=== PATIENT | female | born 1945 | race Caucasian/White ===

== ENCOUNTER 2017-05-29 12:00 | Emergency (ER) | payer MEDICARE ==
[2017-05-29 12:30] VITALS: RESP 18
[2017-05-29] MEDS ORDERED: SODIUM CHLORIDE 0.9% 1,000 ML IV STA (12:39)
--- NOTE | 2017-05-29 12:42 | ED ---
General Adult HPI - General Chief complaint: Recheck/Abnormal Lab/Rx Stated complaint: Abnormal Labs Time Seen by Provider: 05/29/17 12:34 Source: patient, RN notes reviewed, old records reviewed Mode of arrival: wheelchair Limitations: no limitations - History of Present Illness Initial comments: This is a 71-year-old female to the ER for evaluation today. The patient presents to the ER for evaluation of abnormal lab tests, patient is on a potassium per outpatient lab testing. Patient is not on oral supplementation any longer she has stopped that medication. Patient denies any complaints. No chest pain source of breath. - Related Data Home Medications Medication Instructions Recorded Confirmed Atorvastatin [Lipitor] 40 mg PO HS 05/29/17 05/29/17 Bumetanide 2 mg PO BID 05/29/17 05/29/17 Cholecalciferol [Vitamin D3] 1,000 unit PO DAILY 05/29/17 05/29/17 Citrical With Vitamin D 1 tab PO DAILY 05/29/17 05/29/17 Gabapentin [Neurontin] 300 mg PO TID 05/29/17 05/29/17 Glimepiride [Amaryl] 4 mg PO AC-BID 05/29/17 05/29/17 HYDROcodone/APAP 10-325MG [[place] 1 tab PO Q4HR PRN 05/29/17 05/29/17 10-325] Hydrocortisone Cream 1 applic TOPICAL DAILY PRN 05/29/17 05/29/17 [Hydrocortisone 2.5% Cream] Ketoconazole [Ketoconazole 2%] 1 applic TOPICAL DAILY PRN 05/29/17 05/29/17 Levothyroxine Sodium [Synthroid] 125 mcg PO DAILY 05/29/17 05/29/17 Lisinopril 40 mg PO BID 05/29/17 05/29/17 Metolazone [Zaroxolyn] 5 mg PO DAILY 05/29/17 05/29/17 Multivitamin [Multivitamins Adult 1 tab PO DAILY 05/29/17 05/29/17 Gummies] Omeprazole 20 mg PO BID 05/29/17 05/29/17 Pioglitazone [Actos] 45 mg PO DAILY 05/29/17 05/29/17 Potassium Chloride [K-Tab ER] 10 meq PO DAILY 05/29/17 05/29/17 Solifenacin Succinate [Vesicare] 5 mg PO DAILY 05/29/17 05/29/17 metFORMIN HCL 1,000 mg PO BID 05/29/17 05/29/17 Allergies Allergy/AdvReac Type Severity Reaction Status Date / Time camphor [From Vicks Vaporub] Allergy Rash/Hives Verified 05/29/17 13:03 eucalyptus Allergy Rash/Hives Verified 05/29/17 13:03 [From Vicks Vaporub] menthol [From Vicks Vaporub] Allergy Rash/Hives Verified 05/29/17 13:03 Penicillins Allergy Rash/Hives Verified 05/29/17 13:03 petrolatum,white Allergy Rash/Hives Verified 05/29/17 13:03 [From Vicks Vaporub] turpentine oil Allergy Rash/Hives Verified 05/29/17 13:03 [From Vicks Vaporub] ivory soap Allergy Rash/Hives Uncoded 05/29/17 12:30 Review of Systems ROS Statement: Those systems with pertinent positive or pertinent negative responses have been documented in the HPI. ROS Other: All systems not noted in ROS Statement are negative. Past Medical History Past Medical History: Diabetes Mellitus, Hypertension, Thyroid Disorder Additional Past Medical History / Comment(s): obesity skin ca History of Any Multi-Drug Resistant Organisms: None Reported Past Surgical History: No Surgical Hx Reported Past Psychological History: No Psychological Hx Reported Smoking Status: Former smoker Past Alcohol Use History: None Reported Past Drug Use History: None Reported General Exam Limitations: no limitations General appearance: alert, in no apparent distress Head exam: Present: atraumatic, normocephalic, normal inspection Eye exam: Present: normal appearance, PERRL, EOMI. Absent: scleral icterus, conjunctival injection, periorbital swelling ENT exam: Present: normal exam, mucous membranes moist Neck exam: Present: normal inspection. Absent: tenderness, meningismus, lymphadenopathy Respiratory exam: Present: normal lung sounds bilaterally. Absent: respiratory distress, wheezes, rales, rhonchi, stridor Cardiovascular Exam: Present: regular rate, normal rhythm, normal heart sounds. Absent: systolic murmur, diastolic murmur, rubs, gallop, clicks GI/Abdominal exam: Present: soft, normal bowel sounds. Absent: distended, tenderness, guarding, rebound, rigid Extremities exam: Present: normal inspection, full ROM, normal capillary refill. Absent: tenderness, pedal edema, joint swelling, calf tenderness Back exam: Present: normal inspection Neurological exam: Present: alert, oriented X3, CN II-XII intact Psychiatric exam: Present: normal affect, normal mood Skin exam: Present: warm, dry, intact, normal color. Absent: rash Course Vital Signs 05/29/17 12:27 Temperature 97.4 F L Pulse Rate 81 Respiratory 18 Rate Blood Pressure 155/73 O2 Sat by Pulse 97 Oximetry - Reevaluation(s) Reevaluation #1: 05/29/17 14:18 Spoke with patient's family physician Dr. Clarke regarding follow-up, patient will see appointment on Wednesday EKG Findings - EKG Comments: EKG Findings:: EKG shows sinus rhythm is 36, pO2 70, QRS 86, QTC 420 Medical Decision Making - Medical Decision Making female EF reevaluation. Patient is safe for evaluation regarding abnormal lab test elevated potassium. Patient's potassium is still elevated - Lab Data Result diagrams: 05/29/17 12:50 05/29/17 12:50 Lab Results 05/29/17 05/29/17 Range/Units 12:50 12:50 WBC 6.5 (3.8-10.6) k/uL RBC 4.06 (3.80-5.40) m/uL Hgb 12.1 (11.4-16.0) gm/dL Hct 40.3 (34.0-46.0) % MCV 99.2 (80.0-100.0) fL MCH 29.9 (25.0-35.0) pg MCHC 30.2 L (31.0-37.0) g/dL RDW 16.8 H (11.5-15.5) % Plt Count 220 (150-450) k/uL Neutrophils % 66 % Lymphocytes % 19 % Monocytes % 5 % Eosinophils % 8 % Basophils % 0 % Neutrophils # 4.3 (1.3-7.7) k/uL Lymphocytes # 1.2 (1.0-4.8) k/uL Monocytes # 0.3 (0-1.0) k/uL Eosinophils # 0.5 (0-0.7) k/uL Basophils # 0.0 (0-0.2) k/uL Hypochromasia Slight Anisocytosis Slight Macrocytosis Slight Sodium 144 (137-145) mmol/L Potassium 6.0 H (3.5-5.1) mmol/L Chloride 109 H (98-107) mmol/L Carbon Dioxide 26 (22-30) mmol/L Anion Gap 9 mmol/L BUN 31 H (7-17) mg/dL Creatinine 1.14 H (0.52-1.04) mg/dL Est GFR (MDRD) Af Amer 57 (>60 ml/min/1.73 sqM) Est GFR (MDRD) Non-Af 47 (>60 ml/min/1.73 sqM) Glucose 210 H (74-99) mg/dL Calcium 9.3 (8.4-10.2) mg/dL Phosphorus 3.2 (2.5-4.5) mg/dL Total Bilirubin 0.3 (0.2-1.3) mg/dL AST 16 (14-36) U/L ALT 25 (9-52) U/L Alkaline Phosphatase 53 (38-126) U/L Total Protein 6.3 (6.3-8.2) g/dL Albumin 3.6 (3.5-5.0) g/dL Disposition Clinical Impression: Hyperkalemia Disposition: HOME SELF-CARE Condition: Good Instructions: Hyperkalemia (ED) Referrals: Nahun Espinoza DO [Primary Care Provider] - 1-2 days
[2017-05-29 13:11] LABS: Anisocytosis Slight; Basophils % (A) 0 %; CH 30.2; CHCM 30.7; Eosinophils # (A) 0.5 k/uL (0-0.7); Eosinophils % (A) 8 %; HCT 40.3 % (34.0-46.0); HDW 2.62; HGB 12.1 gm/dL (11.4-16.0); Hypochromasia Slight; Luc % (Auto) 2; Lymphocytes # (A) 1.2 k/uL (1.0-4.8); Lymphocytes % (A) 19 %; MCH 29.9 pg (25.0-35.0); MCHC 30.2 g/dL (31.0-37.0); MCV 99.2 fL (80.0-100.0); Macrocytosis Slight; Mean Platelet Volume 9.1; Monocytes # (A) 0.3 k/uL (0-1.0); Monocytes % (A) 5 %; Neutrophils # (A) 4.3 k/uL (1.3-7.7); Neutrophils % (A) 66 %; RBC 4.06 m/uL (3.80-5.40); RDW 16.8 % (11.5-15.5); WBC 6.5 k/uL (3.8-10.6); WBC (Perox) 6.77
[2017-05-29 13:22] LABS: Calcium 9.3 mg/dL (8.4-10.2); Phosphorous 3.2 mg/dL (2.5-4.5); Total Bilirubin 0.3 mg/dL (0.2-1.3); Total Protein 6.3 g/dL (6.3-8.2)
[2017-05-29 14:57] VITALS: BP 154/70; PULSE 69; TEMP 98
== END 2017-05-29 14:50 | disposition home or self-care (01) ==
LOC: EC 12:00
DX: E87.5 Hyperkalemia (principal); E07.9 Disorder of thyroid, unspecified; E11.9 Type 2 diabetes mellitus without complications; E66.9 Obesity, unspecified; I10 Essential (primary) hypertension; Z85.828 Personal history of other malignant neoplasm of skin; Z87.891 Personal history of nicotine dependence; Z79.84 Long term (current) use of oral hypoglycemic drugs; Z79.899 Other long term (current) drug therapy; Z88.0 Allergy status to penicillin; Z91.048 Other nonmedicinal substance allergy status
CPT/HCPCS: 36415; 80053; 84100; 85025; 93005; 96360; 99284

== ENCOUNTER 2017-11-05 09:41 | Inpatient (IN) | payer MEDICARE ==
[2017-11-05] MEDS ORDERED: SODIUM CHLORIDE 0.9% 1,000 ML IV STA (10:04)
[2017-11-05] MEDS ORDERED: IPRATROPIUM-ALBUTEROL 3 ML NEB INHALATION STA (10:04)
--- NOTE | 2017-11-05 10:52 | ED ---
General Adult HPI - General Chief complaint: Shortness of Breath Stated complaint: Diff Breathing Time Seen by Provider: 11/05/17 09:42 Source: patient, EMS, RN notes reviewed, old records reviewed Mode of arrival: EMS Limitations: no limitations - History of Present Illness Initial comments: This is a 72-year-old female to ER for evaluation of shortness of breath today. Patient complains of shortness of breath, not feeling well. Cough and congestion. Patient has history of obesity, asthma, some renal disease and heart failure. Patient states symptoms are worse with exertion, she is unable to do her daily tasks. Significant shortness of breath with any movement or activity. No fevers cough or congestion - Related Data Home Medications Medication Instructions Recorded Confirmed Bumetanide 2 mg PO BID 05/29/17 11/05/17 Cholecalciferol [Vitamin D3] 1,000 unit PO DAILY 05/29/17 11/05/17 Citrical With Vitamin D 1 tab PO DAILY 05/29/17 11/05/17 Gabapentin [Neurontin] 300 mg PO DAILY 05/29/17 11/05/17 Glimepiride [Amaryl] 4 mg PO AC-BID 05/29/17 11/05/17 HYDROcodone/APAP 10-325MG [[place] 1 tab PO Q4HR PRN 05/29/17 11/05/17 10-325] Hydrocortisone Cream 1 applic TOPICAL DAILY PRN 05/29/17 11/05/17 [Hydrocortisone 2.5% Cream] Ketoconazole [Ketoconazole 2%] 1 applic TOPICAL DAILY PRN 05/29/17 11/05/17 Levothyroxine Sodium [Synthroid] 125 mcg PO DAILY 05/29/17 11/05/17 Lisinopril 40 mg PO DAILY 05/29/17 11/05/17 Multivitamin [Multivitamins Adult 1 tab PO DAILY 05/29/17 11/05/17 Gummies] Omeprazole 40 mg PO DAILY 05/29/17 11/05/17 Pioglitazone [Actos] 45 mg PO DAILY 05/29/17 11/05/17 metFORMIN HCL 1,000 mg PO BID 05/29/17 11/05/17 Atorvastatin [Lipitor] 20 mg PO HS 11/05/17 11/05/17 Gabapentin [Neurontin] 600 mg PO HS 11/05/17 11/05/17 Allergies Allergy/AdvReac Type Severity Reaction Status Date / Time camphor [From Vicks Vaporub] Allergy Rash/Hives Verified 11/05/17 09:56 eucalyptus Allergy Rash/Hives Verified 11/05/17 09:56 [From Vicks Vaporub] menthol [From Vicks Vaporub] Allergy Rash/Hives Verified 11/05/17 09:56 Penicillins Allergy Rash/Hives Verified 11/05/17 09:56 petrolatum,white Allergy Rash/Hives Verified 11/05/17 09:56 [From Vicks Vaporub] turpentine oil Allergy Rash/Hives Verified 11/05/17 09:56 [From Vicks Vaporub] ivory soap Allergy Rash/Hives Uncoded 05/29/17 12:30 Review of Systems ROS Statement: Those systems with pertinent positive or pertinent negative responses have been documented in the HPI. ROS Other: All systems not noted in ROS Statement are negative. Past Medical History Past Medical History: Diabetes Mellitus, Hypertension, Thyroid Disorder Additional Past Medical History / Comment(s): obesity skin ca History of Any Multi-Drug Resistant Organisms: None Reported Past Surgical History: No Surgical Hx Reported Past Psychological History: No Psychological Hx Reported Smoking Status: Former smoker Past Alcohol Use History: None Reported Past Drug Use History: None Reported General Exam Limitations: no limitations General appearance: alert, obese Head exam: Present: atraumatic, normocephalic, normal inspection Eye exam: Present: normal appearance, PERRL, EOMI. Absent: scleral icterus, conjunctival injection, periorbital swelling ENT exam: Present: normal exam, mucous membranes moist Neck exam: Present: normal inspection. Absent: tenderness, meningismus, lymphadenopathy Respiratory exam: Present: normal lung sounds bilaterally. Absent: respiratory distress, wheezes, rales, rhonchi, stridor Cardiovascular Exam: Present: regular rate, normal rhythm, normal heart sounds. Absent: systolic murmur, diastolic murmur, rubs, gallop, clicks GI/Abdominal exam: Present: soft, normal bowel sounds. Absent: distended, tenderness, guarding, rebound, rigid Extremities exam: Present: normal inspection, full ROM, normal capillary refill. Absent: tenderness, pedal edema, joint swelling, calf tenderness Back exam: Present: normal inspection Neurological exam: Present: alert, oriented X3, CN II-XII intact Psychiatric exam: Present: normal affect, normal mood Skin exam: Present: warm, dry, intact, normal color. Absent: rash Course Vital Signs 11/05/17 11/05/17 11/05/17 09:45 10:14 10:26 Temperature 98.2 F Pulse Rate 98 105 H Respiratory 18 Rate Blood Pressure 188/111 O2 Sat by Pulse 96 Oximetry 11/05/17 11/05/17 11/05/17 10:28 11:01 11:28 Temperature Pulse Rate 118 H 94 97 Respiratory 18 16 Rate Blood Pressure 172/107 172/94 O2 Sat by Pulse 100 97 Oximetry - Reevaluation(s) Reevaluation #1: 11/05/17 11:56 Patient does have worsening renal function, increasing shortness of breath, mild improvement with breathing treatment 11/05/17 11:56 Wheezing has improved EKG Findings - EKG Comments: EKG Findings:: EKG shows A. fib with RVR rate 101, QRS 86, QTc 401 Medical Decision Making - Medical Decision Making 72 female to ER with CHF, COPD, acute renal failure. Patient will be admitted for treatment of the above potassium was notably elevated we'll treat - Lab Data Result diagrams: 11/05/17 10:30 11/05/17 10:30 Lab Results 11/05/17 11/05/17 11/05/17 Range/Units 10:30 10:30 10:30 WBC 8.0 (3.8-10.6) k/uL RBC 4.25 (3.80-5.40) m/uL Hgb 11.9 (11.4-16.0) gm/dL Hct 40.9 (34.0-46.0) % MCV 96.2 (80.0-100.0) fL MCH 28.0 (25.0-35.0) pg MCHC 29.1 L (31.0-37.0) g/dL RDW 16.8 H (11.5-15.5) % Plt Count 320 (150-450) k/uL Neutrophils % 81 % Lymphocytes % 11 % Monocytes % 5 % Eosinophils % 1 % Basophils % 0 % Neutrophils # 6.5 (1.3-7.7) k/uL Lymphocytes # 0.9 L (1.0-4.8) k/uL Monocytes # 0.4 (0-1.0) k/uL Eosinophils # 0.1 (0-0.7) k/uL Basophils # 0.0 (0-0.2) k/uL Hypochromasia Marked Anisocytosis Slight Macrocytosis Slight PT (9.0-12.0) sec INR (<1.2) APTT (22.0-30.0) sec Sodium 138 (137-145) mmol/L Potassium 6.4 H* (3.5-5.1) mmol/L Chloride 101 (98-107) mmol/L Carbon Dioxide 24 (22-30) mmol/L Anion Gap 13 mmol/L BUN 72 H (7-17) mg/dL Creatinine 3.73 H (0.52-1.04) mg/dL Est GFR (MDRD) Af Amer 14 (>60 ml/min/1.73 sqM) Est GFR (MDRD) Non-Af 12 (>60 ml/min/1.73 sqM) Glucose 123 H (74-99) mg/dL Calcium 9.2 (8.4-10.2) mg/dL Magnesium 1.8 (1.6-2.3) mg/dL Total Bilirubin 0.3 (0.2-1.3) mg/dL AST 93 H (14-36) U/L ALT 148 H (9-52) U/L Alkaline Phosphatase 134 H (38-126) U/L Total Creatine Kinase 79 (30-135) U/L CK-MB (CK-2) 0.8 (0.0-2.4) ng/mL CK-MB (CK-2) Rel Index 1.0 Troponin I 0.060 H* (0.000-0.034) ng/mL Total Protein 6.2 L (6.3-8.2) g/dL Albumin 3.6 (3.5-5.0) g/dL 11/05/17 Range/Units 10:30 WBC (3.8-10.6) k/uL RBC (3.80-5.40) m/uL Hgb (11.4-16.0) gm/dL Hct (34.0-46.0) % MCV (80.0-100.0) fL MCH (25.0-35.0) pg MCHC (31.0-37.0) g/dL RDW (11.5-15.5) % Plt Count (150-450) k/uL Neutrophils % % Lymphocytes % % Monocytes % % Eosinophils % % Basophils % % Neutrophils # (1.3-7.7) k/uL Lymphocytes # (1.0-4.8) k/uL Monocytes # (0-1.0) k/uL Eosinophils # (0-0.7) k/uL Basophils # (0-0.2) k/uL Hypochromasia Anisocytosis Macrocytosis PT 11.6 (9.0-12.0) sec INR 1.2 H (<1.2) APTT 22.3 (22.0-30.0) sec Sodium (137-145) mmol/L Potassium (3.5-5.1) mmol/L Chloride (98-107) mmol/L Carbon Dioxide (22-30) mmol/L Anion Gap mmol/L BUN (7-17) mg/dL Creatinine (0.52-1.04) mg/dL Est GFR (MDRD) Af Amer (>60 ml/min/1.73 sqM) Est GFR (MDRD) Non-Af (>60 ml/min/1.73 sqM) Glucose (74-99) mg/dL Calcium (8.4-10.2) mg/dL Magnesium (1.6-2.3) mg/dL Total Bilirubin (0.2-1.3) mg/dL AST (14-36) U/L ALT (9-52) U/L Alkaline Phosphatase (38-126) U/L Total Creatine Kinase (30-135) U/L CK-MB (CK-2) (0.0-2.4) ng/mL CK-MB (CK-2) Rel Index Troponin I (0.000-0.034) ng/mL Total Protein (6.3-8.2) g/dL Albumin (3.5-5.0) g/dL - Radiology Data Radiology results: report reviewed (Chest x-ray is positive for CHF), image reviewed Critical Care Time Critical Care Time: Yes Total Critical Care Time: 31 Disposition Clinical Impression: ARF (acute renal failure), Congestive heart failure, Asthma with exacerbation, Hyperkalemia Disposition: ADMITTED IP TO THIS [facility] Condition: Fair Referrals: Nahun Espinoza DO [Primary Care Provider] - 1-2 days
[2017-11-05 11:02] LABS: INR 1.2 (<1.2); Partial Thromboplastin Time 22.3 sec (22.0-30.0); Prothrombin Time 11.6 sec (9.0-12.0)
[2017-11-05] MEDS ORDERED: LISINOPRIL 20 MG TAB PO STA (11:02)
[2017-11-05] MEDS ORDERED: BUMETANIDE 1 MG TAB PO STA (11:02)
[2017-11-05 11:03] LABS: Albumin 3.6 g/dL (3.5-5.0); Calcium 9.2 mg/dL (8.4-10.2); Magnesium 1.8 mg/dL (1.6-2.3); Total Bilirubin 0.3 mg/dL (0.2-1.3); Total Protein 6.2 g/dL (6.3-8.2)
--- NOTE | 2017-11-05 11:06 | XR ---
EXAMINATION TYPE: XR chest 1V portable DATE OF EXAM: 11/05/2017 Comparison: None Clinical History: 72-year-old female difficulty breathing Findings: Heart mildly enlarged. Mild diffuse interstitial prominence. There is a small right effusion with rig ht basilar density. Impression: 1. Mild cardiomegaly. 2. Small right effusion with adjacent atelectasis and/or consolidation. 3. Correlate to exclude mild CHF as an etiology.
[2017-11-05 11:09] LABS: Potassium 6.4 mmol/L (3.5-5.1)
[2017-11-05 11:21] LABS: Anisocytosis Slight; Basophils % (A) 0 %; Eosinophils # (A) 0.1 k/uL (0-0.7); Eosinophils % (A) 1 %; HCT 40.9 % (34.0-46.0); HGB 11.9 gm/dL (11.4-16.0); Hypochromasia Marked; Lymphocytes # (A) 0.9 k/uL (1.0-4.8); Lymphocytes % (A) 11 %; MCHC 29.1 g/dL (31.0-37.0); MCV 96.2 fL (80.0-100.0); Macrocytosis Slight; Mean Platelet Volume 8.2; Monocytes # (A) 0.4 k/uL (0-1.0); Monocytes % (A) 5 %; Neutrophils # (A) 6.5 k/uL (1.3-7.7); Neutrophils % (A) 81 %; Platelet Count 320 k/uL (150-450); RBC 4.25 m/uL (3.80-5.40); RDW 16.8 % (11.5-15.5)
[2017-11-05 11:29] LABS: Creatine Kinase MB 0.8 ng/mL (0.0-2.4)
[2017-11-05 11:45] LABS: Troponin I 0.06 ng/mL (0.000-0.034)
[2017-11-05] MEDS ORDERED: DEXTROSE 50%-WATER 50 ML SYRINGE IVP STA ×2 (11:57→22:33)
[2017-11-05] MEDS ORDERED: INSULIN REGULAR 100 UNIT/ML VIAL IV ONE ×2 (11:57→22:33)
[2017-11-05] MEDS ORDERED: SODIUM POLYSTYRENE SULFONATE 15 GM/60 ML BOTTLE PO STA (11:57)
[2017-11-05] MEDS ORDERED: FUROSEMIDE 10 MG/ML 4 ML VIAL IV SCH (12:15)
[2017-11-05 12:34] LABS: Glucose,Whole Blood 100 mg/dL (75-99)
[2017-11-05] MEDS ORDERED: HEPARIN SODIUM,PORCINE 5,000 UNIT/ML 1 ML VIAL IV PRN (13:42)
[2017-11-05] MEDS ORDERED: HEPARIN SODIUM,PORCINE 5,000 UNIT/ML 1 ML VIAL IV ONE (13:42)
[2017-11-05] MEDS ORDERED: HYDROCORTISONE 1% CREAM 30 GM TUBE TOPICAL PRN (14:18)
--- NOTE | 2017-11-05 14:24 | CONS ---
CONSULTATION Mrs. Cuenca is a 72-year-old female with known history of diabetes and hyperlipidemia who presented to the emergency room with progressive dyspnea. The patient for the last two weeks has been having progressive cough, productive of yellow sputum. She has felt feverish and had significant worsening dyspnea as well as peripheral edema. She is limited in her physical activity, but much worse now. She denies any chest pain. She denies any dizziness or palpitation. She denies any knowledge of an irregular heartbeat. In the emergency room, she was noted to be in atrial fibrillation of unknown duration. The patient was also noted to have worsening renal failure and hyperkalemia. In the past, she has she been seen in the emergency room because of hyperkalemia and she had renal function abnormality, but much worse at this point. She has no knowledge of renal failure in the past. Patient recently injured her left leg and had a draining ulceration on it. Her coronary risk factors are positive for diabetes, hyperlipidemia, hypertension. She has stopped smoking 42 years ago. Her medications include Lipitor 20 mg daily, Actos 45 mg daily, lisinopril 40 mg daily, levothyroxine, Amaryl, metformin, vitamin D, ketoconazole, bumetanide 2 mg twice a day. REVIEW OF SYSTEMS: RESPIRATORY SYSTEM: She had dyspnea on exertion. Cough productive of yellow sputum. She has chronic dyspnea on exertion. GI SYSTEM: No recent GI bleeding. No peptic ulcer disease. SYSTEM: No dysuria or hematuria. NERVOUS SYSTEM: No history of stroke or seizure. PHYSICAL EXAMINATION: A 72-year-old female, alert, oriented, in no apparent distress. Morbidly obese. Blood pressure 160/60 with the heart rate in the 100s. Afebrile. HEAD: Normocephalic. EYES: Sclerae anicteric. NECK: Good carotid upstroke. No bruit. LUNGS: With few crackles bilaterally. HEART: Irregular, irregular. S1, S2. No S3 with a systolic murmur at the base. No diastolic murmur. ABDOMEN: Soft, obese, nontender. EXTREMITIES: +1 to 2 edema bilaterally. Dressing noted on an ulceration on the left leg. Decreased distal pulses. LAB DATA: Lab data revealed a BUN and creatinine of 72 and 3.73. Potassium 6.4. AST is 93, ALT is 148. Troponin 0.06 with an proBNP of 18,200. Her hemoglobin is 11.9. Her chest x-ray raised the possibility of either atelectasis or CHF. Her EKG revealed atrial fibrillation with borderline left axis deviation, poor R wave progression cannot exclude inferoapical myocardial infarction. IMPRESSION: 1. Progressive dyspnea with cough productive of yellowish sputum, consistent with tracheobronchitis. The possibility of influenza cannot be excluded. 2. Atrial fibrillation, new since the last EKG available in May,. 3. Hyperkalemia. 4. Worsening renal failure. 5. Hypertension. 6. Hyperlipidemia. 7. Diabetes mellitus. 8. Morbid obesity. RECOMMENDATION: From the cardiac standpoint, I do not believe that she is significantly fluid overloaded. Elevation of the troponin does not correlate with her presentation and I believe she may be dehydrated. I will give her some IV fluids. We will hold the diuretics at this time. I will obtain echocardiogram with Doppler. I will start her on beta ravi to control ventricular response as well as hydralazine for her blood pressure. Her lisinopril will be held. I will add to her regimen IV heparin. The ulceration in the leg will need to be further evaluated. I will leave the decision for antibiotic treatment to her primary care physician. Depending on her progress, further recommendation will be made. Thank you for this consult. Will follow with you. KASSANDRA / PEDRON: [id number] /
--- NOTE | 2017-11-05 14:44 | P.NPCON ---
History of Present Illness - Reason for Consult acute renal failure - History of Present Illness Reason for consultation: Acute kidney injury History of present illness: Patient is a 72-year-old female seen in renal consultation for acute kidney injury on chronic kidney disease. It appears patient has chronic kidney disease stage III with baseline creatinine in the range of 1.1-1.3. Her creatinine is elevated at 3.73. Patient presented to the hospital today with dyspnea. According to the family, she has been sick for the last 3-4 weeks but was hesitant to come to the hospital. She denies any vomiting or diarrhea. Her oral intake is fair. She has been voiding. Denies any hematuria or dysuria. Denies chest pain. She denies any history of COPD. Chest x-ray was suggestive of small effusion with atelectasis. She denies fever or chills. She does admit to productive cough with yellow sputum. Her blood pressures have been on the higher side. It was 188/111 on admission but most recent reading is 161/60. Patient states she does have history of CHF but takes diuretics only if needed. I do see Bumex in her home medications but she states she hasn't taken it for about a week now. She denies swelling in her legs. Denies use of NSAIDs. She does not follow with a hospice volunteer as an outpatient. Vital signs are stable. General: The patient appeared well nourished and normally developed. HEENT: Head exam is unremarkable. Neck is without jugular venous distension. LUNGS: Lungs are clear to auscultation and percussion. Breath sounds decreased. HEART: Rate and Rhythm are regular. First and second heart sounds normal. No murmurs, rubs or gallops. ABDOMEN: Abdominal exam reveals normal bowel sounds. Non-tender and non- distended. No evidence of peritonitis. EXTREMITITES: 1+ edema. Chronic skin changes noted. Past Medical History Past Medical History: Atrial Fibrillation, Diabetes Mellitus, Hypertension, Thyroid Disorder Additional Past Medical History / Comment(s): NIDDM type II, 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, hypothyroid, skin cancer with removals, tinnitis bilaterally, edentulous, arthritis in spine, current sore L lower leg, bilateral feet reddened/dry, current bite oliveira L upper chest from "bedbugs.", when pt was little she went to special education for reading and writing/now can read "alittle and write alittle." History of Any Multi-Drug Resistant Organisms: None Reported Past Surgical History: Tonsillectomy, Tubal Ligation Additional Past Surgical History / Comment(s): Skin cancer with removals, EGD, D &C Past Anesthesia/Blood Transfusion Reactions: No Reported Reaction Smoking Status: Former smoker - Past Family History Father Family Medical History: Cancer Additional Family Medical History / Comment(s): Father of lung cancer. He was a nonsmoker, worked in a [employer]. Mother Family Medical History: Cancer, Coronary Artery Disease (CAD), Diabetes Mellitus , Hyperlipidemia, Hypertension Additional Family Medical History / Comment(s): Mother of pancreatic cancer. Medications and Allergies Home Medications Medication Instructions Recorded Confirmed Type Bumetanide 2 mg PO BID 05/29/17 11/05/17 History Cholecalciferol [Vitamin D3] 1,000 unit PO DAILY 05/29/17 11/05/17 History Citrical With Vitamin D 1 tab PO DAILY 05/29/17 11/05/17 History Gabapentin [Neurontin] 300 mg PO DAILY 05/29/17 11/05/17 History Glimepiride [Amaryl] 4 mg PO AC-BID 05/29/17 11/05/17 History HYDROcodone/APAP 10-325MG [[place] 1 tab PO Q4HR PRN 05/29/17 11/05/17 History 10-325] Hydrocortisone Cream 1 applic TOPICAL DAILY PRN 05/29/17 11/05/17 History [Hydrocortisone 2.5% Cream] Ketoconazole [Ketoconazole 2%] 1 applic TOPICAL DAILY PRN 05/29/17 11/05/17 History Levothyroxine Sodium [Synthroid] 125 mcg PO DAILY 05/29/17 11/05/17 History Lisinopril 40 mg PO DAILY 05/29/17 11/05/17 History Multivitamin [Multivitamins Adult 1 tab PO DAILY 05/29/17 11/05/17 History Gummies] Omeprazole 40 mg PO DAILY 05/29/17 11/05/17 History Pioglitazone [Actos] 45 mg PO DAILY 05/29/17 11/05/17 History metFORMIN HCL 1,000 mg PO BID 05/29/17 11/05/17 History Atorvastatin [Lipitor] 20 mg PO HS 11/05/17 11/05/17 History Gabapentin [Neurontin] 600 mg PO HS 11/05/17 11/05/17 History Allergies Allergy/AdvReac Type Severity Reaction Status Date / Time camphor [From Vicks Vaporub] Allergy Rash/Hives Verified 11/05/17 09:56 eucalyptus Allergy Rash/Hives Verified 11/05/17 09:56 [From Vicks Vaporub] menthol [From Vicks Vaporub] Allergy Rash/Hives Verified 11/05/17 09:56 Penicillins Allergy Rash/Hives Verified 11/05/17 09:56 petrolatum,white Allergy Rash/Hives Verified 11/05/17 09:56 [From Vicks Vaporub] turpentine oil Allergy Rash/Hives Verified 11/05/17 09:56 [From Vicks Vaporub] ivory soap Allergy Rash/Hives Uncoded 05/29/17 12:30 Physical Exam Vitals: Vital Signs Temp Pulse Resp BP Pulse Ox 11/05/17 12:53 98 F 100 18 161/60 98 11/05/17 12:22 100 18 164/70 100 11/05/17 11:28 97 16 172/94 97 11/05/17 11:01 94 18 172/107 100 11/05/17 10:28 118 H 11/05/17 10:26 105 H 18 188/111 96 11/05/17 10:14 98 11/05/17 09:45 98.2 F Intake and Output 11/04/17 11/05/17 11/05/17 22:59 06:59 14:59 Other: Weight 129.274 kg Patient Weight 11/06/17 06:59 Weight 129.274 kg Results - Lab Results Most recent lab results Calcium 9.2 mg/dL (8.4-10.2) 11/05/17 10:30 Magnesium 1.8 mg/dL (1.6-2.3) 11/05/17 10:30 11/05/17 10:30 11/05/17 10:30 Assessment and Plan Plan: Assessment: #1. Acute kidney injury secondary to ATN secondary to hemodynamic instability and further worsened with the use of lisinopril and diuretics although it is unclear whether she was taking them or not. Creatinine up to 3.73. Rule out urinary retention. #2. Chronic kidney disease stage III with baseline creatinine in the range of 1.1-1.3. Etiology is likely diabetic kidney disease. #3. Diabetes mellitus. #4. Hyperkalemia secondary to acute kidney injury and further worsened with the use of lisinopril. No evidence of metabolic acidosis. Plan: Continue normal saline to run at 75 mL an hour. Check postvoid residual. Check urinalysis. Check renal ultrasound. Patient did receive IV insulin, nebulized albuterol, as well as Bumex and Kayexalate in the ER. Repeat potassium level at 4 PM today. Avoid nephrotoxic agents and hypotensive episodes - hold lisinopril, metformin, and diuretics for now. Follow up echocardiogram results. Thank you for the consultation. I will continue to follow the patient with you during her hospital stay.
[2017-11-05] MEDS: HEPARIN SOD,PORK IN 0.45% NACL 25,000 UNIT in 0.45% NACL 1 500ML.BAG IV SCH (14:51)
[2017-11-05] MEDS: SODIUM CHLORIDE 0.9% 1,000 ML IV SCH (14:51)
[2017-11-05] MEDS ORDERED: hydrALAZINE HCL 20 MG/ML 1 ML VIAL IVP PRN (15:22)
[2017-11-05 15:23] LABS: T4, Free (Free Thyroxine) 1.16 ng/dL (0.78-2.19)
[2017-11-05] MEDS ORDERED: CALAMINE/ZINC OXIDE LOTION 177 ML BTL TOPICAL PRN (15:38)
[2017-11-05] MEDS: METOPROLOL TARTRATE 25 MG TAB PO SCH ×2 (15:45→21:50)
[2017-11-05] MEDS: hydrALAZINE HCL 25 MG TAB PO SCH ×2 (15:45→21:50)
--- NOTE | 2017-11-05 16:42 | HP ---
HISTORY AND PHYSICAL DATE OF SERVICE: 11/05/2017 CHIEF COMPLAINTS: Cough, sputum, weakness and renal failure. HISTORY OF PRESENT ILLNESS: This 72-year-old woman with a past medical history of multiple medical problems, including diabetes mellitus, hypertension, history of hypothyroidism, history of neuropathy, being followed by Dr. Espinoza in the outpatient setting, is apparently living with her . The patient was not feeling well over the past several days. Patient had flu-like symptoms with increasing cough and shortness of breath. The patient also complains of tiredness and weakness. The patient came to [facility] today and was admitted for further evaluation and treatment. On admission the patient was found to have acute renal failure with severe hyperkalemia at 6.4 and creatinine 3.73. CHF was also suspected; however, clinically the patient is more dehydrated than fluid overload. The patient was started on IV fluids and admitted for further evaluation and treatment. Cardiology and Nephrology are following the patient closely at this time. Of note also, the patient apparently had a bedbug infestation at home, and today before coming to the hospital the patient apparently saw 2 bedbugs which the patient killed. The patient also had some skin lesions, especially on the left upper chest, suggestive of irritation and scratching from bedbugs; however, the ER detailed inspection did not reveal any bugs as such. There is no history of any fever, rigor, chills. No history of headache, loss of consciousness, seizures at this time. Chest x-ray showed suspicious infiltrate on the right lower part. The patient was also noted to have atrial fibrillation with a heart rate of 101. PAST MEDICAL HISTORY: 1. History of diabetes mellitus. 2. Hypertension. 3. Hypothyroidism. 4. Tonsillectomy. 5. Tubal ligation. HOME MEDICATIONS: 1. Lipitor 20 mg at bedtime. 2. Actos 45 mg daily. 3. Hydrocodone 10 mg q.4 p.r.n. 4. Lisinopril 40 mg p.o. daily. 5. Synthroid 125 mcg p.o. daily. 6. Amaryl 4 mg p.o. before meals b.i.d. 7. Neurontin 600 mg at bedtime and 300 mg p.o. daily. 8. Metformin 1000 mg p.o. b.i.d. 9. Omeprazole 40 mg p.o. daily. 10.Multivitamins 1 p.o. daily. 11.Citracal with vitamin D one p.o. daily. 12.Vitamin D3 1000 daily. 13.Ketoconazole 2% ointment daily p.r.n. 14.Hydrocortisone 2.5% daily p.r.n. 15.Bumex 2 mg p.o. b.i.d. ALLERGIES: 1. CAMPHOR. 2. EUCALYPTUS. 3. MENTHOL. 4. PENICILLINS. 5. PETROLATUM. 6. TURPENTINE OIL. 7. IVORY SOAP. FAMILY HISTORY: History of cancer in the family, lung cancer in father. SOCIAL HISTORY: Previous history of smoking. No current smoking or alcohol. REVIEW OF SYSTEMS: ENT: No diminished hearing. No diminished vision. CARDIOVASCULAR SYSTEM: As mentioned earlier. RESPIRATORY SYSTEM: As mentioned earlier. GI: As mentioned earlier. : As mentioned earlier. NERVOUS SYSTEM: No numbness, weakness. ALLERGY/IMMUNOLOGY: No asthma, hayfever. MUSCULOSKELETAL: As mentioned earlier. HEMATOLOGY/ONCOLOGY: No history of anemia. ENDOCRINE: Diabetes mellitus. CONSTITUTIONAL: As mentioned earlier. DERMATOLOGY: Negative. RHEUMATOLOGY: Negative. PSYCHIATRY: As mentioned earlier. PHYSICAL EXAMINATION: Patient is alert and oriented x3. Pulse 97, blood pressure 128/89, respiration 16, temperature 98.3, pulse ox 99% on 2 L. HEENT: Conjunctivae normal. Oral mucosa dry. NECK: No jugular venous distention. No carotid bruit. No lymph node enlargement. CARDIOVASCULAR SYSTEM: S1, S2 muffled. Ejection systolic murmur. No S3. No S4. RESPIRATORY SYSTEM: Breath sounds diminished at the bases. A few scattered rhonchi, especially on the right posterior base present, diminished. No bronchial breath sounds heard. ABDOMEN: Soft, obese, nontender. No mass palpable. LEGS: No edema. No swelling. NERVOUS SYSTEM: Higher functions as mentioned earlier. Moves all 4 limbs. No focal motor or sensory deficit. LYMPHATICS: No lymph node palpable in neck or axillae. SKIN: No ulcer, rash, bleeding. LABS: WBC 8, hemoglobin 11.9. INR is 1.2. Sodium 138, potassium 6.4, creatinine 3.73. Other labs are noted. AST is 93. ALT is 148. Troponin 0.063. TSH is 7.170. ASSESSMENT: 1. Severe acute renal failure with severe hyperkalemia, possibly acute prerenal factors, acute tubular necrosis. 2. Possible acute purulent tracheobronchitis or bronchopneumonia on the right; rule out influenza. 3. Increased AST, ALT. Rule out mild hepatitis. 4. Rule out hypothyroidism. 5. Troponin 0.063, indeterminate. 6. Atrial fibrillation, probably new onset. 7. Diabetes mellitus, type 2. 8. Hypertension. 9. Obesity with body mass index of 55.7. 10.Hypothyroidism. 11.History of neuropathy. 12.History of degenerative joint disease. 13.History of bedbugs recently. 14.Remote history of nicotine dependence. 15.FULL CODE. RECOMMENDATIONS AND DISCUSSION: In this 72-year-old woman who presented with multiple complex medical issues, we will monitor the patient closely, continue the current medications, continue symptomatic treatment. I would recommend IV fluids cautiously. The patient has received Kayexalate insulin glucose regimen in the ER. I would recommend closely followup with nephrology advice. Recommend a low-potassium diet and also repeat potassium at 4:00 and repeat the regimen o'clock and repeat the regimen if the potassium remains high. The patient was also seen by Cardiology. Will continue to monitor. Hold the diuretics for now. Heparin has been initiated. Hold nephrotoxic medications. Kayexalate has been given. We will hold Zestril as well at this time. Obtain the cultures. Influenza swab. Bronchodilators. Guarded prognosis. Will repeat the x-ray tomorrow. Two -D echo has been ordered. Ultrasound of the kidneys also has been recommended by Nephrology. Overall prognosis extremely guarded because of the above-mentioned multiple complex medical issues. Further recommendations to follow. A copy of this dictation is forwarded to Dr. Espinoza, who is the primary physician. MMODL / IJN: [id number] / MOHINDER
[2017-11-05] MEDS: cefTRIAXone IN SWFI 1,000 MG/10 ML SYRINGE IVP SCH (17:12)
--- NOTE | 2017-11-05 17:27 | US ---
EXAMINATION TYPE: US kidneys/renal and bladder DATE OF EXAM: 11/05/2017 COMPARISON: CT 2008 CLINICAL HISTORY: erum. EXAM MEASUREMENTS: Right Kidney: 10.2 x 4.3 x 4.2 cm not well seen Left Kidney: 11.1 x 5.1 x 4.8 cm Morbidly obese patient 5'0", 285lbs, study technically difficult and very limited, patient unable to well move or hold her breath. FF adjacent to liver. Right Kidney: very limited visualization, pictures not diagnostic Left Kidney: No hydronephrosis or masses seen Bladder: Bilateral Jets seen: Normal Post Void Residual: IMPRESSION: There is a small amount of free fluid in the right upper quadrant. Right kidney is not well visualize d. Left kidney shows no hydronephrosis. Limited exam due to the patient's size. Left kidney measures 11 x 5.1 cm with evidence of sinus lipomatosis.
--- NOTE | 2017-11-05 17:32 | ECHOF ---
Referral Reason:afib MEASUREMENTS -------- HEIGHT: 152.4 cm WEIGHT: 129.3 kg BP: 161/60 RVIDd: 2.8 cm (< 3.3) IVSd: 1.2 cm (0.6 - 1.1) LVIDd: 4.7 cm (3.9 - 5.3) LVPWd: 1.1 cm (0.6 - 1.1) IVSs: 1.5 cm LVIDs: 2.6 cm LVPWs: 2.0 cm Ao Diam: 3.0 cm (2.0 - 3.7) AV Cusp: 1.9 cm (1.5 - 2.6) LA Diam: 4.3 cm (2.7 - 3.8) RAP: 5.00 mmHg RVSP: 42.12 mmHg FINDINGS -------- Atrial fibrillation. This was a technically difficult study with suboptimal views. The left ventricular size is normal. There is mild concentric left ventricular hypertrophy. Overa ll left ventricular systolic function is low-normal with, an EF between 50 - 55 %. The right ventricle is normal in size and function. The left atrium is mildly dilated. The right atrium is normal in size. The aortic valve is trileaflet, and appears structurally normal. No aortic stenosis or regurgitation. The mitral valve leaflets are mildly thickened. Mild mitral regurgitation is present. Kudg-ep-htbtcqiv tricuspid regurgitation present. There is mild pulmonary hypertension. The right ventricular systolic pressure, as measured by Doppler, is 42.12mmHg. Pulmonic valve appears structurally normal. The aortic root size is normal. The pericardium is normal. CONCLUSIONS -------- 1. Atrial fibrillation. 2. This was a technically difficult study with suboptimal views. 3. The left ventricular size is normal. 4. There is mild concentric left ventricular hypertrophy. 5. Overall left ventricular systolic function is low-normal with, an EF between 50 - 55 %. 6. The right ventricle is normal in size and function. 7. The left atrium is mildly dilated. 8. The right atrium is normal in size. 9. The aortic valve is trileaflet, and appears structurally normal. No aortic stenosis or regurgitati on. 10. The mitral valve leaflets are mildly thickened. 11. Mild mitral regurgitation is present. 12. Oowc-nu-auglphyj tricuspid regurgitation present. 13. There is mild pulmonary hypertension. 14. The right ventricular systolic pressure, as measured by Doppler, is 42.12mmHg. 15. Pulmonic valve appears structurally normal. 16. The aortic root size is normal. 17. The pericardium is normal. PEARL MAKER: Kim Hammer RDCS
[2017-11-05] MEDS: AZITHROMYCIN 500 MG in SODIUM CHLORIDE 0.9% 250 ML IVPB SCH (17:33)
[2017-11-05 18:43] LABS: Glucose,Whole Blood 175 mg/dL (75-99)
[2017-11-05] MEDS: HYDROcodone/APAP 10-325MG 1 EACH TAB PO PRN (19:16)
[2017-11-05] MEDS: IPRATROPIUM-ALBUTEROL 3 ML NEB INHALATION SCH (19:42)
[2017-11-05] MEDS ORDERED: IPRATROPIUM 0.5 MG/2.5 ML NEBU INHALATION SCH (20:00)
[2017-11-05] MEDS ORDERED: ATORVASTATIN 20 MG TAB PO SCH (21:00)
[2017-11-05 23:36] LABS: Glucose,Whole Blood 367 mg/dL (75-99)
[2017-11-06] MEDS: SODIUM CHLORIDE 0.9% 1,000 ML IV SCH (03:08)
[2017-11-06 04:25] LABS: HCT 37.1 % (34.0-46.0); HGB 10.9 gm/dL (11.4-16.0); Hypochromasia Marked; MCH 28.4 pg (25.0-35.0); MCHC 29.4 g/dL (31.0-37.0); MCV 96.8 fL (80.0-100.0); Mean Platelet Volume 7.4; Platelet Count 281 k/uL (150-450); RBC 3.83 m/uL (3.80-5.40); RDW 15.4 % (11.5-15.5)
[2017-11-06 05:14] LABS: Band Neutrophils % 1 %; Eosinophils # (M) 0.15 k/uL (0-0.7); Neutrophils % (M) 78 %; Nucleated Red Blood Cells 1 /100 WBC (0-0); Total Cells Counted 200
[2017-11-06 05:15] LABS: Lymphocytes # (M) 0.81 k/uL (1.0-4.8); Monocytes # (M) 0.74 k/uL (0-1.0); Target Cells Present; WBC 7.4 k/uL (3.8-10.6)
[2017-11-06 05:51] LABS: Glucose,Whole Blood 95 mg/dL (75-99)
[2017-11-06] MEDS: INSULIN ASPART 100 UNIT/ML 1 ML 10 ML VIAL SQ SCH ×4 (06:22→21:51)
[2017-11-06] MEDS: PANTOPRAZOLE 40 MG TABLET PO SCH (06:31)
[2017-11-06 06:58] LABS: Calcium 8.2 mg/dL (8.4-10.2); Potassium 5.5 mmol/L (3.5-5.1)
[2017-11-06] MEDS ORDERED: ENOXAPARIN 40 MG/0.4 ML SYRINGE SQ SCH (09:00)
[2017-11-06] MEDS: LEVOTHYROXINE 125 MCG TAB PO SCH (09:15)
[2017-11-06] MEDS: GABAPENTIN 300 MG CAP PO SCH (09:15)
[2017-11-06] MEDS: AZITHROMYCIN 500 MG in SODIUM CHLORIDE 0.9% 250 ML IVPB SCH (09:15)
[2017-11-06] MEDS: hydrALAZINE HCL 25 MG TAB PO SCH (09:15)
[2017-11-06] MEDS: METOPROLOL TARTRATE 25 MG TAB PO SCH ×2 (09:16→21:46)
[2017-11-06] MEDS: IPRATROPIUM-ALBUTEROL 3 ML NEB INHALATION SCH ×4 (09:43→20:40)
[2017-11-06] MEDS: cefTRIAXone IN SWFI 1,000 MG/10 ML SYRINGE IVP SCH (10:23)
--- NOTE | 2017-11-06 10:28 | P.PN ---
Subjective Progress Note Date: 11/06/17 Principal diagnosis: Acute bronchitis, new onset atrial fibrillation This is a 72-year-old female with history of diabetes, hyperlipidemia, hypertension, who presented to the emergency room with symptoms of progressively worsening dyspnea. 2 weeks prior to this admission she had developed a progressive cough of productive yellow sputum with associated fever that had been getting progressively worse. Patient also noted some peripheral edema. She denied any chest discomfort. She denied any palpitations. EKG on admission showed atrial fibrillation which appeared to be new for this patient. Patient was seen in consultation by Dr. Gonzales, who did not feel that the patient was in any overt heart failure. Patient was initiated on beta ravi to control ventricular response as well as hydralazine for blood pressure. Lisinopril was held because of abnormal renal function. She continues to be on IV heparin at this time. An echocardiogram with Doppler study was performed which revealed an ejection fraction of 50-55%. Mild to moderate tricuspid regurg is noted. Blood pressure this morning 126/50 with a heart rate of 100, 99% on 3 L of oxygen. Continues to be in atrial fibrillation this morning heart rate at present 60. Continue current dose of beta ravi. We will also look into one of the newer anticoagulants to see if the patient has coverage in the meantime we will continue IV heparin. Objective - Vital Signs Vital signs: Vital Signs Temp 97.1 F L 11/06/17 08:00 Pulse 100 11/06/17 09:55 Resp 18 11/06/17 08:00 BP 126/58 11/06/17 08:00 Pulse Ox 99 11/06/17 08:00 Intake & Output 11/05/17 11/06/17 11/06/17 18:59 06:59 18:59 Intake Total 126.378 240 Balance 126.378 240 Weight 129.274 kg 137 kg Intake: Intake, IV Titration 126.378 Amount Heparin Sod,Pork in 0.45% 126.378 NaCl 25,000 unit In 0.45 % NaCl 1 500ml.bag @ 7.76 UNITS/KG/HR 20.06 mls/hr IV .Q24H [facility] Rx#: [id number] Oral 240 Other: Voiding Method Bedside Commode Bedside Commode Diaper Diaper # Voids 1 - Exam PHYSICAL EXAMINATION: HEENT: Head is atraumatic, normocephalic. Pupils equal, round. Neck is supple. There is no elevated jugular venous pressure. HEART EXAMINATION: R S1 and S2 irregularly irregular a systolic murmur is heard. CHEST EXAMINATION: Lungs are clear fine bibasilar crackles No chest wall tenderness is noted on palpation or with deep breathing. ABDOMEN: Soft, nontender. Bowel sounds are heard. No organomegaly noted. EXTREMITIES: 2+ peripheral pulses with trace to one plus evidence of peripheral edema and no calf tenderness noted. NEUROLOGIC patient is awake, alert and oriented -3. . - Labs CBC & Chem 7: 11/06/17 03:23 11/06/17 06:10 Labs: Abnormal Lab Results - Last 24 Hours (Table) 11/05/17 11/05/17 11/05/17 Range/Units 10:30 10:30 10:30 Hgb (11.4-16.0) gm/dL MCHC 29.1 L (31.0-37.0) g/dL RDW 16.8 H (11.5-15.5) % Lymphocytes # 0.9 L (1.0-4.8) k/uL Lymphocytes # (Manual) (1.0-4.8) k/uL Nucleated RBCs (0-0) /100 WBC INR (<1.2) APTT (22.0-30.0) sec Potassium 6.4 H* (3.5-5.1) mmol/L Carbon Dioxide (22-30) mmol/L BUN 72 H (7-17) mg/dL Creatinine 3.73 H (0.52-1.04) mg/dL Glucose 123 H (74-99) mg/dL POC Glucose (mg/dL) (75-99) mg/dL Calcium (8.4-10.2) mg/dL AST 93 H (14-36) U/L ALT 148 H (9-52) U/L Alkaline Phosphatase 134 H (38-126) U/L Troponin I 0.060 H* (0.000-0.034) ng/mL Total Protein 6.2 L (6.3-8.2) g/dL Triglycerides (<150) mg/dL HDL Cholesterol (40-60) mg/dL TSH (0.465-4.680) mIU/L 11/05/17 11/05/17 11/05/17 Range/Units 10:30 10:30 12:33 Hgb (11.4-16.0) gm/dL MCHC (31.0-37.0) g/dL RDW (11.5-15.5) % Lymphocytes # (1.0-4.8) k/uL Lymphocytes # (Manual) (1.0-4.8) k/uL Nucleated RBCs (0-0) /100 WBC INR 1.2 H (<1.2) APTT (22.0-30.0) sec Potassium (3.5-5.1) mmol/L Carbon Dioxide (22-30) mmol/L BUN (7-17) mg/dL Creatinine (0.52-1.04) mg/dL Glucose (74-99) mg/dL POC Glucose (mg/dL) 100 H (75-99) mg/dL Calcium (8.4-10.2) mg/dL AST (14-36) U/L ALT (9-52) U/L Alkaline Phosphatase (38-126) U/L Troponin I (0.000-0.034) ng/mL Total Protein (6.3-8.2) g/dL Triglycerides 179 H (<150) mg/dL HDL Cholesterol 35 L (40-60) mg/dL TSH 7.170 H (0.465-4.680) mIU/L 11/05/17 11/05/17 11/05/17 Range/Units 17:15 17:15 18:41 Hgb (11.4-16.0) gm/dL MCHC (31.0-37.0) g/dL RDW (11.5-15.5) % Lymphocytes # (1.0-4.8) k/uL Lymphocytes # (Manual) (1.0-4.8) k/uL Nucleated RBCs (0-0) /100 WBC INR (<1.2) APTT (22.0-30.0) sec Potassium 6.1 H (3.5-5.1) mmol/L Carbon Dioxide (22-30) mmol/L BUN (7-17) mg/dL Creatinine (0.52-1.04) mg/dL Glucose (74-99) mg/dL POC Glucose (mg/dL) 175 H (75-99) mg/dL Calcium (8.4-10.2) mg/dL AST (14-36) U/L ALT (9-52) U/L Alkaline Phosphatase (38-126) U/L Troponin I 0.055 H* (0.000-0.034) ng/mL Total Protein (6.3-8.2) g/dL Triglycerides (<150) mg/dL HDL Cholesterol (40-60) mg/dL TSH (0.465-4.680) mIU/L 11/05/17 11/05/17 11/05/17 Range/Units 19:53 21:58 23:24 Hgb (11.4-16.0) gm/dL MCHC (31.0-37.0) g/dL RDW (11.5-15.5) % Lymphocytes # (1.0-4.8) k/uL Lymphocytes # (Manual) (1.0-4.8) k/uL Nucleated RBCs (0-0) /100 WBC INR (<1.2) APTT 32.9 H (22.0-30.0) sec Potassium (3.5-5.1) mmol/L Carbon Dioxide (22-30) mmol/L BUN (7-17) mg/dL Creatinine (0.52-1.04) mg/dL Glucose (74-99) mg/dL POC Glucose (mg/dL) 367 H (75-99) mg/dL Calcium (8.4-10.2) mg/dL AST (14-36) U/L ALT (9-52) U/L Alkaline Phosphatase (38-126) U/L Troponin I 0.050 H* (0.000-0.034) ng/mL Total Protein (6.3-8.2) g/dL Triglycerides (<150) mg/dL HDL Cholesterol (40-60) mg/dL TSH (0.465-4.680) mIU/L 11/06/17 11/06/17 11/06/17 Range/Units 01:01 03:17 03:23 Hgb 10.9 L (11.4-16.0) gm/dL MCHC 29.4 L (31.0-37.0) g/dL RDW (11.5-15.5) % Lymphocytes # (1.0-4.8) k/uL Lymphocytes # (Manual) 0.81 L (1.0-4.8) k/uL Nucleated RBCs 1 H (0-0) /100 WBC INR (<1.2) APTT 47.7 H (22.0-30.0) sec Potassium 5.2 H (3.5-5.1) mmol/L Carbon Dioxide (22-30) mmol/L BUN (7-17) mg/dL Creatinine (0.52-1.04) mg/dL Glucose (74-99) mg/dL POC Glucose (mg/dL) (75-99) mg/dL Calcium (8.4-10.2) mg/dL AST (14-36) U/L ALT (9-52) U/L Alkaline Phosphatase (38-126) U/L Troponin I (0.000-0.034) ng/mL Total Protein (6.3-8.2) g/dL Triglycerides (<150) mg/dL HDL Cholesterol (40-60) mg/dL TSH (0.465-4.680) mIU/L 11/06/17 Range/Units 06:10 Hgb (11.4-16.0) gm/dL MCHC (31.0-37.0) g/dL RDW (11.5-15.5) % Lymphocytes # (1.0-4.8) k/uL Lymphocytes # (Manual) (1.0-4.8) k/uL Nucleated RBCs (0-0) /100 WBC INR (<1.2) APTT (22.0-30.0) sec Potassium 5.5 H (3.5-5.1) mmol/L Carbon Dioxide 21 L (22-30) mmol/L BUN 75 H (7-17) mg/dL Creatinine 3.18 H (0.52-1.04) mg/dL Glucose (74-99) mg/dL POC Glucose (mg/dL) (75-99) mg/dL Calcium 8.2 L (8.4-10.2) mg/dL AST (14-36) U/L ALT (9-52) U/L Alkaline Phosphatase (38-126) U/L Troponin I (0.000-0.034) ng/mL Total Protein (6.3-8.2) g/dL Triglycerides (<150) mg/dL HDL Cholesterol (40-60) mg/dL TSH (0.465-4.680) mIU/L Assessment and Plan Plan: Assessment and plan #1 progressive dyspnea with cough of productive yellow sputum consistent with tracheobronchitis. Influenza A and B-. Evidence of congestive cardiac failure #2 chronic persistent atrial fibrillation, heart rate under adequate control, in the 60s today. #3 hypertension #4 hyperlipidemia # 5 diabetes #6 morbid obesity #7 acute on chronic kidney disease, stage III plan We'll continue current dose of beta ravi. At this time we will also continue the IV heparin and check into coverage for one of the newer anticoagulants. DNP note has been reviewed, I agree with a documented findings and plan of care. Patient was seen and examined.
[2017-11-06 10:45] LABS: Appearance,Urine Cloudy (Clear); Bacteria,Urine Moderate /hpf; Bilirubin,Urine Negative (Negative); Blood,Urine Large (Negative); Color,Urine Yellow; Glucose,Urine (UA) Negative (Negative); Hyaline Casts,Urine 21 /lpf (0-2); Ketones,Urine Negative (Negative); Leukocyte Esterase,Urine Large (Negative); Mucus,Urine Rare /hpf; Nitrite,Urine Negative (Negative); Protein,Urine Trace (Negative); RBC,Urine 14 /hpf (0-5); Specific Gravity,Urine 1.011 (1.001-1.035); Squamous Epithelial Cell,Urine 7 /hpf (0-4); Urobilinogen,Urine <2.0 mg/dL (<2.0); WBC,Urine >182 /hpf (0-5)
[2017-11-06 11:13] VITALS: BMI 58.9
[2017-11-06] MEDS ORDERED: SODIUM CHLORIDE 0.9% 250 ML IV ONE (11:29)
[2017-11-06 12:04] LABS: Glucose,Whole Blood 157 mg/dL (75-99)
[2017-11-06] MEDS: MULTIVITAMINS, THERA 1 EACH TAB PO SCH (12:13)
[2017-11-06] MEDS: HEPARIN SOD,PORK IN 0.45% NACL 25,000 UNIT in 0.45% NACL 1 500ML.BAG IV SCH (12:14)
--- NOTE | 2017-11-06 13:22 | XR ---
EXAMINATION TYPE: XR chest 2V DATE OF EXAM: 11/06/2017 HISTORY: pneumonia. REFERENCE: Previous study dated 11/05/2017. FINDINGS: The heart is enlarged. There is a worsening right-sided effusion. There is bibasilar airspa ce disease. This has progressed. IMPRESSION: 1. CARDIOMEGALY. 2. WORSENING RIGHT BASILAR OPACITY. 3. WORSENING, BILATERAL EFFUSIONS.
[2017-11-06] MEDS ORDERED: VANCOMYCIN IV PER PHARMACY 1 EACH MISC MISCELLANE PRN (14:23)
[2017-11-06] MEDS ORDERED: VANCOMYCIN 2,250 MG in SODIUM CHLORIDE 0.9% 500 ML IVPB ONE (15:00)
--- NOTE | 2017-11-06 16:08 | P.CNPUL ---
History of Present Illness Consult date: 11/06/17 Reason for consult: dyspnea, hypoxemia, pleural effusion, abnormal CXR/CT Chief complaint: Shortness of breath History of present illness: Consult dated 11/06/2017 This is a 72-year-old female who presented to the emergency room with complaints of shortness of breath. In addition, she has some cough with some congestion. Not a lot. The patient also apparently was thought to possibly have a bladder infection. The patient down denies chest pain or chest discomfort. The patient denies any nausea vomiting or diarrhea. No fever or chills. Has been short of breath for about 2 weeks she tells us. Does have a history of heavy tobacco use. Blood cultures apparently showing some gram- positive cocci. Urine is apparently dirty. Chest x-ray my opinion shows a pattern of heart failure. She's had a large heart with cephalization bilaterally effusions right greater than left and a history and a N-terminal proBNP which is above 18,000. In addition, she appears to be hypothyroid with a TSH is elevated. She apparently has a history of hypertension hypothyroidism skin cancer obesity and diabetes. Also, based on her medication profile, she has a history of hyperlipidemia and gastroesophageal reflux disease. Her medications are reviewed. Her ALLERGIES are reviewed. Review of Systems A 12 point review of systems is positive for shortness of breath cough and animal phlegm production. No fever or chills. No nausea vomiting or diarrhea. No chest pain or chest discomfort. She hasn't been feeling well for about 2 weeks. Past Medical History Past Medical History: Atrial Fibrillation, Diabetes Mellitus, Hypertension, Thyroid Disorder Additional Past Medical History / Comment(s): NIDDM type II, 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, hypothyroid, skin cancer with removals, tinnitis bilaterally, edentulous, arthritis in spine, current sore L lower leg, bilateral feet reddened/dry, current bite oliveira L upper chest from "bedbugs.", when pt was little she went to special education for reading and writing/now can read "alittle and write alittle." History of Any Multi-Drug Resistant Organisms: None Reported Past Surgical History: Tonsillectomy, Tubal Ligation Additional Past Surgical History / Comment(s): Skin cancer with removals, EGD, D &C Past Anesthesia/Blood Transfusion Reactions: No Reported Reaction Smoking Status: Former smoker - Past Family History Father Family Medical History: Cancer Additional Family Medical History / Comment(s): Father of lung cancer. He was a nonsmoker, worked in a refinery. Mother Family Medical History: Cancer, Coronary Artery Disease (CAD), Diabetes Mellitus , Hyperlipidemia, Hypertension Additional Family Medical History / Comment(s): Mother of pancreatic cancer. Medications and Allergies Home Medications Medication Instructions Recorded Confirmed Type Bumetanide 2 mg PO BID 05/29/17 11/05/17 History Cholecalciferol [Vitamin D3] 1,000 unit PO DAILY 05/29/17 11/05/17 History Citrical With Vitamin D 1 tab PO DAILY 05/29/17 11/05/17 History Gabapentin [Neurontin] 300 mg PO DAILY 05/29/17 11/05/17 History Glimepiride [Amaryl] 4 mg PO AC-BID 05/29/17 11/05/17 History HYDROcodone/APAP 10-325MG [[place] 1 tab PO Q4HR PRN 05/29/17 11/05/17 History 10-325] Hydrocortisone Cream 1 applic TOPICAL DAILY PRN 05/29/17 11/05/17 History [Hydrocortisone 2.5% Cream] Ketoconazole [Ketoconazole 2%] 1 applic TOPICAL DAILY PRN 05/29/17 11/05/17 History Levothyroxine Sodium [Synthroid] 125 mcg PO DAILY 05/29/17 11/05/17 History Lisinopril 40 mg PO DAILY 05/29/17 11/05/17 History Multivitamin [Multivitamins Adult 1 tab PO DAILY 05/29/17 11/05/17 History Gummies] Omeprazole 40 mg PO DAILY 05/29/17 11/05/17 History Pioglitazone [Actos] 45 mg PO DAILY 05/29/17 11/05/17 History metFORMIN HCL 1,000 mg PO BID 05/29/17 11/05/17 History Atorvastatin [Lipitor] 20 mg PO HS 11/05/17 11/05/17 History Gabapentin [Neurontin] 600 mg PO HS 11/05/17 11/05/17 History Allergies Allergy/AdvReac Type Severity Reaction Status Date / Time camphor [From VicMusement Vaporub] Allergy Rash/Hives Verified 11/05/17 09:56 eucalyptus Allergy Rash/Hives Verified 11/05/17 09:56 [From Vicks Vaporub] menthol [From Vicks Vaporub] Allergy Rash/Hives Verified 11/05/17 09:56 Penicillins Allergy Rash/Hives Verified 11/05/17 09:56 petrolatum,white Allergy Rash/Hives Verified 11/05/17 09:56 [From Vicks Vaporub] turpentine oil Allergy Rash/Hives Verified 11/05/17 09:56 [From Vicks Vaporub] ivory soap Allergy Rash/Hives Uncoded 05/29/17 12:30 Physical Exam Osteopathic Statement: *. No significant issues noted on an osteopathic structural exam other than those noted in the History and Physical/Consult. Vitals: Vital Signs Temp Pulse Pulse Resp BP Pulse Ox 11/06/17 15:06 63 16 11/06/17 15:05 96.9 F L 63 16 85/49 99 11/06/17 12:00 60 18 82/43 11/06/17 11:18 96.8 F L 60 18 73/47 100 11/06/17 09:55 100 11/06/17 09:44 100 11/06/17 08:00 97.1 F L 58 L 18 126/58 99 11/06/17 04:00 97.0 F L 112 H 18 93/54 96 11/06/17 00:00 97.2 F L 82 18 109/47 96 11/05/17 20:00 97.0 F L 82 18 102/55 97 11/05/17 19:56 98 11/05/17 19:42 100 11/05/17 16:00 101 H 16 108/53 96 Intake and Output 11/06/17 11/06/17 11/06/17 06:59 14:59 22:59 Intake Total 849.622 Output Total 200 Balance 649.622 Intake: Intake, IV Titration 373.622 Amount Heparin Sod,Pork in 0.45% 373.622 NaCl 25,000 unit In 0.45 % NaCl 1 500ml.bag @ 7.76 UNITS/KG/HR 20.06 mls/hr IV .Q24H [facility] Rx#: [id number] Oral 476 Output: Urine 200 Other: Voiding Method Bedside Commode Bedside Commode Bedside Commode Diaper Diaper Diaper Weight 137 kg 137 kg Patient Weight 11/07/17 06:59 Weight 137 kg No acute distress, oriented 3. The patient is wearing nasal O2 HEENT examination is grossly unremarkable. Mucous membranes are moist. No oral lesions. Neck supple. Full range of motion. No adenopathy thyromegaly or neck vein distention. Cardiovascular examination reveals distant heart sounds. She appears to be in atrial fibrillation. Lungs reveal crackles in the posterior bases. Breath sounds are equal bilaterally. Abdomen soft bowel sounds are heard. No masses or tenderness. Abdomen is obese. Extremities reveal significant edema. This chronic thickening of the skin and some chronic venous stasis stasis changes. She's got significant lower extremity edema. Skin reveals a rash in the left anterior upper chest area. Neurologic examination is brief but nonfocal. Results - Laboratory Findings CBC and BMP: 11/06/17 03:23 11/06/17 06:10 PT/INR, D-dimer PT 11.6 sec (9.0-12.0) 11/05/17 10:30 INR 1.2 (<1.2) H 11/05/17 10:30 Abnormal lab findings: Abnormal Labs 11/05/17 11/05/17 11/05/17 10:30 10:30 10:30 Hgb MCHC 29.1 L RDW 16.8 H Lymphocytes # 0.9 L Lymphocytes # (Manual) Nucleated RBCs INR APTT Potassium 6.4 H* Carbon Dioxide BUN 72 H Creatinine 3.73 H Glucose 123 H POC Glucose (mg/dL) Calcium AST 93 H ALT 148 H Alkaline Phosphatase 134 H Troponin I 0.060 H* Total Protein 6.2 L Triglycerides HDL Cholesterol TSH Urine Appearance Urine Protein Urine Blood Ur Leukocyte Esterase Urine RBC Urine WBC Urine WBC Clumps Ur Squamous Epith Cells Urine Bacteria Hyaline Casts Urine Mucus 11/05/17 11/05/17 11/05/17 10:30 10:30 12:33 Hgb MCHC RDW Lymphocytes # Lymphocytes # (Manual) Nucleated RBCs INR 1.2 H APTT Potassium Carbon Dioxide BUN Creatinine Glucose POC Glucose (mg/dL) 100 H Calcium AST ALT Alkaline Phosphatase Troponin I Total Protein Triglycerides 179 H HDL Cholesterol 35 L TSH 7.170 H Urine Appearance Urine Protein Urine Blood Ur Leukocyte Esterase Urine RBC Urine WBC Urine WBC Clumps Ur Squamous Epith Cells Urine Bacteria Hyaline Casts Urine Mucus 11/05/17 11/05/17 11/05/17 17:15 17:15 18:41 Hgb MCHC RDW Lymphocytes # Lymphocytes # (Manual) Nucleated RBCs INR APTT Potassium 6.1 H Carbon Dioxide BUN Creatinine Glucose POC Glucose (mg/dL) 175 H Calcium AST ALT Alkaline Phosphatase Troponin I 0.055 H* Total Protein Triglycerides HDL Cholesterol TSH Urine Appearance Urine Protein Urine Blood Ur Leukocyte Esterase Urine RBC Urine WBC Urine WBC Clumps Ur Squamous Epith Cells Urine Bacteria Hyaline Casts Urine Mucus 11/05/17 11/05/17 11/05/17 19:53 21:58 23:24 Hgb MCHC RDW Lymphocytes # Lymphocytes # (Manual) Nucleated RBCs INR APTT 32.9 H Potassium Carbon Dioxide BUN Creatinine Glucose POC Glucose (mg/dL) 367 H Calcium AST ALT Alkaline Phosphatase Troponin I 0.050 H* Total Protein Triglycerides HDL Cholesterol TSH Urine Appearance Urine Protein Urine Blood Ur Leukocyte Esterase Urine RBC Urine WBC Urine WBC Clumps Ur Squamous Epith Cells Urine Bacteria Hyaline Casts Urine Mucus 11/06/17 11/06/17 11/06/17 01:01 03:17 03:23 Hgb 10.9 L MCHC 29.4 L RDW Lymphocytes # Lymphocytes # (Manual) 0.81 L Nucleated RBCs 1 H INR APTT 47.7 H Potassium 5.2 H Carbon Dioxide BUN Creatinine Glucose POC Glucose (mg/dL) Calcium AST ALT Alkaline Phosphatase Troponin I Total Protein Triglycerides HDL Cholesterol TSH Urine Appearance Urine Protein Urine Blood Ur Leukocyte Esterase Urine RBC Urine WBC Urine WBC Clumps Ur Squamous Epith Cells Urine Bacteria Hyaline Casts Urine Mucus 11/06/17 11/06/17 11/06/17 06:10 09:30 11:56 Hgb MCHC RDW Lymphocytes # Lymphocytes # (Manual) Nucleated RBCs INR APTT Potassium 5.5 H Carbon Dioxide 21 L BUN 75 H Creatinine 3.18 H Glucose POC Glucose (mg/dL) 157 H Calcium 8.2 L AST ALT Alkaline Phosphatase Troponin I Total Protein Triglycerides HDL Cholesterol TSH Urine Appearance Cloudy H Urine Protein Trace H Urine Blood Large H Ur Leukocyte Esterase Large H Urine RBC 14 H Urine WBC >182 H Urine WBC Clumps Moderate H Ur Squamous Epith Cells 7 H Urine Bacteria Moderate H Hyaline Casts 21 H Urine Mucus Rare H - Diagnostic Findings Chest x-ray: image reviewed (Chest x-ray labs and medications are all reviewed.) Assessment and Plan Assessment: Assessment Atrial fibrillation Congestive heart failure, diastolic in nature Diabetes mellitus History of hypertension Untreated hypothyroidism Hyperlipidemia Morbid obesity Significant lower extremity edema Suspected COPD History of skin cancer Bilateral pleural effusions, right greater than left, consistent with underlying CHF. Acute kidney injury/chronic kidney disease Congestive hepatopathy secondary to heart failure. Gram-positive bacteremia Rule out urinary tract infection Plan: Plan dated 11/06/2017 I suspect patient shortness of breath is likely multifactorial in part related to underlying COPD but mostly related to heart failure. It appears that based on her echo, and her normal ejection fraction that she has diastolic heart failure. Her chest x-ray shows bilateral pleural effusions right greater than left significant cardiomegaly and her N-terminal proBNP was quite high at greater than 18,000. In addition, she has renal dysfunction and lower extremity edema. She may also have a respiratory infection likely a purulent tracheobronchitis. She also likely suffers from COPD from heavy tobacco use. In addition shortness of breath, probably relates to underlying obesity as well. We recommend the use of diuretics in this patient. In addition, we'll recommend updrafts treatments in the form of DuoNeb 4 times a day and when necessary. Additional recommendations and suggestions are forthcoming. Prognosis is guarded. We will use Rocephin antibiotics as well as vancomycin for recurrent infections. We'll DC the Zosyn and the azithromycin. She does have a penicillin ALLERGY. We'll also have infectious disease see this patient. Nephrology should also see this patient as well. Again, we've added updrafts. The antibiotics will be adequate for any sort of upper respiratory tract infection/tracheobronchitis that the patient might have Time with Patient: Greater than 30
[2017-11-06 17:20] LABS: Glucose,Whole Blood 172 mg/dL (75-99)
--- NOTE | 2017-11-06 19:25 | PN ---
PROGRESS NOTE The patient is seen for followup for acute kidney injury. She states she is feeling better. The patient was admitted to the hospital with shortness of breath, weakness. She has an underlying urinary tract infection and is maintained on antibiotics. The patient initially received IV fluids. Currently, she is not on any IV fluids. Chest x- ray shows bilateral airspace disease and right-sided pleural effusion and cardiomegaly. EXAMINATION: Blood pressure is on the lower side at about 109-80 mmHg for systolic. The patient is afebrile. Heart rate about 104-63 per minute. Examination of the heart S1, S2. Examination of the lungs decreased breath sounds at the bases. ABDOMEN: Soft, obese nontender. Examination of lower extremities shows edema 1+ bilaterally with chronic skin changes. 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 LAB: Shows sodium 138, potassium 5.5, BUN 75, serum creatinine 3.18. UA shows WBCs more than 182, trace protein, large blood. ASSESSMENT: 1. Acute kidney injury, currently slightly improved. The patient has been incontinent therefore accurate urine output is not charted. Currently her blood pressure is on the lower side. If she continues to be hypotensive, she will need pressors. Continue off of IV fluids. The patient was also given 1 dose of vancomycin. She is currently not on any other nephrotoxic medications. Ultrasound shows no evidence of obstructive uropathy. 2. Chronic persistent atrial fibrillation with controlled ventricular response. 3. Hypertension. Blood pressure is currently low. 4. Diastolic dysfunction with ejection fraction 50-55% with mild concentric LVH. 5. Mild to moderate tricuspid regurgitation. PLAN: Continue off of IV fluids. Continue antibiotics. Check random cortisol level given the mild hyperkalemia and hypotension. Repeat labs in a.m. and continue to avoid nephrotoxic agents. MMODL / IJN: [id number] /
[2017-11-06] MEDS: HYDROcodone/APAP 10-325MG 1 EACH TAB PO PRN (19:50)
[2017-11-06 20:21] LABS: Hemoglobin A1C 6.8 % (4.0-6.0)
[2017-11-06 20:42] LABS: Glucose,Whole Blood 189 mg/dL (75-99)
[2017-11-07] MEDS: HEPARIN SOD,PORK IN 0.45% NACL 25,000 UNIT in 0.45% NACL 1 500ML.BAG IV SCH (04:38)
[2017-11-07 05:49] LABS: Glucose,Whole Blood 137 mg/dL (75-99)
--- NOTE | 2017-11-07 06:35 | PN ---
PROGRESS NOTE DATE OF SERVICE: 11/06/2017 This 72-year-old woman was admitted with cough, sputum., weakness and recent renal failure and significant opacities in the right lower lobe. Patient has significant shortness of breath slightly better today. Multiple consultants are following the patient closely. Creatinine is also being closely monitored. The patient is on cautious IV hydration as well. The patient closely monitored and Dr. eVga is also following the patient closely. The patient is sitting by the bedside at this time. 2D echo has been ordered. Influenza testing is negative. PAST MEDICAL HISTORY: Reviewed. REVIEW OF SYSTEMS: CARDIOVASCULAR: As mentioned. RESPIRATORY: As mentioned earlier. GI: No nausea. : No dysuria. NERVOUS SYSTEM: No numbness or weakness. CURRENT MEDICATIONS: Reviewed and include medications are: 1. [place] 10 mg q.4h p.r.n. 2. DuoNeb q.i.d. and p.r.n. 3. Calamine lotion. 4. Rocephin 1000 daily. 5. Heparin b.i.d. 6. Apresoline 10 q.4h p.r.n. 7. Hydrocortisone ointment. 8. Synthroid 125 mcg p.o. 9. Lopressor 25 mg p.o. b.i.d. 10.Multivitamins 1 p.o. daily. 11.Protonix 40 mg daily. 12.Vancomycin IV. PHYSICAL EXAM: Patient is alert, oriented x3. The pulse is 63, blood pressure 85/49, respirations 16, temperature 96.9, pulse ox 99% on 2 L. HEENT: Conjunctivae normal. Oral mucosa moist. Neck is no jugular venous distention. No lymph node enlargement. CARDIOVASCULAR: S1, S2. RESPIRATORY: Breath sounds diminished in the bases. A few scattered rhonchi and crackles. ABDOMEN: Soft, nontender. LEGS: No edema. NERVOUS SYSTEM: No focal deficits. LAB STUDIES: Sodium 130, potassium 5.5, creatinine 3.18 and UA noted. ASSESSMENT: 1. Severe acute renal failure with hyperkalemia, possibly acute prerenal factors and acute tubular necrosis. 2. Possible acute purulent tracheobronchitis or bronchopneumonia on the right, influenza ruled out. 3. Increased AST, ALT, possible mild hepatitis. 4. Troponin 0.063 indeterminate. 5. Atrial fibrillation, probably new onset. 6. Diabetes mellitus type 2. 7. Hypertension. 8. Obesity with body mass index of 52.7. 9. Hypothyroidism. 10.History of neuropathy. 11.History of degenerative joint disease. 12.History of bed bugs recently. 13.Remote history of nicotine dependence. 14.FULL CODE. RECOMMENDATION AND DISCUSSION: Recommend to continue current medication, continue with symptomatic treatment. The creatinine is steadily improving at this time. Potassium is also better. We will continue the current medications and continue to avoid nephrotoxic medications and continue the rest of the medications. Prognosis guarded. Further recommendations to follow. Increase ambulation. MMODL / IJN: [id number] /
[2017-11-07] MEDS: PANTOPRAZOLE 40 MG TABLET PO SCH (06:38)
[2017-11-07] MEDS: LEVOTHYROXINE 125 MCG TAB PO SCH (06:38)
[2017-11-07] MEDS: INSULIN ASPART 100 UNIT/ML 1 ML 10 ML VIAL SQ SCH ×4 (06:38→21:33)
[2017-11-07 06:46] LABS: Anisocytosis Slight; Basophils % (A) 0 %; Eosinophils # (A) 0.3 k/uL (0-0.7); Eosinophils % (A) 4 %; HCT 36.6 % (34.0-46.0); HGB 10.5 gm/dL (11.4-16.0); Hypochromasia Marked; Lymphocytes # (A) 1.1 k/uL (1.0-4.8); Lymphocytes % (A) 15 %; MCHC 28.7 g/dL (31.0-37.0); MCV 97.8 fL (80.0-100.0); Macrocytosis Slight; Mean Platelet Volume 8.6; Monocytes # (A) 0.6 k/uL (0-1.0); Monocytes % (A) 9 %; Neutrophils # (A) 5.1 k/uL (1.3-7.7); Neutrophils % (A) 70 %; Platelet Count 244 k/uL (150-450); RBC 3.74 m/uL (3.80-5.40); RDW 16.5 % (11.5-15.5); WBC 7.2 k/uL (3.8-10.6)
[2017-11-07 07:35] LABS: Calcium 8.1 mg/dL (8.4-10.2); Potassium 5.9 mmol/L (3.5-5.1)
[2017-11-07] MEDS: IPRATROPIUM-ALBUTEROL 3 ML NEB INHALATION SCH ×3 (08:28→19:14)
[2017-11-07] MEDS: cefTRIAXone IN SWFI 1,000 MG/10 ML SYRINGE IVP SCH (08:51)
[2017-11-07] MEDS: GABAPENTIN 300 MG CAP PO SCH (08:52)
[2017-11-07] MEDS: METOPROLOL TARTRATE 25 MG TAB PO SCH ×2 (08:52→21:33)
[2017-11-07] MEDS ORDERED: SODIUM POLYSTYRENE SULFONATE 15 GM/60 ML BOTTLE PO STA (09:59)
--- NOTE | 2017-11-07 10:41 | CONS ---
CONSULTATION DATE OF SERVICE: 11/06/2017. REASON FOR FOLLOW UP: 1. UTI. 2. Pneumonia and bacteremia. HISTORY OF PRESENT ILLNESS: The patient is a 72-year-old female who presented to the ER at [facility] on November 05 with chief complaints of increasing shortness of breath. The symptom has been getting worse for a day or two prior to presentation to hospital. The patient did have increasing shortness of breath with minimal exertion. She also have a cough moderate in intensity and bringing up some yellow to white sputum. No hemoptysis. No chest pain. The patient denies any high-grade fever. No nausea, vomiting. No choking on the food. No abdominal pain. No diarrhea. On arrival to the ER, the patient was afebrile and white count was normal. The patient did have significantly positive UA. Influenza serology was negative. The patient did have a chest x-ray, which did show mild cardiomegaly, small right pleural effusion, just atelectasis and consolidation. Patient did have a blood culture obtained which are not showing gram-positive cocci in clusters. Vancomycin was added and ID was consulted for further recommendation regarding current antibiotic therapy. REVIEW OF SYSTEMS: CONSTITUTIONAL: Positive for weakness. Denies any high-grade fever. EYES: No complaint. ENT: No complaint. RESPIRATORY: As per HPI. CARDIOVASCULAR: No complaint. GENITOURINARY: No complaint. GASTROINTESTINAL: No complaint. MUSCULOSKELETAL: No complaint. INTEGUMENTARY: As per HPI. PSYCHOLOGICAL: No complaint. ENDOCRINE: No complaint. NEUROLOGIC: No complaint. PAST MEDICAL HISTORY: Significant for atrial fibrillation, diabetes mellitus, hypertension, hypothyroidism, morbid obesity. PAST SURGICAL HISTORY: Tonsillectomy, tubal ligation, skin cancer removal, EGD, and D and C. SOCIAL HISTORY: Remote history of smoking. No drinking or drug use. FAMILY HISTORY: Father history of cancer, colon cancer. Mother with history of hypertension, hyperlipidemia and pancreatic cancer. ALLERGIES: PENICILLIN. MEDICATIONS: Include the patient is currently on [place], DuoNeb, Rocephin, Neurontin, hydralazine, NovoLog, Synthroid, Lopressor, vancomycin pharmacy to dose. PHYSICAL EXAMINATION: Her blood pressure is 85/49 with a pulse of 53, temperature 96.9. She is 99% on 2 L nasal cannula. General description is an elderly female up in a chair in no distress. No tachypnea or accessory muscle for respiration use. HEENT: Shows no pallor or scleral icterus. Oral mucosa membrane is dry. No pharyngeal erythema or thrush NECK: Trachea central. No thyromegaly. LUNGS: Unlabored breathing, decreased breath sounds in the bases. No wheeze. HEART: S1, S2. Regular rate and rhythm. No abnormal ABDOMEN: Soft, no tenderness. No guarding. No rigidity. No organomegaly EXTREMITIES: Some trace edema of the feet. SKIN EXAMINATION: No rashes, no mass palpable. NEUROLOGICAL: Patient is awake, alert. Oriented 3 Mood and affect normal. Speech is normal LABS: Hemoglobin 7.9, white count 7.4, BUN of 75, creatinine 3.18, potassium was 5.5. Urine has been positive. Blood culture with gram-positive cocci. Chest x-ray as mentioned above. DIAGNOSTIC IMPRESSION AND PLAN: 1. Patient with a positive blood culture with urinary tract infection or skin contamination. Clinically doubt pneumonia. 2. Patient did have significantly positive urinalysis with underlying urinary tract infection from gram-negative not entirely excluded. 3. The patient did have renal insufficiency and high risk of nephrotoxicity. PLAN: 1. Blood culture repeated to make sure no evidence of any persistent bacteremia. 2. Rocephin will continue to cover for UTI and vancomycin added while waiting for the final ID of this pathogen. However, kidney function will be monitored closely. To prevent nephrotoxicity 3. Depending upon clinical response as well as cultures will adjust medication further if needed. Thank you for this consultation. Will follow the patient along with you. MMODL / IJN: [id number] / MOHINDER
[2017-11-07] MEDS: FUROSEMIDE 10 MG/ML 4 ML VIAL IV SCH ×2 (11:05→21:32)
[2017-11-07] MEDS: MULTIVITAMINS, THERA 1 EACH TAB PO SCH (11:06)
[2017-11-07 11:48] LABS: Glucose,Whole Blood 197 mg/dL (75-99)
[2017-11-07] MEDS ORDERED: VANCOMYCIN 2,250 MG in SODIUM CHLORIDE 0.9% 500 ML IVPB ONE (12:00)
--- NOTE | 2017-11-07 14:44 | PN ---
PROGRESS NOTE Patient is seen for followup for acute kidney injury. She is currently lying in bed. She is mildly short of breath, not in any acute distress. Renal function has been about the same with serum creatinine 3.1-2.9 mg/dL. Her admission creatinine was 3.73 and creatinine prior to admission on in May of 2017 was 1.14. The patient initially received IV fluids and her diuretics were held. However, she is in volume overload. She received 1 dose of Lasix yesterday and I have started her on regular scheduled IV loop diuretics. Urine output is difficult to assess as patient has been incontinent. However, she has been going quite a lot. EXAMINATION: Blood pressure is 92/55, heart rate 74 per minute. Patient is afebrile. Examination of the heart S1, S2. Examination of the lungs decreased breath sounds at the bases. ABDOMEN: Soft, morbidly obese. Examination of the lower extremities shows edema 2+ bilaterally. 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 LABS SHOW: Sodium 138, potassium 5.9, chloride 104, BUN 75, serum creatinine 2.98, hemoglobin 10.5 g/dL. ASSESSMENT: 1. Acute kidney injury secondary to hypoperfusion currently nonoliguric. The patient is volume overloaded. She has been restarted on diuretics. We will repeat her labs in the a.m. No nephrotoxic agents on board at this time. Serum cortisol was not low, and this was done in view of hypotension and hyperkalemia. 2. Hyperkalemia, associated with acute kidney injury. Blood sugars have not been too high. Hopefully, initiation of IV loop diuretics will help with the hyperkalemia. Patient is also advised regarding low-potassium diet. 3. Chronic atrial fibrillation with controlled ventricular response. 4. Diastolic dysfunction with mild concentric left ventricular hypertrophy. Ejection fraction of 50-55%. 5. Mild to moderate tricuspid regurg. 6. Coagulase negative Staph bacteremia, status post vancomycin, being followed by ID. Currently maintained on Rocephin. 7. Pyuria. Urine culture is pending. If urine culture is negative, consider acute interstitial nephritis as a possible etiology for renal failure. PLAN: Continue IV Lasix. Repeat labs in a.m. Continue antibiotics for bacteremia. MMODL / IJN: [id number] /
--- NOTE | 2017-11-07 15:12 | P.PN ---
Subjective Progress Note Date: 11/07/17 Principal diagnosis: Shortness of breath, pleural effusion, hypoxemia. Progress note dated 11/07/2017 This is a 72-year-old female that we saw yesterday in consultation. She came in with shortness of breath. It was multifactorial in part related to some atrial fibrillation but also congestive heart failure. She does have a history of diabetes mellitus hypertension hypothyroidism hyperlipidemia morbid obesity significant lower extremity edema suspected COPD skin cancer bilateral pleural effusions acute kidney injury congestive hepatopathy Gram-positive bacteremia and possible urinary tract infection. The patient is doing a bit better today. Much less short of breath. The patient's labs x-rays and medications are all reviewed Objective - Vital Signs Vital signs: Vital Signs Temp 97.0 F L 11/07/17 08:00 Pulse 90 11/07/17 13:16 Resp 16 11/07/17 12:00 BP 92/55 11/07/17 11:06 Pulse Ox 100 11/07/17 11:06 Intake & Output 11/06/17 11/07/17 11/07/17 18:59 06:59 18:59 Intake Total 849.622 996.084 914.211 Output Total 200 Balance 649.622 996.084 914.211 Weight 137 kg 139 kg Intake: Intake, IV Titration 373.622 456.084 86.211 Amount Heparin Sod,Pork in 0.45% 373.622 456.084 86.211 NaCl 25,000 unit In 0.45 % NaCl 1 500ml.bag @ 7.76 UNITS/KG/HR 20.06 mls/hr IV .Q24H [facility] Rx#: [id number] Oral [id number] Output: Urine 200 Other: Voiding Method Bedside Commode Bedside Commode Bedside Commode Diaper Diaper Diaper # Voids 1 - Exam No acute distress, oriented 3. HEENT examination is grossly unremarkable. Mucous membranes are moist. No oral lesions. Neck supple. Full range of motion. No adenopathy thyromegaly or neck vein distention. Cardiovascular examination reveals regular rhythm rate. S1-S2 normal. No S3 or S4. No discernible murmur noted. Lungs reveal diminished breath sounds. His a few scattered crackles at the bases. No wheezes. A few scattered rhonchi on deep breathing. Abdomen soft bowel sounds are heard. No masses or tenderness. Extremities no significant edema and chronic venous stasis changes with hyperpigmentation. Skin changes as above.. Neurologic examination is brief but nonfocal. - Labs CBC & Chem 7: 11/07/17 05:49 11/07/17 05:49 Labs: Abnormal Lab Results - Last 24 Hours (Table) 11/05/17 11/06/17 11/06/17 Range/Units 19:53 16:55 20:41 RBC (3.80-5.40) m/uL Hgb (11.4-16.0) gm/dL MCHC (31.0-37.0) g/dL RDW (11.5-15.5) % APTT (22.0-30.0) sec Potassium (3.5-5.1) mmol/L BUN (7-17) mg/dL Creatinine (0.52-1.04) mg/dL Glucose (74-99) mg/dL POC Glucose (mg/dL) 172 H 189 H (75-99) mg/dL Hemoglobin A1c 6.8 H (4.0-6.0) % Calcium (8.4-10.2) mg/dL 11/07/17 11/07/17 11/07/17 Range/Units 05:48 05:49 05:49 RBC 3.74 L (3.80-5.40) m/uL Hgb 10.5 L (11.4-16.0) gm/dL MCHC 28.7 L (31.0-37.0) g/dL RDW 16.5 H (11.5-15.5) % APTT (22.0-30.0) sec Potassium 5.9 H (3.5-5.1) mmol/L BUN 75 H (7-17) mg/dL Creatinine 2.98 H (0.52-1.04) mg/dL Glucose 132 H (74-99) mg/dL POC Glucose (mg/dL) 137 H (75-99) mg/dL Hemoglobin A1c (4.0-6.0) % Calcium 8.1 L (8.4-10.2) mg/dL 11/07/17 11/07/17 11/07/17 Range/Units 05:49 11:35 13:56 RBC (3.80-5.40) m/uL Hgb (11.4-16.0) gm/dL MCHC (31.0-37.0) g/dL RDW (11.5-15.5) % APTT 91.2 H 81.0 H (22.0-30.0) sec Potassium (3.5-5.1) mmol/L BUN (7-17) mg/dL Creatinine (0.52-1.04) mg/dL Glucose (74-99) mg/dL POC Glucose (mg/dL) 197 H (75-99) mg/dL Hemoglobin A1c (4.0-6.0) % Calcium (8.4-10.2) mg/dL Microbiology - Last 24 Hours (Table) 11/05/17 17:15 Blood Culture Gram Stain - Preliminary Blood Blood Culture - Preliminary Coagulase Negative Staph 11/06/17 09:30 Urine Culture - Final Urine,Clean Catch 11/05/17 17:15 Blood Culture - Final Blood Assessment and Plan Assessment: Assessment Atrial fibrillation Congestive heart failure, diastolic in nature Diabetes mellitus History of hypertension Untreated hypothyroidism Hyperlipidemia Morbid obesity Significant lower extremity edema Suspected COPD History of skin cancer Bilateral pleural effusions, right greater than left, consistent with underlying CHF. Acute kidney injury/chronic kidney disease Congestive hepatopathy secondary to heart failure. Gram-positive bacteremia Rule out urinary tract infection Plan: Plan dated 11/06/2017 I suspect patient shortness of breath is likely multifactorial in part related to underlying COPD but mostly related to heart failure. It appears that based on her echo, and her normal ejection fraction that she has diastolic heart failure. Her chest x-ray shows bilateral pleural effusions right greater than left significant cardiomegaly and her N-terminal proBNP was quite high at greater than 18,000. In addition, she has renal dysfunction and lower extremity edema. She may also have a respiratory infection likely a purulent tracheobronchitis. She also likely suffers from COPD from heavy tobacco use. In addition shortness of breath, probably relates to underlying obesity as well. We recommend the use of diuretics in this patient. In addition, we'll recommend updrafts treatments in the form of DuoNeb 4 times a day and when necessary. Additional recommendations and suggestions are forthcoming. Prognosis is guarded. We will use Rocephin antibiotics as well as vancomycin for recurrent infections. We'll DC the Zosyn and the azithromycin. She does have a penicillin ALLERGY. We'll also have infectious disease see this patient. Nephrology should also see this patient as well. Again, we've added updrafts. The antibiotics will be adequate for any sort of upper respiratory tract infection/tracheobronchitis that the patient might have. Plan dated 11/07/2017 The patient is improved. Less short of breath. Less chest congestion. Minimal cough. No phlegm production. No fever or chills. The patient's labs x -rays a medications are all reviewed yesterday. Please see the plan is noted on November 06. Labs x-rays are reviewed. Medications are reviewed. Appropriate consultations have been placed. Time with Patient: Less than 30
[2017-11-07 16:35] LABS: Glucose,Whole Blood 155 mg/dL (75-99)
--- NOTE | 2017-11-07 20:50 | PN ---
PROGRESS NOTE . DATE OF SERVICE: 11/07/2017 This 72-year-old woman who was admitted with cough and sputum also had acute severe renal failure. Patient also had a possible purulent tracheobronchitis. CHF is also suspected. Currently the patient is receiving IV Lasix at this time. The creatinine has improved from 3.73 to 2.98 at this time. Chest x-ray shows some fluid overload. Patient has UTI also. Patient being closely monitored. PAST MEDICAL HISTORY: Reviewed. REVIEW OF SYSTEMS: CARDIOVASCULAR: As mentioned earlier. Respiratory: As mentioned earlier. GI no nausea or vomiting. : No dysuria. Nervous system: As mentioned earlier. CURRENT MEDICATIONS ARE: Reviewed and include: 1. [place] 10 mg q.4h p.r.n. 2. DuoNeb q.i.d. and p.r.n. 3. Rocephin 1 g daily. 4. Lasix 40 mg b.i.d. 5. Neurontin. 6. Heparin. 7. Hydralazine. 8. NovoLog. 9. Synthroid 125 mcg. 10.Lopressor. 11.Protonix. PHYSICAL EXAMINATION: The patient is alert, oriented times three. Pulse 57, blood pressure 85/40, respirations 16, temp 97.2, pulse ox 97% on 2 L. HEENT: Conjunctivae normal. Oral mucosa moist. Neck is no jugular venous distention. No carotid bruit. No lymph node enlargement. Cardiovascular system: S1, S2 muffled. Respiratory: Breath sounds diminished in the bases. Scattered rhonchi and crackles. Abdomen is soft, nontender. No mass palpable. Legs no edema. No swelling. Central nervous system: No focal deficits. LABORATORY DATA: WBC ntd, hemoglobin 10.5, creatinine 2.98. ASSESSMENT: 1. Severe acute renal failure with hyperkalemia, possibly acute prerenal factors and acute tubular necrosis. 2. Possible acute purulent tracheobronchitis with possible bronchopneumonia in the right, influenza, ruled out. 3. Possible congestive heart failure acute exacerbation. 4. Increased AST/ALT with possible mild hepatitis. 5. Troponin 0.06, indeterminate. 6. Atrial fibrillation, probably new onset. 7. Diabetes type 2. 8. Hypertension. 9. Obesity with body mass index of 52.7. 10.Hypothyroidism. 11.History of neuropathy. 12.History of degenerative joint disease. 13.History of bed bugs recently. 14.Remote history of nicotine dependence. 15.FULL CODE. RECOMMENDATIONS AND DISCUSSION: Recommend to continue current management and symptomatic treatment, current medications, otherwise at this time I recommend continue with cautious diuretics. Continue the rest of medications including bronchodilators, antibiotics and closely monitor. Follow closely with Cardiology and pulmonology, Nephrology. Further recommendations to follow. Prognosis guarded. Discussed with the family at length and the patient, understand and agrees. KASSANDRA / PEDRON: [id number] / MOHINDER
[2017-11-07 21:01] LABS: Glucose,Whole Blood 157 mg/dL (75-99)
[2017-11-08] MEDS: HEPARIN SOD,PORK IN 0.45% NACL 25,000 UNIT in 0.45% NACL 1 500ML.BAG IV SCH (02:39)
[2017-11-08 04:41] LABS: Anisocytosis Slight; Basophils % (A) 1 %; Eosinophils # (A) 0.2 k/uL (0-0.7); Eosinophils % (A) 4 %; HCT 38.5 % (34.0-46.0); HGB 10.8 gm/dL (11.4-16.0); Hypochromasia Marked; Lymphocytes # (A) 0.8 k/uL (1.0-4.8); Lymphocytes % (A) 13 %; MCH 28.2 pg (25.0-35.0); MCV 100.6 fL (80.0-100.0); Macrocytosis Slight; Mean Platelet Volume 8.5; Monocytes # (A) 0.4 k/uL (0-1.0); Monocytes % (A) 7 %; Neutrophils # (A) 4.6 k/uL (1.3-7.7); Neutrophils % (A) 74 %; Platelet Count 271 k/uL (150-450); RBC 3.82 m/uL (3.80-5.40); RDW 16.5 % (11.5-15.5); WBC 6.2 k/uL (3.8-10.6)
[2017-11-08 06:27] LABS: Glucose,Whole Blood 153 mg/dL (75-99)
[2017-11-08] MEDS: LEVOTHYROXINE 125 MCG TAB PO SCH (06:33)
[2017-11-08] MEDS: PANTOPRAZOLE 40 MG TABLET PO SCH (06:33)
[2017-11-08] MEDS: INSULIN ASPART 100 UNIT/ML 1 ML 10 ML VIAL SQ SCH ×4 (06:33→21:30)
[2017-11-08 06:53] LABS: Calcium 8.1 mg/dL (8.4-10.2); Potassium 5.5 mmol/L (3.5-5.1)
[2017-11-08 06:58] LABS: Vancomycin,Random 26.7 ug/mL
--- NOTE | 2017-11-08 07:51 | PN ---
PROGRESS NOTE REASON FOR FOLLOW UP: 11/07/2017 REASON FOR FOLLOW UP: 1. Positive blood culture. 2. UTI. INTERVAL HISTORY: The patient is afebrile. She is breathing slightly comfortably. Denies significant chest pain. Did have some cough but not bringing up any sputum. No abdominal pain. No diarrhea. EXAMINATION: Blood pressure 119/71 with a pulse of 76, temperature of 97, she is 98% on 2 L nasal cannula. General description is an elderly female lying in bed in no distress. Respiratory system unlabored breathing. Clear to auscultation anteriorly. Heart S1, S2 regular rate and rhythm. Abdomen soft, no tenderness. LABS: Hemoglobin is 10.5, white count 7.2, BUN of 75, creatinine is 2.98. Blood culture with a coagulase-negative Staph. Urine is pending. DIAGNOSTIC IMPRESSION AND PLAN: 1. Patient with a positive blood culture with a coagulase-negative Staph likely skin contamination. The patient has no clinical disease to go along with it. We will discontinue the vancomycin to decrease risk of nephrotoxicity. 2. Possible urinary tract infection. Keep the patient on Rocephin while waiting for urine culture to finalize. Continue supportive care. MMODL / IJN: [id number] /
[2017-11-08] MEDS: cefTRIAXone IN SWFI 1,000 MG/10 ML SYRINGE IVP SCH (08:01)
[2017-11-08] MEDS: FUROSEMIDE 10 MG/ML 4 ML VIAL IV SCH ×2 (08:01→20:34)
[2017-11-08] MEDS: METOPROLOL TARTRATE 25 MG TAB PO SCH ×2 (08:02→20:34)
[2017-11-08] MEDS: GABAPENTIN 300 MG CAP PO SCH (08:02)
[2017-11-08] MEDS: IPRATROPIUM-ALBUTEROL 3 ML NEB INHALATION SCH ×3 (09:11→21:00)
--- NOTE | 2017-11-08 09:14 | P.PN ---
Subjective Patient is seen in follow-up for acute kidney injury on chronic kidney disease. Patient has chronic kidney disease stage III with baseline creatinine near 1.1 -1.3. Creatinine was elevated at 3.7 on admission and is down to 2.6 today. She was started on Lasix 40 mg IV twice daily due to volume overload. Her oral intake is starting to improve. She has been waiting. No vomiting or diarrhea. Denies chest pain or shortness of breath. Potassium level is also down to 5.5 today. Vital signs are stable. General: The patient appeared well nourished and normally developed. HEENT: Head exam is unremarkable. Neck is without jugular venous distension. LUNGS: Lungs are clear to auscultation and percussion. Breath sounds decreased. HEART: Rate and Rhythm are regular. First and second heart sounds normal. No murmurs, rubs or gallops. ABDOMEN: Abdominal exam reveals normal bowel sounds. Non-tender and non- distended. No evidence of peritonitis. EXTREMITITES: 1+ edema. Objective - Vital Signs Vital signs: Vital Signs Temp 97.2 F L 11/08/17 04:00 Pulse 76 11/08/17 04:00 Resp 18 11/08/17 04:00 BP 111/64 11/08/17 04:00 Pulse Ox 96 11/08/17 04:00 Intake & Output 11/07/17 11/08/17 11/08/17 18:59 06:59 18:59 Intake Total 1568.132 566.121 Balance 1568.132 566.121 Intake: IV 320 0.9 160 Heparin Sod,Pork in 0.45% 160 NaCl 25,000 unit In 0.45 % NaCl 1 500ml.bag @ 7.76 UNITS/KG/HR 20.06 mls/hr IV .Q24H [facility] Rx#: [id number] Intake, IV Titration 263.132 246.121 Amount Heparin Sod,Pork in 0.45% 263.132 246.121 NaCl 25,000 unit In 0.45 % NaCl 1 500ml.bag @ 7.76 UNITS/KG/HR 20.06 mls/hr IV .Q24H [facility] Rx#: [id number] Oral 1305 Other: Voiding Method Bedside Commode Bedside Commode Diaper Diaper # Voids 1 - Labs CBC & Chem 7: 11/08/17 03:54 11/08/17 05:49 Labs: Abnormal Lab Results - Last 24 Hours (Table) 11/07/17 11/07/17 11/07/17 Range/Units 11:35 13:56 16:29 Hgb (11.4-16.0) gm/dL MCV (80.0-100.0) fL MCHC (31.0-37.0) g/dL RDW (11.5-15.5) % Lymphocytes # (1.0-4.8) k/uL APTT 81.0 H (22.0-30.0) sec Potassium (3.5-5.1) mmol/L BUN (7-17) mg/dL Creatinine (0.52-1.04) mg/dL Glucose (74-99) mg/dL POC Glucose (mg/dL) 197 H 155 H (75-99) mg/dL Calcium (8.4-10.2) mg/dL 11/07/17 11/07/17 11/08/17 Range/Units 21:00 21:12 03:54 Hgb 10.8 L (11.4-16.0) gm/dL MCV 100.6 H (80.0-100.0) fL MCHC 28.0 L (31.0-37.0) g/dL RDW 16.5 H (11.5-15.5) % Lymphocytes # 0.8 L (1.0-4.8) k/uL APTT 43.1 H (22.0-30.0) sec Potassium (3.5-5.1) mmol/L BUN (7-17) mg/dL Creatinine (0.52-1.04) mg/dL Glucose (74-99) mg/dL POC Glucose (mg/dL) 157 H (75-99) mg/dL Calcium (8.4-10.2) mg/dL 11/08/17 11/08/17 11/08/17 Range/Units 03:54 05:49 06:14 Hgb (11.4-16.0) gm/dL MCV (80.0-100.0) fL MCHC (31.0-37.0) g/dL RDW (11.5-15.5) % Lymphocytes # (1.0-4.8) k/uL APTT 33.4 H (22.0-30.0) sec Potassium 5.5 H (3.5-5.1) mmol/L BUN 71 H (7-17) mg/dL Creatinine 2.60 H (0.52-1.04) mg/dL Glucose 131 H (74-99) mg/dL POC Glucose (mg/dL) 153 H (75-99) mg/dL Calcium 8.1 L (8.4-10.2) mg/dL Microbiology - Last 24 Hours (Table) 11/06/17 17:17 Blood Culture - Preliminary Blood No Growth after 24 hours 11/05/17 17:15 Blood Culture Gram Stain - Preliminary Blood Blood Culture - Preliminary Coagulase Negative Staph 11/06/17 09:30 Urine Culture - Final Urine,Clean Catch Assessment and Plan Plan: Assessment: #1. Acute kidney injury secondary to ATN secondary to hemodynamic instability and further worsened with the use of lisinopril. Creatinine 3.73 on admission and is down to 2.6 today. No evidence of hydronephrosis noted. Rule out interstitial nephritis. #2. Chronic kidney disease stage III with baseline creatinine in the range of 1.1-1.3. Etiology is likely diabetic kidney disease. #3. Diabetes mellitus. #4. Hyperkalemia secondary to acute kidney injury and further worsened with the use of lisinopril. No evidence of metabolic acidosis. Blood sugars are also relatively well-controlled. Improved. #5. Volume overload. #6. History of diastolic CHF. #7. Atrial fibrillation. Rate controlled. #8. Coag-negative staph bacteremia likely skin contamination. #9. Pyuria. Follow-up urine culture. Also rule out interstitial nephritis. Plan: Continue Lasix 40 mg IV twice daily for now. Follow-up cultures. Follow up urine eosinophils. Avoid nephrotoxic agents and hypotensive episodes. Vancomycin has been discontinued. Repeat electrolytes in the morning.
[2017-11-08] MEDS: APIXABAN 2.5 MG TABLET PO SCH ×2 (10:49→20:34)
[2017-11-08] MEDS: HYDROcodone/APAP 10-325MG 1 EACH TAB PO PRN (10:53)
[2017-11-08] MEDS: MULTIVITAMINS, THERA 1 EACH TAB PO SCH (12:26)
[2017-11-08 12:42] LABS: Glucose,Whole Blood 177 mg/dL (75-99)
--- NOTE | 2017-11-08 14:48 | XR ---
EXAMINATION TYPE: XR chest 1V portable DATE OF EXAM: 11/08/2017 COMPARISON: Prior chest x-ray 11/06/2017 HISTORY: Pneumonia TECHNIQUE: Single frontal view of the chest is obtained. FINDINGS: Patient is rotated. Heart is enlarged. Central vascularity is increased. There is obscured right hemidiaphragm and heart border. No pneumothorax. Interstitium is increased. IMPRESSION: Correlate for congestive heart failure. Pneumonia not excluded. Right pleural effusion a nd associated atelectasis versus edema.
--- NOTE | 2017-11-08 15:27 | P.PN ---
Subjective Progress Note Date: 11/08/17 Principal diagnosis: Acute diastolic congestive heart failure, bilateral pleural effusions, right greater than the left Progress note dated 11/07/2017 This is a 72-year-old female that we saw yesterday in consultation. She came in with shortness of breath. It was multifactorial in part related to some atrial fibrillation but also congestive heart failure. She does have a history of diabetes mellitus hypertension hypothyroidism hyperlipidemia morbid obesity significant lower extremity edema suspected COPD skin cancer bilateral pleural effusions acute kidney injury congestive hepatopathy Gram-positive bacteremia and possible urinary tract infection. The patient is doing a bit better today. Much less short of breath. The patient's labs x-rays and medications are all reviewed. On 11/08/2017 patient seen in follow-up on selective care unit. Resting comfortably in bed, in no acute distress. Chest x-ray from this morning he has been reviewed, shows increase central vascularity, right pleural associated atelectasis versus edema. On 2 L, with O2 sat 95%. Afebrile, vital signs are stable. Lung sounds are positive for scattered wheezes, patient still gets exertional dyspnea. Blood culture from 11/05/1999 is positive for Staphylococcus epidermidis. Follow-up blood cultures were negative. Urine culture showed no growth. Vancomycin has been discontinued, patient continues on Rocephin. She continues on IV diuresis with Lasix 40 every 12 hours. Renal profile is improving, creatinine is down to 2.6 today. Temp was within normal limits, 6.2. Hemoglobin is 10.8 Objective - Vital Signs Vital signs: Vital Signs Temp 97.2 F L 11/08/17 12:00 Pulse 93 11/08/17 13:48 Resp 16 11/08/17 12:00 BP 112/68 11/08/17 12:00 Pulse Ox 95 11/08/17 12:00 Intake & Output 11/07/17 11/08/17 11/08/17 18:59 06:59 18:59 Intake Total 1568.132 566.121 Balance 1568.132 566.121 Intake: IV 320 0.9 160 Heparin Sod,Pork in 0.45% 160 NaCl 25,000 unit In 0.45 % NaCl 1 500ml.bag @ 7.76 UNITS/KG/HR 20.06 mls/hr IV .Q24H [facility] Rx#: [id number] Intake, IV Titration 263.132 246.121 Amount Heparin Sod,Pork in 0.45% 263.132 246.121 NaCl 25,000 unit In 0.45 % NaCl 1 500ml.bag @ 7.76 UNITS/KG/HR 20.06 mls/hr IV .Q24H [facility] Rx#: [id number] Oral 1305 Other: Voiding Method Bedside Commode Bedside Commode Diaper Diaper # Voids 1 2 - Exam No acute distress, oriented 3. HEENT examination is grossly unremarkable. Mucous membranes are moist. No oral lesions. Neck supple. Full range of motion. No adenopathy thyromegaly or neck vein distention. Cardiovascular examination reveals regular rhythm rate. S1-S2 normal. No S3 or S4. No discernible murmur noted. Lungs reveal diminished breath sounds. His a few scattered crackles at the bases. No wheezes. A few scattered rhonchi on deep breathing. Abdomen soft bowel sounds are heard. No masses or tenderness. Extremities no significant edema and chronic venous stasis changes with hyperpigmentation. Skin changes as above.. Neurologic examination is brief but nonfocal. - Labs CBC & Chem 7: 11/08/17 03:54 11/08/17 05:49 Labs: Abnormal Lab Results - Last 24 Hours (Table) 11/07/17 11/07/17 11/07/17 Range/Units 16:29 21:00 21:12 Hgb (11.4-16.0) gm/dL MCV (80.0-100.0) fL MCHC (31.0-37.0) g/dL RDW (11.5-15.5) % Lymphocytes # (1.0-4.8) k/uL APTT 43.1 H (22.0-30.0) sec Potassium (3.5-5.1) mmol/L BUN (7-17) mg/dL Creatinine (0.52-1.04) mg/dL Glucose (74-99) mg/dL POC Glucose (mg/dL) 155 H 157 H (75-99) mg/dL Calcium (8.4-10.2) mg/dL 11/08/17 11/08/17 11/08/17 Range/Units 03:54 03:54 05:49 Hgb 10.8 L (11.4-16.0) gm/dL MCV 100.6 H (80.0-100.0) fL MCHC 28.0 L (31.0-37.0) g/dL RDW 16.5 H (11.5-15.5) % Lymphocytes # 0.8 L (1.0-4.8) k/uL APTT 33.4 H (22.0-30.0) sec Potassium 5.5 H (3.5-5.1) mmol/L BUN 71 H (7-17) mg/dL Creatinine 2.60 H (0.52-1.04) mg/dL Glucose 131 H (74-99) mg/dL POC Glucose (mg/dL) (75-99) mg/dL Calcium 8.1 L (8.4-10.2) mg/dL 11/08/17 11/08/17 Range/Units 06:14 11:56 Hgb (11.4-16.0) gm/dL MCV (80.0-100.0) fL MCHC (31.0-37.0) g/dL RDW (11.5-15.5) % Lymphocytes # (1.0-4.8) k/uL APTT (22.0-30.0) sec Potassium (3.5-5.1) mmol/L BUN (7-17) mg/dL Creatinine (0.52-1.04) mg/dL Glucose (74-99) mg/dL POC Glucose (mg/dL) 153 H 177 H (75-99) mg/dL Calcium (8.4-10.2) mg/dL Microbiology - Last 24 Hours (Table) 11/05/17 17:15 Blood Culture Gram Stain - Final Blood Blood Culture - Final Staphylococcus epidermidis 11/06/17 17:17 Blood Culture - Preliminary Blood No Growth after 24 hours 11/06/17 09:30 Urine Culture - Final Urine,Clean Catch Assessment and Plan Plan: Assessment: Atrial fibrillation Congestive heart failure, diastolic in nature Diabetes mellitus History of hypertension Untreated hypothyroidism Hyperlipidemia Morbid obesity Significant lower extremity edema Suspected COPD History of skin cancer Bilateral pleural effusions, right greater than left, consistent with underlying CHF. Acute kidney injury/chronic kidney disease Congestive hepatopathy secondary to heart failure. Gram-positive bacteremia Rule out urinary tract infection Plan: Continue IV diuresis per nephrology, continue nebulized treatments, continue Rocephin. No significant sputum production, still has diffuse wheezing. Renal profile is improving, culture from 11/05/2017 was consistent with contamination , vancomycin has been discontinued. Follow-up with cultures remain negative. Continue to follow I performed a history & physical examination of the patient and discussed their management with my nurse practitioner, Toya Escobedo. I reviewed the nurse practitioner's note and agree with the documented findings and plan of care. Lung sounds are positive for diffuse wheezes throughout the lung conklin. The findings and the impression was discussed with the patient. I attest to the documentation by the nurse practitioner. Time with Patient: Less than 30
[2017-11-08 16:28] LABS: Glucose,Whole Blood 159 mg/dL (75-99)
[2017-11-08 21:07] LABS: Glucose,Whole Blood 152 mg/dL (75-99)
--- NOTE | 2017-11-08 21:24 | PN ---
PROGRESS NOTE DATE OF SERVICE: 11/08/2017. INTERVAL HISTORY: This 72-year-old woman who was admitted with severe acute renal failure with hyperkalemia, also had acute renal failure, acute tubular necrosis, also. In the the chest x-ray, possible CHF or even pneumonia and pleural effusion was also suspected. The most recent chest x-ray done today showed persistent opacity on the right side. No chest pain. No palpitation. EXAM: Alert and oriented times three. Pulse 68, blood pressure 112/60, respirations 16 , temperature 97.2, pulse ox 98% 2 L. HEENT: Conjunctivae normal. NECK: No jugular venous distention. CARDIOVASCULAR: S1, S2 muffled. Respiratory: Breath sounds diminished at the bases. A few scattered rhonchi and crackles. Abdomen is soft, obese, nontender. Legs no edema. No swelling. Central nervous system: No focal deficits. LABORATORY DATA: WBC 6.3, hemoglobin 10.8, sodium 130, potassium 5.5. ASSESSMENT: 1. Severe acute renal failure with hyperkalemia, possibly acute prerenal factors and acute tubular necrosis. 2. Possible acute purulent tracheobronchitis with possible bronchopneumonia in the right influenza, ruled out. 3. Possible congestive heart failure acute exacerbation. 4. Increased AST, ALT with possible mild hepatitis. 5. Troponin 0.06 indeterminate. 6. Atrial fibrillation, probably new onset. 7. Diabetes type 2. 8. Hypertension. 9. Obesity with body mass index of 52.7. 10.Hypothyroidism. 11.Neuropathy. 12.History of degenerative joint disease. 13.Bed bugs recently. 14.Remote history of nicotine dependence. 15.FULL CODE. RECOMMENDATIONS AND DISCUSSION: Recommend to continue current medications, management and symptomatic treatment. Otherwise closely follow with multiple consultants. Creatinine is improving. Guarded prognosis. Further recommendations to follow. MMODL / IJN: [id number] / MTDD
[2017-11-09] MEDS: HYDROcodone/APAP 10-325MG 1 EACH TAB PO PRN ×2 (01:44→22:40)
[2017-11-09 05:36] LABS: Glucose,Whole Blood 134 mg/dL (75-99)
[2017-11-09] MEDS: PANTOPRAZOLE 40 MG TABLET PO SCH (06:33)
[2017-11-09] MEDS: INSULIN ASPART 100 UNIT/ML 1 ML 10 ML VIAL SQ SCH ×4 (06:33→21:25)
[2017-11-09] MEDS: LEVOTHYROXINE 125 MCG TAB PO SCH (06:33)
[2017-11-09 06:41] LABS: Hypochromasia Marked; Mean Platelet Volume 8.2
[2017-11-09 06:42] LABS: HCT 34.7 % (34.0-46.0); HGB 10.4 gm/dL (11.4-16.0); MCH 28.7 pg (25.0-35.0); Platelet Count 279 k/uL (150-450); RBC 3.63 m/uL (3.80-5.40); RDW 15.9 % (11.5-15.5)
[2017-11-09 06:43] LABS: MCV 95.5 fL (80.0-100.0)
[2017-11-09 07:05] LABS: Lymphocytes # (M) 1.25 k/uL (1.0-4.8); Neutrophils % (M) 62 %; Nucleated Red Blood Cells 1 /100 WBC (0-0); Total Cells Counted 200
[2017-11-09 07:06] LABS: Rouleaux Present
[2017-11-09 07:35] LABS: Calcium 8.4 mg/dL (8.4-10.2)
[2017-11-09 07:36] LABS: Potassium 5.3 mmol/L (3.5-5.1)
--- NOTE | 2017-11-09 07:37 | PN ---
PROGRESS NOTE DATE OF SERVICE: 11/08/2017 REASON FOR FOLLOWUP: 1. Positive blood culture likely contamination. 2. UTI. INTERVAL HISTORY: The patient is afebrile. She is breathing slightly comfortably. She continued to have some cough and wheezing, but not bringing up any sputum. No chest pain. No abdominal pain and no diarrhea. PHYSICAL EXAMINATION: On examination, her blood pressure is 113/55 with a pulse 72, temperature of 97. General description is an elderly female lying in bed in no distress. RESPIRATORY SYSTEM: Unlabored breathing, coarse breath sounds bilaterally. HEART: S1, S2. Regular rate and rhythm. ABDOMEN: Soft, no tenderness. LABS: BUN of 71, creatinine is 2.60. White count 6.2. Blood culture with Staphylococcus epidermidis. Repeat blood culture has been negative. Urine so far negative as well. DIAGNOSTIC IMPRESSION AND PLAN: 1. Patient with a positive blood culture with Staphylococcus epidermidis likely skin contamination. Repeat blood culture has been negative. Patient off vancomycin as of yesterday. 2. Patient noted to have significantly positive UA with a question of urinary tract infection. So far culture coming back negative. She will be continued on Rocephin for a short course. Continue with supportive care. MMODL / IJN: [id number] /
--- NOTE | 2017-11-09 08:36 | US ---
EXAMINATION TYPE: US chest DATE OF EXAM: 11/09/2017 COMPARISON: x-ray CLINICAL HISTORY: rule out plueral effusion. EXAM MEASUREMENTS: Right Pleural Effusion fluid pocket: 3.6 cm Right skin to fluid thickness: 2.6 cm Left Pleural Effusion fluid pocket: 0 cm Morbidly obese patient. Right side marked for possible thoracentesis outside the dept. Left side NOT marked for possible thoracentesis outside the dept. Pulmonologists are able to review the images in the patient?s EMR. IMPRESSIONS: Right-sided pleural effusion as noted.
[2017-11-09] MEDS: IPRATROPIUM-ALBUTEROL 3 ML NEB INHALATION SCH ×3 (08:47→21:47)
[2017-11-09] MEDS: APIXABAN 2.5 MG TABLET PO SCH ×2 (08:48→20:09)
[2017-11-09] MEDS: FUROSEMIDE 10 MG/ML 4 ML VIAL IV SCH ×2 (08:48→20:09)
[2017-11-09] MEDS: GABAPENTIN 300 MG CAP PO SCH (08:49)
[2017-11-09] MEDS: METOPROLOL TARTRATE 25 MG TAB PO SCH ×2 (08:49→20:09)
[2017-11-09] MEDS: cefTRIAXone IN SWFI 1,000 MG/10 ML SYRINGE IVP SCH (08:51)
--- NOTE | 2017-11-09 09:52 | P.PN ---
Subjective Patient is seen in follow-up for acute kidney injury on chronic kidney disease. Patient has chronic kidney disease stage III with baseline creatinine near 1.1 -1.3. Creatinine was elevated at 3.7 on admission and is down to 2.09 today. She is maintained on Lasix 40 mg IV twice daily due to volume overload. Her oral intake is starting to improve. She has been voiding. No vomiting or diarrhea. Denies chest pain or shortness of breath. Potassium level is also down to 5.3 today. Vital signs are stable. General: The patient appeared well nourished and normally developed. HEENT: Head exam is unremarkable. Neck is without jugular venous distension. LUNGS: Lungs are clear to auscultation and percussion. Breath sounds decreased. HEART: Rate and Rhythm are regular. First and second heart sounds normal. No murmurs, rubs or gallops. ABDOMEN: Abdominal exam reveals normal bowel sounds. Non-tender and non- distended. No evidence of peritonitis. EXTREMITITES: 1+ edema. Objective - Vital Signs Vital signs: Vital Signs Temp 98 F 11/09/17 04:00 Pulse 73 11/09/17 09:03 Resp 17 11/09/17 04:00 BP 117/53 11/09/17 04:00 Pulse Ox 97 11/09/17 04:00 Intake & Output 11/08/17 11/09/17 11/09/17 18:59 06:59 18:59 Intake Total 200 90 Balance 200 90 Weight 139 kg Intake: Oral 200 90 Other: Voiding Method Bedside Commode Diaper # Voids 2 1 - Labs CBC & Chem 7: 11/09/17 05:38 11/09/17 05:38 Labs: Abnormal Lab Results - Last 24 Hours (Table) 11/08/17 11/08/17 11/08/17 Range/Units 11:56 16:25 21:05 RBC (3.80-5.40) m/uL Hgb (11.4-16.0) gm/dL MCHC (31.0-37.0) g/dL RDW (11.5-15.5) % Nucleated RBCs (0-0) /100 WBC Potassium (3.5-5.1) mmol/L BUN (7-17) mg/dL Creatinine (0.52-1.04) mg/dL Glucose (74-99) mg/dL POC Glucose (mg/dL) 177 H 159 H 152 H (75-99) mg/dL 11/09/17 11/09/17 11/09/17 Range/Units 05:31 05:38 05:38 RBC 3.63 L (3.80-5.40) m/uL Hgb 10.4 L (11.4-16.0) gm/dL MCHC 30.0 L (31.0-37.0) g/dL RDW 15.9 H (11.5-15.5) % Nucleated RBCs 1 H (0-0) /100 WBC Potassium 5.3 H (3.5-5.1) mmol/L BUN 68 H (7-17) mg/dL Creatinine 2.09 H (0.52-1.04) mg/dL Glucose 116 H (74-99) mg/dL POC Glucose (mg/dL) 134 H (75-99) mg/dL Microbiology - Last 24 Hours (Table) 11/06/17 17:17 Blood Culture - Preliminary Blood No Growth after 48 hours 11/05/17 17:15 Blood Culture Gram Stain - Final Blood Blood Culture - Final Staphylococcus epidermidis Assessment and Plan Plan: Assessment: #1. Acute kidney injury secondary to ATN secondary to hemodynamic instability and further worsened with the use of lisinopril. Also component of cardiorenal syndrome. Creatinine 3.73 on admission and is down to 2.09 today. No evidence of hydronephrosis noted. Rule out interstitial nephritis. #2. Chronic kidney disease stage III with baseline creatinine in the range of 1.1-1.3. Etiology is likely diabetic kidney disease. #3. Diabetes mellitus. #4. Hyperkalemia secondary to acute kidney injury and further worsened with the use of lisinopril. No evidence of metabolic acidosis. Blood sugars are also relatively well-controlled. Improved. #5. Volume overload. #6. History of diastolic CHF. #7. Atrial fibrillation. Rate controlled. #8. Coag-negative staph bacteremia likely skin contamination. #9. Pyuria. Follow-up urine culture. Also rule out interstitial nephritis. Plan: Continue Lasix 40 mg IV twice daily for now. Follow-up cultures. Follow up urine eosinophils. Avoid nephrotoxic agents and hypotensive episodes. Vancomycin has been discontinued. Encouraged oral intake. Repeat electrolytes in the morning.
[2017-11-09 12:12] LABS: Glucose,Whole Blood 125 mg/dL (75-99)
[2017-11-09] MEDS: MULTIVITAMINS, THERA 1 EACH TAB PO SCH (13:11)
--- NOTE | 2017-11-09 14:46 | P.PN ---
Subjective Progress Note Date: 11/09/17 Principal diagnosis: Acute diastolic congestive heart failure, bilateral pleural effusions, right greater than the left Progress note dated 11/07/2017 This is a 72-year-old female that we saw yesterday in consultation. She came in with shortness of breath. It was multifactorial in part related to some atrial fibrillation but also congestive heart failure. She does have a history of diabetes mellitus hypertension hypothyroidism hyperlipidemia morbid obesity significant lower extremity edema suspected COPD skin cancer bilateral pleural effusions acute kidney injury congestive hepatopathy Gram-positive bacteremia and possible urinary tract infection. The patient is doing a bit better today. Much less short of breath. The patient's labs x-rays and medications are all reviewed. On 11/08/2017 patient seen in follow-up on selective care unit. Resting comfortably in bed, in no acute distress. Chest x-ray from this morning he has been reviewed, shows increase central vascularity, right pleural associated atelectasis versus edema. On 2 L, with O2 sat 95%. Afebrile, vital signs are stable. Lung sounds are positive for scattered wheezes, patient still gets exertional dyspnea. Blood culture from 11/05/1999 is positive for Staphylococcus epidermidis. Follow-up blood cultures were negative. Urine culture showed no growth. Vancomycin has been discontinued, patient continues on Rocephin. She continues on IV diuresis with Lasix 40 every 12 hours. Renal profile is improving, creatinine is down to 2.6 today. Temp was within normal limits, 6.2. Hemoglobin is 10.8 On 11/09/2017 patient seen in follow-up on selective care unit. Lung sounds are positive for some faint expiratory wheezes over right lower lobe posteriorly. Remains on 3 L per nasal cannula, with O2 sat between 97 and 100% . She was up in the chair today, and walking with therapy in the room. She states she was very weak, but tolerated activity well. Afebrile. Vital signs are stable. Today's lab work has been reviewed, WBC is within normal limits of 5.0, hemoglobin is 10.4, sodium is 138, potassium is 5.3, BUN is 68 and creatinine 2.09. Her weight is stable, she is in +200 mL fluid balance over the last 24 hours. Ultrasound of the chest was done, and it showed right pleural effusion fluid pocket of 3.6 cm, and no left pleural effusion noted. Patient remains in A. fib with a controlled rate. IV diuresis per nephrology. Objective - Vital Signs Vital signs: Vital Signs Temp 97.6 F 11/09/17 08:00 Pulse 82 11/09/17 14:25 Resp 18 11/09/17 08:00 BP 128/65 11/09/17 08:00 Pulse Ox 100 11/09/17 08:00 Intake & Output 11/08/17 11/09/17 11/09/17 18:59 06:59 18:59 Intake Total 200 210 Output Total 600 Balance 200 -390 Weight 139 kg Intake: Oral 200 210 Output: Urine 600 Other: Voiding Method Bedside Commode Diaper # Voids 2 1 # Bowel Movements 0 - Exam No acute distress, oriented 3. HEENT examination is grossly unremarkable. Mucous membranes are moist. No oral lesions. Neck supple. Full range of motion. No adenopathy thyromegaly or neck vein distention. Cardiovascular examination reveals regular rhythm rate. S1-S2 normal. No S3 or S4. No discernible murmur noted. Lungs reveal diminished breath sounds. His a few scattered crackles at the bases. No wheezes. A few scattered rhonchi on deep breathing. Abdomen soft bowel sounds are heard. No masses or tenderness. Extremities no significant edema and chronic venous stasis changes with hyperpigmentation. Skin changes as above.. Neurologic examination is brief but nonfocal. - Labs CBC & Chem 7: 11/09/17 05:38 11/09/17 05:38 Labs: Abnormal Lab Results - Last 24 Hours (Table) 11/08/17 11/08/17 11/09/17 Range/Units 16:25 21:05 05:31 RBC (3.80-5.40) m/uL Hgb (11.4-16.0) gm/dL MCHC (31.0-37.0) g/dL RDW (11.5-15.5) % Nucleated RBCs (0-0) /100 WBC Potassium (3.5-5.1) mmol/L BUN (7-17) mg/dL Creatinine (0.52-1.04) mg/dL Glucose (74-99) mg/dL POC Glucose (mg/dL) 159 H 152 H 134 H (75-99) mg/dL 11/09/17 11/09/17 11/09/17 Range/Units 05:38 05:38 11:43 RBC 3.63 L (3.80-5.40) m/uL Hgb 10.4 L (11.4-16.0) gm/dL MCHC 30.0 L (31.0-37.0) g/dL RDW 15.9 H (11.5-15.5) % Nucleated RBCs 1 H (0-0) /100 WBC Potassium 5.3 H (3.5-5.1) mmol/L BUN 68 H (7-17) mg/dL Creatinine 2.09 H (0.52-1.04) mg/dL Glucose 116 H (74-99) mg/dL POC Glucose (mg/dL) 125 H (75-99) mg/dL Microbiology - Last 24 Hours (Table) 11/06/17 17:17 Blood Culture - Preliminary Blood No Growth after 48 hours Assessment and Plan Plan: Assessment: 1. Atrial fibrillation 2. Congestive heart failure, diastolic in nature 3. Diabetes mellitus 4. History of hypertension 5. Untreated hypothyroidism 6. Hyperlipidemia 7. Morbid obesity 8. Significant lower extremity edema 9. Suspected COPD 10. History of skin cancer 11. Bilateral pleural effusions, right greater than left, consistent with underlying CHF. Ultrasound of the chest from today showed right pleural effusion with a fluid pocket of 3.6 cm, and no left pleural effusion. 12. Acute kidney injury/chronic kidney disease 13. Congestive hepatopathy secondary to heart failure. 14. Gram-positive bacteremia, blood culture from 11/05/2017 was positive for Staphylococcus epidermidis, likely contamination 16. Rule out urinary tract infection Plan: Patient was up sitting up in the chair, and ambulating short distances in the room with physical therapy, tolerated well, although very weak generally. Continue increasing activity as tolerated. Continue IV diuresis per nephrology , continue nebulized treatments, continue Rocephin. No significant sputum production, still has diffuse wheezing, but this is improved from previous exams. Continue incentive spirometry use. I performed a history & physical examination of the patient and discussed their management with my nurse practitioner, Toya Escobedo. I reviewed the nurse practitioner's note and agree with the documented findings and plan of care. Lung sounds are positive for scattered wheezes at bilateral bases. The findings and the impression was discussed with the patient. I attest to the documentation by the nurse practitioner. Time with Patient: Less than 30
[2017-11-09 17:00] LABS: Glucose,Whole Blood 157 mg/dL (75-99)
--- NOTE | 2017-11-09 18:30 | P.PN ---
Subjective Progress Note Date: 11/09/17 Progress note being dictated for Dr. Escalona. Interval history: This a 72-year-old female admitted with acute CHF exacerbation , severe acute renal failure with hyperkalemia, UTI, right pleural effusion, and multiple other medical issues. Chest Ultrasound reporting right pleural effusion fluid pocket 3.6 cm, not marked. Telemetry atrial fibrillation with RVR. Maintaining O2 sats of 94% on 2 L nasal cannula. Maintained on Lasix IV push as per nephrology. Renal function improving. Antibiotics of Rocephin as per infectious disease. Afebrile. Suspecting positive blood culture with Staphylococcus epididymis, contaminated, preliminary repeat blood cultures negative. Urine culture negative. Sitting up in chair, denies chest pain, palpitations or increasing shortness of breath. Objective - Vital Signs Vital signs: Vital Signs Temp 97.4 F L 11/09/17 16:00 Pulse 77 11/09/17 16:00 Resp 18 11/09/17 16:00 BP 133/82 11/09/17 16:00 Pulse Ox 94 L 11/09/17 16:00 Intake & Output 11/08/17 11/09/17 11/09/17 18:59 06:59 18:59 Intake Total 200 210 Output Total 700 Balance 200 -490 Weight 139 kg Intake: Oral 200 210 Output: Urine 700 Other: Voiding Method Bedside Commode Diaper # Voids 2 1 # Bowel Movements 0 - Exam PHYSICAL EXAM: VITAL SIGNS: As above GENERAL: Sitting up in chair, no acute distress HEENT: Conjunctivae normal. eyes normal. NECK: No JVD. No thyroid enlargement. No LNs CARDIOVASCULAR: S1, S2 muffled. No murmur RESPIRATION: Breath sounds diminished in the bases. Scattered rhonchi and crackles. ABDOMEN: Soft, nontender obese,,. No guarding. no masses palpable. .Bowel sounds heard. LEGS: No edema. no swelling PSYCHIATRY: Alert and oriented -3, mood and affect normal. NERVOUS SYSTEM: Cranial N 2-12 grossly normal. Moves all 4 limbs. Diffuse weakness No focal deficits. No sensory deficit. Skin: no ulcer no rash Joints: No active swelling. No inflammation. Lymphatic system. No LN neck axilla or groin. - Labs CBC & Chem 7: 11/09/17 05:38 11/09/17 05:38 Labs: Abnormal Lab Results - Last 24 Hours (Table) 11/08/17 11/09/17 11/09/17 Range/Units 21:05 05:31 05:38 RBC 3.63 L (3.80-5.40) m/uL Hgb 10.4 L (11.4-16.0) gm/dL MCHC 30.0 L (31.0-37.0) g/dL RDW 15.9 H (11.5-15.5) % Nucleated RBCs 1 H (0-0) /100 WBC Potassium (3.5-5.1) mmol/L BUN (7-17) mg/dL Creatinine (0.52-1.04) mg/dL Glucose (74-99) mg/dL POC Glucose (mg/dL) 152 H 134 H (75-99) mg/dL 11/09/17 11/09/17 11/09/17 Range/Units 05:38 11:43 16:58 RBC (3.80-5.40) m/uL Hgb (11.4-16.0) gm/dL MCHC (31.0-37.0) g/dL RDW (11.5-15.5) % Nucleated RBCs (0-0) /100 WBC Potassium 5.3 H (3.5-5.1) mmol/L BUN 68 H (7-17) mg/dL Creatinine 2.09 H (0.52-1.04) mg/dL Glucose 116 H (74-99) mg/dL POC Glucose (mg/dL) 125 H 157 H (75-99) mg/dL Microbiology - Last 24 Hours (Table) 11/06/17 17:17 Blood Culture - Preliminary Blood No Growth after 48 hours Assessment and Plan Assessment: 1. Severe acute renal failure with hyperkalemia, possibly acute prerenal factors and acute tubular necrosis 2. Possible acute purulent tracheobronchitis with possible bronchopneumonia 3. Possible acute exacerbation of CHF 4. Possible mild hepatitis with elevated AST and ALT 5. Troponin 0.06 indeterminate 6. Atrial fibrillation, controlled ventricular rate, possible new onset 7. Diabetes mellitus type 2 Plan: Continue on current medication regime ,monitoring and symptomatic treatment. Diuretics as per nephrology. Close monitoring of renal function and electrolytes. Follow closely with multiple consults. Close monitoring of cultures. Further recommendations to follow. The impression and plan of care has been dictated as directed. : I performed a history and examination of this patient, discussed the same with the dictator. I agree with the dictator's note ,documented as a scribe. Any additional findings or plans will be noted.
[2017-11-09 21:07] LABS: Glucose,Whole Blood 140 mg/dL (75-99)
--- NOTE | 2017-11-10 03:41 | PN ---
PROGRESS NOTE DATE OF SERVICE: 11/09/2017 REASON FOR FOLLOWUP: 1. Positive blood culture, likely contamination. 2. Possible UTI. INTERVAL HISTORY: The patient is afebrile. She is still complaining of shortness of breath, mostly with exertion. She did have a very minimal cough; however, she is not bringing any sputum up. No chest pain. No abdominal pain. No diarrhea. PHYSICAL EXAMINATION: Blood pressure 133/82 with a pulse of 77, temperature of 97.4. She is 94% on 2 L nasal cannula. General description is an elderly female up in bed in no distress. RESPIRATORY SYSTEM: Unlabored breathing. Bilateral expiratory wheeze. HEART: S1, S2. Regular rate and rhythm. ABDOMEN: Soft. No tenderness. LABS: Hemoglobin is 10.4, white count 5.0 with a BUN of 68, creatinine 2.09. Blood culture repeat is negative so far. DIAGNOSTIC IMPRESSION AND PLAN: 1. Patient with a positive blood culture with Staphylococcus epidermidis, likely skin contamination. Repeat blood culture remains negative. Currently off antibiotic therapy. 2. Possible urinary tract infection, on Rocephin. That will be continued. Hopefully discontinue at the time of discharge. present at the bedside. All of his questions and concerns were answered. MMODL / IJN: [id number] /
[2017-11-10 06:01] LABS: Glucose,Whole Blood 126 mg/dL (75-99)
[2017-11-10] MEDS: INSULIN ASPART 100 UNIT/ML 1 ML 10 ML VIAL SQ SCH ×2 (06:27→11:50)
[2017-11-10] MEDS: LEVOTHYROXINE 125 MCG TAB PO SCH (06:36)
[2017-11-10] MEDS: PANTOPRAZOLE 40 MG TABLET PO SCH (06:36)
[2017-11-10 07:21] LABS: Basophils % (A) 0 %; Eosinophils # (A) 0.3 k/uL (0-0.7); Eosinophils % (A) 5 %; HCT 36.4 % (34.0-46.0); HGB 10.7 gm/dL (11.4-16.0); Hypochromasia Marked; Lymphocytes % (A) 18 %; MCH 28.4 pg (25.0-35.0); MCHC 29.4 g/dL (31.0-37.0); MCV 96.5 fL (80.0-100.0); Mean Platelet Volume 8.4; Monocytes # (A) 0.6 k/uL (0-1.0); Monocytes % (A) 12 %; Neutrophils # (A) 3.4 k/uL (1.3-7.7); Neutrophils % (A) 62 %; Platelet Count 247 k/uL (150-450); RBC 3.77 m/uL (3.80-5.40); RDW 15.7 % (11.5-15.5); WBC 5.5 k/uL (3.8-10.6)
[2017-11-10 07:23] LABS: Calcium 8.8 mg/dL (8.4-10.2); Magnesium 1.9 mg/dL (1.6-2.3); Potassium 5.4 mmol/L (3.5-5.1)
[2017-11-10] MEDS: METOPROLOL TARTRATE 25 MG TAB PO SCH (08:31)
[2017-11-10] MEDS: IPRATROPIUM-ALBUTEROL 3 ML NEB INHALATION SCH ×2 (09:05→13:18)
[2017-11-10] MEDS: GABAPENTIN 300 MG CAP PO SCH (09:07)
[2017-11-10] MEDS: APIXABAN 2.5 MG TABLET PO SCH (09:07)
--- NOTE | 2017-11-10 09:15 | P.PN ---
Subjective Patient is seen in follow-up for acute kidney injury on chronic kidney disease. Patient has chronic kidney disease stage III with baseline creatinine near 1.1 -1.3. Creatinine was elevated at 3.7 on admission and is down to 1.8 today. She is maintained on Lasix 40 mg IV twice daily due to volume overload. Her oral intake is starting to improve. She has been voiding. No vomiting or diarrhea. Denies chest pain or shortness of breath. Potassium level is relatively stable at 5.4 today. Vital signs are stable. General: The patient appeared well nourished and normally developed. HEENT: Head exam is unremarkable. Neck is without jugular venous distension. LUNGS: Lungs are clear to auscultation and percussion. Breath sounds decreased. HEART: Rate and Rhythm are regular. First and second heart sounds normal. No murmurs, rubs or gallops. ABDOMEN: Abdominal exam reveals normal bowel sounds. Non-tender and non- distended. No evidence of peritonitis. EXTREMITITES: 1+ edema. Objective - Vital Signs Vital signs: Vital Signs Temp 97.7 F 11/10/17 08:06 Pulse 80 11/10/17 09:06 Resp 12 11/10/17 08:06 BP 160/85 11/10/17 08:06 Pulse Ox 91 L 11/10/17 04:00 Intake & Output 11/09/17 11/10/17 11/10/17 18:59 06:59 18:59 Intake Total 570 150 120 Output Total 700 600 Balance -130 -450 120 Weight 138.8 kg Intake: Oral 570 150 120 Output: Urine 700 600 Other: Voiding Method Bedside Commode Diaper # Voids 1 # Bowel Movements 0 - Labs CBC & Chem 7: 11/10/17 06:20 11/10/17 06:20 Labs: Abnormal Lab Results - Last 24 Hours (Table) 11/09/17 11/09/17 11/09/17 Range/Units 11:43 16:58 20:56 RBC (3.80-5.40) m/uL Hgb (11.4-16.0) gm/dL MCHC (31.0-37.0) g/dL RDW (11.5-15.5) % Potassium (3.5-5.1) mmol/L BUN (7-17) mg/dL Creatinine (0.52-1.04) mg/dL Glucose (74-99) mg/dL POC Glucose (mg/dL) 125 H 157 H 140 H (75-99) mg/dL 11/10/17 11/10/17 11/10/17 Range/Units 05:59 06:20 06:20 RBC 3.77 L (3.80-5.40) m/uL Hgb 10.7 L (11.4-16.0) gm/dL MCHC 29.4 L (31.0-37.0) g/dL RDW 15.7 H (11.5-15.5) % Potassium 5.4 H (3.5-5.1) mmol/L BUN 66 H (7-17) mg/dL Creatinine 1.80 H (0.52-1.04) mg/dL Glucose 121 H (74-99) mg/dL POC Glucose (mg/dL) 126 H (75-99) mg/dL Microbiology - Last 24 Hours (Table) 11/06/17 17:17 Blood Culture - Preliminary Blood No Growth after 72 hours Assessment and Plan Plan: Assessment: #1. Acute kidney injury secondary to ATN secondary to hemodynamic instability and further worsened with the use of lisinopril. Also component of cardiorenal syndrome. Creatinine 3.73 on admission and is down to 1.8 today. No evidence of hydronephrosis noted. #2. Chronic kidney disease stage III with baseline creatinine in the range of 1.1-1.3. Etiology is likely diabetic kidney disease. #3. Diabetes mellitus. #4. Hyperkalemia secondary to acute kidney injury and further worsened with the use of lisinopril. No evidence of metabolic acidosis. Blood sugars are also relatively well-controlled. Stable. #5. Volume overload. Gradually improving. #6. History of diastolic CHF. #7. Atrial fibrillation. Rate controlled. #8. Coag-negative staph bacteremia likely skin contamination. #9. Pyuria. Follow-up urine culture. Also rule out interstitial nephritis. Plan: Continue Lasix 40 mg IV twice daily for now. Follow-up cultures. Follow up urine eosinophils. Avoid nephrotoxic agents and hypotensive episodes. Vancomycin has been discontinued. Encouraged oral intake. Repeat electrolytes in the morning.
[2017-11-10] MEDS: cefTRIAXone IN SWFI 1,000 MG/10 ML SYRINGE IVP SCH (09:25)
[2017-11-10] MEDS: FUROSEMIDE 10 MG/ML 4 ML VIAL IV SCH (09:25)
[2017-11-10] MEDS: MULTIVITAMINS, THERA 1 EACH TAB PO SCH (09:25)
[2017-11-10 11:41] LABS: Glucose,Whole Blood 147 mg/dL (75-99)
--- NOTE | 2017-11-10 14:05 | P.DS ---
Providers Date of admission: 11/05/17 11:40 Expected date of discharge: 11/10/17 Attending physician: Marlon Escalona Consults: 11/05/17 11:40 Consult Physician Routine Consulting Provider: Chase Anguiano Consult Reason/Comments: chf Do you want consulting provider notified?: Yes Consult Physician Routine Consulting Provider: Beulah Vega Consult Reason/Comments: arf Do you want consulting provider notified?: Yes 11/06/17 15:28 Consult Physician Routine Consulting Provider: Gerry Espinal Consult Reason/Comments: pl effusion/pneumonia Do you want consulting provider notified?: Yes 11/06/17 16:07 Consult Physician Routine Consulting Provider: Tino Mckay Consult Reason/Comments: Positive blood cultures Do you want consulting provider notified?: Yes [facility] [place] [facility] Course: Final Diagnoses: 1. Severe acute renal failure with hyperkalemia, possibly acute prerenal factors and acute tubular necrosis 2. Possible acute purulent tracheobronchitis with possible bronchopneumonia 3. Possible acute exacerbation of CHF 4. Possible mild hepatitis with elevated AST and ALT 5. Troponin 0.06 indeterminate 6. Atrial fibrillation, controlled ventricular rate, possible new onset 7. Diabetes mellitus type 2 Hospital course:This a 72-year-old female admitted with acute CHF exacerbation, severe acute renal failure with hyperkalemia, UTI, right pleural effusion, and multiple other medical issues. Chest Ultrasound reported right pleural effusion fluid pocket 3.6 cm, not marked. Telemetry atrial fibrillation with RVR. Evaluated by nephrology, infectious disease, pulmonary, cardiology. Maintained on Lasix IV push as per nephrology. Renal function improving. Antibiotics of Rocephin as per infectious disease. Completed course of antibiotic regimen with no further antibiotics recommended outpatient as per infectious disease. Afebrile. Suspecting positive blood culture with Staphylococcus epididymis, contaminated, repeat blood cultures negative. Urine culture negative. Significant clinical improvement. Patient has been cleared by all consults for discharge. Patient is being discharged to [facility] subacute rehab in a stable condition with guarded prognosis. Physical Exam:VSS, CARDIOVASCULAR: S1, S2 muffled. No murmur.,RESPIRATION: Breath sounds diminished in the bases. Scattered rhonchi and crackles.ABDOMEN: Soft, nontender obese,,. No guarding. no masses palpable. .Bowel sounds heard.PSYCHIATRY: Alert and oriented -3, mood and affect normal.Diffuse weakness No focal deficits. The impression and plan of care has been dictated as directed. : I performed a history and examination of this patient, discussed the same with the dictator. I agree with the dictator's note ,documented as a scribe. Any additional findings or plans will be noted. Time taken: 35 minutes Patient Condition at Discharge: Stable Plan - Discharge Summary Discharge Rx Participant: No New Discharge Prescriptions: New Gabapentin [Neurontin] 300 mg PO DAILY cap Ipratropium-Albuterol Nebulize [Duoneb 0.5 mg-3 mg/3 ml Soln] 3 ml INHALATION RT-TID ampul.neb Metoprolol Tartrate [Lopressor] 25 mg PO BID tab Furosemide [Lasix] 40 mg PO DAILY #30 tablet Apixaban [Eliquis] 2.5 mg PO BID tablet INSULIN LISPRO (HumaLOG) [humaLOG] 0 unit SQ ACHS #1 vial Continue Multivitamin [Multivitamins Adult Gummies] 1 tab PO DAILY Cholecalciferol [Vitamin D3] 1,000 unit PO DAILY Omeprazole 40 mg PO DAILY Levothyroxine Sodium [Synthroid] 125 mcg PO DAILY Ketoconazole [Ketoconazole 2%] 1 applic TOPICAL DAILY PRN PRN Reason: Rash Hydrocortisone Cream [Hydrocortisone 2.5% Cream] 1 applic TOPICAL DAILY PRN PRN Reason: Itching Glimepiride [Amaryl] 4 mg PO AC-BID Gabapentin [Neurontin] 300 mg PO DAILY Citrical With Vitamin D 1 tab PO DAILY Atorvastatin [Lipitor] 20 mg PO HS HYDROcodone/APAP 10-325MG [[place] 10-325] 1 tab PO Q4HR PRN #20 tab PRN Reason: Pain Discontinued Lisinopril 40 mg PO DAILY metFORMIN HCL 1,000 mg PO BID Bumetanide 2 mg PO BID Pioglitazone [Actos] 45 mg PO DAILY Gabapentin [Neurontin] 600 mg PO HS Discharge Medication List Cholecalciferol [Vitamin D3] 1,000 unit PO DAILY 05/29/17 [History] Citrical With Vitamin D 1 tab PO DAILY 05/29/17 [History] Gabapentin [Neurontin] 300 mg PO DAILY 05/29/17 [History] Glimepiride [Amaryl] 4 mg PO AC-BID 05/29/17 [History] Hydrocortisone Cream [Hydrocortisone 2.5% Cream] 1 applic TOPICAL DAILY PRN 10/03 [History] Ketoconazole [Ketoconazole 2%] 1 applic TOPICAL DAILY PRN 05/29/17 [History] Levothyroxine Sodium [Synthroid] 125 mcg PO DAILY 05/29/17 [History] Multivitamin [Multivitamins Adult Gummies] 1 tab PO DAILY 05/29/17 [History] Omeprazole 40 mg PO DAILY 05/29/17 [History] Atorvastatin [Lipitor] 20 mg PO HS 11/05/17 [History] Apixaban [Eliquis] 2.5 mg PO BID tablet 11/10/17 [Rx] Furosemide [Lasix] 40 mg PO DAILY #30 tablet 11/10/17 [Rx] Gabapentin [Neurontin] 300 mg PO DAILY cap 11/10/17 [Rx] HYDROcodone/APAP 10-325MG [[place] 10-325] 1 tab PO Q4HR PRN #20 tab 11/10/17 [Rx] INSULIN LISPRO (HumaLOG) [humaLOG] 0 unit SQ ACHS #1 vial 11/10/17 [Rx] Ipratropium-Albuterol Nebulize [Duoneb 0.5 mg-3 mg/3 ml Soln] 3 ml INHALATION RT -TID ampul.neb 11/10/17 [Rx] Metoprolol Tartrate [Lopressor] 25 mg PO BID tab 11/10/17 [Rx] Follow up Appointment(s)/Referral(s): Juan Miguel Dong MD [REFERRING] - 3 Days (while at [facility]) Neri Pérez DO [STAFF PHYSICIAN] - 1 Week Nahun Espinoza DO [Primary Care Provider] - 1 Week (after dc from [facility] ) Glenys Jones MD [STAFF PHYSICIAN] - 2 Weeks Activity/Diet/Wound Care/Special Instructions: Shameka Hunter is in OP pharmacy. Co pay is $8.35 confirm cardiology follow-up appointment per to discharge. Diet: Consistent carb, renal Accu-Cheks before meals and at bedtime Activity: As tolerated Discharge Disposition: TRANSFER TO SNF/F
[2017-11-10 15:31] VITALS: BP 144/65; PULSE 65; RESP 16; TEMP 96.4
--- NOTE | 2017-11-10 16:44 | P.PN ---
<Lynette Rueda - Last Filed: 11/10/17 16:30> Subjective Progress Note Date: 11/10/17 Principal diagnosis: Acute diastolic congestive heart failure with bilateral pleural effusions right greater than left. Progress note dated 11/07/2017 This is a 72-year-old female that we saw yesterday in consultation. She came in with shortness of breath. It was multifactorial in part related to some atrial fibrillation but also congestive heart failure. She does have a history of diabetes mellitus hypertension hypothyroidism hyperlipidemia morbid obesity significant lower extremity edema suspected COPD skin cancer bilateral pleural effusions acute kidney injury congestive hepatopathy Gram-positive bacteremia and possible urinary tract infection. The patient is doing a bit better today. Much less short of breath. The patient's labs x-rays and medications are all reviewed. On 11/08/2017 patient seen in follow-up on selective care unit. Resting comfortably in bed, in no acute distress. Chest x-ray from this morning he has been reviewed, shows increase central vascularity, right pleural associated atelectasis versus edema. On 2 L, with O2 sat 95%. Afebrile, vital signs are stable. Lung sounds are positive for scattered wheezes, patient still gets exertional dyspnea. Blood culture from 11/05/1999 is positive for Staphylococcus epidermidis. Follow-up blood cultures were negative. Urine culture showed no growth. Vancomycin has been discontinued, patient continues on Rocephin. She continues on IV diuresis with Lasix 40 every 12 hours. Renal profile is improving, creatinine is down to 2.6 today. Temp was within normal limits, 6.2. Hemoglobin is 10.8 On 11/09/2017 patient seen in follow-up on selective care unit. Lung sounds are positive for some faint expiratory wheezes over right lower lobe posteriorly. Remains on 3 L per nasal cannula, with O2 sat between 97 and 100% . She was up in the chair today, and walking with therapy in the room. She states she was very weak, but tolerated activity well. Afebrile. Vital signs are stable. Today's lab work has been reviewed, WBC is within normal limits of 5.0, hemoglobin is 10.4, sodium is 138, potassium is 5.3, BUN is 68 and creatinine 2.09. Her weight is stable, she is in +200 mL fluid balance over the last 24 hours. Ultrasound of the chest was done, and it showed right pleural effusion fluid pocket of 3.6 cm, and no left pleural effusion noted. Patient remains in A. fib with a controlled rate. IV diuresis per nephrology. She is seen again today 11/10/2017 in follow-up on the selective care unit. She is currently sitting up in a chair at the bedside. She is awake and alert in no acute distress. She denies any worsening shortness of breath at this time. No cough or congestion. No chest pain or palpitations. Follow-up blood cultures revealed no growth. Urine culture revealed no growth. White count 5.5 , hemoglobin 10.7, creatinine 1.80. She is maintaining good O2 saturations in the 90s on 2 L/m per nasal cannula. She's been afebrile. Hemodynamically stable. She is continued on IV diuretics. Objective - Vital Signs Vital signs: Vital Signs Temp 96.4 F L 11/10/17 15:00 Pulse 65 11/10/17 15:00 Resp 16 11/10/17 15:00 BP 144/65 11/10/17 15:00 Pulse Ox 94 L 11/10/17 15:00 Intake & Output 11/09/17 11/10/17 11/10/17 18:59 06:59 18:59 Intake Total 570 150 120 Output Total 700 600 Balance -130 -450 120 Weight 138.8 kg Intake: Oral 570 150 120 Output: Urine 700 600 Other: Voiding Method Bedside Commode Bedside Commode Diaper Diaper # Voids 1 2 # Bowel Movements 0 - Exam No acute distress, oriented 3. HEENT examination is grossly unremarkable. Mucous membranes are moist. No oral lesions. Neck supple. Full range of motion. No adenopathy thyromegaly or neck vein distention. Cardiovascular examination reveals regular rhythm rate. S1-S2 normal. No S3 or S4. No discernible murmur noted. Lungs reveal diminished breath sounds. His a few scattered crackles at the bases. No wheezes. A few scattered rhonchi on deep breathing. Abdomen soft bowel sounds are heard. No masses or tenderness. Extremities no significant edema and chronic venous stasis changes with hyperpigmentation. Skin changes as above.. Neurologic examination is brief but nonfocal. - Labs CBC & Chem 7: 11/10/17 06:20 11/10/17 06:20 Labs: Abnormal Lab Results - Last 24 Hours (Table) 11/09/17 11/09/17 11/10/17 Range/Units 16:58 20:56 05:59 RBC (3.80-5.40) m/uL Hgb (11.4-16.0) gm/dL MCHC (31.0-37.0) g/dL RDW (11.5-15.5) % Potassium (3.5-5.1) mmol/L BUN (7-17) mg/dL Creatinine (0.52-1.04) mg/dL Glucose (74-99) mg/dL POC Glucose (mg/dL) 157 H 140 H 126 H (75-99) mg/dL 11/10/17 11/10/17 11/10/17 Range/Units 06:20 06:20 11:38 RBC 3.77 L (3.80-5.40) m/uL Hgb 10.7 L (11.4-16.0) gm/dL MCHC 29.4 L (31.0-37.0) g/dL RDW 15.7 H (11.5-15.5) % Potassium 5.4 H (3.5-5.1) mmol/L BUN 66 H (7-17) mg/dL Creatinine 1.80 H (0.52-1.04) mg/dL Glucose 121 H (74-99) mg/dL POC Glucose (mg/dL) 147 H (75-99) mg/dL Microbiology - Last 24 Hours (Table) 11/06/17 17:17 Blood Culture - Preliminary Blood No Growth after 72 hours Assessment and Plan Assessment: Assessment: 1. Atrial fibrillation 2. Congestive heart failure, diastolic in nature, with bilateral pleural effusions not significant enough for thoracentesis. 3. Diabetes mellitus 4. History of hypertension 5. Untreated hypothyroidism 6. Hyperlipidemia 7. Morbid obesity 8. Significant lower extremity edema 9. Suspected COPD 10. History of skin cancer 11. Bilateral pleural effusions, right greater than left, consistent with underlying CHF. Ultrasound of the chest from today showed right pleural effusion with a fluid pocket of 3.6 cm, and no left pleural effusion. 12. Acute kidney injury/chronic kidney disease 13. Congestive hepatopathy secondary to heart failure. 14. Gram-positive bacteremia, blood culture from 11/05/2017 was positive for Staphylococcus epidermidis, likely contamination 16. Rule out urinary tract infection Plan: The patient was seen and evaluated by Dr. Jones. She is stable from the pulmonary standpoint. She is being discharged to an extended care facility. Continue on bronchodilators. She is anticoagulated with Eliquis. She will follow-up with Dr. Jones in our office in 1-2 weeks' time. She is however encouraged to call sooner with any recurrence of symptoms or other questions or concerns. I, the cosigning physician, performed a history & physical examination of the patient. Lungs sounds crackles in the bilateral posterior bases. Maintaining good O2 saturations in the 90s on 2 L/m per nasal cannula.. I discussed the assessment and plan of care with my nurse practitioner, Lynette Rueda. I attest to the above note as dictated by her. <Glenys Jones - Last Filed: 11/10/17 18:18> Subjective Joint evaluation was done along with the nurse practitioner. Patient is recovering from her acute kidney injury. She is stable for now. She'll be moved to a medical floor and she'll be taken off telemetry for now. She did not check liters per minute nasal cannula. She is on IV diuretics. The findings on the case. Objective - Vital Signs Vital signs: Vital Signs Temp 96.4 F L 11/10/17 15:00 Pulse 65 11/10/17 15:00 Resp 16 11/10/17 15:00 BP 144/65 11/10/17 15:00 Pulse Ox 94 L 11/10/17 15:00 Intake & Output 11/09/17 11/10/17 11/10/17 18:59 06:59 18:59 Intake Total 570 150 120 Output Total 700 600 Balance -130 -450 120 Weight 138.8 kg Intake: Oral 570 150 120 Output: Urine 700 600 Other: Voiding Method Bedside Commode Bedside Commode Diaper Diaper # Voids 1 2 # Bowel Movements 0 - Labs CBC & Chem 7: 11/10/17 06:20 11/10/17 06:20 Labs: Abnormal Lab Results - Last 24 Hours (Table) 11/09/17 11/10/17 11/10/17 Range/Units 20:56 05:59 06:20 RBC 3.77 L (3.80-5.40) m/uL Hgb 10.7 L (11.4-16.0) gm/dL MCHC 29.4 L (31.0-37.0) g/dL RDW 15.7 H (11.5-15.5) % Potassium (3.5-5.1) mmol/L BUN (7-17) mg/dL Creatinine (0.52-1.04) mg/dL Glucose (74-99) mg/dL POC Glucose (mg/dL) 140 H 126 H (75-99) mg/dL 11/10/17 11/10/17 11/10/17 Range/Units 06:20 11:38 17:09 RBC (3.80-5.40) m/uL Hgb (11.4-16.0) gm/dL MCHC (31.0-37.0) g/dL RDW (11.5-15.5) % Potassium 5.4 H (3.5-5.1) mmol/L BUN 66 H (7-17) mg/dL Creatinine 1.80 H (0.52-1.04) mg/dL Glucose 121 H (74-99) mg/dL POC Glucose (mg/dL) 147 H 179 H (75-99) mg/dL Microbiology - Last 24 Hours (Table) 11/06/17 17:17 Blood Culture - Preliminary Blood No Growth after 72 hours
[2017-11-10 17:14] LABS: Glucose,Whole Blood 179 mg/dL (75-99)
--- NOTE | 2017-11-10 19:20 | PN ---
PROGRESS NOTE DATE OF SERVICE: 11/10/2017 REASON FOR FOLLOWUP: 1. Positive blood culture contamination. 2. UTI. INTERVAL HISTORY: The patient is afebrile. She is breathing comfortably. She did have some congested cough but did not bring up any sputum. No nausea. No vomiting. No abdominal pain or any diarrhea. PHYSICAL EXAMINATION: Her blood pressure is 126/80 with a pulse of 90, temperature 96.7. She is 90% on 2 L nasal cannula. General description is an elderly female up in the chair in no distress. RESPIRATORY SYSTEM: Unlabored breathing. Some rhonchi. No wheeze. HEART: S1, S2. Regular rate and rhythm. ABDOMEN: Soft. No tenderness. LABS: Hemoglobin is 10.5, white count 5.5 with a BUN of 66, creatinine 1.80. Blood culture repeat has been negative. DIAGNOSTIC IMPRESSION AND PLAN: 1. Patient with positive blood culture with Staphylococcus epidermidis, likely contamination. 2. Patient did have positive UA compatible with possible urinary tract infection, adequately treated. She received about 6 days of IV antibiotic therapy. Recommend discontinuing the antibiotic. Continue with supportive care. MMODL / IJN: [id number] /
--- NOTE | 2017-11-11 08:39 | DS ---
DISCHARGE SUMMARY DISCHARGE ADDENDUM: DATE OF SERVICE: 11/10/2017 This 72-year-old woman was admitted with acute renal failure, hyperkalemia also acute tracheobronchitis, bronchopneumonia, CHF and multiple other medical issues also. The patient was originally slated to go to [facility]. Please refer to the discharge summary dictated by the nurse practitioner as a scribe for further information, detailed diagnosis and as well as the list of medications. Total time taken 35 minutes. Currently, the patient is apparently not willing to go to the [facility] and would like to go home and the patient will be discharged home with home care and recommended continued follow up with primary physician and multiple consultants. Prognosis guarded. MMODL / IJN: [id number] /
== END 2017-11-10 18:01 | disposition home health service (06) | DRG 291 ==
LOC: EC 09:41 → 6SEL 11:40 → 4MS4W 11-10 12:00
PROVIDERS: ADMIT Hospitalist; ATTEND Hospitalist
DX: I13.0 Hypertensive heart and chronic kidney disease with heart failure and stage 1 through stage 4 chronic kidney disease, or unspecified chronic kidney disease (principal); I50.33 Acute on chronic diastolic (congestive) heart failure; N17.0 Acute kidney failure with tubular necrosis; I48.1 Persistent atrial fibrillation; E11.22 Type 2 diabetes mellitus with diabetic chronic kidney disease; E11.42 Type 2 diabetes mellitus with diabetic polyneuropathy; E86.0 Dehydration; E66.01 Morbid (severe) obesity due to excess calories; I48.2 Chronic atrial fibrillation; B88.8 Other specified infestations; J44.0 Chronic obstructive pulmonary disease with (acute) lower respiratory infection; J98.11 Atelectasis; N39.0 Urinary tract infection, site not specified; E87.5 Hyperkalemia; I07.1 Rheumatic tricuspid insufficiency; E78.5 Hyperlipidemia, unspecified; J20.9 Acute bronchitis, unspecified; K21.9 Gastro-esophageal reflux disease without esophagitis; L98.9 Disorder of the skin and subcutaneous tissue, unspecified; N18.3 Chronic kidney disease, stage 3 (moderate); R09.02 Hypoxemia; R32 Unspecified urinary incontinence; Z79.84 Long term (current) use of oral hypoglycemic drugs; Z79.899 Other long term (current) drug therapy; Z80.0 Family history of malignant neoplasm of digestive organs; Z80.1 Family history of malignant neoplasm of trachea, bronchus and lung; Z82.49 Family history of ischemic heart disease and other diseases of the circulatory system; Z83.3 Family history of diabetes mellitus; Z85.828 Personal history of other malignant neoplasm of skin; Z87.891 Personal history of nicotine dependence; B96.89 Other specified bacterial agents as the cause of diseases classified elsewhere; E03.9 Hypothyroidism, unspecified; Z88.0 Allergy status to penicillin
CPT/HCPCS: 36415; 71045; 71046; 76604; 76770; 80048; 80053; 80061; 80202; 81001; 82533; 82550; 82553; 83036; 83735; 83880; 84132; 84439; 84443; 84484; 85025; 85610; 85730; 87040; 87077; 87086; 87186; 87205; 87502; 93005; 93306; 94640; 94760; 96361; 96374; 99291

== ENCOUNTER 2017-12-10 14:28 | Emergency (ER) | payer MEDICARE ==
[2017-12-10] MEDS ORDERED: DIPH,PERTUS(ACELL)TETVAC-LF 0.5 ML VIAL IM ONE (14:46)
[2017-12-10 14:47] VITALS: PULSE 94; RESP 18
[2017-12-10 14:48] VITALS: BP 116/63; TEMP 97.9
--- NOTE | 2017-12-10 14:48 | ED ---
General Adult HPI - General Chief complaint: Wound/Laceration Stated complaint: LACERATION ON LEFT LEG Time Seen by Provider: 12/10/17 14:32 Source: patient, EMS, RN notes reviewed Mode of arrival: EMS Limitations: no limitations - History of Present Illness Initial comments: 72-year-old female presenting status post fall. Patient was going up the stairs to home, fell and had a skin tear to her left lower extremity. She denies any significant pain complaints time my evaluation. No hip or knee pain. No ankle pain. No head or neck trauma noted. Patient was recently discharged from the assisted, she was on her way home today. She does have significant medical problems, currently on home oxygen. She has no other complaints. Tetanus status is unknown. - Related Data Home Medications Medication Instructions Recorded Confirmed Cholecalciferol [Vitamin D3] 1,000 unit PO DAILY 05/29/17 12/10/17 Ketoconazole [Ketoconazole 2%] 1 applic TOPICAL DAILY PRN 05/29/17 12/10/17 Levothyroxine Sodium [Synthroid] 125 mcg PO DAILY 05/29/17 12/10/17 Multivitamin [Multivitamins Adult 1 tab PO DAILY 05/29/17 12/10/17 Gummies] Omeprazole 40 mg PO DAILY 05/29/17 12/10/17 Atorvastatin [Lipitor] 20 mg PO HS 11/05/17 12/10/17 INSULIN LISPRO (HumaLOG) [humaLOG] 5 unit SQ AC-TID 12/10/17 12/10/17 INSULIN LISPRO (humaLOG) [humaLOG] See Protocol SQ ACHS PRN 12/10/17 12/10/17 Insulin Detemir [Levemir] 20 unit SQ DAILY 12/10/17 12/10/17 Ipratropium-Albuterol Nebulize 3 ml INHALATION RT-Q4H PRN 12/10/17 12/10/17 [Duoneb 0.5 mg-3 mg/3 ml Soln] Metoprolol Tartrate [Lopressor] 25 mg PO QAM 12/10/17 12/10/17 SILVER sulfADIAZINE CREAM 1 applic TOPICAL HS 12/10/17 12/10/17 [Silvadene Cream] Previous Rx's Medication Instructions Recorded Apixaban [Eliquis] 2.5 mg PO BID tablet 11/10/17 Gabapentin [Neurontin] 300 mg PO DAILY cap 11/10/17 Furosemide [Lasix] 80 mg PO BID@0900,1600 tab 12/01/17 Ipratropium-Albuterol Nebulize 3 ml INHALATION RT-QID ampul.neb 12/01/17 [Duoneb 0.5 mg-3 mg/3 ml Soln] Metolazone [Zaroxolyn] 2.5 mg PO DAILY tab 12/01/17 Metoprolol Tartrate [Lopressor] 12.5 mg PO HS tab 12/01/17 Midodrine [ProAmatine] 5 mg PO AC-BID tab 12/01/17 traMADol HCl [Ultram] 50 mg PO Q12H PRN #10 tab 12/01/17 Allergies Allergy/AdvReac Type Severity Reaction Status Date / Time camphor [From Vicks Vaporub] Allergy Rash/Hives Verified 12/10/17 15:20 eucalyptus Allergy Rash/Hives Verified 12/10/17 15:20 [From Vicks Vaporub] menthol [From Vicks Vaporub] Allergy Rash/Hives Verified 12/10/17 15:20 Penicillins Allergy Rash/Hives Verified 12/10/17 15:20 petrolatum,white Allergy Rash/Hives Verified 12/10/17 15:20 [From Vicks Vaporub] turpentine oil Allergy Rash/Hives Verified 12/10/17 15:20 [From Vicks Vaporub] ivory soap Allergy Rash/Hives Uncoded 12/10/17 14:37 Review of Systems ROS Statement: Those systems with pertinent positive or pertinent negative responses have been documented in the HPI. ROS Other: All systems not noted in ROS Statement are negative. 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, skin cancer with removals, tinnitis bilaterally, edentulous, arthritis in spine, current sore L lower leg, bilateral feet reddened/dry, current bite oliveira L upper chest from "bedbugs.", when pt was little she went to special education for reading and writing/now can read "alittle and write alittle." History of Any Multi-Drug Resistant Organisms: Other MDRO Past Surgical History: Tonsillectomy, Tubal Ligation Additional Past Surgical History / Comment(s): Skin cancer with removals, EGD, D &C Past Anesthesia/Blood Transfusion Reactions: No Reported Reaction Past Psychological History: No Psychological Hx Reported Smoking Status: Former smoker Past Alcohol Use History: None Reported Past Drug Use History: None Reported - Past Family History Father Family Medical History: Cancer Additional Family Medical History / Comment(s): Father of lung cancer. He was a nonsmoker, worked in a refinery. Mother Family Medical History: Cancer, Coronary Artery Disease (CAD), Diabetes Mellitus , Hyperlipidemia, Hypertension Additional Family Medical History / Comment(s): Mother of pancreatic cancer. General Exam Limitations: no limitations General appearance: alert, in no apparent distress Head exam: Present: atraumatic, normocephalic Eye exam: Present: normal appearance, PERRL ENT exam: Present: normal exam Neck exam: Present: normal inspection. Absent: tenderness, meningismus Respiratory exam: Present: decreased breath sounds, prolonged expiratory Cardiovascular Exam: Present: regular rate, normal rhythm GI/Abdominal exam: Present: soft. Absent: distended, tenderness Extremities exam: Present: normal capillary refill, pedal edema, other (2 cm crescent-shaped skin avulsion on the anterior lateral aspect of the mid left lópez. No active hemorrhage.) Course Vital Signs 12/10/17 14:34 Temperature 97.9 F Pulse Rate 94 Respiratory 18 Rate Blood Pressure 116/63 O2 Sat by Pulse 94 L Oximetry - Reevaluation(s) Reevaluation #1: 12/10/17 15:34 Patient is on anticoagulation. Medical Decision Making - Medical Decision Making 72-year-old female on anticoagulation presents with skin tear and bleeding. X- rays obtained of the underlying bone, negative for fracture dislocation. There is a 2-3 cm skin avulsion. There is no active hemorrhage. Nonadherent bandage is applied with antibiotic ointment. Patient is instructed to change this bandage at home. She will follow-up with primary care physician return for any worsening or changing symptoms. Disposition Clinical Impression: Skin avulsion Disposition: HOME SELF-CARE Condition: Fair Instructions: Skin Avulsion (ED) Referrals: Nahun Espinoza DO [Primary Care Provider] - 1-2 days Time of Disposition: 15:36
--- NOTE | 2017-12-10 15:18 | XR ---
EXAMINATION TYPE: XR tibia fibula LT DATE OF EXAM: 12/10/2017 CLINICAL HISTORY: Left lower extremity pain after fall TECHNIQUE: Two views of the left leg are obtained. COMPARISON: None. FINDINGS: There is no acute fracture or dislocation seen in the left tibia or fibula. Medial and la teral compartment joint space narrowing is seen of the knee with small marginal osteophytes. Ankle ursula int is unremarkable. Gauze partially obscures bony detail. Generalized soft tissue swelling is noted. IMPRESSION: There is no acute fracture or dislocation seen in the left tibia or fibula.
== END 2017-12-10 16:11 | disposition home or self-care (01) ==
LOC: EC 14:28
DX: S81.812A Laceration without foreign body, left lower leg, initial encounter (principal); I48.91 Unspecified atrial fibrillation; E11.9 Type 2 diabetes mellitus without complications; E03.9 Hypothyroidism, unspecified; E78.5 Hyperlipidemia, unspecified; I11.0 Hypertensive heart disease with heart failure; I50.9 Heart failure, unspecified; E66.01 Morbid (severe) obesity due to excess calories; Z68.43 Body mass index [BMI] 50.0-59.9, adult; Z85.828 Personal history of other malignant neoplasm of skin; Z87.891 Personal history of nicotine dependence; Z79.84 Long term (current) use of oral hypoglycemic drugs; Z79.899 Other long term (current) drug therapy; Z91.048 Other nonmedicinal substance allergy status; Z88.0 Allergy status to penicillin; Z88.8 Allergy status to other drugs, medicaments and biological substances; W10.9XXA Fall (on) (from) unspecified stairs and steps, initial encounter; Y92.009 Unspecified place in unspecified non-institutional (private) residence as the place of occurrence of the external cause
CPT/HCPCS: 90471; 90715; 99283

== ENCOUNTER 2021-04-23 17:23 | Inpatient (IN) | payer MEDICARE ==
[2021-04-23 17:56] LABS: Basophils % (A) 0 %; Eosinophils # (A) 0.2 k/uL (0-0.7); Eosinophils % (A) 2 %; HCT 45.9 % (34.0-46.0); HGB 14.4 gm/dL (11.4-16.0); Hypochromasia Moderate; Lymphocytes % (A) 11 %; MCH 31.2 pg (25.0-35.0); MCHC 31.2 g/dL (31.0-37.0); MCV 99.9 fL (80.0-100.0); Macrocytosis Slight; Mean Platelet Volume 9.3; Monocytes # (A) 0.4 k/uL (0-1.0); Monocytes % (A) 5 %; Neutrophils # (A) 7.3 k/uL (1.3-7.7); Neutrophils % (A) 81 %; Platelet Count 146 k/uL (150-450); RDW 14.8 % (11.5-15.5)
[2021-04-23 18:06] LABS: Albumin 3.5 g/dL (3.5-5.0); Magnesium 1.7 mg/dL (1.6-2.3); Potassium 4.2 mmol/L (3.5-5.1); Total Bilirubin 0.5 mg/dL (0.2-1.3); Total Protein 6.3 g/dL (6.3-8.2)
--- NOTE | 2021-04-23 18:15 | XR ---
EXAMINATION TYPE: XR KUB DATE OF EXAM: 04/23/2021 COMPARISON: NONE HISTORY: Dark stool. TECHNIQUE: 3 views FINDINGS: Bowel gas pattern is normal. There is no sign of intestinal obstruction or pneumoperitoneum . Fecal pattern is normal. There is mild thoracolumbar levoscoliosis. There are no calcifications ove r the kidneys. IMPRESSION: Nonacute abdomen. Lumbar multilevel spondylotic changes with levoscoliosis.
--- NOTE | 2021-04-23 18:24 | ED ---
Weakness HPI - General Chief complaint: Weakness Stated complaint: weakness/GI Bleed Time Seen by Provider: 04/23/21 17:38 Source: patient, EMS, RN notes reviewed, old records reviewed Mode of arrival: EMS Limitations: no limitations - History of Present Illness Initial comments: This is a 75-year-old female who presents by EMS with complaints of weakness and difficulty and bleeding today she's had dark stools but states he does take iron supplements. He states he has some nonspecific abdominal pain she's had some lightheadedness and dizziness. He does have a history of GI bleed in the past no fevers chills no nausea no vomiting at this time. No other complaints or modifying factors MD Complaint: generalized weakness - Related Data Home Medications Medication Instructions Recorded Confirmed Cholecalciferol [Vitamin D3 (25 1,000 unit PO DAILY 05/29/17 12/10/17 Mcg = 1000 Iu)] Ketoconazole [Ketoconazole 2%] 1 applic TOPICAL DAILY PRN 05/29/17 12/10/17 Levothyroxine Sodium [Synthroid] 125 mcg PO DAILY 05/29/17 12/10/17 Multivitamin [Multivitamins Adult 1 tab PO DAILY 05/29/17 12/10/17 Gummies] Omeprazole 40 mg PO DAILY 05/29/17 12/10/17 Atorvastatin [Lipitor] 20 mg PO HS 11/05/17 12/10/17 INSULIN LISPRO (HumaLOG) [humaLOG] 5 unit SQ AC-TID 12/10/17 12/10/17 INSULIN LISPRO (humaLOG) [humaLOG] See Protocol SQ ACHS PRN 12/10/17 12/10/17 Insulin Detemir (Levemir) [Levemir] 20 unit SQ DAILY 12/10/17 12/10/17 Ipratropium-Albuterol Nebulize 3 ml INHALATION RT-Q4H PRN 12/10/17 12/10/17 [Duoneb 0.5 mg-3 mg/3 ml Soln] Metoprolol Tartrate [Lopressor] 25 mg PO QAM 12/10/17 12/10/17 SILVER sulfADIAZINE CREAM 1 applic TOPICAL HS 12/10/17 12/10/17 [Silvadene Cream] Previous Rx's Medication Instructions Recorded Apixaban [Eliquis] 2.5 mg PO BID tablet 11/10/17 Gabapentin [Neurontin] 300 mg PO DAILY cap 11/10/17 Furosemide [Lasix] 80 mg PO BID@0900,1600 tab 12/01/17 Ipratropium-Albuterol Nebulize 3 ml INHALATION RT-QID ampul.neb 12/01/17 [Duoneb 0.5 mg-3 mg/3 ml Soln] Metoprolol Tartrate [Lopressor] 12.5 mg PO HS tab 12/01/17 Midodrine [ProAmatine] 5 mg PO AC-BID tab 12/01/17 metOLazone [Zaroxolyn] 2.5 mg PO DAILY tab 12/01/17 traMADol HCl [Ultram] 50 mg PO Q12H PRN #10 tab 12/01/17 Allergies Allergy/AdvReac Type Severity Reaction Status Date / Time camphor [From Vicks Vaporub] Allergy Rash/Hives Verified 12/10/17 15:20 eucalyptus Allergy Rash/Hives Verified 12/10/17 15:20 [From Vicks Vaporub] menthol [From Vicks Vaporub] Allergy Rash/Hives Verified 12/10/17 15:20 Penicillins Allergy Rash/Hives Verified 12/10/17 15:20 petrolatum,white Allergy Rash/Hives Verified 12/10/17 15:20 [From Vicks Vaporub] turpentine oil Allergy Rash/Hives Verified 12/10/17 15:20 [From Vicks Vaporub] ivory soap Allergy Rash/Hives Uncoded 12/10/17 14:37 Review of Systems ROS Statement: Those systems with pertinent positive or pertinent negative responses have been documented in the HPI. ROS Other: All systems not noted in ROS Statement are negative. 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 MDRO Source:: Urine-VRE; Left Leg MDRO Past Surgical History: Tonsillectomy, Tubal Ligation Additional Past Surgical History / Comment(s): Skin cancer with removals, EGD, D&C Past Anesthesia/Blood Transfusion Reactions: No Reported Reaction Past Psychological History: No Psychological Hx Reported Smoking Status: Former smoker Past Alcohol Use History: None Reported Past Drug Use History: None Reported - Past Family History Father Family Medical History: Cancer Additional Family Medical History / Comment(s): Father of lung cancer. He was a nonsmoker, worked in a refinery. Mother Family Medical History: Cancer, Coronary Artery Disease (CAD), Diabetes Mellitus, Hyperlipidemia, Hypertension Additional Family Medical History / Comment(s): Mother of pancreatic cance r. General Exam - General Exam Comments Initial Comments: Is a well-developed well-nourished awake alert oriented 3 female Limitations: no limitations General appearance: alert, in no apparent distress Head exam: Present: atraumatic, normocephalic, normal inspection Eye exam: Present: normal appearance, PERRL, EOMI. Absent: scleral icterus, conjunctival injection, periorbital swelling ENT exam: Present: normal exam, mucous membranes moist Neck exam: Present: normal inspection. Absent: tenderness, meningismus, lymphadenopathy Respiratory exam: Present: normal lung sounds bilaterally. Absent: respiratory distress, wheezes, rales, rhonchi, stridor Cardiovascular Exam: Present: regular rate, normal rhythm, normal heart sounds. Absent: systolic murmur, diastolic murmur, rubs, gallop, clicks GI/Abdominal exam: Present: soft, normal bowel sounds, other (Obese abdomen no specific tender areas at this time.). Absent: distended, tenderness, guarding, rebound, rigid Rectal exam: Present: normal inspection. Absent: black stool Extremities exam: Present: normal inspection, full ROM, normal capillary refill. Absent: tenderness, pedal edema, joint swelling, calf tenderness Back exam: Present: normal inspection Neurological exam: Present: alert, oriented X3, CN II-XII intact Psychiatric exam: Present: normal affect, normal mood Skin exam: Present: warm, dry, intact, normal color. Absent: rash Course Vital Signs 04/23/21 17:33 Temperature 97.4 F L Pulse Rate 63 Respiratory 16 Rate Blood Pressure 199/95 O2 Sat by Pulse 94 L Oximetry Medical Decision Making - Medical Decision Making I did discuss findings with the patient and with the family also with Dr. Rivera. Patient has had no abdominal pain since arrival no chest pain. The culture is pending at this time hemoglobin was normal. She does have elevation of her troponin level she will be admitted I did discuss the case with Dr. Rivera was initially thought that she was on Elaquis she is currently not on Elaquis. - Lab Data Result diagrams: 04/23/21 17:41 04/23/21 17:41 Lab Results 04/23/21 04/23/21 04/23/21 Range/Units 17:41 17:41 17:41 WBC 9.0 (3.8-10.6) k/uL RBC 4.60 (3.80-5.40) m/uL Hgb 14.4 (11.4-16.0) gm/dL Hct 45.9 (34.0-46.0) % MCV 99.9 (80.0-100.0) fL MCH 31.2 (25.0-35.0) pg MCHC 31.2 (31.0-37.0) g/dL RDW 14.8 (11.5-15.5) % Plt Count 146 L (150-450) k/uL MPV 9.3 Neutrophils % 81 % Lymphocytes % 11 % Monocytes % 5 % Eosinophils % 2 % Basophils % 0 % Neutrophils # 7.3 (1.3-7.7) k/uL Lymphocytes # 1.0 (1.0-4.8) k/uL Monocytes # 0.4 (0-1.0) k/uL Eosinophils # 0.2 (0-0.7) k/uL Basophils # 0.0 (0-0.2) k/uL Hypochromasia Moderate Macrocytosis Slight Sodium 141 (137-145) mmol/L Potassium 4.2 (3.5-5.1) mmol/L Chloride 107 (98-107) mmol/L Carbon Dioxide 23 (22-30) mmol/L Anion Gap 11 mmol/L BUN 24 H (7-17) mg/dL Creatinine 2.07 H (0.52-1.04) mg/dL Est GFR (CKD-EPI)AfAm 27 (>60 ml/min/1.73 sqM) Est GFR (CKD-EPI)NonAf 23 (>60 ml/min/1.73 sqM) Glucose 158 H (74-99) mg/dL Calcium 9.0 (8.4-10.2) mg/dL Magnesium 1.7 (1.6-2.3) mg/dL Total Bilirubin 0.5 (0.2-1.3) mg/dL AST 22 (14-36) U/L ALT 15 (4-34) U/L Alkaline Phosphatase 110 (38-126) U/L Creatine Kinase 113 (30-135) U/L Troponin I 0.044 H* (0.000-0.034) ng/mL Total Protein 6.3 (6.3-8.2) g/dL Albumin 3.5 (3.5-5.0) g/dL Blood Type Blood Type Recheck Bld Type Recheck Status Antibody Screen Spec Expiration Date 04/23/21 Range/Units 17:42 WBC (3.8-10.6) k/uL RBC (3.80-5.40) m/uL Hgb (11.4-16.0) gm/dL Hct (34.0-46.0) % MCV (80.0-100.0) fL MCH (25.0-35.0) pg MCHC (31.0-37.0) g/dL RDW (11.5-15.5) % Plt Count (150-450) k/uL MPV Neutrophils % % Lymphocytes % % Monocytes % % Eosinophils % % Basophils % % Neutrophils # (1.3-7.7) k/uL Lymphocytes # (1.0-4.8) k/uL Monocytes # (0-1.0) k/uL Eosinophils # (0-0.7) k/uL Basophils # (0-0.2) k/uL Hypochromasia Macrocytosis Sodium (137-145) mmol/L Potassium (3.5-5.1) mmol/L Chloride (98-107) mmol/L Carbon Dioxide (22-30) mmol/L Anion Gap mmol/L BUN (7-17) mg/dL Creatinine (0.52-1.04) mg/dL Est GFR (CKD-EPI)AfAm (>60 ml/min/1.73 sqM) Est GFR (CKD-EPI)NonAf (>60 ml/min/1.73 sqM) Glucose (74-99) mg/dL Calcium (8.4-10.2) mg/dL Magnesium (1.6-2.3) mg/dL Total Bilirubin (0.2-1.3) mg/dL AST (14-36) U/L ALT (4-34) U/L Alkaline Phosphatase (38-126) U/L Creatine Kinase (30-135) U/L Troponin I (0.000-0.034) ng/mL Total Protein (6.3-8.2) g/dL Albumin (3.5-5.0) g/dL Blood Type A Positive Blood Type Recheck No Previous Record Bld Type Recheck Status CABO Indicated Antibody Screen NEGATIVE Spec Expiration Date 04/26/20212341 - EKG Data -: EKG Interpreted by Mn EKG Comments: Atrial flutter with a 4-1 AV conduction. Rate 65 QRS 76 QT since QTC 372/386 left exodeviation evidence of anterior lateral infarct of undetermined age. - Radiology Data Radiology results: report reviewed (Imaging reviewed no acute findings.), image reviewed Disposition Clinical Impression: Elevated troponin, Renal insufficiency syndrome, Melena Disposition: ADMITTED IP TO THIS [facility] Condition: Fair Referrals: Ruiz Chao MD [Primary Care Provider] - 1-2 days
--- NOTE | 2021-04-23 18:29 | XR ---
EXAMINATION TYPE: XR chest 2V DATE OF EXAM: 04/23/2021 COMPARISON: 11/25/2017 HISTORY: Dark stool TECHNIQUE: FINDINGS: There is poor inspiration. There is no heart failure. There are some increased density left lung base. There are no hilar masses. Mediastinum is normal. IMPRESSION: There is clearing of the right pleural effusion to a large extent compared to old exam. T here is evidence of left pleural effusion which is improved compared to old exam. No heart failure.
[2021-04-23] MEDS ORDERED: NITROGLYCERIN SL TABS 0.4 MG TAB SUBLINGUAL PRN (19:20)
[2021-04-23] MEDS ORDERED: traMADol 50 MG TAB PO PRN (19:22)
[2021-04-23] MEDS ORDERED: CLOTRIMAZOLE 1% CREAM 30 GM TUBE TOPICAL PRN (19:22)
--- NOTE | 2021-04-23 19:28 | ED ---
Medical Decision Making - Medical Decision Making The patient stated that she was no longer on Eliquis they [facility] off [facility] - Lab Data Result diagrams: 04/23/21 17:41 04/23/21 17:41 Lab Results 04/23/21 04/23/21 04/23/21 Range/Units 17:41 17:41 17:41 WBC 9.0 (3.8-10.6) k/uL RBC 4.60 (3.80-5.40) m/uL Hgb 14.4 (11.4-16.0) gm/dL Hct 45.9 (34.0-46.0) % MCV 99.9 (80.0-100.0) fL MCH 31.2 (25.0-35.0) pg MCHC 31.2 (31.0-37.0) g/dL RDW 14.8 (11.5-15.5) % Plt Count 146 L (150-450) k/uL MPV 9.3 Neutrophils % 81 % Lymphocytes % 11 % Monocytes % 5 % Eosinophils % 2 % Basophils % 0 % Neutrophils # 7.3 (1.3-7.7) k/uL Lymphocytes # 1.0 (1.0-4.8) k/uL Monocytes # 0.4 (0-1.0) k/uL Eosinophils # 0.2 (0-0.7) k/uL Basophils # 0.0 (0-0.2) k/uL Hypochromasia Moderate Macrocytosis Slight Sodium 141 (137-145) mmol/L Potassium 4.2 (3.5-5.1) mmol/L Chloride 107 (98-107) mmol/L Carbon Dioxide 23 (22-30) mmol/L Anion Gap 11 mmol/L BUN 24 H (7-17) mg/dL Creatinine 2.07 H (0.52-1.04) mg/dL Est GFR (CKD-EPI)AfAm 27 (>60 ml/min/1.73 sqM) Est GFR (CKD-EPI)NonAf 23 (>60 ml/min/1.73 sqM) Glucose 158 H (74-99) mg/dL Calcium 9.0 (8.4-10.2) mg/dL Magnesium 1.7 (1.6-2.3) mg/dL Total Bilirubin 0.5 (0.2-1.3) mg/dL AST 22 (14-36) U/L ALT 15 (4-34) U/L Alkaline Phosphatase 110 (38-126) U/L Creatine Kinase 113 (30-135) U/L Troponin I 0.044 H* (0.000-0.034) ng/mL Total Protein 6.3 (6.3-8.2) g/dL Albumin 3.5 (3.5-5.0) g/dL Stool Occult Blood (Negative) Blood Type Blood Type Recheck Bld Type Recheck Status Antibody Screen Spec Expiration Date 04/23/21 04/23/21 Range/Units 17:42 19:16 WBC (3.8-10.6) k/uL RBC (3.80-5.40) m/uL Hgb (11.4-16.0) gm/dL Hct (34.0-46.0) % MCV (80.0-100.0) fL MCH (25.0-35.0) pg MCHC (31.0-37.0) g/dL RDW (11.5-15.5) % Plt Count (150-450) k/uL MPV Neutrophils % % Lymphocytes % % Monocytes % % Eosinophils % % Basophils % % Neutrophils # (1.3-7.7) k/uL Lymphocytes # (1.0-4.8) k/uL Monocytes # (0-1.0) k/uL Eosinophils # (0-0.7) k/uL Basophils # (0-0.2) k/uL Hypochromasia Macrocytosis Sodium (137-145) mmol/L Potassium (3.5-5.1) mmol/L Chloride (98-107) mmol/L Carbon Dioxide (22-30) mmol/L Anion Gap mmol/L BUN (7-17) mg/dL Creatinine (0.52-1.04) mg/dL Est GFR (CKD-EPI)AfAm (>60 ml/min/1.73 sqM) Est GFR (CKD-EPI)NonAf (>60 ml/min/1.73 sqM) Glucose (74-99) mg/dL Calcium (8.4-10.2) mg/dL Magnesium (1.6-2.3) mg/dL Total Bilirubin (0.2-1.3) mg/dL AST (14-36) U/L ALT (4-34) U/L Alkaline Phosphatase (38-126) U/L Creatine Kinase (30-135) U/L Troponin I (0.000-0.034) ng/mL Total Protein (6.3-8.2) g/dL Albumin (3.5-5.0) g/dL Stool Occult Blood Negative (Negative) Blood Type A Positive Blood Type Recheck No Previous Record Bld Type Recheck Status CABO Indicated Antibody Screen NEGATIVE Spec Expiration Date 04/26/20212341 Disposition Clinical Impression: Elevated troponin, Renal insufficiency syndrome, Melena, Chronic atrial flutter Disposition: ADMITTED IP TO THIS HOSP Condition: Fair Referrals: Ruiz Chao MD [Primary Care Provider] - 1-2 days
[2021-04-23] MEDS ORDERED: IPRATROPIUM-ALBUTEROL 3 ML NEB INHALATION SCH (20:00)
[2021-04-23] MEDS: SODIUM CHLORIDE 0.9% 1,000 ML IV SCH (20:10)
[2021-04-23] MEDS: ATORVASTATIN 20 MG TAB PO SCH (20:10)
[2021-04-23] MEDS: GABAPENTIN 300 MG CAP PO SCH (20:10)
[2021-04-23 20:50] LABS: Glucose,Whole Blood 139 mg/dL (75-99)
[2021-04-23] MEDS: INSULIN ASPART (NovoLOG) 100 UNIT/ML VIAL SQ SCH (20:53)
[2021-04-23] MEDS: INSULIN DETEMIR (LEVEMIR) 100 UNIT/ML SYR SQ SCH (20:53)
[2021-04-23] MEDS: METOPROLOL TARTRATE 12.5 MG TAB PO SCH (20:53)
[2021-04-24] MEDS: LEVOTHYROXINE 125 MCG TAB PO SCH (06:40)
[2021-04-24] MEDS: SODIUM CHLORIDE 0.9% 1,000 ML IV SCH (06:40)
[2021-04-24] MEDS: INSULIN DETEMIR (LEVEMIR) 100 UNIT/ML SYR SQ SCH ×2 (06:43→20:10)
[2021-04-24 07:16] LABS: Glucose,Whole Blood 150 mg/dL (75-99)
[2021-04-24] MEDS ORDERED: MIDODRINE 5 MG TAB PO SCH (07:30)
[2021-04-24] MEDS ORDERED: PANTOPRAZOLE 40 MG TABLET PO SCH (07:30)
[2021-04-24] MEDS: MULTIVITAMINS, THERA 1 EACH TAB PO SCH (08:04)
[2021-04-24] MEDS: FUROSEMIDE 40 MG TAB PO SCH ×2 (08:04→15:52)
[2021-04-24] MEDS: INSULIN ASPART (NovoLOG) 100 UNIT/ML VIAL SQ SCH ×7 (08:05→19:59)
[2021-04-24] MEDS: GABAPENTIN 300 MG CAP PO SCH ×3 (08:05→20:10)
[2021-04-24] MEDS: CHOLECALCIFEROL 25 MCG (1000 IU) TABLET PO SCH (08:05)
--- NOTE | 2021-04-24 08:29 | P.CRDCN ---
History of Present Illness Consult date: 04/24/21 History of present illness: HISTORY OF PRESENT ILLNESS: This is a 75-year-old female with a past medical history significant for hypertension, hyperlipidemia, diabetes, hypothyroidism, obesity, chronic kidney disease, atrial fibrillation not on anticoagulation secondary to GI bleed, and former nicotine dependence. 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 We have been asked to see the patient in consultation for abnormal troponins. Patient examined at the bedside. Patient states she presented to the hospital after feeling weak at home. She states over the past 24-40 hours she has been feeling progressively more weak and was unable to stand. She states that she felt dizzy when going from a supine to a standing position. Patient denies having any complaints of chest pain or pressure. She denies shortness of breath at rest. She currently denies dizziness or lightheadedness. Patient does report a history of atrial fibrillation. She states she used to be on Eliquis but this was discontinued 2 years ago secondary to GI bleeding. EKG reveals atrial flutter Chest xray there is clearing of the right pleural effusion to a large extent compared to exam. There is evidence of left pleural effusion which is improved compared to old exam. No heart failure. Laboratory data: WBC 9.0. Hemoglobin 14.4. Platelet count 146. Sodium 141. Potassium 4.2. BUN 24. Creatinine 2.07. Troponin 0.044. 0.052. 0.048. Current home cardiac medications include metoprolol 12.5 mg daily, Lasix 40 mg twice a day, Lipitor 20 mg daily REVIEW OF SYSTEMS: At the time of my exam: CONSTITUTIONAL: Denies fever or chills. + generalized weakness HEENT: Denies blurred vision, vision changes, or eye pain. Denies hemoptysis CARDIOVASCULAR: Denies chest pain. Denies orthopnea. Denies PND. Denies palpitations RESPIRATORY: Denies shortness of breath. GASTROINTESTINAL: Denies abdominal pain. Denies nausea or vomiting. HEMATOLOGIC: Denies bleeding disorders. GENITOURINARY: Denies any blood in urine. SKIN: Denies pruitis. Denies rash. PHYSICAL EXAM: VITAL SIGNS: Reviewed. GENERAL: Well-developed in no acute distress. HEENT: Head is normocephalic. Pupils are equal, round. Sclerae anicteric. Mucous membranes of the mouth are moist. Neck supple. No JVD or thyromegaly LUNGS: Respirations even and unlabored. Lungs diminished bilaterally. Unable to listen to lung sounds posteriorly as patient is unable to move herself in bed. HEART: Regular rate and rhythm. S1 and S2 heard. ABDOMEN: Soft. Nondistended. Nontender. EXTREMITIES: Normal range of motion. No clubbing or cyanosis. Peripheral pulses intact. Trace bilateral lower extremity edema NEUROLOGIC: Awake and alert. Oriented x 3. ASSESSMENT: Generalized weakness Lightheadedness Atrial fibrillation/typical aflutter, likely chronic persistent, not on anticoagulation due to history of GI bleeding Abnormal troponins, not suggestive of acute coronary syndrome, likely secondary to chronic kidney disease Hypertension Hyperlipidemia History of lower extremity edema, on daily Lasix Chronic kidney disease History of GI bleed Hypothyroidism Morbid obesity: BMI 52.7 Former nicotine dependence PLAN: An acute coronary event has been ruled out Resume home cardiac medications Obtain 2-D echo to assess cardiac structure and function Patient not on anticoagulation due to history of GI bleeding Further recommendations pending patient course Nurse practitioner note has been reviewed by physician. Signing provider agrees with the documented findings, assessment, and plan of care. 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 She has never driven, her spouse drives. Pt reads/writes alittle. Smoking Status: Former smoker Past Alcohol Use History: None Reported Additional Past Alcohol Use History / Comment(s): Pt is exposed to 2nd hand smoke in her home. Pt started smoking in 1961 and quit in 1974. Past Drug Use History: None Reported - Past Family History Father Family Medical History: Cancer Additional Family Medical History / Comment(s): Father of lung cancer. He was a nonsmoker, worked in a refinery. Mother Family Medical History: Cancer, Coronary Artery Disease (CAD), Diabetes Mellitus, Hyperlipidemia, Hypertension Additional Family Medical History / Comment(s): Mother of pancreatic cancer. Medications and Allergies Home Medications Medication Instructions Recorded Confirmed Type Cholecalciferol [Vitamin D3 (25 25 mcg PO DAILY 05/29/17 04/23/21 History Mcg = 1000 Iu)] Levothyroxine Sodium [Synthroid] 125 mcg PO DAILY 05/29/17 04/23/21 History Multivitamin [Multivitamins Adult 2 tab PO DAILY 05/29/17 04/23/21 History Gummies] Atorvastatin [Lipitor] 20 mg PO DAILY 11/05/17 04/23/21 History Metoprolol Tartrate [Lopressor] 12.5 mg PO DAILY 12/10/17 04/23/21 History Famotidine [Pepcid] 20 mg PO DAILY 04/23/21 04/23/21 History Ferrous Sulfate [Feosol] 325 mg PO DAILY 04/23/21 04/23/21 History Furosemide [Lasix] 40 mg PO BID 04/23/21 04/23/21 History Gabapentin [Neurontin] 300 mg PO TID 04/23/21 04/23/21 History Insulin Aspart [NovoLOG Flexpen] See Protocol SQ BID 04/23/21 04/23/21 History Insulin Detemir [Levemir Flextouch] 15 units SQ BID 04/23/21 04/23/21 History Montelukast [Singulair] 10 mg PO DAILY 04/23/21 04/23/21 History Sertraline [Zoloft] 50 mg PO DAILY 04/23/21 04/23/21 History Allergies Allergy/AdvReac Type Severity Reaction Status Date / Time camphor [From Vicks Vaporub] Allergy Rash/Hives Verified 04/23/21 19:35 eucalyptus Allergy Rash/Hives Verified 04/23/21 19:35 [From Vicks Vaporub] menthol [From Vicks Vaporub] Allergy Rash/Hives Verified 04/23/21 19:35 Penicillins Allergy Rash/Hives Verified 04/23/21 19:35 petrolatum,white Allergy Rash/Hives Verified 04/23/21 19:35 [From Vicks Vaporub] turpentine oil Allergy Rash/Hives Verified 04/23/21 19:35 [From Vicks Vaporub] ivory soap Allergy Rash/Hives Uncoded 04/23/21 19:35 Physical Exam Vitals: Vital Signs Temp Pulse Pulse Resp BP BP Pulse Ox 04/24/21 07:56 98.1 F 105 H 18 177/90 98 04/24/21 04:00 64 18 175/90 95 04/24/21 02:00 62 18 04/23/21 23:58 98.1 F 62 18 176/92 94 L 04/23/21 20:00 64 18 04/23/21 19:51 98.4 F 64 18 186/98 94 L 04/23/21 19:38 72 18 202/94 97 04/23/21 19:00 87 19 196/98 95 04/23/21 17:33 97.4 F L 63 16 199/95 94 L Intake and Output 04/23/21 04/24/21 04/24/21 22:59 06:59 14:59 Intake Total 840 Output Total 250 Balance 590 Intake: Intake, IV Titration 600 Amount Sodium Chloride 0.9% 1, 600 000 ml @ 100 mls/hr IV . Q10H [facility] Rx#:[id number] Oral 240 Output: Urine 250 Other: Voiding Method External Catheter External Catheter External Catheter Weight 122.742 kg 122.5 kg Results 04/23/21 17:41 04/23/21 17:41 Cardiac Enzymes 04/23/21 04/23/21 04/23/21 Range/Units 17:41 17:41 20:52 AST 22 (14-36) U/L Troponin I 0.044 H* 0.052 H* (0.000-0.034) ng/mL 04/24/21 Range/Units 02:50 AST (14-36) U/L Troponin I 0.048 H* (0.000-0.034) ng/mL CBC 04/23/21 Range/Units 17:41 WBC 9.0 (3.8-10.6) k/uL RBC 4.60 (3.80-5.40) m/uL Hgb 14.4 (11.4-16.0) gm/dL Hct 45.9 (34.0-46.0) % Plt Count 146 L (150-450) k/uL Comprehensive Metabolic Panel 04/23/21 Range/Units 17:41 Sodium 141 (137-145) mmol/L Potassium 4.2 (3.5-5.1) mmol/L Chloride 107 (98-107) mmol/L Carbon Dioxide 23 (22-30) mmol/L BUN 24 H (7-17) mg/dL Creatinine 2.07 H (0.52-1.04) mg/dL Glucose 158 H (74-99) mg/dL Calcium 9.0 (8.4-10.2) mg/dL AST 22 (14-36) U/L ALT 15 (4-34) U/L Alkaline Phosphatase 110 (38-126) U/L Total Protein 6.3 (6.3-8.2) g/dL Albumin 3.5 (3.5-5.0) g/dL Current Medications Generic Name Dose Route Start Last Admin Trade Name Freq PRN Reason Stop Dose Admin Aspirin 325 mg 04/24/21 09:00 04/24/21 08:04 Aspirin 325 Mg Tab PO 325 mg DAILY DIMITRI Administration Atorvastatin Calcium 20 mg 04/23/21 21:00 04/23/21 20:10 Atorvastatin 20 Mg Tab PO 20 mg HS DIMITRI Administration Cholecalciferol 25 mcg 04/24/21 09:00 04/24/21 08:05 Cholecalciferol 25 Mcg (1000 Iu) Tablet PO 25 mcg DAILY DIMITRI Administration Clotrimazole 1 applic 04/23/21 19:22 Clotrimazole 1% Cream 30 Gm Tube TOPICAL DAILY PRN Rash Furosemide 40 mg 04/24/21 09:00 04/24/21 08:04 Furosemide 40 Mg Tab PO 40 mg BID@0900,1600 DMIITRI Administration Gabapentin 300 mg 04/23/21 22:00 04/24/21 08:05 Gabapentin 300 Mg Cap PO 300 mg TID DIMITRI Administration Sodium Chloride 1,000 mls @ 100 mls/hr 04/23/21 19:30 04/24/21 06:40 Saline 0.9% IV Not Given .Q10H DIMITRI Insulin Aspart 5 unit 04/24/21 07:30 04/24/21 08:05 Insulin Aspart (Novolog) 100 Unit/Ml Vial SQ 5 unit AC-TID DIMITRI Administration Insulin Aspart 0 unit 04/23/21 21:00 04/24/21 08:05 Insulin Aspart (Novolog) 100 Unit/Ml Vial SQ 1 unit ACHS DIMITRI Administration Protocol Insulin Detemir 15 unit 04/23/21 21:00 04/24/21 06:43 Insulin Detemir (Levemir) 100 Unit/Ml Syr SQ 15 unit BID@0700,2100 DIMITRI Administration Levothyroxine Sodium 125 mcg 04/24/21 06:30 04/24/21 06:40 Levothyroxine 125 Mcg Tab PO 125 mcg DAILY@0630 DIMITRI Administration Metoprolol Tartrate 12.5 mg 04/23/21 21:00 04/23/21 20:53 Metoprolol Tartrate 12.5 Mg Tab PO 12.5 mg HS DIMITRI Administration Multivitamins 1 each 04/24/21 09:00 04/24/21 08:04 Multivitamins, Thera 1 Each Tab PO 1 each DAILY DIMITRI Administration Nitroglycerin 0.4 mg 04/23/21 19:20 Nitroglycerin Sl Tabs 0.4 Mg Tab SUBLINGUAL Q5M PRN Chest Pain Intake and Output 04/23/21 04/24/21 04/24/21 22:59 06:59 14:59 Intake Total 840 Output Total 250 Balance 590 Intake: Intake, IV Titration 600 Amount Sodium Chloride 0.9% 1, 600 000 ml @ 100 mls/hr IV . Q10H [facility] Rx#:[id number] Oral 240 Output: Urine 250 Other: Voiding Method External Catheter External Catheter External Catheter Weight 122.742 kg 122.5 kg 04/23/21 17:41 04/23/21 17:41
[2021-04-24] MEDS ORDERED: METOPROLOL TARTRATE 25 MG TAB PO SCH (09:00)
[2021-04-24] MEDS ORDERED: ASPIRIN 325 MG TAB PO SCH (09:00)
[2021-04-24] MEDS ORDERED: INSULIN DETEMIR (LEVEMIR) 100 UNIT/ML SYR SQ SCH (09:00)
[2021-04-24] MEDS ORDERED: FUROSEMIDE 80 MG TAB PO SCH (09:00)
[2021-04-24] MEDS ORDERED: GABAPENTIN 300 MG CAP PO SCH (09:00)
[2021-04-24] MEDS ORDERED: metOLazone 2.5 MG TAB PO SCH (09:00)
[2021-04-24] MEDS: FLUCONAZOLE 100 MG TAB PO SCH (11:47)
--- NOTE | 2021-04-24 12:12 | ECHOF ---
Referral Reason:LV function MEASUREMENTS -------- HEIGHT: 152.4 cm WEIGHT: 122.5 kg BP: RVIDd: 2.4 cm (< 3.3) IVSd: 1.3 cm (0.6 - 1.1) LVIDd: 4.0 cm (3.9 - 5.3) LVPWd: 1.3 cm (0.6 - 1.1) IVSs: 1.5 cm LVIDs: 3.0 cm LVPWs: 1.6 cm Ao Diam: 3.3 cm (2.0 - 3.7) AV Cusp: 1.3 cm (1.5 - 2.6) LA Diam: 4.0 cm (2.7 - 3.8) MV EXCURSION: 9.718 mm (> 18.000) MV EF SLOPE: 66 mm/s (70 - 150) EPSS: 0.9 cm MV E Mihir: 0.95 m/s MV DecT: 182 ms MV A Mihir: 0.67 m/s MV E/A Ratio: 1.42 AR PHT: 580 ms RAP: 5.00 mmHg RVSP: 46.51 mmHg FINDINGS -------- This was a technically difficult study with suboptimal views. The left ventricular size is normal. Left ventricular wall thickness is normal. Overall left vent ricular systolic function is severely impaired with, an EF between 25 - 30 %. The right ventricle is normal in size. The left atrial size is normal. The right atrial size is normal. Lumason used Unable to visualize the septum. Aortic valve is trileaflet and is mildly thickened. There is mild aortic valve sclerosis. Trace a mount of aortic regurgitation. Peak/mean gradient across the Aortic Valve is {AV maxPG} / {AV mean PG}. The mitral valve is normal. The mitral valve leaflets are mildly thickened. Mild mitral regurgita tion is present. The tricuspid valve appears structurally normal. Moderate tricuspid regurgitation present. There is mild pulmonary hypertension. The right ventricular systolic pressure, as measured by Doppler, is 46.51mmHg. There is no pulmonic regurgitation present. The aortic root size is normal. IVC Not well visulized. There is no pericardial effusion. CONCLUSIONS -------- 1. The left ventricular size is normal. 2. Left ventricular wall thickness is normal. 3. Overall left ventricular systolic function is severely impaired with, an EF between 25 - 30 %. 4. Aortic valve is trileaflet and is mildly thickened. 5. There is mild aortic valve sclerosis. 6. Trace amount of aortic regurgitation. 7. Peak/mean gradient across the Aortic Valve is {AV maxPG} / {AV meanPG}. 8. The mitral valve leaflets are mildly thickened. 9. Mild mitral regurgitation is present. 10. Moderate tricuspid regurgitation present. 11. There is mild pulmonary hypertension. 12. The right ventricular systolic pressure, as measured by Doppler, is 46.51mmHg. 13. There is no pericardial effusion. IMMIGRATION SERVICES OFFICER: Kim Hammer RDCS
[2021-04-24 12:28] LABS: Glucose,Whole Blood 132 mg/dL (75-99)
--- NOTE | 2021-04-24 13:54 | US ---
EXAMINATION TYPE: US kidneys/renal and bladder DATE OF EXAM: 04/24/2021 COMPARISON: NONE CLINICAL HISTORY: 75 year-old female chronic kidney disease, retention. Decreased urinary output, TECHNIQUE: Multiple sonographic images of the kidneys and bladder are obtained. FINDINGS: [employer] notes: Morbidly obese. Nondiagnostic exam due to morbid obesity and overlying bowel gas EXAM MEASUREMENTS: Right Kidney: 11.1 x 4.6 x 8.0 cm Left Kidney: not seen Right Kidney: estimated size is wnl, unable to fully assess due to reasons stated above Left Kidney: unable to discern due to bowel gas Bladder: not distended IMPRESSION: Essentially nondiagnostic exam due to patient's size and bowel gas.
--- NOTE | 2021-04-24 14:26 | P.HPIM ---
History of Present Illness H&P Date: 04/24/21 Chief Complaint: Abdominal pain, nausea vomiting diarrhea HISTORY OF PRESENT ILLNESS This is a 75-year-old female patient of Dr. Ruiz Chao with past medical history of chronic kidney disease stage III, chronic diastolic heart failure, chronic atrial fibrillation, diabetes mellitus type 2, hypertension, hyperlipidemia, hypothyroidism, history of GI bleed, morbid obesity with BMI of 52, remote history of tobacco use and dependence. Patient came into the hospital due to diarrhea, vomiting and abdominal pain. Patient states she normally has 2 bowel movements per day. They're usually dark because she is on iron. She is also on aspirin daily. She complains of increasing weakness this progressively worsened and unable to stand. She also has dizziness when she stands from a sitting position. She denies any chest pain, no shortness of breath at rest. No dizziness or lightheadedness. Patient's last fall was 3-4 months ago. Patient presented to [facility] emergency [facility] and found to be afebrile, heart rate 63, blood pressure 199/95, pulse ox 94% on room air. WBC 9.0, hemoglobin 14.4, platelet count 146. Sodium 141, potassium 4.2, chloride 107, CO2 23, BUN 24 and creatinine 2.07 which is within patient's b aseline. Blood sugar 158. Troponin 0.044, 0.052, 0.048. Liver function tests were normal. Albumin 3.5. CK 113. Patient has been admitted to the cardiac stepdown unit and patient has been seen by cardiology, ruled out acute coronary syndrome. Echocardiogram reveals EF of 25-30%, mild aortic valve sclerosis, trace amount of aortic regurgitation. Mild mitral regurgitation, moderate tricuspid regurgitation, mild pulmonary hypertension. Renal ultrasound was nondiagnostic exam due to patient's size and bowel gas. REVIEW OF SYSTEMS Constitutional: No fever, no chills, no night sweats. No weight change. Reports generalized and progressive weakness, reports fatigue no lethargy. No daytime sleepiness. EENT: No headache. No blurred vision or double vision, no loss of vision. No loss of Hearing, no ringing in the ears, no dizziness. No nasal drainage or congestion. No epistaxis. No sore throat. Lungs: No shortness of breath, cough, no sputum production. No wheezing. Cardiovascular: No chest pain, no lower extremity edema. No palpitations. No paroxysmal nocturnal dyspnea. No orthopnea. No lightheadedness or dizziness. No syncopal episodes. Abdominal: No abdominal pain. No nausea, vomiting. No diarrhea. No constipation. No bloody or tarry stools.. No loss of appetite. Genitourinary: No dysuria, increased frequency, urgency. No urinary retention. Musculoskeletal: No myalgias. Reports muscle weakness, reports gait dysfunction, no frequent falls. No back pain. No neck pain. Integumentary: No wounds, no lesions. No rash or pruritus. No unusual bruising. No change in hair or nails. Neurologic: No aphasia. No facial droop. No change in mentation. No head injury. No headache. No paralysis. No paresthesia. Psychiatric: No depression. No anxiety. No mood swings. Endocrine: No abnormal blood sugars. No weight change. No excessive sweating or thirst. No cold intolerance. SOCIAL HISTORY Patient smoked for 14 years and quit many years ago. She is also exposed to secondhand smoke in her home. She lives at home in apartment with her . FAMILY HISTORY Mother from pancreatic cancer. Patient did not have any contact with her father buthe has . Patient has a brother that from colon cancer. Patient has 3 sisters alive and to have diabetes. Patient has a total of 5 children. 3 sons and one has from a gunshot wound. Patient has 2 daughter s with no major medical problems. PHYSICAL EXAMINATION Gen: This is a morbidly obese 75-year-old female. She is resting in bed and appears to be comfortable. HEENT: Head is atraumatic, normocephalic. Pupils equal, round. Sclerae is anicteric. Oral candidiasis. NECK: Supple. No JVD. No lymphadenopathy. No thyromegaly. LUNGS: Clear to auscultation. No wheezes or rhonchi. No intercostal retractions. HEART: Regular rate and rhythm. No murmur. ABDOMEN: Morbidly obese. Soft. Bowel sounds are present. No masses. No tenderness. Erythema under abdominal folds and groin. EXTREMITIES: No pedal edema. No calf tenderness. NEUROLOGICAL: Patient is awake, alert and oriented x3. Cranial nerves 2 through 12 are grossly intact. Generalized weakness. ASSESSMENT AND PLAN 1. Generalized weakness and debility. Consult PT and OT. 2. Possible GI bleed with abdominal pain, and vomiting. Recheck hemoglobin 3. Elevated troponins, acute coronary syndrome ruled out. Cardiology consult appreciated. Continue Lopressor 12.5 mg at bedtime 4. Hypertension. Continue losartan 100 mg daily, Lopressor 12.5 mg at bedtime. 5. Hyperlipidemia. Continue atorvastatin 20 mg at bedtime. 6. Chronic diastolic heart failure. Continue Lasix 40 mg twice daily, Lopressor 12.5 mg at bedtime. 7. Chronic atrial fibrillation. Continue Lopressor. 8. Diabetes mellitus type 2. Continue Levemir 15 units twice daily and NovoLog 5 units with meals and NovoLog scale 9. Hypothyroidism. Continue levothyroxine 125 g daily. Obtain TSH and free T4. 10. Oral anders and yeast under abdominal folds, groin. Patient started on Diflucan 100 mg daily. 11. Diabetic neuropathy. Continue gabapentin 300 mg 3 times daily 12. Morbid obesity. BMI of 52.7. Diet and exercise. 13. GI prophylaxis. Protonix 40 mg daily. 14. DVT prophylaxis. SCDs and PARDEEP hose. 12. COVID-19 testing negative. Patient has been hospitalized during a pandemic. Patient will be admitted to the hospital for a minimum of 2 night stay. DISCHARGE PLAN [ ]. Impression and plan of care have been directed as dictated by the signing physician. Mihaela Escudero nurse practitioner acting as scribe for signing physician. 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 MDRO Source:: Urine-VRE; Left Leg MDRO Past Surgical History: Tonsillectomy, Tubal Ligation Additional Past Surgical History / Comment(s): Skin cancer with removals, EGD, D&C Past Anesthesia/Blood Transfusion Reactions: No Reported Reaction Past Psychological History: No Psychological Hx Reported Additional Psychological History / Comment(s): Pt resides in an apartment with her spouse. She has never driven, her spouse drives. Pt reads/writes alittle. Smoking Status: Former smoker Past Alcohol Use History: None Reported Additional Past Alcohol Use History / Comment(s): Pt is exposed to 2nd hand smoke in her home. Pt started smoking in 1 and quit in 1974. Past Drug Use History: None Reported - Past Family History Father Family Medical History: Cancer Additional Family Medical History / Comment(s): Father of lung cancer. He was a nonsmoker, worked in a [employer]. Mother Family Medical History: Cancer, Coronary Artery Disease (CAD), Diabetes Mellitus, Hyperlipidemia, Hypertension Additional Family Medical History / Comment(s): Mother of pancreatic cancer. Medications and Allergies Home Medications Medication Instructions Recorded Confirmed Type Cholecalciferol [Vitamin D3 (25 25 mcg PO DAILY 05/29/17 04/23/21 History Mcg = 1000 Iu)] Levothyroxine Sodium [Synthroid] 125 mcg PO DAILY 05/29/17 04/23/21 History Multivitamin [Multivitamins Adult 2 tab PO DAILY 05/29/17 04/23/21 History Gummies] Atorvastatin [Lipitor] 20 mg PO DAILY 11/05/17 04/23/21 History Metoprolol Tartrate [Lopressor] 12.5 mg PO DAILY 12/10/17 04/23/21 History Famotidine [Pepcid] 20 mg PO DAILY 04/23/21 04/23/21 History Ferrous Sulfate [Feosol] 325 mg PO DAILY 04/23/21 04/23/21 History Furosemide [Lasix] 40 mg PO BID 04/23/21 04/23/21 History Gabapentin [Neurontin] 300 mg PO TID 04/23/21 04/23/21 History Insulin Aspart [NovoLOG Flexpen] See Protocol SQ BID 04/23/21 04/23/21 History Insulin Detemir [Levemir Flextouch] 15 units SQ BID 04/23/21 04/23/21 History Montelukast [Singulair] 10 mg PO DAILY 04/23/21 04/23/21 History Sertraline [Zoloft] 50 mg PO DAILY 04/23/21 04/23/21 History Allergies Allergy/AdvReac Type Severity Reaction Status Date / Time camphor [From Vicks Vaporub] Allergy Rash/Hives Verified 04/23/21 19:35 eucalyptus Allergy Rash/Hives Verified 04/23/21 19:35 [From Vicks Vaporub] menthol [From Vicks Vaporub] Allergy Rash/Hives Verified 04/23/21 19:35 Penicillins Allergy Rash/Hives Verified 04/23/21 19:35 petrolatum,white Allergy Rash/Hives Verified 04/23/21 19:35 [From Vicks Vaporub] turpentine oil Allergy Rash/Hives Verified 04/23/21 19:35 [From Vicks Vaporub] ivory soap Allergy Rash/Hives Uncoded 04/23/21 19:35 Physical Exam Vitals: Vital Signs Temp Pulse Pulse Resp BP BP Pulse Ox 04/24/21 09:30 93 L 04/24/21 07:56 98.1 F 105 H 18 177/90 98 04/24/21 04:00 64 18 175/90 95 04/24/21 02:00 62 18 04/23/21 23:58 98.1 F 62 18 176/92 94 L 04/23/21 20:00 64 18 04/23/21 19:51 98.4 F 64 18 186/98 94 L 04/23/21 19:38 72 18 202/94 97 04/23/21 19:00 87 19 196/98 95 04/23/21 17:33 97.4 F L 63 16 199/95 94 L Intake and Output 04/23/21 04/24/21 04/24/21 22:59 06:59 14:59 Intake Total 840 Output Total 250 Balance 590 Intake: Intake, IV Titration 600 Amount Sodium Chloride 0.9% 1, 600 000 ml @ 100 mls/hr IV . Q10H [facility] Rx#:[id number] Oral 240 Output: Urine 250 Other: Voiding Method External Catheter External Catheter External Catheter Weight 122.742 kg 122.5 kg Results CBC & Chem 7: 04/23/21 17:41 04/23/21 17:41 Labs: Abnormal Lab Results - Last 24 Hours (Table) 04/23/21 04/23/21 04/23/21 Range/Units 17:41 17:41 17:41 Plt Count 146 L (150-450) k/uL BUN 24 H (7-17) mg/dL Creatinine 2.07 H (0.52-1.04) mg/dL Glucose 158 H (74-99) mg/dL POC Glucose (mg/dL) (75-99) mg/dL Troponin I 0.044 H* (0.000-0.034) ng/mL 04/23/21 04/23/21 04/24/21 Range/Units 20:48 20:52 02:50 Plt Count (150-450) k/uL BUN (7-17) mg/dL Creatinine (0.52-1.04) mg/dL Glucose (74-99) mg/dL POC Glucose (mg/dL) 139 H (75-99) mg/dL Troponin I 0.052 H* 0.048 H* (0.000-0.034) ng/mL 04/24/21 Range/Units 07:12 Plt Count (150-450) k/uL BUN (7-17) mg/dL Creatinine (0.52-1.04) mg/dL Glucose (74-99) mg/dL POC Glucose (mg/dL) 150 H (75-99) mg/dL Troponin I (0.000-0.034) ng/mL Thrombosis Risk Factor Assmnt - Choose All That Apply Each Factor Represents 1 point: Medical pt on bed rest, Obesity (BMI >25) Other Risk Factors: Yes Each Risk Factor Represents 3 Points: Age 75 years or older Other congenital or acquired thrombophilia - If yes, enter type in comment: No Thrombosis Risk Factor Assessment Total Risk Factor Score: 5 Thrombosis Risk Factor Assessment Level: High Risk
[2021-04-24 16:40] LABS: Appearance,Urine Cloudy (Clear); Bilirubin,Urine Negative (Negative); Blood,Urine Moderate (Negative); Color,Urine Yellow; Glucose,Urine (UA) Negative (Negative); Ketones,Urine Negative (Negative); Leukocyte Esterase,Urine Large (Negative); Nitrite,Urine Positive (Negative); Protein,Urine 3+ (Negative); Specific Gravity,Urine 1.023 (1.001-1.035); Urobilinogen,Urine <2.0 mg/dL (<2.0)
[2021-04-24 16:41] LABS: Bacteria,Urine Occasional /hpf; Mucus,Urine Rare /hpf; RBC,Urine 17 /hpf (0-5); Squamous Epithelial Cell,Urine 6 /hpf (0-4); WBC,Urine 160 /hpf (0-5)
[2021-04-24 17:25] LABS: Glucose,Whole Blood 163 mg/dL (75-99)
[2021-04-24 17:53] LABS: Chol/HDL Ratio 3.86; LDL Cholesterol,Calculated 113.6 mg/dL (0.0-131.0); VLDL Calculation 29.4 mg/dL (5.00-40.00)
[2021-04-24 19:58] LABS: Glucose,Whole Blood 153 mg/dL (75-99)
[2021-04-24] MEDS: METOPROLOL TARTRATE 12.5 MG TAB PO SCH (20:10)
[2021-04-24] MEDS: ATORVASTATIN 20 MG TAB PO SCH (20:10)
[2021-04-25] MEDS: INSULIN DETEMIR (LEVEMIR) 100 UNIT/ML SYR SQ SCH ×2 (06:37→21:34)
[2021-04-25] MEDS: LEVOTHYROXINE 125 MCG TAB PO SCH (06:37)
[2021-04-25 06:57] LABS: Glucose,Whole Blood 129 mg/dL (75-99)
[2021-04-25] MEDS: MULTIVITAMINS, THERA 1 EACH TAB PO SCH (08:18)
[2021-04-25] MEDS: FLUCONAZOLE 100 MG TAB PO SCH (08:18)
[2021-04-25] MEDS: FUROSEMIDE 40 MG TAB PO SCH (08:18)
[2021-04-25] MEDS: GABAPENTIN 300 MG CAP PO SCH ×3 (08:18→21:34)
[2021-04-25] MEDS: CHOLECALCIFEROL 25 MCG (1000 IU) TABLET PO SCH (08:18)
[2021-04-25] MEDS: INSULIN ASPART (NovoLOG) 100 UNIT/ML VIAL SQ SCH ×7 (08:18→21:13)
[2021-04-25] MEDS: LOSARTAN 50 MG TAB PO SCH (08:18)
[2021-04-25] MEDS ORDERED: ASPIRIN 81 MG PO SCH (09:00)
[2021-04-25 11:41] LABS: T4, Free (Free Thyroxine) 0.32 ng/dL (0.78-2.19)
[2021-04-25] MEDS: FUROSEMIDE 10 MG/ML 4 ML VIAL IV SCH ×2 (11:51→21:33)
[2021-04-25 12:11] LABS: Glucose,Whole Blood 119 mg/dL (75-99)
--- NOTE | 2021-04-25 12:58 | P.PN ---
Subjective Progress Note Date: 04/25/21 HISTORY OF PRESENT ILLNESS: This is a 75-year-old female with a past medical history significant for hypertension, hyperlipidemia, diabetes, hypothyroidism, obesity, chronic kidney disease, atrial fibrillation not on anticoagulation secondary to GI bleed, and former nicotine dependence. 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 We have been asked to see the patient in consultation for abnormal troponins. Patient examined at the bedside. Patient states she presented to the hospital after feeling weak at home. She states over the past 24-40 hours she has been feeling progressively more weak and was unable to stand. She states that she felt dizzy when going from a supine to a standing position. Patient denies having any complaints of chest pain or pressure. She denies shortness of breath at rest. She currently denies dizziness or lightheadedness. Patient does re port a history of atrial fibrillation. She states she used to be on Eliquis but this was discontinued 2 years ago secondary to GI bleeding. EKG reveals atrial flutter Chest xray there is clearing of the right pleural effusion to a large extent compared to exam. There is evidence of left pleural effusion which is improved compared to old exam. No heart failure. Laboratory data: WBC 9.0. Hemoglobin 14.4. Platelet count 146. Sodium 141. Potassium 4.2. BUN 24. Creatinine 2.07. Troponin 0.044. 0.052. 0.048. Current home cardiac medications include metoprolol 12.5 mg daily, Lasix 40 mg twice a day, Lipitor 20 mg daily 04/25/2021 Patient examined this morning at the bedside. Patient denies chest pain or pressure. She denies shortness of breath. Echocardiogram completed revealed ejection fraction 25-30%, trace aortic regurgitation, mild mitral regurgitation, moderate tricuspid regurgitation, and mild pulmonary hypertension. Patient's previous echocardiogram in 2018 revealed ejection fraction of 50-55%. PHYSICAL EXAM: VITAL SIGNS: Reviewed. GENERAL: Well-developed in no acute distress. HEENT: Head is normocephalic. Pupils are equal, round. Sclerae anicteric. Mucous membranes of the mouth are moist. Neck supple. No JVD or thyromegaly LUNGS: Respirations even and unlabored. Lungs diminished bilaterally. Unable to listen to lung sounds posteriorly as patient is unable to move herself in bed. HEART: Irregular rate and rhythm. S1 and S2 heard. ABDOMEN: Soft. Nondistended. Nontender. EXTREMITIES: Normal range of motion. No clubbing or cyanosis. Peripheral pulses intact. Trace bilateral lower extremity edema NEUROLOGIC: Awake and alert. Oriented x 3. ASSESSMENT: Generalized weakness Lightheadedness Atrial fibrillation/typical aflutter, likely chronic persistent, not on anticoagulation due to history of GI bleeding Abnormal troponins, not suggestive of acute coronary syndrome, likely secondary to chronic kidney disease Hypertension Hyperlipidemia History of lower extremity edema, on daily Lasix Chronic kidney disease History of GI bleed Hypothyroidism Morbid obesity: BMI 52.7 Former nicotine dependence New cardiomyopathy, unknown if ischemic or nonischemic PLAN: Continue current cardiac medications including Lasix, Cozaar, metoprolol, and Lipitor Increase metoprolol to twice a day dosing Add aspirin 81 mg daily Patient not on anticoagulation due to history of GI bleeding Patient will require cardiac cath in the future when she is medically stable due to new cardiomyopathy. Further recommendations pending patient course Nurse practitioner note has been reviewed by physician. Signing provider agrees with the documented findings, assessment, and plan of care. Objective - Vital Signs Vital signs: Vital Signs Temp 98 F 04/25/21 11:08 Pulse 89 04/25/21 12:44 Resp 16 04/25/21 12:44 BP 142/78 04/25/21 11:08 Pulse Ox 91 L 04/25/21 11:08 Intake & Output 04/24/21 04/25/21 04/25/21 18:59 06:59 18:59 Intake Total 920 480 540 Output Total 400 250 Balance 920 80 290 Weight 123 kg Intake: Oral 920 480 540 Output: Urine 400 250 Other: Voiding Method External Catheter External Catheter External Catheter # Voids 2 # Bowel Movements 0 - Labs CBC & Chem 7: 04/23/21 17:41 04/23/21 17:41 Labs: Abnormal Lab Results - Last 24 Hours (Table) 04/24/21 04/24/21 04/24/21 Range/Units 16:00 17:21 19:57 POC Glucose (mg/dL) 163 H 153 H (75-99) mg/dL TSH (0.465-4.680) mIU/L Free T4 (0.78-2.19) ng/dL Urine Appearance Cloudy H (Clear) Urine Protein 3+ H (Negative) Urine Blood Moderate H (Negative) Urine Nitrite Positive H (Negative) Ur Leukocyte Esterase Large H (Negative) Urine RBC 17 H (0-5) /hpf Urine WBC 160 H (0-5) /hpf Ur Squamous Epith Cells 6 H (0-4) /hpf Urine Bacteria Occasional H (None) /hpf Urine Mucus Rare H (None) /hpf 04/25/21 04/25/21 04/25/21 Range/Units 06:56 07:54 12:07 POC Glucose (mg/dL) 129 H 119 H (75-99) mg/dL TSH 30.900 H (0.465-4.680) mIU/L Free T4 0.32 L (0.78-2.19) ng/dL Urine Appearance (Clear) Urine Protein (Negative) Urine Blood (Negative) Urine Nitrite (Negative) Ur Leukocyte Esterase (Negative) Urine RBC (0-5) /hpf Urine WBC (0-5) /hpf Ur Squamous Epith Cells (0-4) /hpf Urine Bacteria (None) /hpf Urine Mucus (None) /hpf Microbiology - Last 24 Hours (Table) 04/24/21 16:00 Urine Culture - Preliminary Urine,Voided
--- NOTE | 2021-04-25 16:00 | P.PN ---
Subjective Progress Note Date: 04/25/21 HISTORY OF PRESENT ILLNESS This is a 75-year-old female patient of Dr. Ruiz Chao with past medical history of chronic kidney disease stage III, chronic diastolic heart failure, chronic atrial fibrillation, diabetes mellitus type 2, hypertension, hyperlipidemia, hypothyroidism, history of GI bleed, morbid obesity with BMI of 52, remote history of tobacco use and dependence. Patient came into the hospital due to diarrhea, vomiting and abdominal pain. Patient states she n ormally has 2 bowel movements per day. They're usually dark because she is on iron. She is also on aspirin daily. She complains of increasing weakness this progressively worsened and unable to stand. She also has dizziness when she stands from a sitting position. She denies any chest pain, no shortness of breath at rest. No dizziness or lightheadedness. Patient's last fall was 3-4 months ago. Patient presented to [facility] emergency center and found to be afebrile, heart rate 63, blood pressure 199/95, pulse ox 94% on room air. WBC 9.0, hemoglobin 14.4, platelet count 146. Sodium 141, potassium 4.2, chloride 107, CO2 23, BUN 24 and creatinine 2.07 which is within patient's baseline. Blood sugar 158. Troponin 0.044, 0.052, 0.048. Liver function tests were normal. Albumin 3.5. CK 113. Patient has been admitted to the cardiac stepdown unit and patient has been seen by cardiology, ruled out acute coronary syndrome. Echocardiogram reveals EF of 25-30%, mild aortic valve sclerosis, trace amount of aortic regurgitation. Mild mitral regurgitation, moderate tricuspid regurgitation, mild pulmonary hypertension. Renal ultrasound was nondiagnostic exam due to patient's size and bowel gas. 04/25: Patient states that she feels a little dizzy with walking. She denies having any weakness however when patient was evaluated by therapies, patient was unable to walk well and subacute rehab was recommended. Patient and her spouse are agreeable to subacute rehab and are looking at [facility]. Patient has been afebrile, heart rate 89, blood pressure 142/78, pulse ox 91% on room air. 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 Blood sugars run between 119 163. TSH 30.9, free T4 0.32. L-thyroxine was increased. Cardiology has recommended continued current cardiac meds and increased metoprolol to twice daily and added aspirin. Patient is not on anticoagulation due to history of GI bleed. Plan is for heart catheterization in the future when she is medically stable due to new cardiomyopathy. REVIEW OF SYSTEMS Constitutional: No fever, no chills, no night sweats. No weight change. Reports generalized and progressive weakness, reports fatigue no lethargy. No daytime sleepiness. EENT: No headache. No blurred vision or double vision, no loss of vision. No loss of Hearing, no ringing in the ears, no dizziness. No nasal drainage or congestion. No epistaxis. No sore throat. Lungs: No shortness of breath, cough, no sputum production. No wheezing. Cardiovascular: No chest pain, no lower extremity edema. No palpitations. No paroxysmal nocturnal dyspnea. No orthopnea. No lightheadedness or dizziness. No syncopal episodes. Abdominal: No abdominal pain. No nausea, vomiting. No diarrhea. No constipation. No bloody or tarry stools.. No loss of appetite. Genitourinary: No dysuria, increased frequency, urgency. No urinary retention. Musculoskeletal: No myalgias. Reports muscle weakness, reports gait dysfunction, no frequent falls. No back pain. No neck pain. Integumentary: No wounds, no lesions. No rash or pruritus. No unusual bruising. No change in hair or nails. Neurologic: No aphasia. No facial droop. No change in mentation. No head injury. No headache. No paralysis. No paresthesia. Psychiatric: No depression. No anxiety. No mood swings. Endocrine: No abnormal blood sugars. No weight change. No excessive sweating or thirst. No cold intolerance. PHYSICAL EXAMINATION Gen: This is a morbidly obese 75-year-old female. She is resting in bed and appears to be comfortable. HEENT: Head is atraumatic, normocephalic. Pupils equal, round. Sclerae is anicteric. Oral candidiasis. NECK: Supple. No JVD. No lymphadenopathy. No thyromegaly. LUNGS: Clear to auscultation. No wheezes or rhonchi. No intercostal retractions. HEART: Regular rate and rhythm. No murmur. ABDOMEN: Morbidly obese. Soft. Bowel sounds are present. No masses. No t enderness. Erythema under abdominal folds and groin. Female catheter in place with cloudy urine. EXTREMITIES: No pedal edema. No calf tenderness. NEUROLOGICAL: Patient is awake, alert and oriented x3. Cranial nerves 2 through 12 are grossly intact. Generalized weakness. ASSESSMENT AND PLAN 1. Generalized weakness and debility. Consult PT and OT. 2. Possible GI bleed with abdominal pain, and vomiting. Recheck hemoglobin 3. Elevated troponins, acute coronary syndrome ruled out. Cardiology consult appreciated. Continue Lopressor 12.5 mg bid. 4. Hypertension. Continue losartan 100 mg daily, Lopressor. 5. Hyperlipidemia. Continue atorvastatin 20 mg at bedtime. 6. Chronic diastolic heart failure. Continue Lasix 40 mg twice daily, Lopressor. 7. Chronic atrial fibrillation. Continue Lopressor. No anticoagulation due to history of GI bleed. 8. Diabetes mellitus type 2. Continue Levemir 15 units twice daily and NovoLog 5 units with meals and NovoLog scale 9. Hypothyroidism. Increase levothyroxine 137 g daily. 10. Oral anders and yeast under abdominal folds, groin. Patient started on Diflucan 100 mg daily. 11. Diabetic neuropathy. Continue gabapentin 300 mg 3 times daily 12. Morbid obesity. BMI of 52.7. Diet and exercise. 13. GI prophylaxis. Protonix 40 mg daily. 14. DVT prophylaxis. SCDs and PARDEEP hose. 15. Cardiomyopathy newly diagnosed, cardiology consult appreciated. Plan for cardiac catheterization at a later point to evaluate. DISCHARGE PLAN [facility] on Wednesday. Impression and plan of care have been directed as dictated by the signing physician. Mihaela Escudero nurse practitioner acting as scribe for signing physician. Objective - Vital Signs Vital signs: Vital Signs Temp 97.8 F 04/25/21 08:00 Pulse 80 04/25/21 08:00 Resp 18 04/25/21 08:00 BP 141/73 04/25/21 08:00 Pulse Ox 92 L 04/25/21 08:00 Intake & Output 04/24/21 04/25/21 04/25/21 18:59 06:59 18:59 Intake Total 920 480 240 Output Total 400 Balance 920 80 240 Weight 123 kg Intake: Oral 920 480 240 Output: Urine 400 Other: Voiding Method External Catheter External Catheter External Catheter # Voids 2 # Bowel Movements 0 - Labs CBC & Chem 7: 04/23/21 17:41 04/23/21 17:41 Labs: Abnormal Lab Results - Last 24 Hours (Table) 04/24/21 04/24/21 04/24/21 Range/Units 12:16 16:00 17:21 POC Glucose (mg/dL) 132 H 163 H (75-99) mg/dL TSH (0.465-4.680) mIU/L Urine Appearance Cloudy H (Clear) Urine Protein 3+ H (Negative) Urine Blood Moderate H (Negative) Urine Nitrite Positive H (Negative) Ur Leukocyte Esterase Large H (Negative) Urine RBC 17 H (0-5) /hpf Urine WBC 160 H (0-5) /hpf Ur Squamous Epith Cells 6 H (0-4) /hpf Urine Bacteria Occasional H (None) /hpf Urine Mucus Rare H (None) /hpf 04/24/21 04/25/21 04/25/21 Range/Units 19:57 06:56 07:54 POC Glucose (mg/dL) 153 H 129 H (75-99) mg/dL TSH 30.900 H (0.465-4.680) mIU/L Urine Appearance (Clear) Urine Protein (Negative) Urine Blood (Negative) Urine Nitrite (Negative) Ur Leukocyte Esterase (Negative) Urine RBC (0-5) /hpf Urine WBC (0-5) /hpf Ur Squamous Epith Cells (0-4) /hpf Urine Bacteria (None) /hpf Urine Mucus (None) /hpf Microbiology - Last 24 Hours (Table) 04/24/21 16:00 Urine Culture - Preliminary Urine,Voided
[2021-04-25 16:41] LABS: Glucose,Whole Blood 105 mg/dL (75-99)
[2021-04-25 21:05] LABS: Glucose,Whole Blood 126 mg/dL (75-99)
[2021-04-25] MEDS: METOPROLOL TARTRATE 12.5 MG TAB PO SCH (21:33)
[2021-04-25] MEDS: ATORVASTATIN 20 MG TAB PO SCH (21:34)
[2021-04-26 07:05] LABS: Glucose,Whole Blood 159 mg/dL (75-99)
[2021-04-26] MEDS: INSULIN DETEMIR (LEVEMIR) 100 UNIT/ML SYR SQ SCH ×2 (07:16→21:31)
[2021-04-26] MEDS: LEVOTHYROXINE 137 MCG TAB PO SCH (07:17)
[2021-04-26] MEDS: INSULIN ASPART (NovoLOG) 100 UNIT/ML VIAL SQ SCH ×7 (07:17→21:31)
[2021-04-26] MEDS: FLUCONAZOLE 100 MG TAB PO SCH (08:36)
[2021-04-26] MEDS: GABAPENTIN 300 MG CAP PO SCH ×3 (08:36→21:32)
[2021-04-26] MEDS: FUROSEMIDE 10 MG/ML 4 ML VIAL IV SCH ×2 (08:36→21:31)
[2021-04-26] MEDS: METOPROLOL TARTRATE 12.5 MG TAB PO SCH ×2 (08:36→21:32)
[2021-04-26] MEDS: ASPIRIN 81 MG PO SCH (08:36)
[2021-04-26] MEDS: MULTIVITAMINS, THERA 1 EACH TAB PO SCH (08:36)
[2021-04-26] MEDS: LOSARTAN 50 MG TAB PO SCH (08:36)
[2021-04-26] MEDS: CHOLECALCIFEROL 25 MCG (1000 IU) TABLET PO SCH (08:36)
--- NOTE | 2021-04-26 11:37 | P.PN ---
Subjective Progress Note Date: 04/26/21 HISTORY OF PRESENT ILLNESS: This is a 75-year-old female with a past medical history significant for hypertension, hyperlipidemia, diabetes, hypothyroidism, obesity, chronic kidney disease, atrial fibrillation not on anticoagulation secondary to GI bleed, and former nicotine dependence. 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 We have been asked to see the patient in consultation for abnormal troponins. Patient examined at the bedside. Patient states she presented to the hospital after feeling weak at home. She states over the past 24-40 hours she has been feeling progressively more weak and was unable to stand. She states that she felt dizzy when going from a supine to a standing position. Patient denies having any complaints of chest pain or pressure. She denies shortness of breath at rest. She currently denies dizziness or lightheadedness. Patient does re port a history of atrial fibrillation. She states she used to be on Eliquis but this was discontinued 2 years ago secondary to GI bleeding. EKG reveals atrial flutter Chest xray there is clearing of the right pleural effusion to a large extent compared to exam. There is evidence of left pleural effusion which is improved compared to old exam. No heart failure. Laboratory data: WBC 9.0. Hemoglobin 14.4. Platelet count 146. Sodium 141. Potassium 4.2. BUN 24. Creatinine 2.07. Troponin 0.044. 0.052. 0.048. Current home cardiac medications include metoprolol 12.5 mg daily, Lasix 40 mg twice a day, Lipitor 20 mg daily 04/25/2021 Patient examined this morning at the bedside. Patient denies chest pain or pressure. She denies shortness of breath. Echocardiogram completed revealed ejection fraction 25-30%, trace aortic regurgitation, mild mitral regurgitation, moderate tricuspid regurgitation, and mild pulmonary hypertension. Patient's previous echocardiogram in 2018 revealed ejection fraction of 50-55%. 04/26/2021 Patient examined this point bedside. Patient denies chest pain or pressure. She denies shortness of breath. Vital signs are stable. PHYSICAL EXAM: VITAL SIGNS: Reviewed. GENERAL: Well-developed in no acute distress. HEENT: Head is normocephalic. Pupils are equal, round. Sclerae anicteric. Mucous membranes of the mouth are moist. Neck supple. No JVD or thyromegaly LUNGS: Respirations even and unlabored. Lungs diminished bilaterally. Unable to listen to lung sounds posteriorly as patient is unable to move herself in bed. HEART: Irregular rate and rhythm. S1 and S2 heard. ABDOMEN: Soft. Nondistended. Nontender. EXTREMITIES: Normal range of motion. No clubbing or cyanosis. Peripheral pulses intact. Trace bilateral lower extremity edema NEUROLOGIC: Awake and alert. Oriented x 3. ASSESSMENT: Generalized weakness Lightheadedness Atrial fibrillation/typical aflutter, likely chronic persistent, not on anticoagulation due to history of GI bleeding Abnormal troponins, not suggestive of acute coronary syndrome, likely secondary to chronic kidney disease Hypertension Hyperlipidemia History of lower extremity edema, on daily Lasix Chronic kidney disease History of GI bleed Hypothyroidism Morbid obesity: BMI 52.7 Former nicotine dependence New cardiomyopathy, unknown if ischemic or nonischemic PLAN: Continue current cardiac medications Patient not on anticoagulation due to history of GI bleeding Patient will require cardiac cath in the future when she is medically stable due to new cardiomyopathy. This may be performed on an outpatient basis. Further recommendations pending patient course Nurse practitioner note has been reviewed by physician. Signing provider agrees with the documented findings, assessment, and plan of care. Objective - Vital Signs Vital signs: Vital Signs Temp 99.1 F 04/26/21 08:00 Pulse 83 04/26/21 08:00 Resp 18 04/26/21 08:00 BP 161/87 04/26/21 08:00 Pulse Ox 90 L 04/26/21 08:00 Intake & Output 04/25/21 04/26/21 04/26/21 18:59 06:59 18:59 Intake Total 780 Output Total 650 600 Balance 130 -600 Weight 126 kg Intake: Oral 780 Output: Urine 650 600 Other: Voiding Method External Catheter External Catheter External Catheter # Voids 1 # Bowel Movements 1 - Labs CBC & Chem 7: 04/23/21 17:41 04/23/21 17:41 Labs: Abnormal Lab Results - Last 24 Hours (Table) 04/25/21 04/25/21 04/25/21 Range/Units 07:54 12:07 16:39 POC Glucose (mg/dL) 119 H 105 H (75-99) mg/dL Free T4 0.32 L (0.78-2.19) ng/dL 04/25/21 04/26/21 Range/Units 21:00 07:04 POC Glucose (mg/dL) 126 H 159 H (75-99) mg/dL Free T4 (0.78-2.19) ng/dL Microbiology - Last 24 Hours (Table) 04/24/21 16:00 Urine Culture - Preliminary Urine,Voided Gram Neg Bacilli
--- NOTE | 2021-04-26 12:15 | P.PN ---
Subjective Progress Note Date: 04/26/21 HISTORY OF PRESENT ILLNESS This is a 75-year-old female patient of Dr. Ruiz Chao with past medical history of chronic kidney disease stage III, chronic diastolic heart failure, chronic atrial fibrillation, diabetes mellitus type 2, hypertension, hyperlipidemia, hypothyroidism, history of GI bleed, morbid obesity with BMI of 52, remote history of tobacco use and dependence. Patient came into the hospital due to diarrhea, vomiting and abdominal pain. Patient states she no rmally has 2 bowel movements per day. They're usually dark because she is on iron. She is also on aspirin daily. She complains of increasing weakness this progressively worsened and unable to stand. She also has dizziness when she stands from a sitting position. She denies any chest pain, no shortness of breath at rest. No dizziness or lightheadedness. Patient's last fall was 3-4 months ago. Patient presented to [facility] emergency center and found to be afebrile, heart rate 63, blood pressure 199/95, pulse ox 94% on room air. WBC 9.0, hemoglobin 14.4, platelet count 146. Sodium 141, potassium 4.2, chloride 107, CO2 23, BUN 24 and creatinine 2.07 which is within patient's baseline. Blood sugar 158. Troponin 0.044, 0.052, 0.048. Liver function tests were normal. Albumin 3.5. CK 113. Patient has been admitted to the cardiac stepdown unit and patient has been seen by cardiology, ruled out acute coronary syndrome. Echocardiogram reveals EF of 25-30%, mild aortic valve sclerosis, trace amount of aortic regurgitation. Mild mitral regurgitation, moderate tricuspid regurgitation, mild pulmonary hypertension. Renal ultrasound was nondiagnostic exam due to patient's size and bowel gas. 04/25: Patient states that she feels a little dizzy with walking. She denies having any weakness however when patient was evaluated by therapies, patient was unable to walk well and subacute rehab was recommended. Patient and her spouse are agreeable to subacute rehab and are looking at [facility]. Patient has been afebrile, heart rate 89, blood pressure 142/78, pulse ox 91% on room air. 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 Blood sugars run between 119 163. TSH 30.9, free T4 0.32. L-thyroxine was increased. Cardiology has recommended continued current cardiac meds and increased metoprolol to twice daily and added aspirin. Patient is not on anticoagulation due to history of GI bleed. Plan is for heart catheterization in the future when she is medically stable due to new cardiomyopathy. 04/26: Patient is found resting in bed without any acute distress. Patient has no complains or concerns. Plan is for patient to go to subacute rehab at [facility]. Patient denies any dizziness at this time. Patient remains afebrile, heart rate 83, respirations 18, blood pressure 161/87, 90% on room air. REVIEW OF SYSTEMS Constitutional: No fever, no chills, no night sweats. No weight change. Reports generalized and progressive weakness, reports fatigue no lethargy. No daytime sleepiness. EENT: No headache. No blurred vision or double vision, no loss of vision. No loss of Hearing, no ringing in the ears, no dizziness. No nasal drainage or congestion. No epistaxis. No sore throat. Lungs: No shortness of breath, cough, no sputum production. No wheezing. Cardiovascular: No chest pain, no lower extremity edema. No palpitations. No paroxysmal nocturnal dyspnea. No orthopnea. No lightheadedness or dizziness. No syncopal episodes. Abdominal: No abdominal pain. No nausea, vomiting. No diarrhea. No constipation. No bloody or tarry stools.. No loss of appetite. Genitourinary: No dysuria, increased frequency, urgency. No urinary retention. Musculoskeletal: No myalgias. Reports muscle weakness, reports gait dysfunction, no frequent falls. No back pain. No neck pain. Integumentary: No wounds, no lesions. No rash or pruritus. No unusual bruising. No change in hair or nails. Neurologic: No aphasia. No facial droop. No change in mentation. No head injury. No headache. No paralysis. No paresthesia. Psychiatric: No depression. No anxiety. No mood swings. Endocrine: No abnormal blood sugars. No weight change. No excessive sweating or thirst. No cold intolerance. PHYSICAL EXAMINATION Gen: This is a morbidly obese 75-year-old female. She is resting in bed and appears to be comfortable. HEENT: Head is atraumatic, normocephalic. Pupils equal, round. Sclerae is anicteric. Oral candidiasis. NECK: Supple. No JVD. No lymphadenopathy. No thyromegaly. LUNGS: Clear to auscultation. No wheezes or rhonchi. No intercostal ret ractions. HEART: Regular rate and rhythm. No murmur. ABDOMEN: Morbidly obese. Soft. Bowel sounds are present. No masses. No tenderness. Erythema under abdominal folds and groin. Female catheter in place with cloudy urine. EXTREMITIES: No pedal edema. No calf tenderness. NEUROLOGICAL: Patient is awake, alert and oriented x3. Cranial nerves 2 through 12 are grossly intact. Generalized weakness. ASSESSMENT AND PLAN 1. Generalized weakness and debility. Consult PT and OT. 2. Possible GI bleed with abdominal pain, and vomiting. Recheck hemoglobin 3. Elevated troponins, acute coronary syndrome ruled out. Cardiology consult appreciated. Continue Lopressor 12.5 mg bid. 4. Hypertension. Continue losartan 100 mg daily, Lopressor. 5. Hyperlipidemia. Continue atorvastatin 20 mg at bedtime. 6. Chronic diastolic heart failure. Continue Lasix 40 mg twice daily, Lopressor. 7. Chronic atrial fibrillation. Continue Lopressor. No anticoagulation due to history of GI bleed. 8. Diabetes mellitus type 2. Continue Levemir 15 units twice daily and NovoLog 5 units with meals and NovoLog scale 9. Hypothyroidism. Increase levothyroxine 137 g daily. 10. Oral anders and yeast under abdominal folds, groin. Patient started on Diflucan 100 mg daily. 11. Diabetic neuropathy. Continue gabapentin 300 mg 3 times daily 12. Morbid obesity. BMI of 52.7. Diet and exercise. 13. Cardiomyopathy newly diagnosed, cardiology consult appreciated. Plan for cardiac catheterization at a later point to evaluate. 14. DVT prophylaxis. SCDs and PARDEEP hose. 15. GI prophylaxis. Protonix 40 mg daily. DISCHARGE PLAN [facility] on Wednesday. Impression and plan of care have been directed as dictated by the signing physician. Gracia Cruz nurse practitioner acting as scribe for signing physician. Objective - Vital Signs Vital signs: Vital Signs Temp 99.1 F 04/26/21 08:00 Pulse 83 04/26/21 08:00 Resp 18 04/26/21 08:00 BP 161/87 04/26/21 08:00 Pulse Ox 90 L 04/26/21 08:00 Intake & Output 04/25/21 04/26/2121 18:59 06:59 18:59 Intake Total 780 Output Total 650 600 Balance 130 -600 Weight 126 kg Intake: Oral 780 Output: Urine 650 600 Other: Voiding Method External Catheter External Catheter External Catheter # Voids 1 # Bowel Movements 1 - Labs CBC & Chem 7: 04/23/21 17:41 04/23/21 17:41 Labs: Abnormal Lab Results - Last 24 Hours (Table) 04/25/21 04/25/21 04/26/21 Range/Units 16:39 21:00 07:04 POC Glucose (mg/dL) 105 H 126 H 159 H (75-99) mg/dL Microbiology - Last 24 Hours (Table) 04/24/21 16:00 Urine Culture - Preliminary Urine,Voided Gram Neg Bacilli
[2021-04-26 12:23] LABS: Glucose,Whole Blood 210 mg/dL (75-99)
[2021-04-26] MEDS: IPRATROPIUM-ALBUTEROL 3 ML NEB INHALATION SCH ×2 (15:20→19:00)
[2021-04-26 16:51] LABS: Glucose,Whole Blood 186 mg/dL (75-99)
[2021-04-26 21:06] LABS: Glucose,Whole Blood 240 mg/dL (75-99)
[2021-04-26] MEDS: MONTELUKAST 10 MG TAB PO SCH (21:32)
[2021-04-26] MEDS: ATORVASTATIN 20 MG TAB PO SCH (21:32)
[2021-04-27 06:47] LABS: Glucose,Whole Blood 187 mg/dL (75-99)
[2021-04-27] MEDS: LEVOTHYROXINE 137 MCG TAB PO SCH (06:49)
[2021-04-27] MEDS: INSULIN ASPART (NovoLOG) 100 UNIT/ML VIAL SQ SCH ×7 (06:49→20:37)
[2021-04-27] MEDS: INSULIN DETEMIR (LEVEMIR) 100 UNIT/ML SYR SQ SCH ×2 (06:49→20:37)
[2021-04-27 07:43] LABS: Basophils # (A) 0.1 k/uL (0-0.2); Basophils % (A) 1 %; Eosinophils # (A) 0.4 k/uL (0-0.7); Eosinophils % (A) 5 %; HCT 42.3 % (34.0-46.0); HGB 13.1 gm/dL (11.4-16.0); Hypochromasia Marked; Lymphocytes # (A) 1.4 k/uL (1.0-4.8); Lymphocytes % (A) 18 %; MCH 31.4 pg (25.0-35.0); MCHC 31.1 g/dL (31.0-37.0); Macrocytosis Slight; Mean Platelet Volume 9.7; Monocytes # (A) 0.5 k/uL (0-1.0); Monocytes % (A) 7 %; Neutrophils # (A) 5.2 k/uL (1.3-7.7); Neutrophils % (A) 68 %; Platelet Count 144 k/uL (150-450); RBC 4.19 m/uL (3.80-5.40); RDW 14.5 % (11.5-15.5); WBC 7.7 k/uL (3.8-10.6)
[2021-04-27 08:10] LABS: Calcium 8.3 mg/dL (8.4-10.2); Potassium 4.4 mmol/L (3.5-5.1)
[2021-04-27] MEDS: IPRATROPIUM-ALBUTEROL 3 ML NEB INHALATION SCH ×4 (08:50→19:50)
[2021-04-27] MEDS: ASPIRIN 81 MG PO SCH (09:00)
[2021-04-27] MEDS: METOPROLOL TARTRATE 12.5 MG TAB PO SCH ×2 (09:00→20:36)
[2021-04-27] MEDS: FLUCONAZOLE 100 MG TAB PO SCH (09:00)
[2021-04-27] MEDS: FUROSEMIDE 10 MG/ML 4 ML VIAL IV SCH ×2 (09:00→20:37)
[2021-04-27] MEDS: GABAPENTIN 300 MG CAP PO SCH ×3 (09:00→21:00)
[2021-04-27] MEDS: MULTIVITAMINS, THERA 1 EACH TAB PO SCH (09:01)
[2021-04-27] MEDS: LOSARTAN 50 MG TAB PO SCH (09:01)
[2021-04-27] MEDS: CHOLECALCIFEROL 25 MCG (1000 IU) TABLET PO SCH (09:01)
[2021-04-27 09:02] LABS: Glucose,Whole Blood 254 mg/dL (75-99)
--- NOTE | 2021-04-27 11:18 | P.PN ---
Subjective Progress Note Date: 04/27/21 HISTORY OF PRESENT ILLNESS This is a 75-year-old female patient of Dr. Ruiz Chao with past medical history of chronic kidney disease stage III, chronic diastolic heart failure, chronic atrial fibrillation, diabetes mellitus type 2, hypertension, hyperlipidemia, hypothyroidism, history of GI bleed, morbid obesity with BMI of 52, remote history of tobacco use and dependence. Patient came into the hospital due to diarrhea, vomiting and abdominal pain. Patient states she no rmally has 2 bowel movements per day. They're usually dark because she is on iron. She is also on aspirin daily. She complains of increasing weakness this progressively worsened and unable to stand. She also has dizziness when she stands from a sitting position. She denies any chest pain, no shortness of breath at rest. No dizziness or lightheadedness. Patient's last fall was 3-4 months ago. Patient presented to [facility] emergency center and found to be afebrile, heart rate 63, blood pressure 199/95, pulse ox 94% on room air. WBC 9.0, hemoglobin 14.4, platelet count 146. Sodium 141, potassium 4.2, chloride 107, CO2 23, BUN 24 and creatinine 2.07 which is within patient's baseline. Blood sugar 158. Troponin 0.044, 0.052, 0.048. Liver function tests were normal. Albumin 3.5. CK 113. Patient has been admitted to the cardiac stepdown unit and patient has been seen by cardiology, ruled out acute coronary syndrome. Echocardiogram reveals EF of 25-30%, mild aortic valve sclerosis, trace amount of aortic regurgitation. Mild mitral regurgitation, moderate tricuspid regurgitation, mild pulmonary hypertension. Renal ultrasound was nondiagnostic exam due to patient's size and bowel gas. 04/25: Patient states that she feels a little dizzy with walking. She denies having any weakness however when patient was evaluated by therapies, patient was unable to walk well and subacute rehab was recommended. Patient and her spouse are agreeable to subacute rehab and are looking at [facility]. Patient has been afebrile, heart rate 89, blood pressure 142/78, pulse ox 91% on room air. metal leaf layer has been atrial flutter. Blood sugars run between 119 163. TSH 30.9, free T4 0.32. L-thyroxine was increased. Cardiology has recommended continued current cardiac meds and increased metoprolol to twice daily and added aspirin. Patient is not on anticoagulation due to history of GI bleed. Plan is for heart catheterization in the future when she is medically stable due to new cardiomyopathy. 04/26: Patient is found resting in bed without any acute distress. Patient has no complains or concerns. Plan is for patient to go to subacute rehab at [facility]. Patient denies any dizziness at this time. Patient remains afebrile, heart rate 83, respirations 18, blood pressure 161/87, 90% on room air. 04/27: Patient is complaining of cramping to the lower legs. He she also has increased wheeze specifically to the right side. Nebulizer was ordered for patient which patient states that her breathing has improved since then. WC 7.7, hemoglobin 13.1, platelets 144, potassium 4.4, BUN 49, creatinine 2.59. Chantelle anderson remains afebrile, pulse rate 81, respirations 18, blood pressure 147/72, pulse ox 93% on room air. Blood sugars elevated throughout the day ranging 240-254 REVIEW OF SYSTEMS Constitutional: No fever, no chills, no night sweats. No weight change. Reports generalized and progressive weakness, reports fatigue no lethargy. No daytime sleepiness. EENT: No headache. No blurred vision or double vision, no loss of vision. No loss of Hearing, no ringing in the ears, no dizziness. No nasal drainage or congestion. No epistaxis. No sore throat. Lungs: No shortness of breath, cough, no sputum production. No wheezing. Cardiovascular: No chest pain, no lower extremity edema. No palpitations. No paroxysmal nocturnal dyspnea. No orthopnea. No lightheadedness or dizziness. No syncopal episodes. Abdominal: No abdominal pain. No nausea, vomiting. No diarrhea. No constipation. No bloody or tarry stools.. No loss of appetite. Genitourinary: No dysuria, increased frequency, urgency. No urinary retention. Musculoskeletal: No myalgias. Reports muscle weakness, reports gait dysfunction, no frequent falls. No back pain. No neck pain. Integumentary: No wounds, no lesions. No rash or pruritus. No unusual bruising. No change in hair or nails. Neurologic: No aphasia. No facial droop. No change in mentation. No head injury. No headache. No paralysis. No paresthesia. Psychiatric: No depression. No anxiety. No mood swings. Endocrine: No abnormal blood sugars. No weight change. No excessive sweating or thirst. No cold intolerance. PHYSICAL EXAMINATION Gen: This is a morbidly obese 75-year-old female. She is resting in bed and appears to be comfortable. HEENT: Head is atraumatic, normocephalic. Pupils equal, round. Sclerae is anicteric. Oral candidiasis. NECK: Supple. No JVD. No lymphadenopathy. No thyromegaly. LUNGS: Clear to auscultation. No wheezes or rhonchi. No intercostal retractions. HEART: Regular rate and rhythm. No murmur. ABDOMEN: Morbidly obese. Soft. Bowel sounds are present. No masses. No ten derness. Erythema under abdominal folds and groin. Female catheter in place with cloudy urine. EXTREMITIES: No pedal edema. No calf tenderness. NEUROLOGICAL: Patient is awake, alert and oriented x3. Cranial nerves 2 through 12 are grossly intact. Generalized weakness. ASSESSMENT AND PLAN 1. Generalized weakness and debility. Consult PT and OT. 2. Possible GI bleed with abdominal pain, and vomiting. Recheck hemoglobin 3. Elevated troponins, acute coronary syndrome ruled out. Cardiology consult appreciated. Continue Lopressor 12.5 mg bid. 4. Hypertension. Continue losartan 100 mg daily, Lopressor. 5. Hyperlipidemia. Continue atorvastatin 20 mg at bedtime. 6. Chronic diastolic heart failure. Continue Lasix 40 mg twice daily, Lopressor. IV fluids d/c. DuoNeb added. 7. Chronic atrial fibrillation. Continue Lopressor. No anticoagulation due to history of GI bleed. 8. Diabetes mellitus type 2. Increase Levemir 20 units twice daily and NovoLog 7 units with meals due to elevated blood sugars and NovoLog scale 9. Hypothyroidism. Increase levothyroxine 137 g daily. 10. Oral anders and yeast under abdominal folds, groin. Patient started on Diflucan 100 mg daily. 11. Diabetic neuropathy. Continue gabapentin 300 mg 3 times daily 12. Morbid obesity. BMI of 52.7. Diet and exercise. 13. Cardiomyopathy newly diagnosed, cardiology consult appreciated. Plan for cardiac catheterization at a later point to evaluate. 14. DVT prophylaxis. SCDs and PARDEEP hose. 15. GI prophylaxis. Protonix 40 mg daily. DISCHARGE PLAN [facility] on Wednesday. Impression and plan of care have been directed as dictated by the signing physician. Gracia Cruz nurse practitioner acting as scribe for signing physician. Objective - Vital Signs Vital signs: Vital Signs Temp 97.6 F 04/27/21 08:00 Pulse 70 04/27/21 09:03 Resp 18 04/27/21 08:00 BP 147/72 04/27/21 08:00 Pulse Ox 93 L 04/27/21 08:00 Intake & Output 04/26/21 04/27/21 04/27/21 18:59 06:59 18:59 Intake Total 480 540 240 Output Total 1200 600 Balance -720 -60 240 Weight 94 kg Intake: Oral 480 540 240 Output: Urine 1200 600 Other: Voiding Method External Catheter External Catheter External Catheter # Voids 3 # Bowel Movements 1 - Labs CBC & Chem 7: 04/27/21 07:11 04/27/21 07:11 Labs: Abnormal Lab Results - Last 24 Hours (Table) 04/26/21 04/26/21 04/26/21 Range/Units 12:22 16:49 21:04 MCV (80.0-100.0) fL Plt Count (150-450) k/uL Sodium (137-145) mmol/L BUN (7-17) mg/dL Creatinine (0.52-1.04) mg/dL Glucose (74-99) mg/dL POC Glucose (mg/dL) 210 H 186 H 240 H (75-99) mg/dL Calcium (8.4-10.2) mg/dL 04/27/21 04/27/21 04/27/21 Range/Units 06:45 07:11 07:11 MCV 101.0 H (80.0-100.0) fL Plt Count 144 L (150-450) k/uL Sodium 136 L (137-145) mmol/L BUN 49 H (7-17) mg/dL Creatinine 2.59 H (0.52-1.04) mg/dL Glucose 193 H (74-99) mg/dL POC Glucose (mg/dL) 187 H (75-99) mg/dL Calcium 8.3 L (8.4-10.2) mg/dL 04/27/21 Range/Units 09:00 MCV (80.0-100.0) fL Plt Count (150-450) k/uL Sodium (137-145) mmol/L BUN (7-17) mg/dL Creatinine (0.52-1.04) mg/dL Glucose (74-99) mg/dL POC Glucose (mg/dL) 254 H (75-99) mg/dL Calcium (8.4-10.2) mg/dL Microbiology - Last 24 Hours (Table) 04/24/21 16:00 Urine Culture - Final Urine,Voided Escherichia coli
[2021-04-27 12:07] LABS: Glucose,Whole Blood 211 mg/dL (75-99)
[2021-04-27 17:14] LABS: Glucose,Whole Blood 184 mg/dL (75-99)
[2021-04-27 20:29] LABS: Glucose,Whole Blood 245 mg/dL (75-99)
[2021-04-27] MEDS: MONTELUKAST 10 MG TAB PO SCH (20:36)
[2021-04-27] MEDS: ATORVASTATIN 20 MG TAB PO SCH (20:36)
[2021-04-28 06:58] LABS: Glucose,Whole Blood 214 mg/dL (75-99)
[2021-04-28] MEDS: INSULIN DETEMIR (LEVEMIR) 100 UNIT/ML SYR SQ SCH ×2 (06:58→21:08)
[2021-04-28] MEDS: LEVOTHYROXINE 137 MCG TAB PO SCH (06:58)
[2021-04-28] MEDS: INSULIN ASPART (NovoLOG) 100 UNIT/ML VIAL SQ SCH ×7 (06:58→21:08)
[2021-04-28] MEDS: IPRATROPIUM-ALBUTEROL 3 ML NEB INHALATION SCH ×4 (08:07→19:22)
[2021-04-28] MEDS: ASPIRIN 81 MG PO SCH (08:48)
[2021-04-28] MEDS: GABAPENTIN 300 MG CAP PO SCH ×3 (08:48→21:08)
[2021-04-28] MEDS: METOPROLOL TARTRATE 12.5 MG TAB PO SCH ×2 (08:48→21:08)
[2021-04-28] MEDS: CHOLECALCIFEROL 25 MCG (1000 IU) TABLET PO SCH (08:48)
[2021-04-28] MEDS: FUROSEMIDE 10 MG/ML 4 ML VIAL IV SCH ×2 (08:48→21:08)
[2021-04-28] MEDS: FLUCONAZOLE 100 MG TAB PO SCH (08:48)
[2021-04-28] MEDS: LOSARTAN 50 MG TAB PO SCH (08:48)
[2021-04-28] MEDS: MULTIVITAMINS, THERA 1 EACH TAB PO SCH (08:48)
--- NOTE | 2021-04-28 10:48 | P.DS ---
Providers Date of admission: 04/24/21 14:25 Expected date of discharge: 04/28/21 Attending physician: Cookie Rivera Primary care physician: Ruiz Chao [facility] Course: HISTORY OF PRESENT ILLNESS This is a 75-year-old female patient of Dr. Ruiz Chao with past medical history of chronic kidney disease stage III, chronic diastolic heart failure, chronic atrial fibrillation, diabetes mellitus type 2, hypertension, hyperlipidemia, hypothyroidism, history of GI bleed, morbid obesity with BMI of 52, remote history of tobacco use and dependence. Patient came into the hospital due to diarrhea, vomiting and abdominal pain. Patient states she normally has 2 bowel movements per day. They're usually dark because she is on iron. She is also on aspirin daily. She complains of increasing weakness this progressively worsened and unable to stand. She also has dizziness when she stands from a sitting position. She denies any chest pain, no shortness of breath at rest. No dizziness or lightheadedness. Patient's last fall was 3-4 months ago. Patient presented to [facility] emergency center and found to be afebrile, heart rate 63, blood pressure 199/95, pulse ox 94% on room air. WBC 9.0, hemoglobin 14.4, platelet count 146. Sodium 141, potassium 4.2, chloride 107, CO2 23, BUN 24 and creatinine 2.07 which is within patient's baseline. Blood sugar 158. Troponin 0.044, 0.052, 0.048. Liver function tests were normal. Albumin 3.5. CK 113. Patient has been admitted to the cardiac stepdown unit and patient has been seen by cardiology, ruled out acute coronary syndrome. Echocardiogram reveals EF of 25-30%, mild aortic valve sclerosis, trace amount of aortic regurgitation. Mild mitral regurgitation, moderate tricuspid regurgitation, mild pulmonary hypertension. Renal ultrasound was nondiagnostic exam due to patient's size and bowel gas. 04/25: Patient states that she feels a little dizzy with walking. She denies having any weakness however when patient was evaluated by therapies, patient was unable to walk well and subacute rehab was recommended. Patient and her spouse are agreeable to subacute rehab and are looking at [facility]. Patient has been afebrile, heart rate 89, blood pressure 142/78, pulse ox 91% on room air. color television console monitor has been atrial flutter. Blood sugars run between 119 163. TSH 30.9, free T4 0.32. L-thyroxine was increased. Cardiology has recommended continued current cardiac meds and increased metoprolol to twice daily and added aspirin. Patient is not on anticoagulation due to history of GI bleed. Plan is for heart catheterization in the future when she is medically stable due to new cardiomyopathy. 04/26: Patient is found resting in bed without any acute distress. Patient has no complains or concerns. Plan is for patient to go to subacute rehab at [facility]. Patient denies any dizziness at this time. Patient remains afebrile, heart rate 83, respirations 18, blood pressure 161/87, 90% on room air. 04/27: Patient is complaining of cramping to the lower legs. He she also has increased wheeze specifically to the right side. Nebulizer was ordered for patient which patient states that her breathing has improved since then. WC 7.7, hemoglobin 13.1, platelets 144, potassium 4.4, BUN 49, creatinine 2.59. She remains afebrile, pulse rate 81, respirations 18, blood pressure 147/72, pulse ox 93% on room air. Blood sugars elevated throughout the day ranging 240- 254 04/28: The patient denies any new complaints today. She states she did have a bowel movement today. She does have some lower extremity edema for which she is on IV Lasix which will be transitioned to oral. Patient has completed course of antibiotics on not require any further antibiotics. She has been afebrile, heart rate 70, blood pressure 120/60, pulse ox 91-92% on room air. Blood sugars are running between 184 and 245. Patient will be continued on current dosing of insulins and this can be adjusted at the detention. Patient will be discharged once all arrangements are completed. ASSESSMENT AND PLAN 1. Generalized weakness and debility. 2. Possible GI bleed with abdominal pain, and vomiting, GI bleed ruled out's, stable hemoglobin. 3. Elevated troponins, acute coronary syndrome ruled out. 4. Hypertension. 5. Hyperlipidemia. 6. Chronic diastolic heart failure. 7. Chronic atrial fibrillation. 8. Diabetes mellitus type 2 uncontrolled with hyperglycemia. 9. Hypothyroidism. 10. Oral anders and yeast under abdominal folds, groin. 11. Diabetic neuropathy. 12. Morbid obesity. BMI of 52.7. 13. Cardiomyopathy newly diagnosed, cardiology consult appreciated. Plan for cardiac catheterization at a later point to evaluate. [facility]. Impression and plan of care have been directed as dictated by the signing physician. Mihaela Escudero nurse practitioner acting as scribe for signing physician. Patient Condition at Discharge: Fair Plan - Discharge Summary Discharge Rx Participant: No New Discharge Prescriptions: New Aspirin 81 mg PO DAILY chew Losartan [Cozaar] 100 mg PO DAILY tab Fluconazole [Diflucan] 100 mg PO DAILY #10 tab Insulin Detemir (Levemir) [Levemir] 20 unit SQ BID@0700,2100 syr Metoprolol Tartrate [Lopressor] 12.5 mg PO BID tab Clotrimazole Cream [Lotrimin Cream] 1 applic TOPICAL DAILY PRN applic PRN Reason: Rash INSULIN ASPART (NovoLOG) [NovoLOG (formulary)] 0 unit SQ ACHS vial Levothyroxine Sodium [Synthroid] 137 mcg PO DAILY@0630 tab Ipratropium-Albuterol Nebulize [Duoneb 0.5 mg-3 mg/3 ml Soln] 3 ml INHALATION RT-QID ml INSULIN ASPART (NovoLOG) [NovoLOG (formulary)] 7 unit SQ AC-TID vial Continue Multivitamin [Multivitamins Adult Gummies] 2 tab PO DAILY Cholecalciferol [Vitamin D3 (25 Mcg = 1000 Iu)] 25 mcg PO DAILY Atorvastatin [Lipitor] 20 mg PO DAILY Sertraline [Zoloft] 50 mg PO DAILY Montelukast [Singulair] 10 mg PO DAILY Furosemide [Lasix] 40 mg PO BID Famotidine [Pepcid] 20 mg PO DAILY Gabapentin [Neurontin] 300 mg PO TID #9 cap Ferrous Sulfate [Iron (65 MG Elemental)] 325 mg PO DAILY Discontinued Levothyroxine Sodium [Synthroid] 125 mcg PO DAILY Metoprolol Tartrate [Lopressor] 12.5 mg PO DAILY Insulin Detemir [Levemir Flextouch] 15 units SQ BID Insulin Aspart [NovoLOG Flexpen] See Protocol SQ BID Discharge Medication List Cholecalciferol [Vitamin D3 (25 Mcg = 1000 Iu)] 25 mcg PO DAILY 05/29/17 [History] Multivitamin [Multivitamins Adult Gummies] 2 tab PO DAILY 05/29/17 [History] Atorvastatin [Lipitor] 20 mg PO DAILY 11/05/17 [History] Famotidine [Pepcid] 20 mg PO DAILY 04/23/21 [History] Ferrous Sulfate [Iron (65 MG Elemental)] 325 mg PO DAILY 04/23/21 [History] Furosemide [Lasix] 40 mg PO BID 04/23/21 [History] Montelukast [Singulair] 10 mg PO DAILY 04/23/21 [History] Sertraline [Zoloft] 50 mg PO DAILY 04/23/21 [History] Aspirin 81 mg PO DAILY chew 04/28/21 [Rx] Clotrimazole Cream [Lotrimin Cream] 1 applic TOPICAL DAILY PRN applic 04/28/21 [Rx] Fluconazole [Diflucan] 100 mg PO DAILY #10 tab 04/28/21 [Rx] Gabapentin [Neurontin] 300 mg PO TID #9 cap 04/28/21 [Rx] INSULIN ASPART (NovoLOG) [NovoLOG (formulary)] 0 unit SQ ACHS vial 04/28/21 [Rx] INSULIN ASPART (NovoLOG) [NovoLOG (formulary)] 7 unit SQ AC-TID vial 04/28/21 [Rx] Insulin Detemir (Levemir) [Levemir] 20 unit SQ BID@0700,2100 syr 04/28/21 [Rx] Ipratropium-Albuterol Nebulize [Duoneb 0.5 mg-3 mg/3 ml Soln] 3 ml INHALATION RT-QID ml 04/28/21 [Rx] Levothyroxine Sodium [Synthroid] 137 mcg PO DAILY@0630 tab 04/28/21 [Rx] Losartan [Cozaar] 100 mg PO DAILY tab 04/28/21 [Rx] Metoprolol Tartrate [Lopressor] 12.5 mg PO BID tab 04/28/21 [Rx] Follow up Appointment(s)/Referral(s): Max English MD [STAFF PHYSICIAN] - 1 Week Ruiz Chao MD [Primary Care Provider] - 1-2 days [facility] Nurse, [NON-STAFF] -
[2021-04-28 12:01] LABS: Glucose,Whole Blood 201 mg/dL (75-99)
[2021-04-28 17:39] LABS: Glucose,Whole Blood 187 mg/dL (75-99)
[2021-04-28 19:59] LABS: Glucose,Whole Blood 185 mg/dL (75-99)
[2021-04-28] MEDS: ATORVASTATIN 20 MG TAB PO SCH (21:08)
[2021-04-28] MEDS: MONTELUKAST 10 MG TAB PO SCH (21:08)
[2021-04-28 23:14] VITALS: RESP 16
[2021-04-29 06:55] LABS: Glucose,Whole Blood 171 mg/dL (75-99)
[2021-04-29] MEDS: INSULIN DETEMIR (LEVEMIR) 100 UNIT/ML SYR SQ SCH (07:04)
[2021-04-29] MEDS: LEVOTHYROXINE 137 MCG TAB PO SCH (07:04)
[2021-04-29] MEDS: INSULIN ASPART (NovoLOG) 100 UNIT/ML VIAL SQ SCH ×4 (07:04→12:59)
[2021-04-29] MEDS: IPRATROPIUM-ALBUTEROL 3 ML NEB INHALATION SCH ×2 (07:22→11:57)
[2021-04-29 11:06] VITALS: TEMP 99.2
[2021-04-29 11:07] VITALS: BP 115/55
[2021-04-29] MEDS: CHOLECALCIFEROL 25 MCG (1000 IU) TABLET PO SCH (11:25)
[2021-04-29] MEDS: FLUCONAZOLE 100 MG TAB PO SCH (11:26)
[2021-04-29] MEDS: METOPROLOL TARTRATE 12.5 MG TAB PO SCH (11:26)
[2021-04-29] MEDS: FUROSEMIDE 10 MG/ML 4 ML VIAL IV SCH (11:26)
[2021-04-29] MEDS: ASPIRIN 81 MG PO SCH (11:26)
[2021-04-29] MEDS: GABAPENTIN 300 MG CAP PO SCH (11:26)
[2021-04-29] MEDS: MULTIVITAMINS, THERA 1 EACH TAB PO SCH (11:27)
[2021-04-29] MEDS: LOSARTAN 50 MG TAB PO SCH (11:27)
[2021-04-29 11:50] LABS: Glucose,Whole Blood 286 mg/dL (75-99)
[2021-04-29 12:07] VITALS: PULSE 76
--- NOTE | 2021-04-29 13:27 | P.PN ---
Subjective Progress Note Date: 04/28/21 HISTORY OF PRESENT ILLNESS This is a 75-year-old female patient of Dr. Ruiz Chao with past medical history of chronic kidney disease stage III, chronic diastolic heart failure, chronic atrial fibrillation, diabetes mellitus type 2, hypertension, hyperlipidemia, hypothyroidism, history of GI bleed, morbid obesity with BMI of 52, remote history of tobacco use and dependence. Patient came into the hospital due to diarrhea, vomiting and abdominal pain. Patient states she n ormally has 2 bowel movements per day. They're usually dark because she is on iron. She is also on aspirin daily. She complains of increasing weakness this progressively worsened and unable to stand. She also has dizziness when she stands from a sitting position. She denies any chest pain, no shortness of breath at rest. No dizziness or lightheadedness. Patient's last fall was 3-4 months ago. Patient presented to [facility] emergency center and found to be afebrile, heart rate 63, blood pressure 199/95, pulse ox 94% on room air. WBC 9.0, hemoglobin 14.4, platelet count 146. Sodium 141, potassium 4.2, chloride 107, CO2 23, BUN 24 and creatinine 2.07 which is within patient's baseline. Blood sugar 158. Troponin 0.044, 0.052, 0.048. Liver function tests were normal. Albumin 3.5. CK 113. Patient has been admitted to the cardiac stepdown unit and patient has been seen by cardiology, ruled out acute coronary syndrome. Echocardiogram reveals EF of 25-30%, mild aortic valve sclerosis, trace amount of aortic regurgitation. Mild mitral regurgitation, moderate tricuspid regurgitation, mild pulmonary hypertension. Renal ultrasound was nondiagnostic exam due to patient's size and bowel gas. 04/25: Patient states that she feels a little dizzy with walking. She denies having any weakness however when patient was evaluated by therapies, patient was unable to walk well and subacute rehab was recommended. Patient and her spouse are agreeable to subacute rehab and are looking at [facility]. Patient has been afebrile, heart rate 89, blood pressure 142/78, pulse ox 91% on room air. 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 Blood sugars run between 119 163. TSH 30.9, free T4 0.32. L-thyroxine was increased. Cardiology has recommended continued current cardiac meds and increased metoprolol to twice daily and added aspirin. Patient is not on anticoagulation due to history of GI bleed. Plan is for heart catheterization in the future when she is medically stable due to new cardiomyopathy. 04/26: Patient is found resting in bed without any acute distress. Patient has no complains or concerns. Plan is for patient to go to subacute rehab at [facility]. Patient denies any dizziness at this time. Patient remains afebrile, heart rate 83, respirations 18, blood pressure 161/87, 90% on room air. 04/27: Patient is complaining of cramping to the lower legs. He she also has increased wheeze specifically to the right side. Nebulizer was ordered for patient which patient states that her breathing has improved since then. WC 7.7, hemoglobin 13.1, platelets 144, potassium 4.4, BUN 49, creatinine 2.59. S he remains afebrile, pulse rate 81, respirations 18, blood pressure 147/72, pulse ox 93% on room air. Blood sugars elevated throughout the day ranging 240- 254 04/28: The patient denies any new complaints today. She states she did have a bowel movement today. She does have some lower extremity edema for which she is on IV Lasix which will be transitioned to oral. Patient has completed course of antibiotics on not require any further antibiotics. She has been afebrile, heart rate 70, blood pressure 120/60, pulse ox 91-92% on room air. Blood sugars are running between 184 and 245. Patient will be continued on current dosing of insulins and this can be adjusted at the retirement. Patient will be discharged once all arrangements are completed. REVIEW OF SYSTEMS Constitutional: No fever, no chills, no night sweats. No weight change. Reports generalized and progressive weakness, reports fatigue no lethargy. No daytime sleepiness. EENT: No headache. No blurred vision or double vision, no loss of vision. No loss of Hearing, no ringing in the ears, no dizziness. No nasal drainage or congestion. No epistaxis. No sore throat. Lungs: No shortness of breath, cough, no sputum production. No wheezing. Cardiovascular: No chest pain, no lower extremity edema. No palpitations. No paroxysmal nocturnal dyspnea. No orthopnea. No lightheadedness or dizziness. No syncopal episodes. Abdominal: No abdominal pain. No nausea, vomiting. No diarrhea. No constipation. No bloody or tarry stools.. No loss of appetite. Genitourinary: No dysuria, increased frequency, urgency. No urinary retention. Musculoskeletal: No myalgias. Reports muscle weakness, reports gait dysfunction, no frequent falls. No back pain. No neck pain. Integumentary: No wounds, no lesions. No rash or pruritus. No unusual bruising. No change in hair or nails. Neurologic: No aphasia. No facial droop. No change in mentation. No head injury. No headache. No paralysis. No paresthesia. Psychiatric: No depression. No anxiety. No mood swings. Endocrine: No abnormal blood sugars. No weight change. No excessive sweating or thirst. No cold intolerance. PHYSICAL EXAMINATION Gen: This is a morbidly obese 75-year-old female. She is resting in bed and appears to be comfortable. HEENT: Head is atraumatic, normocephalic. Pupils equal, round. Sclerae is anicteric. Oral candidiasis. NECK: Supple. No JVD. No lymphadenopathy. No thyromegaly. LUNGS: Clear to auscultation. No wheezes or rhonchi. No intercostal retractions. HEART: Regular rate and rhythm. No murmur. ABDOMEN: Morbidly obese. Soft. Bowel sounds are present. No masses. No ten derness. Erythema under abdominal folds and groin. Female catheter in place with cloudy urine. EXTREMITIES: No pedal edema. No calf tenderness. NEUROLOGICAL: Patient is awake, alert and oriented x3. Cranial nerves 2 through 12 are grossly intact. Generalized weakness. ASSESSMENT AND PLAN 1. Generalized weakness and debility. Consult PT and OT. 2. Possible GI bleed with abdominal pain, and vomiting. Recheck hemoglobin 3. Elevated troponins, acute coronary syndrome ruled out. Cardiology consult appreciated. Continue Lopressor 12.5 mg bid. 4. Hypertension. Continue losartan 100 mg daily, Lopressor. 5. Hyperlipidemia. Continue atorvastatin 20 mg at bedtime. 6. Chronic diastolic heart failure. Continue Lasix 40 mg twice daily, Lopressor. IV fluids d/c. DuoNeb added. 7. Chronic atrial fibrillation. Continue Lopressor. No anticoagulation due to history of GI bleed. 8. Diabetes mellitus type 2. Increase Levemir 20 units twice daily and NovoLog 7 units with meals due to elevated blood sugars and NovoLog scale 9. Hypothyroidism. Increase levothyroxine 137 g daily. 10. Oral anders and yeast under abdominal folds, groin. Patient started on Diflucan 100 mg daily. 11. Diabetic neuropathy. Continue gabapentin 300 mg 3 times daily 12. Morbid obesity. BMI of 52.7. Diet and exercise. 13. Cardiomyopathy newly diagnosed, cardiology consult appreciated. Plan for cardiac catheterization at a later point to evaluate. 14. DVT prophylaxis. SCDs and PARDEEP hose. 15. GI prophylaxis. Protonix 40 mg daily. DISCHARGE PLAN [facility]. Impression and plan of care have been directed as dictated by the signing physician. Mihaela Escudero nurse practitioner acting as scribe for signing physici an. Objective - Vital Signs Vital signs: Vital Signs Temp 99.2 F 04/29/21 08:00 Pulse 76 04/29/21 12:06 Resp 16 04/29/21 11:06 BP 115/55 04/29/21 11:06 Pulse Ox 88 L 04/29/21 11:06 Intake & Output 04/28/21 04/29/21 04/29/21 18:59 06:59 18:59 Intake Total 720 10 240 Output Total 450 Balance 720 -440 240 Weight 124 kg Intake: IV 10 Invasive Line 2 10 Oral 720 240 Output: Urine 450 Other: Voiding Method External Catheter External Catheter # Voids 3 # Bowel Movements 1 - Labs CBC & Chem 7: 04/27/21 07:11 04/27/21 07:11 Labs: Abnormal Lab Results - Last 24 Hours (Table) 04/28/21 04/28/21 04/29/21 Range/Units 17:38 19:57 06:53 POC Glucose (mg/dL) 187 H 185 H 171 H (75-99) mg/dL 04/29/21 Range/Units 11:43 POC Glucose (mg/dL) 286 H (75-99) mg/dL
[2021-04-29 13:52] VITALS: BMI 53.4
== END 2021-04-29 14:05 | DRG 948 ==
LOC: EC 17:23 → 3SCARD 19:20 → OBSVTOIN 04-24 14:25
PROVIDERS: ADMIT Family Medicine; ATTEND Family Medicine
DX: R53.1 Weakness (principal); I48.92 Unspecified atrial flutter; Z68.43 Body mass index [BMI] 50.0-59.9, adult; I50.32 Chronic diastolic (congestive) heart failure; B37.0 Candidal stomatitis; I42.9 Cardiomyopathy, unspecified; I48.20 Chronic atrial fibrillation, unspecified; I13.0 Hypertensive heart and chronic kidney disease with heart failure and stage 1 through stage 4 chronic kidney disease, or unspecified chronic kidney disease; R77.8 Other specified abnormalities of plasma proteins; N18.30 Chronic kidney disease, stage 3 unspecified; E11.22 Type 2 diabetes mellitus with diabetic chronic kidney disease; E78.5 Hyperlipidemia, unspecified; E03.9 Hypothyroidism, unspecified; E66.01 Morbid (severe) obesity due to excess calories; Z79.82 Long term (current) use of aspirin; E11.40 Type 2 diabetes mellitus with diabetic neuropathy, unspecified; Z20.822 Contact with and (suspected) exposure to COVID-19; Z85.828 Personal history of other malignant neoplasm of skin; Z82.49 Family history of ischemic heart disease and other diseases of the circulatory system; Z80.0 Family history of malignant neoplasm of digestive organs; I27.20 Pulmonary hypertension, unspecified; E11.65 Type 2 diabetes mellitus with hyperglycemia; Z79.01 Long term (current) use of anticoagulants; Z79.4 Long term (current) use of insulin; Z79.890 Hormone replacement therapy; Z80.1 Family history of malignant neoplasm of trachea, bronchus and lung; Z83.3 Family history of diabetes mellitus; Z87.891 Personal history of nicotine dependence; I08.3 Combined rheumatic disorders of mitral, aortic and tricuspid valves; Z79.899 Other long term (current) drug therapy
CPT/HCPCS: 36415; 71046; 74018; 76770; 80048; 80053; 80061; 81001; 82272; 82550; 83735; 84439; 84443; 84484; 85025; 86850; 86900; 86901; 87077; 87086; 87186; 93005; 93306; 94640; 94760; 99285

== ENCOUNTER 2021-05-17 15:56 | Inpatient (IN) | payer MEDICARE ==
--- NOTE | 2021-05-17 16:21 | ED ---
Weakness HPI - General Source: patient, EMS Mode of arrival: EMS Limitations: physical limitation <Ignacio Kwong - Last Filed: 05/17/21 19:01> <Angela Mejias - Last Filed: 05/18/21 17:00> - General Chief complaint: Weakness Stated complaint: Weakness Time Seen by Provider: 05/17/21 16:02 - History of Present Illness Initial comments: 75-year-old female with history of hypertension, diabetes, A. fib presenting to the emergency Department with a chief complaint of weakness. Patient reports she has developed bilateral lower extremity edema for about one month while she was in the hospital. Patient reports about 2 weeks ago she was discharged from this facility and sent to subacute rehab at [facility] . Patient reports today she was picked up by her from the rehab facility but she believes that she needed more time to recover. She states her legs are feeling weak and has been persistent even at the rehab facility. States that never improved. As soon as she got home, she was not able to get inside the house so her and herself decided to contact tablets. Patient reports that she needs more time for rehab. She denies any other complaints. (Ignacio Kwong) - Related Data Home Medications Medication Instructions Recorded Confirmed Cholecalciferol [Vitamin D3 (25 25 mcg PO HS 05/29/17 05/17/21 Mcg = 1000 Iu)] Atorvastatin [Lipitor] 20 mg PO HS 11/05/17 05/17/21 Ferrous Sulfate [Iron (65 MG 325 mg PO HS 04/23/21 05/17/21 Elemental)] Furosemide [Lasix] 40 mg PO BID 04/23/21 05/17/21 Montelukast [Singulair] 10 mg PO HS 04/23/21 05/17/21 Sertraline [Zoloft] 50 mg PO HS 04/23/21 05/17/21 Aspirin 81 mg PO HS 05/17/21 05/17/21 Insulin Detemir [Levemir Flextouch] 25 units SQ BID 05/17/21 05/17/21 Losartan Potassium 100 mg PO DAILY 05/17/21 05/17/21 Multivit-Min/FA/Lycopen/Lutein 1 tab PO HS 05/17/21 05/17/21 [Centrum Silver Tablet] Omeprazole 20 mg PO DAILY 05/17/21 05/17/21 Previous Rx's Medication Instructions Recorded Clotrimazole Cream [Lotrimin Cream] 1 applic TOPICAL DAILY PRN applic 04/28/21 Gabapentin [Neurontin] 300 mg PO TID #9 cap 04/28/21 INSULIN ASPART (NovoLOG) [NovoLOG 7 unit SQ AC-TID vial 04/28/21 (formulary)] Ipratropium-Albuterol Nebulize 3 ml INHALATION RT-QID ml 04/28/21 [Duoneb 0.5 mg-3 mg/3 ml Soln] Levothyroxine Sodium [Synthroid] 137 mcg PO DAILY@0630 tab 04/28/21 Metoprolol Tartrate [Lopressor] 12.5 mg PO BID tab 04/28/21 Allergies Allergy/AdvReac Type Severity Reaction Status Date / Time camphor [From Vicks Vaporub] Allergy Rash/Hives Verified 05/17/21 17:52 eucalyptus Allergy Rash/Hives Verified 05/17/21 17:52 [From Vicks Vaporub] menthol [From Vicks Vaporub] Allergy Rash/Hives Verified 05/17/21 17:52 Penicillins Allergy Rash/Hives Verified 05/17/21 17:52 petrolatum,white Allergy Rash/Hives Verified 05/17/21 17:52 [From Vicks Vaporub] turpentine oil Allergy Rash/Hives Verified 05/17/21 17:52 [From Vicks Vaporub] ivory soap Allergy Rash/Hives Uncoded 05/17/21 17:52 Review of Systems ROS Other: All systems not noted in ROS Statement are negative. <Ignacio Kwong - Last Filed: 05/17/21 19:01> ROS Other: All systems not noted in ROS Statement are negative. <Angela Mejias - Last Filed: 05/18/21 17:00> ROS Statement: Those systems with pertinent positive or pertinent negative responses have been documented in the HPI. 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, VRE Date of last positivie culture/infection: 01/02/18 VRE [facility] MDRO Source:: Urine-VRE; Left Leg MDRO Past Surgical History: Tonsillectomy, Tubal Ligation Additional Past Surgical History / Comment(s): Skin cancer with removals, EGD, D&C Past Anesthesia/Blood Transfusion Reactions: No Reported Reaction Past Psychological History: No Psychological Hx Reported Smoking Status: Former smoker Past Alcohol Use History: None Reported Past Drug Use History: None Reported - Past Family History Father Family Medical History: Cancer Additional Family Medical History / Comment(s): Father of lung cancer. He was a nonsmoker, worked in a refinery. Mother Family Medical History: Cancer, Coronary Artery Disease (CAD), Diabetes Mellitus, Hyperlipidemia, Hypertension Additional Family Medical History / Comment(s): Mother of pancreatic cancer. <ElenitaKipo - Last Filed: 05/17/21 19:01> General Exam Limitations: physical limitation General appearance: alert, in no apparent distress, obese (Morbidly obese) Head exam: Present: atraumatic, normocephalic, normal inspection Eye exam: Present: normal appearance, PERRL Pupils: Present: normal accommodation ENT exam: Present: normal exam, normal oropharynx, mucous membranes moist Neck exam: Present: normal inspection, full ROM. Absent: tenderness Respiratory exam: Present: wheezes (Mild diffuse wheezing). Absent: respiratory distress (No signs of respiratory distress), rales, rhonchi, stridor, chest wall tenderness Cardiovascular Exam: Present: regular rate, normal rhythm, normal heart sounds. Absent: systolic murmur Extremities exam: Present: normal inspection, full ROM, normal capillary refill, pedal edema (+3 pitting edema bilaterally), other (Palpable DP and PT bilaterally). Absent: tenderness Back exam: Present: normal inspection, full ROM. Absent: tenderness Neurological exam: Present: alert, oriented X3, CN II-XII intact Psychiatric exam: Present: normal affect, normal mood Skin exam: Present: warm, dry, intact, normal color <Ignacio Kwong - Last Filed: 05/17/21 19:01> Course Vital Signs 05/17/21 05/17/21 05/17/21 15:58 17:51 17:57 Temperature 97.9 F Pulse Rate 87 68 70 Respiratory 20 18 18 Rate Blood Pressure 123/59 122/55 O2 Sat by Pulse 97 96 Oximetry 05/17/21 05/17/21 18:09 19:16 Temperature Pulse Rate 71 85 Respiratory 18 18 Rate Blood Pressure 134/60 O2 Sat by Pulse 99 Oximetry EKG Findings - EKG Comments: EKG Findings:: A. fib. Ventricular rate 75, QRS 84, QTc 426. <Ignacio Kwong - Last Filed: 05/17/21 19:01> Medical Decision Making - Lab Data Result diagrams: 05/17/21 16:21 05/17/21 16:21 <Ignacio Kwong - Last Filed: 05/17/21 19:01> - Lab Data Result diagrams: 05/18/21 07:48 05/18/21 07:48 <Angela Mejias - Last Filed: 05/18/21 17:00> - Medical Decision Making 75-year-old female with history of hypertension, diabetes, A. fib presenting to the emergency Department with a chief complaint of weakness. On physical examination, patient is well-appearing. CBC reveals elevated BUN and creatin ine, worsen her baseline. Hyperkalemia with a potassium of 6.6. Patient was given calcium gluconate, albuterol, insulin and dextrose. EKG showed no significant changes. Chest x-ray showed worsening heart failure. Elevated phosphorus. Patient will be admitted for further medical management. I discussed the case with who will admit. Case discussed with Dr Mejias Nephrology consult (Ignacio Kwong) I was available for consultation in the emergency department. The history and physical exam were done by the midlevel provider. I was consulted for this [facility] care. I reviewed the case with the midlevel provider and based on their presentation of the patient, I agree with the assessment, medical decision making and plan of care as documented. Chart was dictated using [employer] dictation software. Attempts were made to correct any dictation errors however some typographical errors may persist. Patient was seen during a [facility] emergency due to the Covid-19 pandemic. (Angela Mejias) - Lab Data Lab Results 05/17/21 05/17/21 05/17/21 Range/Units 16:21 16:21 16:21 WBC 6.1 (3.8-10.6) k/uL RBC 3.97 (3.80-5.40) m/uL Hgb 12.8 (11.4-16.0) gm/dL Hct 41.4 (34.0-46.0) % MCV 104.1 H (80.0-100.0) fL MCH 32.2 (25.0-35.0) pg MCHC 30.9 L (31.0-37.0) g/dL RDW 15.0 (11.5-15.5) % Plt Count 188 (150-450) k/uL MPV 8.9 Neutrophils % 76 % Lymphocytes % 13 % Monocytes % 5 % Eosinophils % 3 % Basophils % 1 % Neutrophils # 4.7 (1.3-7.7) k/uL Lymphocytes # 0.8 L (1.0-4.8) k/uL Monocytes # 0.3 (0-1.0) k/uL Eosinophils # 0.2 (0-0.7) k/uL Basophils # 0.0 (0-0.2) k/uL Hypochromasia Marked Macrocytosis Moderate PT 11.6 (9.0-12.0) sec INR 1.1 (<1.2) APTT 22.6 (22.0-30.0) sec Sodium (137-145) mmol/L Potassium (3.5-5.1) mmol/L Chloride (98-107) mmol/L Carbon Dioxide (22-30) mmol/L Anion Gap mmol/L BUN (7-17) mg/dL Creatinine (0.52-1.04) mg/dL Est GFR (CKD-EPI)AfAm (>60 ml/min/1.73 sqM) Est GFR (CKD-EPI)NonAf (>60 ml/min/1.73 sqM) Glucose (74-99) mg/dL Plasma Lactic Acid Kevin (0.7-2.0) mmol/L Calcium (8.4-10.2) mg/dL Phosphorus (2.5-4.5) mg/dL Magnesium (1.6-2.3) mg/dL Total Bilirubin (0.2-1.3) mg/dL AST (14-36) U/L ALT (4-34) U/L Alkaline Phosphatase (38-126) U/L Troponin I (0.000-0.034) ng/mL Total Protein (6.3-8.2) g/dL Albumin (3.5-5.0) g/dL Urine Color Yellow Urine Appearance Cloudy H (Clear) Urine pH 5.0 (5.0-8.0) Ur Specific Dillon 1.015 (1.001-1.035) Urine Protein Trace H (Negative) Urine Glucose (UA) Negative (Negative) Urine Ketones Negative (Negative) Urine Blood Trace H (Negative) Urine Nitrite Negative (Negative) Urine Bilirubin Negative (Negative) Urine Urobilinogen <2.0 (<2.0) mg/dL Ur Leukocyte Esterase Moderate H (Negative) Urine RBC 2 (0-5) /hpf Urine WBC 22 H (0-5) /hpf Ur Squamous Epith Cells 26 H (0-4) /hpf Urine Bacteria Few H (None) /hpf Hyaline Casts 9 H (0-2) /lpf Urine Mucus Rare H (None) /hpf 05/17/21 05/17/21 05/17/21 Range/Units 16:21 16:21 16:21 WBC (3.8-10.6) k/uL RBC (3.80-5.40) m/uL Hgb (11.4-16.0) gm/dL Hct (34.0-46.0) % MCV (80.0-100.0) fL MCH (25.0-35.0) pg MCHC (31.0-37.0) g/dL RDW (11.5-15.5) % Plt Count (150-450) k/uL MPV Neutrophils % % Lymphocytes % % Monocytes % % Eosinophils % % Basophils % % Neutrophils # (1.3-7.7) k/uL Lymphocytes # (1.0-4.8) k/uL Monocytes # (0-1.0) k/uL Eosinophils # (0-0.7) k/uL Basophils # (0-0.2) k/uL Hypochromasia Macrocytosis PT (9.0-12.0) sec INR (<1.2) APTT (22.0-30.0) sec Sodium 140 (137-145) mmol/L Potassium 6.6 H* (3.5-5.1) mmol/L Chloride 109 H (98-107) mmol/L Carbon Dioxide 23 (22-30) mmol/L Anion Gap 8 mmol/L BUN 98 H (7-17) mg/dL Creatinine 2.90 H (0.52-1.04) mg/dL Est GFR (CKD-EPI)AfAm 18 (>60 ml/min/1.73 sqM) Est GFR (CKD-EPI)NonAf 15 (>60 ml/min/1.73 sqM) Glucose 136 H (74-99) mg/dL Plasma Lactic Acid Kevin 1.3 (0.7-2.0) mmol/L Calcium 8.7 (8.4-10.2) mg/dL Phosphorus (2.5-4.5) mg/dL Magnesium 2.1 (1.6-2.3) mg/dL Total Bilirubin 0.2 (0.2-1.3) mg/dL AST 48 H (14-36) U/L ALT 47 H (4-34) U/L Alkaline Phosphatase 297 H (38-126) U/L Troponin I 0.021 (0.000-0.034) ng/mL Total Protein 6.1 L (6.3-8.2) g/dL Albumin 3.0 L (3.5-5.0) g/dL Urine Color Urine Appearance (Clear) Urine pH (5.0-8.0) Ur Specific Dillon (1.001-1.035) Urine Protein (Negative) Urine Glucose (UA) (Negative) Urine Ketones (Negative) Urine Blood (Negative) Urine Nitrite (Negative) Urine Bilirubin (Negative) Urine Urobilinogen (<2.0) mg/dL Ur Leukocyte Esterase (Negative) Urine RBC (0-5) /hpf Urine WBC (0-5) /hpf Ur Squamous Epith Cells (0-4) /hpf Urine Bacteria (None) /hpf Hyaline Casts (0-2) /lpf Urine Mucus (None) /hpf 05/17/ Range/Units 16:21 WBC (3.8-10.6) k/uL RBC (3.80-5.40) m/uL Hgb (11.4-16.0) gm/dL Hct (34.0-46.0) % MCV (80.0-100.0) fL MCH (25.0-35.0) pg MCHC (31.0-37.0) g/dL RDW (11.5-15.5) % Plt Count (150-450) k/uL MPV Neutrophils % % Lymphocytes % % Monocytes % % Eosinophils % % Basophils % % Neutrophils # (1.3-7.7) k/uL Lymphocytes # (1.0-4.8) k/uL Monocytes # (0-1.0) k/uL Eosinophils # (0-0.7) k/uL Basophils # (0-0.2) k/uL Hypochromasia Macrocytosis PT (9.0-12.0) sec INR (<1.2) APTT (22.0-30.0) sec Sodium (137-145) mmol/L Potassium (3.5-5.1) mmol/L Chloride (98-107) mmol/L Carbon Dioxide (22-30) mmol/L Anion Gap mmol/L BUN (7-17) mg/dL Creatinine (0.52-1.04) mg/dL Est GFR (CKD-EPI)AfAm (>60 ml/min/1.73 sqM) Est GFR (CKD-EPI)NonAf (>60 ml/min/1.73 sqM) Glucose (74-99) mg/dL Plasma Lactic Acid Kevin (0.7-2.0) mmol/L Calcium (8.4-10.2) mg/dL Phosphorus 6.3 H (2.5-4.5) mg/dL Magnesium (1.6-2.3) mg/dL Total Bilirubin (0.2-1.3) mg/dL AST (14-36) U/L ALT (4-34) U/L Alkaline Phosphatase (38-126) U/L Troponin I (0.000-0.034) ng/mL Total Protein (6.3-8.2) g/dL Albumin (3.5-5.0) g/dL Urine Color Urine Appearance (Clear) Urine pH (5.0-8.0) Ur Specific Dillon (1.001-1.035) Urine Protein (Negative) Urine Glucose (UA) (Negative) Urine Ketones (Negative) Urine Blood (Negative) Urine Nitrite (Negative) Urine Bilirubin (Negative) Urine Urobilinogen (<2.0) mg/dL Ur Leukocyte Esterase (Negative) Urine RBC (0-5) /hpf Urine WBC (0-5) /hpf Ur Squamous Epith Cells (0-4) /hpf Urine Bacteria (None) /hpf Hyaline Casts (0-2) /lpf Urine Mucus (None) /hpf Disposition Is patient prescribed a controlled substance at d/c from ED?: No Time of Disposition: 19:03 <Ignacio Kwong - Last Filed: 05/17/21 19:01> <Angela Mejias - Last Filed: 05/18/21 17:00> Clinical Impression: Renal insufficiency syndrome, Hyperkalemia, Hyperphosphatemia Disposition: ADMITTED IP TO THIS HOSP Condition: Fair
[2021-05-17 16:44] LABS: Basophils % (A) 1 %; Eosinophils # (A) 0.2 k/uL (0-0.7); Eosinophils % (A) 3 %; HCT 41.4 % (34.0-46.0); HGB 12.8 gm/dL (11.4-16.0); Hypochromasia Marked; Lymphocytes # (A) 0.8 k/uL (1.0-4.8); Lymphocytes % (A) 13 %; MCH 32.2 pg (25.0-35.0); MCHC 30.9 g/dL (31.0-37.0); MCV 104.1 fL (80.0-100.0); Macrocytosis Moderate; Mean Platelet Volume 8.9; Monocytes # (A) 0.3 k/uL (0-1.0); Monocytes % (A) 5 %; Neutrophils # (A) 4.7 k/uL (1.3-7.7); Neutrophils % (A) 76 %; Platelet Count 188 k/uL (150-450); RBC 3.97 m/uL (3.80-5.40); WBC 6.1 k/uL (3.8-10.6)
[2021-05-17 16:54] LABS: INR 1.1 (<1.2); Partial Thromboplastin Time 22.6 sec (22.0-30.0); Prothrombin Time 11.6 sec (9.0-12.0)
[2021-05-17 17:02] LABS: Calcium 8.7 mg/dL (8.4-10.2); Magnesium 2.1 mg/dL (1.6-2.3); Total Bilirubin 0.2 mg/dL (0.2-1.3); Total Protein 6.1 g/dL (6.3-8.2)
[2021-05-17 17:03] LABS: Potassium 6.6 mmol/L (3.5-5.1)
[2021-05-17 17:05] LABS: Appearance,Urine Cloudy (Clear); Bacteria,Urine Few /hpf; Bilirubin,Urine Negative (Negative); Blood,Urine Trace (Negative); Color,Urine Yellow; Glucose,Urine (UA) Negative (Negative); Hyaline Casts,Urine 9 /lpf (0-2); Ketones,Urine Negative (Negative); Leukocyte Esterase,Urine Moderate (Negative); Mucus,Urine Rare /hpf; Nitrite,Urine Negative (Negative); Protein,Urine Trace (Negative); RBC,Urine 2 /hpf (0-5); Specific Gravity,Urine 1.015 (1.001-1.035); Squamous Epithelial Cell,Urine 26 /hpf (0-4); Urobilinogen,Urine <2.0 mg/dL (<2.0); WBC,Urine 22 /hpf (0-5)
--- NOTE | 2021-05-17 17:20 | XR ---
EXAMINATION TYPE: XR chest 2V DATE OF EXAM: 05/17/2021 COMPARISON: 04/23/2021 HISTORY: Weakness TECHNIQUE: FINDINGS: Heart is enlarged. There is blunting of the costophrenic angles. There is pulmonary vascula r congestion. There is minimal fluid in the fissures. There are chest leads. IMPRESSION: There is some congestive heart failure with increased pulmonary congestion and fluid comp ared to last exam.
[2021-05-17] MEDS ORDERED: DEXTROSE 50% SYRINGE 50 ML IVP STA (17:24)
[2021-05-17] MEDS ORDERED: INSULIN REGULAR 100 UNIT/ML VIAL (IV) IV ONE (17:24)
[2021-05-17] MEDS ORDERED: ALBUTEROL NEBULIZED 2.5 MG/3 ML INHALATION STA ×2 (17:24→17:29)
[2021-05-17] MEDS ORDERED: CALCIUM GLUCONATE 2 GM in SODIUM CHLORIDE 0.9% 100 ML IVPB ONE (17:45)
[2021-05-17] MEDS ORDERED: NALOXONE 0.4 MG/ML 1 ML VIAL IV PRN (18:59)
[2021-05-17] MEDS ORDERED: CLOTRIMAZOLE 1% CREAM 30 GM TUBE TOPICAL PRN (20:35)
[2021-05-17] MEDS ORDERED: ATORVASTATIN 20 MG TAB PO SCH (21:00)
[2021-05-17 21:01] LABS: Glucose,Whole Blood 97 mg/dL (75-99)
[2021-05-17] MEDS: INSULIN ASPART (NovoLOG) 100 UNIT/ML VIAL SQ SCH (21:01)
[2021-05-17] MEDS: ASPIRIN 81 MG PO SCH (21:30)
[2021-05-17] MEDS: CHOLECALCIFEROL 25 MCG (1000 IU) TABLET PO SCH (21:30)
[2021-05-17] MEDS: MONTELUKAST 10 MG TAB PO SCH (21:30)
[2021-05-17] MEDS: METOPROLOL TARTRATE 12.5 MG TAB PO SCH (21:31)
[2021-05-17] MEDS: FERROUS SULFATE 325 MG TAB PO SCH (21:31)
[2021-05-17] MEDS: MULTIVITAMINS, THERA 1 EACH TAB PO SCH (21:31)
[2021-05-17] MEDS: INSULIN DETEMIR (LEVEMIR) 100 UNIT/ML SYR SQ SCH (21:31)
[2021-05-17] MEDS: SERTRALINE 50 MG TAB PO SCH (21:31)
[2021-05-17] MEDS: GABAPENTIN 300 MG CAP PO SCH (21:31)
[2021-05-18] MEDS: LEVOTHYROXINE 137 MCG TAB PO SCH (06:26)
[2021-05-18] MEDS: PANTOPRAZOLE 40 MG TABLET PO SCH (06:26)
[2021-05-18] MEDS: IPRATROPIUM-ALBUTEROL 3 ML NEB INHALATION SCH ×4 (07:32→19:17)
[2021-05-18 08:19] LABS: Glucose,Whole Blood 172 mg/dL (75-99)
[2021-05-18] MEDS: INSULIN DETEMIR (LEVEMIR) 100 UNIT/ML SYR SQ SCH ×2 (08:29→21:24)
[2021-05-18] MEDS: METOPROLOL TARTRATE 12.5 MG TAB PO SCH ×2 (08:29→20:09)
[2021-05-18] MEDS: INSULIN ASPART (NovoLOG) 100 UNIT/ML VIAL SQ SCH ×7 (08:30→20:08)
[2021-05-18] MEDS: GABAPENTIN 300 MG CAP PO SCH ×3 (08:30→20:09)
[2021-05-18] MEDS ORDERED: LOSARTAN 50 MG TAB PO SCH (09:00)
[2021-05-18 11:21] LABS: Basophils % (A) 1 %; Eosinophils # (A) 0.1 k/uL (0-0.7); Eosinophils % (A) 1 %; HCT 39.5 % (34.0-46.0); HGB 11.9 gm/dL (11.4-16.0); Hypochromasia Marked; Lymphocytes % (A) 20 %; MCHC 30.2 g/dL (31.0-37.0); Macrocytosis Moderate; Mean Platelet Volume 9.1; Monocytes # (A) 0.4 k/uL (0-1.0); Monocytes % (A) 7 %; Neutrophils # (A) 3.3 k/uL (1.3-7.7); Neutrophils % (A) 68 %; Platelet Count 190 k/uL (150-450); RBC 3.72 m/uL (3.80-5.40); RDW 15.4 % (11.5-15.5); WBC 4.8 k/uL (3.8-10.6)
[2021-05-18 11:27] LABS: Albumin 2.6 g/dL (3.5-5.0); Calcium 8.9 mg/dL (8.4-10.2); Potassium 5.9 mmol/L (3.5-5.1); Total Bilirubin 0.2 mg/dL (0.2-1.3); Total Protein 5.7 g/dL (6.3-8.2)
[2021-05-18 11:39] LABS: Glucose,Whole Blood 154 mg/dL (75-99)
[2021-05-18] MEDS ORDERED: SODIUM POLYSTYRENE SULFONATE 15 GM/60 ML BOTTLE PO STA (13:38)
--- NOTE | 2021-05-18 13:48 | P.HPIM ---
History of Present Illness H&P Date: 05/18/21 History of present illness This is a 75-year-old female patient of Dr. Ruiz Chao with past medical history of chronic kidney disease stage III, chronic diastolic heart failure, chronic atrial fibrillation not on anticoagulation due to history of GI bleed, diabetes mellitus type 2, hypertension, hyperlipidemia, hypothyroidism, history of GI bleed, morbid obesity with BMI of 52, remote history of tobacco use and dependence, congestive heart failure with last ejection fraction reported on 04/24 was 25-30% with mild aortic valve sclerosis trace aortic regurgitation and mild mitral regurgitation and moderate tricuspid regurgitation and mild pulmonary hypertension. last hospitalized on 04/24 to 04/28 for nausea or vomiting, diarrhea and abdominal pain. Patient was noted to be increasingly weak and unable to stand. She was seen by PT and OT and recommended subacute rehab. Patient was discharged to [facility] on 04/30 with no improvement in weakness patient was discharged yesterday. Patient came into the hospital d with increasing weakness and inability to stand. Patient's last fall was 3-4 months ago. Patient denies any shortness of breath chest pain or abdominal pain. She denies any diarrhea or vomiting. In the ER patient was noted increasingly weak. Vital suggest temporal 97.9 pulse 85 respiratory rate 20 blood pressure 123/59 labs obtained patient had WBC of 6.1 hemoglobin 12.8 sodium 140 potassium 6.6 BUN 98 increased from 46 creatinine was 2.9 which is close to baseline her liver enzymes were elevated with AST of 48 ALT 47 alkaline phosphatase 297 urinalysis positive for infection with cloudy appearance specimen gravity 1.015 trace blood and moderate leukocyte Estrace and few bacteria troponin 1 was negative phosphorus was high 6.3. Repeat labs suggestive of an improvement of creatinine 2.79 BUN 95 blood sugar ranging from 97-154 proBNP 10,000 EKG suggestive of A. fibWith no ST or T-wave changes Chest x-ray it is her of congestive heart failure with increased pulmonary congestion and fluid compared to last exam Echocardiogram 04/24 ejection fraction was 25-30% with mild aortic valve sclerosis trace aortic regurgitation and mild mitral regurgitation and moderate tricuspid regurgitation and mild pulmonary hypertension. ROS Constitutional: Denies chills, Denies fever, endorses lethargy, endorses malaise, Denies poor appetite, endorses weakness, Denies weight loss Eyes: denies decreased vision, denies diplopia, denies discharge, denies pain Ears: deny: decreased hearing Ears, nose, mouth and throat: Denies dental pain, Denies headache, Denies nasal discharge, Denies nose pain Cardiovascular: Denies chest pain, Denies decreased exercise tolerance, Denies edema, Denies high blood pressure, Denies irregular heart beat, Denies palpitations, Denies paroxysmal nocturnal dyspnea, Denies rapid heart beat, Denies shortness of breath Respiratory: Denies congestion, Denies cough, Denies cough with sputum, Denies dyspnea, Denies home oxygen, Denies wheezing Gastrointestinal: Denies abdominal pain, Denies change in bowel habits, Denies coffee ground emesis, Denies early satiety, Denies excessive gas, Denies heartburn, Denies hematemesis, Denies hematochezia, Denies loss of appetite, Denies nausea, Denies vomiting Genitourinary: Denies dysuria, Denies flank pain, Denies kidney stones, Denies menorrhagia, Denies urgency, Denies urinary frequency Musculoskeletal: Endorses limitation of motion, inability to move her legs, Denies morning stiffness, Denies muscle cramps Integumentary: Denies rash, Denies wounds, Denies brittle nails, Denies change in hair/nails, Denies darkening of skin Neurological: Endorses balance difficulties, Denies change in speech, Denies double vision, Denies gait dysfunction, Denies loss of vision, Denies motor disturbance, Denies numbness, Denies paralysis, Denies paresthesias, Denies seizures Psychiatric: Denies anxiety, Denies depression Endocrine: Denies excessive sweating, Denies excessive thirst, Denies high blood sugars, Denies palpitations Hematologic/Lymphatic: Denies easy bruising, Denies lymphadenopathy Social history Patient smoked for 14 years and quit many years ago. She is also exposed to secondhand smoke in her home. She lives at home in apartment with her . Family history Mother from pancreatic cancer. Patient did not have any contact with her father buthe has . Patient has a brother that from colon cancer. Patient has 3 sisters alive and to have diabetes. Patient has a total of 5 chil dren. 3 sons and one has from a gunshot wound. Patient has 2 daughters with no major medical problems. Physical exam - Constitutional General appearance: cooperative, no acute distress, morbidly obese - EENT Eyes: anicteric sclerae, PERRLA, normal appearance ENT: hearing grossly normal - Neck Neck: no lymphadenopathy, normal ROM, no other, no rigidity, no stridor, no thyromegaly - Respiratory Respiratory: bilateral: CTA, negative: diminished, dullness, rales, rhonchi - Cardiovascular Rhythm: regular Heart sounds: normal: S1, S2 Abnormal Heart Sounds: no systolic murmur, no diastolic murmur, no rub, no S3 Gallop, no S4 Gallop, no click, bilateral 3+ pitting edema - Gastrointestinal General gastrointestinal: normal bowel sounds, soft distended with 1+ pitting edema in the lower quadrant of the belly - Integumentary Integumentary: no rash - Neurologic Neurologic: Inability to move lower extremity. Sensation intact decreased reflexes bilaterally - Musculoskeletal Musculoskeletal: Bilateral reduced strength bilateral lower extremity worse on the right compared to the left - Psychiatric Psychiatric: A&O x's 3, appropriate affect Assessment and plan 1. Bilateral lower extremity weakness and debility with history of fall 2 months ago. MRI thoracic and lumbar spine ordered. Orthospine consulted Sensory intact but patient has significant weakness in lower extremity Consult PT and OT. 2. Hyperkalemia likely secondary to cardiorenal syndrome. Nephrology consulted. Status post 2 gram calcium gluconate, insulin and D50. Kayexalate ordered hold losartan 3. Acute Systolic congestive heart failure at elevated proBNP. Unclear if ischemic or nonischemic. Patient has chronic kidney disease stage III with acute kidney injury. Need cardiac cath per cardiology as outpatient Monitor GARTH's and daily weight. Lasix 40 IV twice a day continue Lopressor twice a day. Cardiology consulted 4. Hypertension. Hold losartan 100 mg daily, continue Lopressor 12.5 mg twice a day 5. Acute kidney injury secondary to ATN with chronic kidney disease stage III. Hold losartan. Patient has poor perfusion of the kidneys from congestive heart failure. Creatinine baseline 2.5. Nephrology consulted 6. Acute transaminitis. Ultrasound abdomen ordered likely secondary to poor perfusion from congestive heart failure 7. Chronic atrial fibrillation. Continue Lopressor. Not on anticoagulation due to history of GI bleed 8. Diabetes mellitus type 2. Continue Levemir 25 units twice daily and NovoLog 5 units with meals and NovoLog scale 9. Hypothyroidism. Continue levothyroxine 137 g daily. 10. Urinary tract infection UA positive for infecion, he was oxacillin 11. Diabetic neuropathy. Continue gabapentin 300 mg 3 times daily 12. Hyperlipidemia. Continue atorvastatin 20 mg at bedtime. 13. .GI prophylaxis. Protonix 40 mg daily. 14. DVT prophylaxis. SCDs and PARDEEP hose. 15. Morbid obesity. BMI of 52.7. Diet and exercise. 16 disposition patient needed placement to 2 inpatient bed for stabilization. 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 MDRO Source:: Urine-VRE; Left Leg MDRO Past Surgical History: Tonsillectomy, Tubal Ligation Additional Past Surgical History / Comment(s): Skin cancer with removals, EGD, D&C Past Anesthesia/Blood Transfusion Reactions: No Reported Reaction Past Psychological History: No Psychological Hx Reported Additional Psychological History / Comment(s): Pt resides in an apartment with her spouse. She has never driven, her spouse drives. Pt reads/writes alittle. Smoking Status: Former smoker Past Alcohol Use History: None Reported Additional Past Alcohol Use History / Comment(s): Pt is exposed to 2nd hand smoke in her home. Pt started smoking in 1960 and quit in 1974. Past Drug Use History: None Reported - Past Family History Father Family Medical History: Cancer Additional Family Medical History / Comment(s): Father of lung cancer. He was a nonsmoker, worked in a refinery. Mother Family Medical History: Cancer, Coronary Artery Disease (CAD), Diabetes Mellitus, Hyperlipidemia, Hypertension Additional Family Medical History / Comment(s): Mother of pancreatic cancer. Medications and Allergies Home Medications Medication Instructions Recorded Confirmed Type Cholecalciferol [Vitamin D3 (25 25 mcg PO HS 05/29/17 05/17/21 History Mcg = 1000 Iu)] Atorvastatin [Lipitor] 20 mg PO HS 11/05/17 05/17/21 History Ferrous Sulfate [Iron (65 MG 325 mg PO HS 04/23/21 05/17/21 History Elemental)] Furosemide [Lasix] 40 mg PO BID 04/23/21 05/17/21 History Montelukast [Singulair] 10 mg PO HS 04/23/21 05/17/21 History Sertraline [Zoloft] 50 mg PO HS 04/23/21 05/17/21 History Clotrimazole Cream [Lotrimin Cream] 1 applic TOPICAL DAILY PRN applic 04/28/21 05/17/21 Rx Gabapentin [Neurontin] 300 mg PO TID #9 cap 04/28/21 05/17/21 Rx INSULIN ASPART (NovoLOG) [NovoLOG 7 unit SQ AC-TID vial 04/28/21 05/17/21 Rx (formulary)] Ipratropium-Albuterol Nebulize 3 ml INHALATION RT-QID ml 04/28/21 05/17/21 Rx [Duoneb 0.5 mg-3 mg/3 ml Soln] Levothyroxine Sodium [Synthroid] 137 mcg PO DAILY@0630 tab 04/28/21 05/17/21 Rx Metoprolol Tartrate [Lopressor] 12.5 mg PO BID tab 04/28/21 05/17/21 Rx Aspirin 81 mg PO HS 05/17/21 05/17/21 History Insulin Detemir [Levemir Flextouch] 25 units SQ BID 05/17/21 05/17/21 History Losartan Potassium 100 mg PO DAILY 05/17/21 05/17/21 History Multivit-Min/FA/Lycopen/Lutein 1 tab PO HS 05/17/21 05/17/21 History [Centrum Silver Tablet] Omeprazole 20 mg PO DAILY 05/17/21 05/17/21 History Allergies Allergy/AdvReac Type Severity Reaction Status Date / Time camphor [From Vicks Vaporub] Allergy Rash/Hives Verified 05/17/21 17:52 eucalyptus Allergy Rash/Hives Verified 05/17/21 17:52 [From Vicks Vaporub] menthol [From Vicks Vaporub] Allergy Rash/Hives Verified 05/17/21 17:52 Penicillins Allergy Rash/Hives Verified 05/17/21 17:52 petrolatum,white Allergy Rash/Hives Verified 05/17/21 17:52 [From Vicks Vaporub] turpentine oil Allergy Rash/Hives Verified 05/17/21 17:52 [From Vicks Vaporub] ivory soap Allergy Rash/Hives Uncoded 05/17/21 17:52 Physical Exam Vitals: Vital Signs Temp Pulse Pulse Resp BP BP Pulse Ox 05/18/21 08:27 97.8 F 67 18 98/54 98 05/18/21 08:00 67 18 05/18/21 07:47 72 05/18/21 07:32 74 05/18/21 03:41 98 F 67 18 104/54 98 05/18/21 02:00 18 05/17/21 23:03 98.4 F 77 18 113/53 96 05/17/21 20:00 18 05/17/21 19:45 97.9 F 84 18 124/59 99 05/17/21 19:16 85 18 134/60 99 05/17/21 18:09 71 18 05/17/21 17:57 70 18 05/17/21 17:51 68 18 122/55 96 05/17/21 15:58 97.9 F 87 20 123/59 97 Intake and Output 05/17/21 05/18/21 05/18/21 22:59 06:59 14:59 Intake Total 250 240 Balance 250 240 Intake: Oral 250 240 Other: Voiding Method Bedpan Bedpan Bedpan Diaper Diaper Diaper Weight 139.797 kg 139.5 kg Results CBC & Chem 7: 05/18/21 07:48 05/18/21 07:48 Labs: Abnormal Lab Results - Last 24 Hours (Table) 05/17/21 05/17/21 05/17/21 Range/Units 16:21 16:21 16:21 MCV 104.1 H (80.0-100.0) fL MCHC 30.9 L (31.0-37.0) g/dL Lymphocytes # 0.8 L (1.0-4.8) k/uL Potassium 6.6 H* (3.5-5.1) mmol/L Chloride 109 H (98-107) mmol/L BUN 98 H (7-17) mg/dL Creatinine 2.90 H (0.52-1.04) mg/dL Glucose 136 H (74-99) mg/dL POC Glucose (mg/dL) (75-99) mg/dL Phosphorus (2.5-4.5) mg/dL AST 48 H (14-36) U/L ALT 47 H (4-34) U/L Alkaline Phosphatase 297 H (38-126) U/L Total Protein 6.1 L (6.3-8.2) g/dL Albumin 3.0 L (3.5-5.0) g/dL Urine Appearance Cloudy H (Clear) Urine Protein Trace H (Negative) Urine Blood Trace H (Negative) Ur Leukocyte Esterase Moderate H (Negative) Urine WBC 22 H (0-5) /hpf Ur Squamous Epith Cells 26 H (0-4) /hpf Urine Bacteria Few H (None) /hpf Hyaline Casts 9 H (0-2) /lpf Urine Mucus Rare H (None) /hpf 05/17/21 05/18/21 05/18/21 Range/Units 16:21 07:48 08:16 MCV (80.0-100.0) fL MCHC (31.0-37.0) g/dL Lymphocytes # (1.0-4.8) k/uL Potassium (3.5-5.1) mmol/L Chloride (98-107) mmol/L BUN (7-17) mg/dL Creatinine (0.52-1.04) mg/dL Glucose (74-99) mg/dL POC Glucose (mg/dL) 172 H (75-99) mg/dL Phosphorus 6.3 H 6.2 H (2.5-4.5) mg/dL AST (14-36) U/L ALT (4-34) U/L Alkaline Phosphatase (38-126) U/L Total Protein (6.3-8.2) g/dL Albumin (3.5-5.0) g/dL Urine Appearance (Clear) Urine Protein (Negative) Urine Blood (Negative) Ur Leukocyte Esterase (Negative) Urine WBC (0-5) /hpf Ur Squamous Epith Cells (0-4) /hpf Urine Bacteria (None) /hpf Hyaline Casts (0-2) /lpf Urine Mucus (None) /hpf Microbiology - Last 24 Hours (Table) 05/17/21 16:21 Urine Culture - Preliminary Urine,Voided Thrombosis Risk Factor Assmnt - Choose All That Apply Any of the Below Risk Factors Present?: Yes Each Factor Represents 1 point: Abnormal pulmonary function (COPD), Medical pt on bed rest, Obesity (BMI >25), Swollen legs (current) Each Risk Factor Represents 3 Points: Age 75 years or older Other congenital or acquired thrombophilia - If yes, enter type in comment: No Thrombosis Risk Factor Assessment Total Risk Factor Score: 7 Thrombosis Risk Factor Assessment Level: High Risk
[2021-05-18] MEDS: FUROSEMIDE 10 MG/ML 4 ML VIAL IV SCH ×2 (13:54→23:19)
--- NOTE | 2021-05-18 14:11 | US ---
EXAMINATION TYPE: US abdomen complete DATE OF EXAM: 05/18/2021 COMPARISON: US CLINICAL HISTORY: elevated liver enzymes . EXAM MEASUREMENTS: Liver Length: 14.5 cm Gallbladder Wall: 0.2 cm CBD: unable to visualize Spleen: 9.4 cm Right Kidney: 11.5 x 6.7 x 8.3 cm Left Kidney: 10.0 x 5.4 x 6.0 cm Extremely limited exam due to patient body habitus and thickened skin. Pancreas: Obscured by bowel gas Liver: visualized portions appear normal Gallbladder: No stones seen Evidence for sonographic Zamorano's sign: No CBD: not visualized Spleen: wnl Right Kidney: No hydronephrosis or masses seen Left Kidney: No hydronephrosis or masses seen Upper IVC: wnl Abd Aorta: Obscured by overlying bowel gas Incidental note is made of small amount of free fluid around liver. IMPRESSION: 1. Markedly limited exam as discussed above. There is a small amount of fluid surrounding the liver. No obvious gallstones or hydronephrosis. See above.
--- NOTE | 2021-05-18 14:17 | P.NPCON ---
History of Present Illness - Reason for Consult Consult date: 05/18/21 acute renal failure, hyperkalemia - Chief Complaint Lower extremity weakness - History of Present Illness 75-year-old lady coming to the hospital with the above complaints. She was in the hospital 2-3 weeks ago, went to subacute rehab and was discharged home yesterday. She unable to manage at home when she came back to the hospital. She has chronic kidney disease stage IIIb with a baseline creatinine of 2.0 MG per DL. She has EF of 25% with systolic dysfunction, worsening lower extremity edema. On admission she also had hyperkalemia with a potassium of 6.6 improved to 8.6 with medical management. She takes Lasix 40 mg by mouth twice a day and losartan 100 mg daily at home. Denies incomplete emptying of bladder. No NSAID use or recent contrast studies. Currently started on Lasix 40 mg IV twice a day today. Hypotensive episodes documented, urine analysis consistent with hyaline cast. 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 She has never driven, her spouse drives. Pt reads/writes alittle. Smoking Status: Former smoker Past Alcohol Use History: None Reported Additional Past Alcohol Use History / Comment(s): Pt is exposed to 2nd hand smoke in her home. Pt started smoking in 1960 and quit in 1974. Past Drug Use History: None Reported - Past Family History Father Family Medical History: Cancer Additional Family Medical History / Comment(s): Father of lung cancer. He was a nonsmoker, worked in a refinery. Mother Family Medical History: Cancer, Coronary Artery Disease (CAD), Diabetes Mellitus, Hyperlipidemia, Hypertension Additional Family Medical History / Comment(s): Mother of pancreatic cancer. Medications and Allergies Home Medications Medication Instructions Recorded Confirmed Type Cholecalciferol [Vitamin D3 (25 25 mcg PO HS 05/29/17 05/17/21 History Mcg = 1000 Iu)] Atorvastatin [Lipitor] 20 mg PO HS 11/05/17 05/17/21 History Ferrous Sulfate [Iron (65 MG 325 mg PO HS 04/23/21 05/17/21 History Elemental)] Furosemide [Lasix] 40 mg PO BID 04/23/21 05/17/21 History Montelukast [Singulair] 10 mg PO HS 04/23/21 05/17/21 History Sertraline [Zoloft] 50 mg PO HS 04/23/21 05/17/21 History Clotrimazole Cream [Lotrimin Cream] 1 applic TOPICAL DAILY PRN applic 04/28/21 05/17/21 Rx Gabapentin [Neurontin] 300 mg PO TID #9 cap 04/28/21 05/17/21 Rx INSULIN ASPART (NovoLOG) [NovoLOG 7 unit SQ AC-TID vial 04/28/21 05/17/21 Rx (formulary)] Ipratropium-Albuterol Nebulize 3 ml INHALATION RT-QID ml 04/28/21 05/17/21 Rx [Duoneb 0.5 mg-3 mg/3 ml Soln] Levothyroxine Sodium [Synthroid] 137 mcg PO DAILY@0630 tab 04/28/21 05/17/21 Rx Metoprolol Tartrate [Lopressor] 12.5 mg PO BID tab 04/28/21 05/17/21 Rx Aspirin 81 mg PO HS 05/17/21 05/17/21 History Insulin Detemir [Levemir Flextouch] 25 units SQ BID 05/17/21 05/17/21 History Losartan Potassium 100 mg PO DAILY 05/17/21 05/17/21 History Multivit-Min/FA/Lycopen/Lutein 1 tab PO HS 05/17/21 05/17/21 History [Centrum Silver Tablet] Omeprazole 20 mg PO DAILY 05/17/21 05/17/21 History Allergies Allergy/AdvReac Type Severity Reaction Status Date / Time camphor [From Vicks Vaporub] Allergy Rash/Hives Verified 05/17/21 17:52 eucalyptus Allergy Rash/Hives Verified 05/17/21 17:52 [From Vicks Vaporub] menthol [From Vicks Vaporub] Allergy Rash/Hives Verified 05/17/21 17:52 Penicillins Allergy Rash/Hives Verified 05/17/21 17:52 petrolatum,white Allergy Rash/Hives Verified 05/17/21 17:52 [From Vicks Vaporub] turpentine oil Allergy Rash/Hives Verified 05/17/21 17:52 [From Vicks Vaporub] ivory soap Allergy Rash/Hives Uncoded 05/17/21 17:52 Physical Exam Vitals: Vital Signs Temp Pulse Pulse Resp BP BP Pulse Ox 05/18/21 12:00 97.9 F 60 18 93/55 97 05/18/21 11:54 70 05/18/21 11:44 74 05/18/21 08:27 97.8 F 67 18 98/54 98 05/18/21 08:00 67 18 05/18/21 07:47 72 05/18/21 07:32 74 05/18/21 03:41 98 F 67 18 104/54 98 05/18/21 02:00 18 05/17/21 23:03 98.4 F 77 18 113/53 96 05/17/21 20:00 18 05/17/21 19:45 97.9 F 84 18 124/59 99 05/17/21 19:16 85 18 134/60 99 05/17/21 18:09 71 18 05/17/21 17:57 70 18 05/17/21 17:51 68 18 122/55 96 05/17/21 15:58 97.9 F 87 20 123/59 97 Intake and Output 05/17/21 05/18/21 05/18/21 22:59 06:59 14:59 Intake Total 250 240 Balance 250 240 Intake: Oral 250 240 Other: Voiding Method Bedpan Bedpan Bedpan Diaper Diaper Diaper # Voids 1 Weight 139.797 kg 139.5 kg No acute distress S1-S2 heard Decreased breath sounds Abdominal distention Edema 3+ Results - Lab Results Most recent lab results Calcium 8.9 mg/dL (8.4-10.2) 05/18/21 07:48 Phosphorus 6.2 mg/dL (2.5-4.5) H 05/18/21 07:48 Magnesium 2.1 mg/dL (1.6-2.3) 05/17/21 16:21 05/18/21 07:48 05/18/21 07:48 Assessment and Plan Assessment: #1 acute kidney injury suspect cardiorenal syndrome with systolic dysfunction and lower extremity edema. -ATN is other possibility with hypotensive episodes and hyaline cast. #2 hypotensive episodes #3 CK D stage IIIB suspected nephrosclerosis with a baseline creatinine of 2.0 MG per DL. #4 volume overload with lower extremity edema #5 systolic CHF with the EF of 25% #6 hyperkalemia suspect secondary to acute kidney injury/losartan. Rule out urinary retention Plan: #1 agree with Lasix 40 mg IV twice a day. #2 bladder scan to rule out urinary retention if more than 300 ML's Garcia catheter. #3 add midodrine for hemodynamic support #4 give 1 more dose of Kayexalate 15 mg. #5 avoid nephrotoxic agents and hypotensive episodes.
[2021-05-18] MEDS ORDERED: SODIUM POLYSTYRENE SULFONATE 15 GM/60 ML BOTTLE PO ONE (14:30)
[2021-05-18] MEDS ORDERED: LEVOFLOXACIN 250MG-D5W PMX 250 MG in DEXTROSE/WATER 1 50ML.BAG IVPB SCH (16:00)
[2021-05-18 16:27] LABS: Glucose,Whole Blood 80 mg/dL (75-99)
[2021-05-18] MEDS: MIDODRINE 5 MG TAB PO SCH (16:43)
[2021-05-18] MEDS: ASPIRIN 81 MG PO SCH (20:09)
[2021-05-18] MEDS: MULTIVITAMINS, THERA 1 EACH TAB PO SCH (20:09)
[2021-05-18] MEDS: CHOLECALCIFEROL 25 MCG (1000 IU) TABLET PO SCH (20:09)
[2021-05-18] MEDS: MONTELUKAST 10 MG TAB PO SCH (20:09)
[2021-05-18] MEDS: SERTRALINE 50 MG TAB PO SCH (20:09)
[2021-05-18] MEDS: FERROUS SULFATE 325 MG TAB PO SCH (20:09)
[2021-05-18 21:04] LABS: Glucose,Whole Blood 130 mg/dL (75-99)
[2021-05-19] MEDS: LEVOTHYROXINE 137 MCG TAB PO SCH (06:25)
[2021-05-19] MEDS: INSULIN DETEMIR (LEVEMIR) 100 UNIT/ML SYR SQ SCH ×2 (06:25→20:27)
[2021-05-19] MEDS: PANTOPRAZOLE 40 MG TABLET PO SCH (06:25)
[2021-05-19] MEDS: MIDODRINE 5 MG TAB PO SCH ×3 (06:25→17:36)
[2021-05-19 07:13] LABS: Glucose,Whole Blood 92 mg/dL (75-99)
[2021-05-19 08:08] LABS: Calcium 8.8 mg/dL (8.4-10.2); Potassium 5.5 mmol/L (3.5-5.1)
[2021-05-19] MEDS: INSULIN ASPART (NovoLOG) 100 UNIT/ML VIAL SQ SCH ×7 (08:08→20:27)
--- NOTE | 2021-05-19 08:46 | P.PN ---
Subjective Patient is seen in follow-up for acute kidney injury on chronic kidney disease. Renal function stable. Potassium level coming down. Maintain on IV Lasix. Currently on 3 L nasal cannula. Vital signs are stable. General: The patient appeared well nourished and normally developed. HEENT: Head exam is unremarkable. On nasal cannula. LUNGS: Breath sounds decreased. HEART: Rate and Rhythm are regular. ABDOMEN: Soft, no distention. EXTREMITITES: 2+ edema. Objective - Vital Signs Vital signs: Vital Signs Temp 98.4 F 05/18/21 20:00 Pulse 68 05/19/21 03:54 Resp 18 05/19/21 03:54 BP 101/64 05/19/21 03:54 Pulse Ox 96 05/19/21 03:54 Intake & Output 05/18/21 05/19/21 05/19/21 18:59 06:59 18:59 Intake Total 720 240 240 Balance 720 240 240 Weight 119.5 kg Intake: Oral 720 240 240 Other: Voiding Method Bedpan Bedpan Diaper Diaper # Voids 1 2 - Labs CBC & Chem 7: 05/18/21 07:48 05/19/21 06:56 Labs: Abnormal Lab Results - Last 24 Hours (Table) 05/18/21 05/18/21 05/18/21 Range/Units 07:48 07:48 07:48 RBC 3.72 L (3.80-5.40) m/uL MCV 106.0 H (80.0-100.0) fL MCHC 30.2 L (31.0-37.0) g/dL Potassium 5.9 H (3.5-5.1) mmol/L Chloride 110 H (98-107) mmol/L BUN 95 H (7-17) mg/dL Creatinine 2.79 H (0.52-1.04) mg/dL Glucose 163 H (74-99) mg/dL POC Glucose (mg/dL) (75-99) mg/dL Phosphorus 6.2 H (2.5-4.5) mg/dL ALT 44 H (4-34) U/L Alkaline Phosphatase 256 H (38-126) U/L Total Protein 5.7 L (6.3-8.2) g/dL Albumin 2.6 L (3.5-5.0) g/dL Procalcitonin (0.02-0.09) ng/mL 05/18/21 05/18/21 05/18/21 Range/Units 07:48 11:38 20:07 RBC (3.80-5.40) m/uL MCV (80.0-100.0) fL MCHC (31.0-37.0) g/dL Potassium (3.5-5.1) mmol/L Chloride (98-107) mmol/L BUN (7-17) mg/dL Creatinine (0.52-1.04) mg/dL Glucose (74-99) mg/dL POC Glucose (mg/dL) 154 H 130 H (75-99) mg/dL Phosphorus (2.5-4.5) mg/dL ALT (4-34) U/L Alkaline Phosphatase (38-126) U/L Total Protein (6.3-8.2) g/dL Albumin (3.5-5.0) g/dL Procalcitonin 0.17 H (0.02-0.09) ng/mL 05/19/21 Range/Units 06:56 RBC (3.80-5.40) m/uL MCV (80.0-100.0) fL MCHC (31.0-37.0) g/dL Potassium 5.5 H (3.5-5.1) mmol/L Chloride (98-107) mmol/L BUN 91 H (7-17) mg/dL Creatinine 2.75 H (0.52-1.04) mg/dL Glucose (74-99) mg/dL POC Glucose (mg/dL) (75-99) mg/dL Phosphorus (2.5-4.5) mg/dL ALT (4-34) U/L Alkaline Phosphatase (38-126) U/L Total Protein (6.3-8.2) g/dL Albumin (3.5-5.0) g/dL Procalcitonin (0.02-0.09) ng/mL Microbiology - Last 24 Hours (Table) 05/17/21 16:21 Urine Culture - Preliminary Urine,Voided Assessment and Plan Plan: Assessment: 1. Acute kidney injury secondary to ATN secondary to cardiorenal syndrome. Creatinine stable at 2.75 today. UA fairly benign. No hydronephrosis noted on kidney ultrasound. 2. Chronic kidney disease stage IIIB with baseline creatinine near 2. 3. Acute on chronic systolic CHF with ejection fraction of 25%. 4. Volume overload. 5. Hyperkalemia secondary to acute kidney injury and losartan. 6. Diabetes mellitus. Plan: Maintain IV Lasix. Low potassium diet. Avoid nephrotoxins. Continue to monitor renal function and urine output.
[2021-05-19] MEDS: GABAPENTIN 300 MG CAP PO SCH ×3 (09:13→21:34)
[2021-05-19] MEDS: METOPROLOL TARTRATE 12.5 MG TAB PO SCH ×2 (09:13→20:27)
[2021-05-19] MEDS: FUROSEMIDE 10 MG/ML 4 ML VIAL IV SCH ×2 (09:13→20:26)
[2021-05-19] MEDS: IPRATROPIUM-ALBUTEROL 3 ML NEB INHALATION SCH ×5 (09:13→20:00)
--- NOTE | 2021-05-19 10:50 | P.CRDCN ---
History of Present Illness History of present illness: HISTORY OF PRESENTING ILLNESS This is a pleasant 75-year-old female past medical history significant for systolic heart failure, hypertension, diabetes mellitus, chronic persistent atrial fibrillation not on anticoagulation secondary to GI bleeding in the past and morbid obesity. She follows in the office with Dr. English. We have been asked to see in consultation for heart failure. She was discharged from rehab facility on Wednesday. She states even at the time of discharge she was extremely weak. She was unable to even get herself into the car. EKG on admission reveals atrial 2:1 atrial tachycardia heart rate of 75 left axis deviation and poor R-wave progression. Chest x-ray reveals some congestive heart failure with increased pulmonary congestion and fluid compared to previous exam. Laboratory data reviewed, WBC 4.8, hemoglobin 11.9, platelets 190, sodium 139, potassium on admission 6. 6 repeat today 5.5, creatinine on admission 2. 9 repeat today 2.75, magnesium 2.0, and T proBNP 10,000 and troponin negative 1. Current daily home medications include Lopressor 12.5 mg twice a day, losartan 100 mg daily, Lasix 40 mg twice a day, atorvastatin 20 mg daily and aspirin 81 mg daily. Most recent echocardiogram obtained in April 2021 revealed severe LV systolic dysfunction with ejection fraction 25-30%, mild MR, moderate TR and pulmonary hypertension. At that time it was recommended that her medical therapy be completely maximized. No plans for heart catheterization. She saw Dr. English in the office May 16 and was feeling well. At that time he recommended ongoing medical therapy with possible outpatient stress test depending on her functional capacity. REVIEW OF SYSTEMS At the time of my exam: CONSTITUTIONAL: Complains of overall generalized weakness. Denies fever or chills. CARDIOVASCULAR: Denies chest pain, shortness of breath, orthopnea, PND or palpitations. RESPIRATORY: Denies cough. GASTROINTESTINAL: Denies abdominal pain, diarrhea, constipation, nausea or vomiting. MUSCULOSKELETAL: Denies myalgias. NEUROLOGIC: Denies numbness, tingling, headacbe or weakness. ENDOCRINE: Denies fatigue, weight change, polydipsia or polyurina. GENITOURINARY: Denies burning, hematuria or urgency with micturation. HEMATOLOGIC: Denies history of anemia or bleeding. PHYSICAL EXAMINATION Blood pressure 112/73 heart rate 69 afebrile and maintaining oxygen saturation on nasal cannula. CONSTITUTIONAL: No apparent distress. Morbidly obese. HEENT: Head is normocephalic. Pupils are equal, round. Sclerae anicteric. Mucous membranes of the mouth are moist. No JVD. No carotid bruit. CHEST EXAMINATION: Diminished due to body hapitus. No wheezes or rhonchi. No chest wall tenderness is noted on palpation or with deep breathing. HEART EXAMINATION: Irregular rate and rhythm. S1, S2 heard. No murmurs, gallops or rub. ABDOMEN: Soft, nontender. Positive bowel sounds. EXTREMITIES: 2+ peripheral pulses, 1+ bilateral lower extremity pitting edema and no calf tenderness. NEUROLOGIC EXAMINATION: Patient is awake, alert and oriented x3. ASSESSMENT Generalized weakness Acute kidney injury Acute on chronic systolic heart failure Hyperkalemia Diabetes mellitus Hypertension Dyslipidemia PLAN Continue IV diuresis, defer adjustments and management to nephrology team. Consider galvan placement to accurately assess urine output. Follow renal function and electrolytes in the morning. Thank you kindly for this consultation. Nurse Practitioner note has been reviewed, I agree with a documented findings and plan of care. Patient was seen and examined. 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 She has never driven, her spouse drives. Pt reads/writes alittle. Smoking Status: Former smoker Past Alcohol Use History: None Reported Additional Past Alcohol Use History / Comment(s): Pt is exposed to 2nd hand smoke in her home. Pt started smoking in 1961 and quit in 1974. Past Drug Use History: None Reported - Past Family History Father Family Medical History: Cancer Additional Family Medical History / Comment(s): Father of lung cancer. He was a nonsmoker, worked in a [employer]. Mother Family Medical History: Cancer, Coronary Artery Disease (CAD), Diabetes Mellitus, Hyperlipidemia, Hypertension Additional Family Medical History / Comment(s): Mother of pancreatic cancer. Medications and Allergies Home Medications Medication Instructions Recorded Confirmed Type Cholecalciferol [Vitamin D3 (25 25 mcg PO HS 05/29/17 05/17/21 History Mcg = 1000 Iu)] Atorvastatin [Lipitor] 20 mg PO HS 11/05/17 05/17/21 History Ferrous Sulfate [Iron (65 MG 325 mg PO HS 04/23/21 05/17/21 History Elemental)] Furosemide [Lasix] 40 mg PO BID 04/23/21 05/17/21 History Montelukast [Singulair] 10 mg PO HS 04/23/21 05/17/21 History Sertraline [Zoloft] 50 mg PO HS 04/23/21 05/17/21 History Clotrimazole Cream [Lotrimin Cream] 1 applic TOPICAL DAILY PRN applic 04/28/21 05/17/21 Rx Gabapentin [Neurontin] 300 mg PO TID #9 cap 04/28/21 05/17/21 Rx INSULIN ASPART (NovoLOG) [NovoLOG 7 unit SQ AC-TID vial 04/28/21 05/17/21 Rx (formulary)] Ipratropium-Albuterol Nebulize 3 ml INHALATION RT-QID ml 04/28/21 05/17/21 Rx [Duoneb 0.5 mg-3 mg/3 ml Soln] Levothyroxine Sodium [Synthroid] 137 mcg PO DAILY@0630 tab 04/28/21 05/17/21 Rx Metoprolol Tartrate [Lopressor] 12.5 mg PO BID tab 04/28/21 05/17/21 Rx Aspirin 81 mg PO HS 05/17/21 05/17/21 History Insulin Detemir [Levemir Flextouch] 25 units SQ BID 05/17/21 05/17/21 History Losartan Potassium 100 mg PO DAILY 05/17/21 05/17/21 History Multivit-Min/FA/Lycopen/Lutein 1 tab PO HS 05/17/21 05/17/21 History [Centrum Silver Tablet] Omeprazole 20 mg PO DAILY 05/17/21 05/17/21 History Allergies Allergy/AdvReac Type Severity Reaction Status Date / Time camphor [From Vicks Vaporub] Allergy Rash/Hives Verified 05/17/21 17:52 eucalyptus Allergy Rash/Hives Verified 05/17/21 17:52 [From Vicks Vaporub] menthol [From Vicks Vaporub] Allergy Rash/Hives Verified 05/17/21 17:52 Penicillins Allergy Rash/Hives Verified 05/17/21 17:52 petrolatum,white Allergy Rash/Hives Verified 05/17/21 17:52 [From Vicks Vaporub] turpentine oil Allergy Rash/Hives Verified 05/17/21 17:52 [From Vicks Vaporub] ivory soap Allergy Rash/Hives Uncoded 05/17/21 17:52 Physical Exam Vitals: Vital Signs Temp Pulse Pulse Resp BP Pulse Ox 05/19/21 03:54 68 18 101/64 96 05/19/21 02:00 66 18 05/18/21 23:01 66 18 99/56 97 05/18/21 20:00 98.4 F 70 18 103/60 98 05/18/21 19:30 74 05/18/21 19:17 72 05/18/21 16:00 98.0 F 76 62 18 99/52 98 05/18/21 15:52 74 05/18/21 14:00 60 18 05/18/21 12:00 97.9 F 60 18 93/55 97 05/18/21 11:54 70 05/18/21 11:44 74 Intake and Output 05/18/21 05/19/21 05/19/21 22:59 06:59 14:59 Intake Total 480 240 240 Balance 480 240 240 Intake: Oral 480 240 240 Other: Voiding Method Bedpan Bedpan Diaper Diaper # Voids 1 2 Weight 119.5 kg Results 05/18/21 07:48 05/19/21 06:56 Cardiac Enzymes 05/18/21 Range/Units 07:48 AST 36 (14-36) U/L CBC 05/18/21 Range/Units 07:48 WBC 4.8 (3.8-10.6) k/uL RBC 3.72 L (3.80-5.40) m/uL Hgb 11.9 (11.4-16.0) gm/dL Hct 39.5 (34.0-46.0) % Plt Count 190 (150-450) k/uL Comprehensive Metabolic Panel 05/18/21 05/19/21 Range/Units 07:48 06:56 Sodium 139 139 (137-145) mmol/L Potassium 5.9 H 5.5 H (3.5-5.1) mmol/L Chloride 110 H 107 (98-107) mmol/L Carbon Dioxide 22 26 (22-30) mmol/L BUN 95 H 91 H (7-17) mg/dL Creatinine 2.79 H 2.75 H (0.52-1.04) mg/dL Glucose 163 H 88 (74-99) mg/dL Calcium 8.9 8.8 (8.4-10.2) mg/dL AST 36 (14-36) U/L ALT 44 H (4-34) U/L Alkaline Phosphatase 256 H (38-126) U/L Total Protein 5.7 L (6.3-8.2) g/dL Albumin 2.6 L (3.5-5.0) g/dL Current Medications Generic Name Dose Route Start Last Admin Trade Name Freq PRN Reason Stop Dose Admin Albuterol/Ipratropium 3 ml 05/18/21 08:00 05/18/21 19:17 Ipratropium-Albuterol 3 Ml Neb INHALATION 3 ml RT-QID DIMITRI Administration Aspirin 81 mg 05/17/21 21:00 05/18/21 20:09 Aspirin 81 Mg PO 81 mg HS DIMITRI Administration Cholecalciferol 25 mcg 05/17/21 21:00 05/18/21 20:09 Cholecalciferol 25 Mcg (1000 Iu) Tablet PO 25 mcg HS DIMITRI Administration Clotrimazole 1 applic 05/17/21 20:35 Clotrimazole 1% Cream 30 Gm Tube TOPICAL DAILY PRN Rash Protocol Ferrous Sulfate 325 mg 05/17/21 21:00 05/18/21 20:09 Ferrous Sulfate 325 Mg Tab PO 325 mg HS DIMITRI Administration Furosemide 40 mg 05/18/21 14:00 05/18/21 23:19 Furosemide 10 Mg/Ml 4 Ml Vial IV 40 mg Q12HR DIMITRI Administration Gabapentin 300 mg 05/17/21 22:00 05/18/21 20:09 Gabapentin 300 Mg Cap PO 300 mg TID DIMITRI Administration Levofloxacin/Dextrose 250 mg/ 50 mls @ 50 mls/hr 05/18/21 16:00 05/18/21 16:11 IV Solution IVPB 50 mls/hr Q24H DIMITRI Administration Insulin Aspart 7 unit 05/18/21 07:30 05/18/21 16:29 Insulin Aspart (Novolog) 100 Unit/Ml Vial SQ Not Given AC-TID DIMITRI Insulin Aspart 0 unit 05/17/21 21:00 05/19/21 08:08 Insulin Aspart (Novolog) 100 Unit/Ml Vial SQ Not Given ACHS [facility] Protocol Insulin Detemir 25 unit 05/17/21 21:30 05/19/21 06:25 Insulin Detemir (Levemir) 100 Unit/Ml Syr SQ 25 unit BID@0700,2100 DIMITRI Administration Levothyroxine Sodium 137 mcg 05/18/21 06:30 05/19/21 06:25 Levothyroxine 137 Mcg Tab PO 137 mcg DAILY@0630 DIMITRI Administration Metoprolol Tartrate 12.5 mg 05/17/21 21:00 05/18/21 20:09 Metoprolol Tartrate 12.5 Mg Tab PO 12.5 mg BID DIMITRI Administration Midodrine 5 mg 05/18/21 17:30 05/19/21 06:25 Midodrine 5 Mg Tab PO 5 mg AC-TID DIMITRI Administration Montelukast Sodium 10 mg 05/17/21 21:00 05/18/21 20:09 Montelukast 10 Mg Tab PO 10 mg HS DIMITRI Administration Multivitamins 1 each 05/17/21 21:00 05/18/21 20:09 Multivitamins, Thera 1 Each Tab PO 1 each HS DIMITRI Administration Naloxone HCl 0.2 mg 05/17/21 18:59 Naloxone 0.4 Mg/Ml 1 Ml Vial IV Q2M PRN Opioid Reversal Pantoprazole Sodium 40 mg 05/18/21 07:30 05/19/21 06:25 Pantoprazole 40 Mg Tablet PO 40 mg AC-[id number] DIMITRI Administration Sertraline HCl 50 mg 05/17/21 21:00 05/18/21 20:09 Sertraline 50 Mg Tab PO 50 mg HS DIMITRI Administration Intake and Output 05/18/21 05/19/21 05/19/21 22:59 06:59 14:59 Intake Total 480 240 240 Balance 480 240 240 Intake: Oral 480 240 240 Other: Voiding Method Bedpan Bedpan Diaper Diaper # Voids 1 2 Weight 119.5 kg 05/18/21 07:48 05/19/21 06:56
--- NOTE | 2021-05-19 10:56 | P.PN ---
Subjective Progress Note Date: 05/19/21 History of present illness This is a 75-year-old female patient of Dr. Ruiz Chao with past medical history of chronic kidney disease stage III, chronic diastolic heart failure, chronic atrial fibrillation not on anticoagulation due to history of GI bleed, diabetes mellitus type 2, hypertension, hyperlipidemia, hypothyroidism, history of GI bleed, morbid obesity with BMI of 52, remote history of tobacco use and dependence, congestive heart failure with last ejection fraction reported on 04/24 was 25-30% with mild aortic valve sclerosis trace aortic regurgitation and mild mitral regurgitation and moderate tricuspid regurgitation and mild pulmonary hypertension. last hospitalized on 04/24 to 04/28 for nausea or vomiting, diarrhea and abdominal pain. Patient was noted to be increasingly weak and unable to stand. She was seen by PT and OT and recommended subacute rehab. Patient was discharged to [facility] on 04/30 with no improvement in weakness patient was discharged yesterday. Patient came into the hospital d with increasing weakness and inability to stand. Patient's last fall was 3-4 months ago. Patient denies any shortness of breath chest pain or abdominal pain. She denies any diarrhea or vomiting. In the ER patient was noted increasingly weak. Vital suggest temporal 97.9 pulse 85 respiratory rate 20 blood pressure 123/59 labs obtained patient had WBC of 6.1 hemoglobin 12.8 sodium 140 potassium 6.6 BUN 98 increased from 46 creatinine was 2.9 which is close to baseline her liver enzymes were elevated with AST of 48 ALT 47 alkaline phosphatase 297 urinalysis positive for infection with cloudy appearance specimen gravity 1.015 trace blood and moderate leukocyte Estrace and few bacteria troponin 1 was negative phosphorus was high 6.3. Repeat labs suggestive of an improvement of creatinine 2.79 BUN 95 blood sugar ranging from 97-154 proBNP 10,000 EKG suggestive of A. fibWith no ST or T-wave changes Chest x-ray it is her of congestive heart failure with increased pulmonary congestion and fluid compared to last exam Echocardiogram 04/24 ejection fraction was 25-30% with mild aortic valve sclerosis trace aortic regurgitation and mild mitral regurgitation and moderate tricuspid regurgitation and mild pulmonary hypertension. 05/19: Patient is afebrile, heart rate 69, blood pressure 112/73, pulse ox 98% on 2 L nasal cannula. Repeat blood work reveals sodium 139, potassium 5.15, chloride 107, CO2 26, BUN 91 and creatinine 2.75 which is improving. Blood sugars are running between 80 and 154. Urine culture is in progress. Patient is followed by nephrology. Continue IV Lasix, low potassium diet and avoid nephrotoxins. Patient is also been seen by cardiology for acute on chronic systolic heart failure and recommends continuing hearing Garcia catheter to assess urine output. ROS Constitutional: Denies chills, Denies fever, endorses lethargy, endorses malaise, Denies poor appetite, endorses weakness, Denies weight loss Eyes: denies decreased vision, denies diplopia, denies discharge, denies pain Ears: deny: decreased hearing Ears, nose, mouth and throat: Denies dental pain, Denies headache, Denies nasal discharge, Denies nose pain Cardiovascular: Denies chest pain, Denies decreased exercise tolerance, Denies edema, Denies high blood pressure, Denies irregular heart beat, Denies palpitations, Denies paroxysmal nocturnal dyspnea, Denies rapid heart beat, Denies shortness of breath Respiratory: Denies congestion, Denies cough, Denies cough with sputum, Denies dyspnea, Denies home oxygen, Denies wheezing Gastrointestinal: Denies abdominal pain, Denies change in bowel habits, Denies coffee ground emesis, Denies early satiety, Denies excessive gas, Denies heartburn, Denies hematemesis, Denies hematochezia, Denies loss of appetite, Denies nausea, Denies vomiting Genitourinary: Denies dysuria, Denies flank pain, Denies kidney stones, Denies menorrhagia, Denies urgency, Denies urinary frequency Musculoskeletal: Endorses limitation of motion, inability to move her legs, Denies morning stiffness, Denies muscle cramps Integumentary: Denies rash, Denies wounds, Denies brittle nails, Denies change in hair/nails, Denies darkening of skin Neurological: Endorses balance difficulties, Denies change in speech, Denies double vision, Denies gait dysfunction, Denies loss of vision, Denies motor disturbance, Denies numbness, Denies paralysis, Denies paresthesias, Denies seizures Psychiatric: Denies anxiety, Denies depression Endocrine: Denies excessive sweating, Denies excessive thirst, Denies high blood sugars, Denies palpitations Hematologic/Lymphatic: Denies easy bruising, Denies lymphadenopathy Physical exam - Constitutional General appearance: cooperative, no acute distress, morbidly obese - EENT Eyes: anicteric sclerae, PERRLA, normal appearance ENT: hearing grossly normal - Neck Neck: no lymphadenopathy, normal ROM, no other, no rigidity, no stridor, no thyromegaly - Respiratory Respiratory: bilateral: CTA, negative: diminished, dullness, rales, rhonchi - Cardiovascular Rhythm: regular Heart sounds: normal: S1, S2 Abnormal Heart Sounds: no systolic murmur, no diastolic murmur, no rub, no S3 Gallop, no S4 Gallop, no click, bilateral 3+ pitting edema - Gastrointestinal General gastrointestinal: normal bowel sounds, soft distended with 1+ pitting edema in the lower quadrant of the belly - Integumentary Integumentary: no rash - Neurologic Neurologic: Inability to move lower extremity. Sensation intact decreased reflexes bilaterally - Musculoskeletal Musculoskeletal: Bilateral reduced strength bilateral lower extremity 3+/5 on the left and 3/5 on the right, pedal edema bilaterally 1+. - Psychiatric Psychiatric: A&O x's 3, appropriate affect Assessment and plan 1. Bilateral lower extremity weakness and debility with history of fall 2 months ago. MRI thoracic and lumbar spine ordered. Orthospine consulted Sensory intact but patient has significant weakness in lower extremity Consult PT and OT. 2. Hyperkalemia likely secondary to cardiorenal syndrome. Nephrology consulted. Status post 2 gram calcium gluconate, insulin and D50. Kayexalate ordered hold losartan. Continue to monitor electrolytes. 3. Acute acute on chronic systolic heart failure. Unclear if ischemic or nonischemic. Patient has chronic kidney disease stage III with acute kidney injury. Need cardiac cath per cardiology as outpatient Monitor GARTH's and daily weight. Lasix 40 IV twice a day continue Lopressor twice a day. Cardiology consulted 4. Hypertension. Hold losartan 100 mg daily, continue Lopressor 12.5 mg twice a day 5. Acute kidney injury secondary to ATN with chronic kidney disease stage III. Hold losartan. Patient has poor perfusion of the kidneys from congestive heart failure. Creatinine baseline 2.5. Nephrology consulted 6. Acute transaminitis. Ultrasound abdomen ordered likely secondary to poor perfusion from congestive heart failure 7. Chronic atrial fibrillation. Continue Lopressor. Not on anticoagulation due to history of GI bleed 8. Diabetes mellitus type 2. Continue Levemir 25 units twice daily and NovoLog 5 units with meals and NovoLog scale 9. Hypothyroidism. Continue levothyroxine 137 g daily. 10. Urinary tract infection UA positive for infecion, he was oxacillin 11. Diabetic neuropathy. Continue gabapentin 300 mg 3 times daily 12. Hyperlipidemia. Continue atorvastatin 20 mg at bedtime. 13. Chronic kidney disease stage III. 14. GI prophylaxis. Protonix 40 mg daily. 15. DVT prophylaxis. SCDs and PARDEEP hose. 16. Morbid obesity. BMI of 52.7. Diet and exercise. DISCHARGE PLAN TBD. Patient was discharged from subacute rehab and readmitted within a few hours. PT OT consults. Impression and plan of care have been directed as dictated by the signing physician. Mihaela Escudero nurse practitioner acting as scribe for signing physician. Objective - Vital Signs Vital signs: Vital Signs Temp 98.4 F 05/18/21 20:00 Pulse 68 05/19/21 03:54 Resp 18 05/19/21 03:54 BP 101/64 05/19/21 03:54 Pulse Ox 96 05/19/21 03:54 Intake & Output 05/18/21 05/19/21 05/19/21 18:59 06:59 18:59 Intake Total 720 240 240 Balance 720 240 240 Weight 119.5 kg Intake: Oral 720 240 240 Other: Voiding Method Bedpan Bedpan Diaper Diaper # Voids 1 2 - Labs CBC & Chem 7: 05/18/21 07:48 05/19/21 06:56 Labs: Abnormal Lab Results - Last 24 Hours (Table) 05/18/21 05/18/21 05/18/21 Range/Units 07:48 07:48 07:48 RBC 3.72 L (3.80-5.40) m/uL MCV 106.0 H (80.0-100.0) fL MCHC 30.2 L (31.0-37.0) g/dL Potassium 5.9 H (3.5-5.1) mmol/L Chloride 110 H (98-107) mmol/L BUN 95 H (7-17) mg/dL Creatinine 2.79 H (0.52-1.04) mg/dL Glucose 163 H (74-99) mg/dL POC Glucose (mg/dL) (75-99) mg/dL ALT 44 H (4-34) U/L Alkaline Phosphatase 256 H (38-126) U/L Total Protein 5.7 L (6.3-8.2) g/dL Albumin 2.6 L (3.5-5.0) g/dL Procalcitonin 0.17 H (0.02-0.09) ng/mL 05/18/21 05/18/21 05/19/21 Range/Units 11:38 20:07 06:56 RBC (3.80-5.40) m/uL MCV (80.0-100.0) fL MCHC (31.0-37.0) g/dL Potassium 5.5 H (3.5-5.1) mmol/L Chloride (98-107) mmol/L BUN 91 H (7-17) mg/dL Creatinine 2.75 H (0.52-1.04) mg/dL Glucose (74-99) mg/dL POC Glucose (mg/dL) 154 H 130 H (75-99) mg/dL ALT (4-34) U/L Alkaline Phosphatase (38-126) U/L Total Protein (6.3-8.2) g/dL Albumin (3.5-5.0) g/dL Procalcitonin (0.02-0.09) ng/mL Microbiology - Last 24 Hours (Table) 05/17/21 16:21 Urine Culture - Preliminary Urine,Voided
[2021-05-19 11:45] LABS: Glucose,Whole Blood 147 mg/dL (75-99)
[2021-05-19 17:01] LABS: Glucose,Whole Blood 141 mg/dL (75-99)
--- NOTE | 2021-05-19 17:28 | P.CNOR ---
History of Present Illness - [facility] Consult date: 05/19/21 Requesting physician: Marycruz Ugarte Consult reason: other (LE weakness, fall) History of present illness: 75-year-old female with a history of CKD-III, chronic diastolic heart failure, chronic A. fib presents to hospital with weakness. Patient was discharged to [facility] on 04/30 without improvement in weakness patient was discharged yesterday. Patient came into the hospital with increasing weakness and inability to stand. Patient's last fall was 3-4 months ago. They're counseled for lower extremity weakness and history of fall. Patient says she has not home over several months. She says she has felt weak for the past couple weeks in the legs. Patient says this weakness and leg began what she is lying in bed. She denies any trauma or falls during this time. Patient denies any previous history orthopedic surgery. Patient says she does have some pain in the front of the left leg and points over the knee and front of lower leg. Patient is unable to describe this pain in the leg. Patient denies back pain during history. Patient denies chest pain, fever, shortness breath, nausea, vomiting, saddle anesthesia, change in vision, loss of bowel/bladder control. 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 She has never driven, her spouse drives. Pt reads/writes alittle. Smoking Status: Former smoker Past Alcohol Use History: None Reported Additional Past Alcohol Use History / Comment(s): Pt is exposed to 2nd hand smoke in her home. Pt started smoking in 1 and quit in 1974. Past Drug Use History: None Reported - Past Family History Father Family Medical History: Cancer Additional Family Medical History / Comment(s): Father of lung cancer. He was a nonsmoker, worked in a refinery. Mother Family Medical History: Cancer, Coronary Artery Disease (CAD), Diabetes Mellitus, Hyperlipidemia, Hypertension Additional Family Medical History / Comment(s): Mother of pancreatic ca ncer. Medications and Allergies Home Medications Medication Instructions Recorded Confirmed Type Cholecalciferol [Vitamin D3 (25 25 mcg PO HS 05/29/17 05/17/21 History Mcg = 1000 Iu)] Atorvastatin [Lipitor] 20 mg PO HS 11/05/17 05/17/21 History Ferrous Sulfate [Iron (65 MG 325 mg PO HS 04/23/21 05/17/21 History Elemental)] Furosemide [Lasix] 40 mg PO BID 04/23/21 05/17/21 History Montelukast [Singulair] 10 mg PO HS 04/23/21 05/17/21 History Sertraline [Zoloft] 50 mg PO HS 04/23/21 05/17/21 History Clotrimazole Cream [Lotrimin Cream] 1 applic TOPICAL DAILY PRN applic 04/28/21 05/17/21 Rx Gabapentin [Neurontin] 300 mg PO TID #9 cap 04/28/21 05/17/21 Rx INSULIN ASPART (NovoLOG) [NovoLOG 7 unit SQ AC-TID vial 04/28/21 05/17/21 Rx (formulary)] Ipratropium-Albuterol Nebulize 3 ml INHALATION RT-QID ml 04/28/21 05/17/21 Rx [Duoneb 0.5 mg-3 mg/3 ml Soln] Levothyroxine Sodium [Synthroid] 137 mcg PO DAILY@0630 tab 04/28/21 05/17/21 Rx Metoprolol Tartrate [Lopressor] 12.5 mg PO BID tab 04/28/21 05/17/21 Rx Aspirin 81 mg PO HS 05/17/21 05/17/21 History Insulin Detemir [Levemir Flextouch] 25 units SQ BID 05/17/21 05/17/21 History Losartan Potassium 100 mg PO DAILY 05/17/21 05/17/21 History Multivit-Min/FA/Lycopen/Lutein 1 tab PO HS 05/17/21 05/17/21 History [Centrum Silver Tablet] Omeprazole 20 mg PO DAILY 05/17/21 05/17/21 History Allergies Allergy/AdvReac Type Severity Reaction Status Date / Time camphor [From Vicks Vaporub] Allergy Rash/Hives Verified 05/17/21 17:52 eucalyptus Allergy Rash/Hives Verified 05/17/21 17:52 [From Vicks Vaporub] menthol [From Vicks Vaporub] Allergy Rash/Hives Verified 05/17/21 17:52 Penicillins Allergy Rash/Hives Verified 05/17/21 17:52 petrolatum,white Allergy Rash/Hives Verified 05/17/21 17:52 [From Vicks Vaporub] turpentine oil Allergy Rash/Hives Verified 05/17/21 17:52 [From Vicks Vaporub] ivory soap Allergy Rash/Hives Uncoded 05/17/21 17:52 Physical Examination Inspection - morbidly obese patient. Edematous lower extremities. Negative for erythema, open ulcers, open fractures, ecchymoses Palpation: Upper extremities, bilaterally, NTTP. TTP anterior left lower leg and left knee. NTTP throughout rest of bilateral lower extremities. Tenderness to palpation of lumbar spine. TTP over bilateral SI joints. NNTP Cervical spine and upper thoracic spine. Paravertebral area nontender to palpation Sensation: Sensation is equal, symmetric, intact throughout the exam of bilateral lower extremities and bilateral upper extremities Range of motion: Patient is unable to elevate her legs off of bed. Patient not able flex knees bilaterally. Bilateral upper extremities full range of motion throughout in elbow extension and flexion and shoulder elevation, abduction. Motor: Full strength 5/5 bilateral upper extremities. Bilateral lower extremities 2/5 in resisted hip flexion, extension, knee flexion and extension. Neurovascular: Refill under 3 seconds in digits of hand. Radial pulse present, intact 2+. DP pulses weak. special tests: Negative Regina's bilaterally. Negative clonus upon dorsiflexing feet bilaterally. Negative Homans bilaterally. Results - Labs Labs: Abnormal Lab Results - Last 24 Hours (Table) 05/18/21 05/18/21 05/19/21 Range/Units 07:48 20:07 06:56 Potassium 5.5 H (3.5-5.1) mmol/L BUN 91 H (7-17) mg/dL Creatinine 2.75 H (0.52-1.04) mg/dL POC Glucose (mg/dL) 130 H (75-99) mg/dL Procalcitonin 0.17 H (0.02-0.09) ng/mL 05/19/21 Range/Units 11:35 Potassium (3.5-5.1) mmol/L BUN (7-17) mg/dL Creatinine (0.52-1.04) mg/dL POC Glucose (mg/dL) 147 H (75-99) mg/dL Procalcitonin (0.02-0.09) ng/mL Microbiology - Last 24 Hours (Table) 05/17/21 16:21 Urine Culture - Final Urine,Voided H & H 05/17/21 05/18/21 Range/Units 16:21 07:48 Hgb 12.8 11.9 (11.4-16.0) gm/dL Hct 41.4 39.5 (34.0-46.0) % Coagulation 05/17/21 Range/Units 16:21 INR 1.1 (<1.2) Result Diagrams: 05/18/21 07:48 05/19/21 06:56 Assessment and Plan Assessment: 1. Lower extremity weakness 2. Multiple medical comorbidities 3. Morbid obesity Plan: 1. Lower extremity weakness - patient seen and examined at bedside this afternoon. Bilateral lower extremity weakness present as well as lumbar spine. tenderness. MRI lumbar spine has been ordered, but due to patient's body habitus is unable to be completed. We will attempt to perform MRI at [facility] or we may try to treat conservatively with steroids at this time 2. Multiple medical comorbidities - medicine, cardiology following 3. Morbid obesity 4. Pain management - stable at this time 5. GI ppx - Pantoprazole 6. Appreciate consult 7. PT/OT - WBAT w/walker Time with Patient: Less than 30
[2021-05-19 19:58] LABS: Glucose,Whole Blood 168 mg/dL (75-99)
[2021-05-19] MEDS: ASPIRIN 81 MG PO SCH (20:26)
[2021-05-19] MEDS: FERROUS SULFATE 325 MG TAB PO SCH (20:26)
[2021-05-19] MEDS: CHOLECALCIFEROL 25 MCG (1000 IU) TABLET PO SCH (20:26)
[2021-05-19] MEDS: MONTELUKAST 10 MG TAB PO SCH (20:28)
[2021-05-19] MEDS: SERTRALINE 50 MG TAB PO SCH (20:28)
[2021-05-19] MEDS: MULTIVITAMINS, THERA 1 EACH TAB PO SCH (20:28)
[2021-05-20] MEDS: LEVOTHYROXINE 137 MCG TAB PO SCH (06:40)
[2021-05-20] MEDS: MIDODRINE 5 MG TAB PO SCH ×3 (06:41→17:54)
[2021-05-20] MEDS: PANTOPRAZOLE 40 MG TABLET PO SCH (06:41)
[2021-05-20 07:14] LABS: Glucose,Whole Blood 123 mg/dL (75-99)
[2021-05-20] MEDS: IPRATROPIUM-ALBUTEROL 3 ML NEB INHALATION SCH ×4 (08:14→20:07)
[2021-05-20 08:29] LABS: Calcium 8.8 mg/dL (8.4-10.2)
--- NOTE | 2021-05-20 08:33 | P.PN ---
Subjective Patient is seen in follow-up for acute kidney injury on chronic kidney disease. Renal function stable as of yesterday. Morning labs pending. Maintain on IV Lasix. Currently on 3 L nasal cannula. Vital signs are stable. General: The patient appeared well nourished and normally developed. HEENT: Head exam is unremarkable. On nasal cannula. LUNGS: Breath sounds decreased. HEART: Rate and Rhythm are regular. ABDOMEN: Soft, no distention. EXTREMITITES: 2+ edema. Objective - Vital Signs Vital signs: Vital Signs Temp 98.3 F 05/20/21 03:33 Pulse 68 05/20/21 08:25 Resp 18 05/20/21 03:33 BP 107/53 05/20/21 03:33 Pulse Ox 97 05/20/21 03:33 Intake & Output 05/19/21 05/20/21 05/20/21 18:59 06:59 18:59 Intake Total 720 420 Balance 720 420 Weight 159 kg 159.5 kg Intake: Oral 720 420 Other: Voiding Method Bedpan Diaper Diaper # Voids 1 - Labs CBC & Chem 7: 05/18/21 07:48 05/19/21 06:56 Labs: Abnormal Lab Results - Last 24 Hours (Table) 05/19/21 05/19/21 05/19/21 Range/Units 11:35 16:45 19:57 POC Glucose (mg/dL) 147 H 141 H 168 H (75-99) mg/dL 05/20/21 Range/Units 07:12 POC Glucose (mg/dL) 123 H (75-99) mg/dL Microbiology - Last 24 Hours (Table) 05/17/21 16:21 Urine Culture - Final Urine,Voided Assessment and Plan Plan: Assessment: 1. Acute kidney injury secondary to ATN secondary to cardiorenal syndrome. Cre atinine stable at 2.75 yesterday. UA fairly benign. No hydronephrosis noted on kidney ultrasound. 2. Chronic kidney disease stage IIIB with baseline creatinine near 2. 3. Acute on chronic systolic CHF with ejection fraction of 25%. 4. Volume overload. 5. Hyperkalemia secondary to acute kidney injury and losartan. 6. Diabetes mellitus. Plan: Maintain IV Lasix. Low potassium diet. Avoid nephrotoxins. Continue to monitor renal function and urine output. Follow-up morning labs.
--- NOTE | 2021-05-20 08:45 | P.PN ---
Subjective Progress Note Date: 05/20/21 Principal diagnosis: 1. Lower extremity weakness 2. Multiple medical comorbidities 3. Morbid obesit Patient seen at [facility] this morning. She says she last walked about 2 weeks ago before she became weak. Patient says she did get up to chair next to bed with assistance over the past couple days. Patient says she is still having weakness in legs. She is able to wiggle toes and attempts to lift legs. Patient denies chest pain, fever, SOB, N/V, changes in vision, numbness/tingling. Patient does say she does have some urinary incontinence, but does not have loss of bowel control. Objective - Vital Signs Vital signs: Vital Signs Temp 98.3 F 05/20/21 03:33 Pulse 68 05/20/21 08:25 Resp 18 05/20/21 03:33 BP 107/53 05/20/21 03:33 Pulse Ox 97 05/20/21 03:33 Intake & Output 05/19/21 05/20/21 05/20/21 18:59 06:59 18:59 Intake Total 720 420 Balance 720 420 Weight 159 kg 159.5 kg Intake: Oral 720 420 Other: Voiding Method Bedpan Diaper Diaper # Voids 1 - Exam Inspection: Negative for any open fractures, ulcers, erythema, ecchymosis. Palpation: Bilateral upper extremities nontender to palpation throughout exam. Bilateral lower extremities nontender to palpation throughout exam. Spine - midline cervical, thoracic, lumbar TTP. NTTP in paravertebral area. Cervical and upper thoracic area are edematous to palpation. Sensation: Sensation is present throughout bilateral upper and lower extremities symmetric, and intact, equal. ROM: Upper extremities: Patient able lift arms FROM; bilateral lower extremities - patient not able to elevate legs off bed. Patient unable flex knees due to weakness. I am able to elevate legs off of bed, but at about 40 elevation patient feels pain in posterior upper legs bilaterally. Motor: Bilateral upper extremities: Weak 2/5 in resisted elbow flexion/extension and resisted shoulder elevation, internal rotation, external rotation, abduction. Outside Dealer Sales Representative strength - 3/5 bilaterally. Bilateral lower extremities - Unable perform exam due to patient not being able lift legs at all Neurovascular: Refill below 3 seconds bilaterally in upper extremities. Adin salis pedis pulse present, intact, 2+. Radial pulses present, intact 2+. Special tests: Negative Homans bilaterally; Negative Regina's bilaterally; negative clonus upon dorsiflexing feet bilaterally - Labs CBC & Chem 7: 05/18/21 07:48 05/19/21 06:56 Labs: Abnormal Lab Results - Last 24 Hours (Table) 05/19/21 05/19/21 05/19/21 Range/Units 11:35 16:45 19:57 POC Glucose (mg/dL) 147 H 141 H 168 H (75-99) mg/dL 05/20/21 Range/Units 07:12 POC Glucose (mg/dL) 123 H (75-99) mg/dL Microbiology - Last 24 Hours (Table) 05/17/21 16:21 Urine Culture - Final Urine,Voided Assessment and Plan Assessment: 1. Lower extremity weakness 2. Multiple medical comorbidities 3. Morbid obesity Plan: 1. Lower extremity weakness - patient seen and examined at bedside this afternoon. Bilateral lower extremity weakness present as well as lumbar spine. tenderness. MRI lumbar spine has been ordered, but due to patient's body habitus is unable to be completed. We will attempt to perform MRI at [facility] 2. Multiple medical comorbidities - medicine, cardiology following 3. Morbid obesity 4. Pain management - stable at this time 5. GI ppx - Pantoprazole 6. Appreciate consult 7. PT/OT - WBAT w/walker Time with Patient: Less than 30
[2021-05-20] MEDS: INSULIN ASPART (NovoLOG) 100 UNIT/ML VIAL SQ SCH ×7 (09:00→21:12)
[2021-05-20] MEDS: INSULIN DETEMIR (LEVEMIR) 100 UNIT/ML SYR SQ SCH ×2 (09:00→21:12)
[2021-05-20] MEDS: FUROSEMIDE 10 MG/ML 4 ML VIAL IV SCH ×2 (09:01→21:11)
[2021-05-20] MEDS: METOPROLOL TARTRATE 12.5 MG TAB PO SCH ×2 (09:01→21:12)
[2021-05-20] MEDS: GABAPENTIN 300 MG CAP PO SCH ×3 (09:01→21:13)
[2021-05-20 09:14] LABS: Potassium 5.8 mmol/L (3.5-5.1)
--- NOTE | 2021-05-20 10:14 | P.PN ---
Subjective HISTORY OF PRESENTING ILLNESS This is a pleasant 75-year-old female past medical history significant for systolic heart failure, hypertension, diabetes mellitus, chronic persistent atrial fibrillation not on anticoagulation secondary to GI bleeding in the past and morbid obesity. She follows in the office with Dr. English. We have been asked to see in consultation for heart failure. She was discharged from rehab facility on Wednesday. She states even at the time of discharge she was extremely weak. She was unable to even get herself into the car. EKG on admission reveals atrial 2:1 atrial tachycardia heart rate of 75 left axis deviation and poor R-wave progression. Chest x-ray reveals some congestive heart failure with increased pulmonary congestion and fluid compared to previous exam. Laboratory data reviewed, WBC 4.8, hemoglobin 11.9, platelets 190, sodium 139, potassium on admission 6. 6 repeat today 5.5, creatinine on admission 2. 9 repeat today 2.75, magnesium 2.0, and T proBNP 10,000 and troponin negative 1. Current daily home medications include Lopressor 12.5 mg twice a day, losartan 100 mg daily, Lasix 40 mg twice a day, atorvastatin 20 mg daily and aspirin 81 mg daily. Most recent echocardiogram obtained in April 2021 revealed severe LV systolic dysfunction with ejection fraction 25-30%, mild MR, moderate TR and pulmonary hypertension. At that time it was recommended that her medical therapy be com pletely maximized. No plans for heart catheterization. She saw Dr. English in the office May 16 and was feeling well. At that time he recommended ongoing medical therapy with possible outpatient stress test depending on her functional capacity. 05/20/2021 Pt seen and examined sitting up in bed in no acute distress. She states her breathing is stable. She denies chest pain, dizziness or palpitations. Blood pressure 101/65 heart rate 68 afebrile and maintaining oxygen saturation on nasal cannula. Laboratory data reviewed, sodium 139, potassium 5.8, creatinine 2.54 and magnesium 2.0. Pt is incontinent, no documented urine output. Maintained SR on telemetry. PHYSICAL EXAMINATION CONSTITUTIONAL: No apparent distress. Morbidly obese. HEENT: Head is normocephalic. Pupils are equal, round. Sclerae anicteric. Mucous membranes of the mouth are moist. No JVD. No carotid bruit. CHEST EXAMINATION: Diminished due to body hapitus. No wheezes or rhonchi. No chest wall tenderness is noted on palpation or with deep breathing. HEART EXAMINATION: Irregular rate and rhythm. S1, S2 heard. No murmurs, gallops or rub. EXTREMITIES: 2+ peripheral pulses, 1+ bilateral lower extremity pitting edema a nd no calf tenderness. ASSESSMENT Generalized weakness Acute kidney injury Acute on chronic systolic heart failure Hyperkalemia Diabetes mellitus Hypertension Dyslipidemia PLAN Continue IV diuresis, defer adjustments and management to nephrology team. Follow renal function and electrolytes in the morning. Nurse Practitioner note has been reviewed, I agree with a documented findings and plan of care. Patient was seen and examined. Objective - Vital Signs Vital signs: Vital Signs Temp 98.4 F 05/20/21 08:00 Pulse 68 05/20/21 08:25 Resp 18 05/20/21 08:00 BP 101/65 05/20/21 08:00 Pulse Ox 98 05/20/21 08:00 Intake & Output 05/19/21 05/20/21 05/20/21 18:59 06:59 18:59 Intake Total 720 420 Balance 720 420 Weight 159 kg 159.5 kg Intake: Oral 720 420 Other: Voiding Method Bedpan Diaper Diaper # Voids 1 - Labs CBC & Chem 7: 05/18/21 07:48 05/20/21 07:15 Labs: Abnormal Lab Results - Last 24 Hours (Table) 05/19/21 05/19/21 05/19/21 Range/Units 11:35 16:45 19:57 Potassium (3.5-5.1) mmol/L Chloride (98-107) mmol/L BUN (7-17) mg/dL Creatinine (0.52-1.04) mg/dL Glucose (74-99) mg/dL POC Glucose (mg/dL) 147 H 141 H 168 H (75-99) mg/dL 05/20/21 05/20/21 Range/Units 07:12 07:15 Potassium 5.8 H (3.5-5.1) mmol/L Chloride 108 H (98-107) mmol/L BUN 92 H (7-17) mg/dL Creatinine 2.54 H (0.52-1.04) mg/dL Glucose 122 H (74-99) mg/dL POC Glucose (mg/dL) 123 H (75-99) mg/dL Microbiology - Last 24 Hours (Table) 05/17/21 16:21 Urine Culture - Final Urine,Voided
[2021-05-20 12:03] LABS: Glucose,Whole Blood 127 mg/dL (75-99)
--- NOTE | 2021-05-20 12:49 | P.PN ---
Subjective Progress Note Date: 05/20/21 History of present illness This is a 75-year-old female patient of Dr. Ruiz Chao with past medical history of chronic kidney disease stage III, chronic diastolic heart failure, chronic atrial fibrillation not on anticoagulation due to history of GI bleed, diabetes mellitus type 2, hypertension, hyperlipidemia, hypothyroidism, history of GI bleed, morbid obesity with BMI of 52, remote history of tobacco use and dependence, congestive heart failure with last ejection fraction reported on 04/24 was 25-30% with mild aortic valve sclerosis trace aortic regurgitation and mild mitral regurgitation and moderate tricuspid regurgitation and mild pulmonary hypertension. last hospitalized on 04/24 to 04/28 for nausea or vomiting, diarrhea and abdominal pain. Patient was noted to be increasingly weak and unable to stand. She was seen by PT and OT and recommended subacute rehab. Patient was discharged to [facility] on 04/30 with no improvement in weakness patient was discharged yesterday. Patient came into the hospital d with increasing weakness and inability to stand. Patient's last fall was 3-4 months ago. Patient denies any shortness of breath chest pain or abdominal pain. She denies any diarrhea or vomiting. In the ER patient was noted increasingly weak. Vital suggest temporal 97.9 pulse 85 respiratory rate 20 blood pressure 123/59 labs obtained patient had WBC of 6.1 hemoglobin 12.8 sodium 140 potassium 6.6 BUN 98 increased from 46 creatinine was 2.9 which is close to baseline her liver enzymes were elevated with AST of 48 ALT 47 alkaline phosphatase 297 urinalysis positive for infection with cloudy appearance specimen gravity 1.015 trace blood and moderate leukocyte Estrace and few bacteria troponin 1 was negative phosphorus was high 6.3. Repeat labs suggestive of an improvement of creatinine 2.79 BUN 95 blood sugar ranging from 97-154 proBNP 10,000 EKG suggestive of A. fibWith no ST or T-wave changes Chest x-ray it is her of congestive heart failure with increased pulmonary congestion and fluid compared to last exam Echocardiogram 04/24 ejection fraction was 25-30% with mild aortic valve sclerosis trace aortic regurgitation and mild mitral regurgitation and moderate tricuspid regurgitation and mild pulmonary hypertension. 05/19: Patient is afebrile, heart rate 69, blood pressure 112/73, pulse ox 98% on 2 L nasal cannula. Repeat blood work reveals sodium 139, potassium 5.15, chloride 107, CO2 26, BUN 91 and creatinine 2.75 which is improving. Blood sugars are running between 80 and 154. Urine culture is in progress. Patient is followed by nephrology. Continue IV Lasix, low potassium diet and avoid nephrotoxins. Patient is also been seen by cardiology for acute on chronic systolic heart failure and recommends continuing hearing Garcia catheter to assess urine output. 05/20: Patient is seen in follow-up today. She continues to have significant lower extremity edema for which Lasix will be increased to 60 mg twice daily. Repeat chest x-ray will be ordered. Orthopedic spine has evaluated the patient recommends MRI of the lumbar spine and an open facility. Case management will work with orthopedics to make arrangements which would be transferring the patient to [facility] for the test. Patient remains afebrile, heart rate 72, blood pressure 101/65, pulse ox 90% on 2 L nasal cannula. Repeat blood work reveals sodium 139, potassium 5.8, chloride 108, CO2 23, BUN 92 and creatinine 2.54 which is her baseline. Blood sugars are running between 123 and 168. Urine culture finalized with skin marcial. We will hold on discontinuing Levaquin until repeat chest x-ray rules out pneumonia. Patient has been evaluated by PT and OT and recommendations orders for subacute rehab. ROS Constitutional: Denies chills, Denies fever, endorses lethargy, endorses malaise, Denies poor appetite, endorses weakness, Denies weight loss Eyes: denies decreased vision, denies diplopia, denies discharge, denies pain Ears: deny: decreased hearing Ears, nose, mouth and throat: Denies dental pain, Denies headache, Denies nasal discharge, Denies nose pain Cardiovascular: Denies chest pain, Denies decreased exercise tolerance, noted edema, Denies high blood pressure, Denies irregular heart beat, Denies palpita tions, Denies paroxysmal nocturnal dyspnea, Denies rapid heart beat, Denies shortness of breath Respiratory: Denies congestion, Denies cough, Denies cough with sputum, Denies dyspnea, Denies home oxygen, Denies wheezing Gastrointestinal: Denies abdominal pain, Denies change in bowel habits, Denies c offee ground emesis, Denies early satiety, Denies excessive gas, Denies heartburn, Denies hematemesis, Denies hematochezia, Denies loss of appetite, Denies nausea, Denies vomiting Genitourinary: Denies dysuria, Denies flank pain, Denies kidney stones, Denies menorrhagia, Denies urgency, Denies urinary frequency Musculoskeletal: Endorses limitation of motion, inability to move her legs, Denies morning stiffness, Denies muscle cramps Integumentary: Denies rash, Denies wounds, Denies brittle nails, Denies change in hair/nails, Denies darkening of skin Neurological: Endorses balance difficulties, Denies change in speech, Denies double vision, Denies gait dysfunction, Denies loss of vision, Denies motor disturbance, Denies numbness, Denies paralysis, Denies paresthesias, Denies seizures Psychiatric: Denies anxiety, Denies depression Endocrine: Denies excessive sweating, Denies excessive thirst, Denies high blood sugars, Denies palpitations Hematologic/Lymphatic: Denies easy bruising, Denies lymphadenopathy Physical exam - Constitutional General appearance: cooperative, no acute distress, morbidly obese - EENT Eyes: anicteric sclerae, PERRLA, normal appearance ENT: hearing grossly normal - Neck Neck: no lymphadenopathy, normal ROM, no other, no rigidity, no stridor, no thyromegaly - Respiratory Respiratory: bilateral: CTA, negative: diminished, dullness, rales, rhonchi - Cardiovascular Rhythm: regular Heart sounds: normal: S1, S2 Abnormal Heart Sounds: no systolic murmur, no diastolic murmur, no rub, no S3 Gallop, no S4 Gallop, no click, bilateral 3+ pitting edema - Gastrointestinal General gastrointestinal: normal bowel sounds, soft distended with 1+ pitting edema in the lower quadrant of the belly - Integumentary Integumentary: no rash - Neurologic Neurologic: Inability to move lower extremity. Sensation intact decreased reflexes bilaterally - Musculoskeletal Musculoskeletal: Bilateral reduced strength bilateral lower extremity 3+/5 on the left and 3/5 on the right, pedal edema bilaterally 1+. - Psychiatric Psychiatric: A&O x's 3, appropriate affect Assessment and plan 1. Bilateral lower extremity weakness and debility with history of fall 2 months ago. Orthospine consulted, Sensory intact but patient has significant weakness in lower extremity Consult PT and OT. Patient will require open MRI if orthopedics wants to pursue this. This would be done at [facility]. 2. Hyperkalemia likely secondary to cardiorenal syndrome and acute kidney injury. Nephrology consulted. Status post 2 gram calcium gluconate, insulin and D50. Kayexalate ordered hold losartan. Continue to monitor electrolytes. 3. Acute acute on chronic systolic heart failure. Unclear if ischemic or nonischemic. Patient has chronic kidney disease stage III with acute kidney injury. Need cardiac cath per cardiology as outpatient Monitor GARTH's and daily weight. Lasix increased to 60 mg IV twice a day continue Lopressor twice a day. Cardiology consulted 4. Hypertension. Hold losartan 100 mg daily, continue Lopressor 12.5 mg twice a day 5. Acute kidney injury secondary to ATN with chronic kidney disease stage III. Hold losartan. Patient has poor perfusion of the kidneys from congestive heart failure. Creatinine baseline 2.5. Nephrology consulted 6. Acute transaminitis secondary to poor perfusion from heart failure 7. Chronic atrial fibrillation. Continue Lopressor. Not on anticoagulation due to history of GI bleed 8. Diabetes mellitus type 2. Continue Levemir 25 units twice daily and NovoLog 5 units with meals and NovoLog scale 9. Hypothyroidism. Continue levothyroxine 137 g daily. 10. Urinary tract infection UA positive for infecion, he was oxacillin 11. Diabetic neuropathy. Continue gabapentin 300 mg 3 times daily 12. Hyperlipidemia. Continue atorvastatin 20 mg at bedtime. 13. Chronic kidney disease stage III. 14. GI prophylaxis. Protonix 40 mg daily. 15. DVT prophylaxis. SCDs and PARDEEP hose. 16. Morbid obesity. BMI of 52.7. Diet and exercise. DISCHARGE PLAN Subacute rehab on Wednesday or . PT OT consults. Impression and plan of care have been directed as dictated by the signing physician. Mihaela Ecsudero nurse practitioner acting as scribe for signing physician. Objective - Vital Signs Vital signs: Vital Signs Temp 98.3 F 05/20/21 03:33 Pulse 68 05/20/21 08:25 Resp 18 05/20/21 03:33 BP 107/53 05/20/21 03:33 Pulse Ox 97 05/20/21 03:33 Intake & Output 05/19/21 05/20/21 05/20/21 18:59 06:59 18:59 Intake Total 720 420 Balance 720 420 Weight 159 kg 159.5 kg Intake: Oral 720 420 Other: Voiding Method Bedpan Diaper Diaper # Voids 1 - Labs CBC & Chem 7: 05/18/21 07:48 05/20/21 07:15 Labs: Abnormal Lab Results - Last 24 Hours (Table) 05/19/21 05/19/21 05/19/21 Range/Units 11:35 16:45 19:57 Potassium (3.5-5.1) mmol/L Chloride (98-107) mmol/L BUN (7-17) mg/dL Creatinine (0.52-1.04) mg/dL Glucose (74-99) mg/dL POC Glucose (mg/dL) 147 H 141 H 168 H (75-99) mg/dL 05/20/21 05/20/21 Range/Units 07:12 07:15 Potassium 5.8 H (3.5-5.1) mmol/L Chloride 108 H (98-107) mmol/L BUN 92 H (7-17) mg/dL Creatinine 2.54 H (0.52-1.04) mg/dL Glucose 122 H (74-99) mg/dL POC Glucose (mg/dL) 123 H (75-99) mg/dL Microbiology - Last 24 Hours (Table) 05/17/21 16:21 Urine Culture - Final Urine,Voided
--- NOTE | 2021-05-20 16:02 | XR ---
EXAMINATION TYPE: XR chest 2V DATE OF EXAM: 05/20/2021 COMPARISON: Chest x-ray May 17, 2021 HISTORY: CHF and difficulty breathing. TECHNIQUE: Frontal and lateral views of the chest are obtained. FINDINGS: Exam is suboptimal due to patient's large body habitus. There is persistent underlying dext roconvex scoliosis. There is persistent cardiomegaly. Increased interstitial markings bilaterally red emonstrated. More prominent central opacities bilaterally noted. Small bilateral pleural effusions on lateral chest x-ray again seen. IMPRESSION: Findings consistent with worsening CHF exacerbation as there is cardiomegaly with inters titial edema and small bilateral pleural effusions redemonstrated. Worsening central alveolar edema n oted.
[2021-05-20 17:07] LABS: Glucose,Whole Blood 171 mg/dL (75-99)
[2021-05-20] MEDS: LEVOFLOXACIN 250 MG TAB PO SCH (17:54)
[2021-05-20] MEDS: metOLazone 5 MG TAB PO SCH (18:01)
[2021-05-20 20:35] LABS: Glucose,Whole Blood 162 mg/dL (75-99)
[2021-05-20] MEDS: CHOLECALCIFEROL 25 MCG (1000 IU) TABLET PO SCH (21:11)
[2021-05-20] MEDS: ASPIRIN 81 MG PO SCH (21:11)
[2021-05-20] MEDS: FERROUS SULFATE 325 MG TAB PO SCH (21:11)
[2021-05-20] MEDS: MONTELUKAST 10 MG TAB PO SCH (21:12)
[2021-05-20] MEDS: SERTRALINE 50 MG TAB PO SCH (21:13)
[2021-05-20] MEDS: MULTIVITAMINS, THERA 1 EACH TAB PO SCH (21:13)
[2021-05-21] MEDS: MIDODRINE 5 MG TAB PO SCH ×3 (06:45→17:31)
[2021-05-21] MEDS: PANTOPRAZOLE 40 MG TABLET PO SCH (06:45)
[2021-05-21] MEDS: LEVOTHYROXINE 137 MCG TAB PO SCH (06:45)
[2021-05-21 07:10] LABS: Glucose,Whole Blood 110 mg/dL (75-99)
[2021-05-21] MEDS: INSULIN ASPART (NovoLOG) 100 UNIT/ML VIAL SQ SCH ×7 (07:11→23:08)
[2021-05-21] MEDS: IPRATROPIUM-ALBUTEROL 3 ML NEB INHALATION SCH ×4 (08:03→20:17)
--- NOTE | 2021-05-21 08:05 | P.PN ---
Subjective Progress Note Date: 05/21/21 Patient seen and examined today she seems to be doing better she is sitting up eating breakfast. She is able to move her legs and wiggle her toes and she has no pain currently today. She states she has not been up and about however she did sit in the chair yesterday. She denies any bowel or bladder issues denies any perineal numbness or tingling at this time. Objective - Vital Signs Vital signs: Vital Signs Temp 98.3 F 05/21/21 03:37 Pulse 70 05/21/21 03:37 Resp 20 05/21/21 03:37 BP 124/70 05/21/21 03:37 Pulse Ox 97 05/21/21 03:37 Intake & Output 05/20/21 05/21/21 05/21/21 18:59 06:59 18:59 Intake Total 1260 Output Total 200 950 Balance 1060 -950 Weight 137.5 kg Intake: Oral 1260 Output: Urine 200 950 Other: Voiding Method Diaper External Catheter - Exam Exam remains stable and slightly improved today Patient is alert and oriented 3 appears well-nourished well-hydrated is in no acute distress. They does not appear septic. On exam the patient has no tenderness to palpation of her thoracic or lumbar spine. There is no edema or ballottement sign. Lower extremities with 4- out of 5 strength in all major muscle groups Upper extremities show 4 /5 strength in all major muscle groups. Patient has deconditioning weakness throughout her lower extremities and upper extremities. She is able to perform most of the motions past of her however they are weak in general. Focally there is no deficits and it cannot be determined side to side much difference. The patient is able to lift her legs up off the bed against gravity. She has some weak resistance past this however is minimal at baseline. There is FROM that is painless of the b/l UE and LE in all major joints. They are intact to light touch sensation in L2 to S1 nerve distribution as well as a C5 to T1 nerve distribution. Intact perianal and perirectal sensation.. Chaperoned rectal exam shows good tone Patient has palpable dorsalis pedis was posterior tibial pulses. Compartments are soft and compressible. Patient shows a negative Homans, Poe's, negative Babinski's negative clonus bilaterally. negative straight leg raise bilaterally. No tensioning signs. Cranial nerves II through XII are grossly intact. Overall alignment is well-maintained in the sagittal coronal planes. Super Morbidly obese - Constitutional General appearance: Present: morbidly obese, no acute distress - Labs CBC & Chem 7: 05/18/21 07:48 05/20/21 17:15 Labs: Abnormal Lab Results - Last 24 Hours (Table) 05/20/21 05/20/21 05/20/21 Range/Units 07:15 11:59 17:05 Potassium 5.8 H (3.5-5.1) mmol/L Chloride 108 H (98-107) mmol/L BUN 92 H (7-17) mg/dL Creatinine 2.54 H (0.52-1.04) mg/dL Glucose 122 H (74-99) mg/dL POC Glucose (mg/dL) 127 H 171 H (75-99) mg/dL 05/20/21 05/20/21 05/21/21 Range/Units 17:15 20:34 07:09 Potassium 5.6 H (3.5-5.1) mmol/L Chloride (98-107) mmol/L BUN (7-17) mg/dL Creatinine (0.52-1.04) mg/dL Glucose (74-99) mg/dL POC Glucose (mg/dL) 162 H 110 H (75-99) mg/dL Assessment and Plan Assessment: Radiographs: Due the patient's BMI she is unable to have MRI at our facility. We are attempting to coordinate with another facility for MRI on outpatient basis Assessment: 75-year-old female with complex medical history multiple medical comorbidities and super morbid obesity with lower extremity weakness Plan: Plan: MRI L spine outpatient basis The patient is extremely poor surgical candidate overall and would favor medical management at this time Recommend anti-inflammatories as able or steroidal anti-inflammatories if appropriate Physical therapy and occupational therapy daily Daily hygiene GI DVT prophylaxis No emergent surgical intervention at this time, patient is also not a surgical candidate
[2021-05-21 08:17] LABS: Calcium 8.6 mg/dL (8.4-10.2); Magnesium 1.9 mg/dL (1.6-2.3); Potassium 5.1 mmol/L (3.5-5.1)
[2021-05-21] MEDS: METOPROLOL TARTRATE 12.5 MG TAB PO SCH ×2 (09:03→20:06)
[2021-05-21] MEDS: GABAPENTIN 300 MG CAP PO SCH ×3 (09:03→20:03)
[2021-05-21] MEDS: FUROSEMIDE 10 MG/ML 4 ML VIAL IV SCH ×2 (09:03→20:04)
[2021-05-21] MEDS: INSULIN DETEMIR (LEVEMIR) 100 UNIT/ML SYR SQ SCH ×2 (09:09→20:06)
--- NOTE | 2021-05-21 09:17 | P.PN ---
Subjective Patient is seen in follow-up for acute kidney injury on chronic kidney disease. Renal function fairly stable. Maintained on IV Lasix. Currently on 3 L nasal cannula. Vital signs are stable. General: The patient appeared well nourished and normally developed. HEENT: Head exam is unremarkable. On nasal cannula. LUNGS: Breath sounds decreased. HEART: Rate and Rhythm are regular. ABDOMEN: Soft, no distention. EXTREMITITES: 2+ edema. Objective - Vital Signs Vital signs: Vital Signs Temp 97.8 F 05/21/21 08:00 Pulse 66 05/21/21 08:15 Resp 18 05/21/21 08:15 BP 113/58 05/21/21 08:00 Pulse Ox 97 05/21/21 08:03 Intake & Output 05/20/21 05/21/21 05/21/21 18:59 06:59 18:59 Intake Total 1260 120 Output Total 200 950 Balance 1060 -950 120 Weight 137.5 kg Intake: Oral 1260 120 Output: Urine 200 950 Other: Voiding Method Diaper External Catheter External Catheter - Labs CBC & Chem 7: 05/18/21 07:48 05/21/21 06:51 Labs: Abnormal Lab Results - Last 24 Hours (Table) 05/20/21 05/20/21 05/20/21 Range/Units 11:59 17:05 17:15 Potassium 5.6 H (3.5-5.1) mmol/L BUN (7-17) mg/dL Creatinine (0.52-1.04) mg/dL Glucose (74-99) mg/dL POC Glucose (mg/dL) 127 H 171 H (75-99) mg/dL 05/20/21 05/21/21 05/21/21 Range/Units 20:34 06:51 07:09 Potassium (3.5-5.1) mmol/L BUN 89 H (7-17) mg/dL Creatinine 2.65 H (0.52-1.04) mg/dL Glucose 108 H (74-99) mg/dL POC Glucose (mg/dL) 162 H 110 H (75-99) mg/dL Assessment and Plan Plan: Assessment: 1. Acute kidney injury secondary to ATN secondary to cardiorenal syndrome. Creatinine stable at 2.65 today. UA fairly benign. No hydronephrosis noted on kidney ultrasound. 2. Chronic kidney disease stage IIIB with baseline creatinine near 2. 3. Acute on chronic systolic CHF with ejection fraction of 25%. 4. Volume overload. 5. Hyperkalemia secondary to acute kidney injury and losartan. Better. 6. Diabetes mellitus. Plan: Maintain IV Lasix and metolazone. Low potassium diet. Avoid nephrotoxins. Continue to monitor renal function and urine output.
[2021-05-21] MEDS: metOLazone 5 MG TAB PO SCH (09:55)
--- NOTE | 2021-05-21 11:25 | P.PN ---
Subjective HISTORY OF PRESENTING ILLNESS This is a pleasant 75-year-old female past medical history significant for systolic heart failure, hypertension, diabetes mellitus, chronic persistent atrial fibrillation not on anticoagulation secondary to GI bleeding in the past and morbid obesity. She follows in the office with Dr. English. We have been asked to see in consultation for heart failure. She was discharged from rehab facility on Wednesday. She states even at the time of discharge she was extremely weak. She was unable to even get herself into the car. EKG on admission reveals atrial 2:1 atrial tachycardia heart rate of 75 left axis deviation and poor R-wave progression. Chest x-ray reveals some congestive heart failure with increased pulmonary congestion and fluid compared to previous exam. Laboratory data reviewed, WBC 4.8, hemoglobin 11.9, platelets 190, sodium 139, potassium on admission 6. 6 repeat today 5.5, creatinine on admission 2. 9 repeat today 2.75, magnesium 2.0, and T proBNP 10,000 and troponin negative 1. Current daily home medications include Lopressor 12.5 mg twice a day, losartan 100 mg daily, Lasix 40 mg twice a day, atorvastatin 20 mg daily and aspirin 81 mg daily. Most recent echocardiogram obtained in April 2021 revealed severe LV systolic dysfunction with ejection fraction 25-30%, mild MR, moderate TR and pulmonary hypertension. At that time it was recommended that her medical therapy be com pletely maximized. No plans for heart catheterization. She saw Dr. English in the office May 16 and was feeling well. At that time he recommended ongoing medical therapy with possible outpatient stress test depending on her functional capacity. 05/21/2021 Pt seen and examined sitting up eating breakfast in no acute distress. She denies chest pain and has no worsening shortness of breath. Blood pressure 113/58 heart rate 66 afebrile maintaining oxygen saturation on nasal cannula. Laboratory data reviewed, sodium 138, potassium 5.1, creatinine 2.65 and magnesium 1.6. 24-hour urine output is 1.1 L. PHYSICAL EXAMINATION CONSTITUTIONAL: No apparent distress. Morbidly obese. HEENT: Head is normocephalic. Pupils are equal, round. Sclerae anicteric. Mucous membranes of the mouth are moist. No JVD. No carotid bruit. CHEST EXAMINATION: Diminished due to body hapitus. No wheezes or rhonchi. No chest wall tenderness is noted on palpation or with deep breathing. HEART EXAMINATION: Irregular rate and rhythm. S1, S2 heard. No murmurs, gallops or rub. EXTREMITIES: 2+ peripheral pulses, 1+ bilateral lower extremity pitting edema and no calf tenderness. ASSESSMENT Generalized weakness Acute kidney injury Acute on chronic systolic heart failure Hyperkalemia Diabetes mellitus Hypertension Dyslipidemia PLAN Continue IV diuresis, defer adjustments and management to nephrology team. Follow renal function and electrolytes in the morning. Nurse Practitioner note has been reviewed, I agree with a documented findings and plan of care. Patient was seen and examined. Objective - Vital Signs Vital signs: Vital Signs Temp 97.8 F 05/21/21 08:00 Pulse 66 05/21/21 08:15 Resp 18 05/21/21 08:15 BP 113/58 05/21/21 08:00 Pulse Ox 97 05/21/21 08:03 Intake & Output 05/20/21 05/21/21 05/21/21 18:59 06:59 18:59 Intake Total 1260 120 Output Total 200 950 Balance 1060 -950 120 Weight 137.5 kg Intake: Oral 1260 120 Output: Urine 200 950 Other: Voiding Method Diaper External Catheter External Catheter - Labs CBC & Chem 7: 05/18/21 07:48 05/21/21 06:51 Labs: Abnormal Lab Results - Last 24 Hours (Table) 05/20/21 05/20/21 05/20/21 Range/Units 11:59 17:05 17:15 Potassium 5.6 H (3.5-5.1) mmol/L BUN (7-17) mg/dL Creatinine (0.52-1.04) mg/dL Glucose (74-99) mg/dL POC Glucose (mg/dL) 127 H 171 H (75-99) mg/dL 05/20/21 05/21/21 05/21/21 Range/Units 20:34 06:51 07:09 Potassium (3.5-5.1) mmol/L BUN 89 H (7-17) mg/dL Creatinine 2.65 H (0.52-1.04) mg/dL Glucose 108 H (74-99) mg/dL POC Glucose (mg/dL) 162 H 110 H (75-99) mg/dL
[2021-05-21 12:06] LABS: Glucose,Whole Blood 162 mg/dL (75-99)
--- NOTE | 2021-05-21 12:28 | P.PN ---
Subjective Progress Note Date: 05/21/21 History of present illness This is a 75-year-old female patient of Dr. Ruiz Chao with past medical history of chronic kidney disease stage III, chronic diastolic heart failure, chronic atrial fibrillation not on anticoagulation due to history of GI bleed, diabetes mellitus type 2, hypertension, hyperlipidemia, hypothyroidism, history of GI bleed, morbid obesity with BMI of 52, remote history of tobacco use and dependence, congestive heart failure with last ejection fraction reported on 04/24 was 25-30% with mild aortic valve sclerosis trace aortic regurgitation and mild mitral regurgitation and moderate tricuspid regurgitation and mild pulmonary hypertension. last hospitalized on 04/24 to 04/28 for nausea or vomiting, diarrhea and abdominal pain. Patient was noted to be increasingly weak and unable to stand. She was seen by PT and OT and recommended subacute rehab. Patient was discharged to [facility] on 04/30 with no improvement in weakness patient was discharged yesterday. Patient came into the hospital d with increasing weakness and inability to stand. Patient's last fall was 3-4 months ago. Patient denies any shortness of breath chest pain or abdominal pain. She denies any diarrhea or vomiting. In the ER patient was noted increasingly weak. Vital suggest temporal 97.9 pulse 85 respiratory rate 20 blood pressure 123/59 labs obtained patient had WBC of 6.1 hemoglobin 12.8 sodium 140 potassium 6.6 BUN 98 increased from 46 creatinine was 2.9 which is close to baseline her liver enzymes were elevated with AST of 48 ALT 47 alkaline phosphatase 297 urinalysis positive for infection with cloudy appearance specimen gravity 1.015 trace blood and moderate leukocyte Estrace and few bacteria troponin 1 was negative phosphorus was high 6.3. Repeat labs suggestive of an improvement of creatinine 2.79 BUN 95 blood sugar ranging from 97-154 proBNP 10,000 EKG suggestive of A. fibWith no ST or T-wave changes Chest x-ray it is her of congestive heart failure with increased pulmonary congestion and fluid compared to last exam Echocardiogram 04/24 ejection fraction was 25-30% with mild aortic valve sclerosis trace aortic regurgitation and mild mitral regurgitation and moderate tricuspid regurgitation and mild pulmonary hypertension. 05/19: Patient is afebrile, heart rate 69, blood pressure 112/73, pulse ox 98% on 2 L nasal cannula. Repeat blood work reveals sodium 139, potassium 5.15, chloride 107, CO2 26, BUN 91 and creatinine 2.75 which is improving. Blood sugars are running between 80 and 154. Urine culture is in progress. Patient is followed by nephrology. Continue IV Lasix, low potassium diet and avoid nephrotoxins. Patient is also been seen by cardiology for acute on chronic systolic heart failure and recommends continuing hearing Garcia catheter to assess urine output. 05/20: Patient is seen in follow-up today. She continues to have significant lower extremity edema for which Lasix will be increased to 60 mg twice daily. Repeat chest x-ray will be ordered. Orthopedic spine has evaluated the patient recommends MRI of the lumbar spine and an open facility. Case management will work with orthopedics to make arrangements which would be transferring the patient to [facility] for the test. Patient remains afebrile, heart rate 72, blood pressure 101/65, pulse ox 90% on 2 L nasal cannula. Repeat blood work reveals sodium 139, potassium 5.8, chloride 108, CO2 23, BUN 92 and creatinine 2.54 which is her baseline. Blood sugars are running between 123 and 168. Urine culture finalized with skin marcial. We will hold on discontinuing Levaquin until repeat chest x-ray rules out pneumonia. Patient has been evaluated by PT and OT and recommendations orders for subacute rehab. 05/21: Patient is continued on Lasix 60 mg IV every 12 hours and metolazone 5 mg daily. Patient is followed by cardiology and nephrology. Patient has been afebrile, heart rate 65, blood pressure 113/58, pulse ox 97% on 3 L nasal cannula. Repeat blood work reveals normal electrolytes. BUN 89 creatinine 2.65. Blood sugars are running between 110 and 162. Discharge plan is for [facility] and insurance authorization is pending. Anticipate discharge on or Wednesday. ROS Constitutional: Denies chills, Denies fever, endorses lethargy, endorses malaise, Denies poor appetite, endorses weakness, Denies weight loss Eyes: denies decreased vision, denies diplopia, denies discharge, denies pain Ears: deny: decreased hearing Ears, nose, mouth and throat: Denies dental pain, Denies headache, Denies nasal discharge, Denies nose pain Cardiovascular: Denies chest pain, Denies decreased exercise tolerance, noted edema, Denies high blood pressure, Denies irregular heart beat, Denies palpitations, Denies paroxysmal nocturnal dyspnea, Denies rapid heart beat, Denies shortness of breath Respiratory: Denies congestion, Denies cough, Denies cough with sputum, Denies dyspnea, Denies home oxygen, Denies wheezing Gastrointestinal: Denies abdominal pain, Denies change in bowel habits, Denies coffee ground emesis, Denies early satiety, Denies excessive gas, Denies heartburn, Denies hematemesis, Denies hematochezia, Denies loss of appetite, Denies nausea, Denies vomiting Genitourinary: Denies dysuria, Denies flank pain, Denies kidney stones, Denies menorrhagia, Denies urgency, Denies urinary frequency Musculoskeletal: Endorses limitation of motion difficulty we will to move her legs, Denies morning stiffness, Denies muscle cramps Integumentary: Denies rash, Denies wounds, Denies brittle nails, Denies change in hair/nails, Denies darkening of skin Neurological: Endorses balance difficulties, Denies change in speech, Denies double vision, Denies gait dysfunction, Denies loss of vision, Denies motor disturbance, Denies numbness, Denies paralysis, Denies paresthesias, Denies seizures Psychiatric: Denies anxiety, Denies depression Endocrine: Denies excessive sweating, Denies excessive thirst, Denies high blood sugars, Denies palpitations Hematologic/Lymphatic: Denies easy bruising, Denies lymphadenopathy Physical exam - Constitutional General appearance: cooperative, no acute distress, morbidly obese - EENT Eyes: anicteric sclerae, PERRLA, normal appearance ENT: hearing grossly normal - Neck Neck: no lymphadenopathy, normal ROM, no other, no rigidity, no stridor, no thyromegaly - Respiratory Respiratory: bilateral: CTA, negative: diminished, dullness, rales, rhonchi - Cardiovascular Rhythm: regular Heart sounds: normal: S1, S2 Abnormal Heart Sounds: no systolic murmur, no diastolic murmur, no rub, no S3 Gallop, no S4 Gallop, no click, bilateral 3+ pitting edema - Gastrointestinal General gastrointestinal: normal bowel sounds, soft distended with 1+ pitting edema in the lower quadrant of the belly - Integumentary Integumentary: no rash - Neurologic Neurologic: Inability to move lower extremity. Sensation intact decreased reflexes bilaterally - Musculoskeletal Musculoskeletal: Bilateral reduced strength bilateral lower extremity 3+/5 on the left and 3/5 on the right, pedal edema bilaterally 1+. - Psychiatric Psychiatric: A&O x's 3, appropriate affect Assessment and plan 1. Bilateral lower extremity weakness and debility with history of fall 2 months ago. Orthospine consulted, Sensory intact but patient has significant weakness in lower extremity Consult PT and OT. Patient will require open MRI if orthopedics wants to pursue this. This would be done at [facility]. 2. Hyperkalemia likely secondary to cardiorenal syndrome and acute kidney injury. Nephrology consulted. Status post 2 gram calcium gluconate, insulin and D50. Kayexalate ordered hold losartan. Continue to monitor electrolytes. 3. Acute acute on chronic systolic heart failure. Unclear if ischemic or nonischemic. Patient has chronic kidney disease stage III with acute kidney injury. Need cardiac cath per cardiology as outpatient Monitor GARTH's and daily weight Continue Lasix at 60 mg IV twice a day, continue metolazone, continue Lopressor twice a day. Cardiology consulted 4. Hypertension. Hold losartan 100 mg daily, continue Lopressor 12.5 mg twice a day 5. Acute kidney injury secondary to ATN with chronic kidney disease stage III. Hold losartan. Patient has poor perfusion of the kidneys from congestive heart failure. Creatinine baseline 2.5. Nephrology consult appreciated. 6. Acute transaminitis secondary to poor perfusion from heart failure 7. Chronic atrial fibrillation. Continue Lopressor. Not on anticoagulation due to history of GI bleed 8. Diabetes mellitus type 2. Continue Levemir 25 units twice daily and NovoLog 5 units with meals and NovoLog scale 9. Hypothyroidism. Continue levothyroxine 137 g daily. 10. Urinary tract infection UA positive for infecion, he was oxacillin 11. Diabetic neuropathy. Continue gabapentin 300 mg 3 times daily 12. Hyperlipidemia. Continue atorvastatin 20 mg at bedtime. 13. Chronic kidney disease stage III. 14. GI prophylaxis. Protonix 40 mg daily. 15. DVT prophylaxis. SCDs and PARDEEP hose. 16. Morbid obesity. BMI of 52.7. Diet and exercise. DISCHARGE PLAN Subacute rehab on Or Wednesday. PT OT consults. Impression and plan of care have been directed as dictated by the signing physician. Mihaela Escudero nurse practitioner acting as scribe for signing physician. Objective - Vital Signs Vital signs: Vital Signs Temp 97.8 F 05/21/21 08:00 Pulse 66 05/21/21 08:15 Resp 18 05/21/21 08:15 BP 113/58 05/21/21 08:00 Pulse Ox 97 05/21/21 08:03 Intake & Output 05/20/21 05/21/21 05/21/21 18:59 06:59 18:59 Intake Total 1260 120 Output Total 200 950 Balance 1060 -950 120 Weight 137.5 kg Intake: Oral 1260 120 Output: Urine 200 950 Other: Voiding Method Diaper External Catheter External Catheter - Labs CBC & Chem 7: 05/18/21 07:48 05/21/21 06:51 Labs: Abnormal Lab Results - Last 24 Hours (Table) 05/20/21 05/20/21 05/20/21 Range/Units 11:59 17:05 17:15 Potassium 5.6 H (3.5-5.1) mmol/L BUN (7-17) mg/dL Creatinine (0.52-1.04) mg/dL Glucose (74-99) mg/dL POC Glucose (mg/dL) 127 H 171 H (75-99) mg/dL 05/20/21 05/21/21 05/21/21 Range/Units 20:34 06:51 07:09 Potassium (3.5-5.1) mmol/L BUN 89 H (7-17) mg/dL Creatinine 2.65 H (0.52-1.04) mg/dL Glucose 108 H (74-99) mg/dL POC Glucose (mg/dL) 162 H 110 H (75-99) mg/dL
[2021-05-21 16:48] LABS: Glucose,Whole Blood 222 mg/dL (75-99)
[2021-05-21] MEDS: FERROUS SULFATE 325 MG TAB PO SCH (20:03)
[2021-05-21] MEDS: ASPIRIN 81 MG PO SCH (20:03)
[2021-05-21] MEDS: CHOLECALCIFEROL 25 MCG (1000 IU) TABLET PO SCH (20:03)
[2021-05-21] MEDS: SERTRALINE 50 MG TAB PO SCH (20:06)
[2021-05-21] MEDS: MULTIVITAMINS, THERA 1 EACH TAB PO SCH (20:06)
[2021-05-21] MEDS: MONTELUKAST 10 MG TAB PO SCH (20:06)
[2021-05-21 20:08] LABS: Glucose,Whole Blood 145 mg/dL (75-99)
[2021-05-22 06:14] LABS: HCT 40.6 % (34.0-46.0); Hypochromasia Marked; MCH 31.9 pg (25.0-35.0); MCHC 29.7 g/dL (31.0-37.0); Macrocytosis Marked; Platelet Count 146 k/uL (150-450); RBC 3.78 m/uL (3.80-5.40); RDW 15.1 % (11.5-15.5); WBC 5.6 k/uL (3.8-10.6)
[2021-05-22 06:17] LABS: MCV 107.4 fL (80.0-100.0)
[2021-05-22 06:28] LABS: Albumin 2.9 g/dL (3.5-5.0); Calcium 8.8 mg/dL (8.4-10.2); Potassium 4.8 mmol/L (3.5-5.1); Total Bilirubin 0.2 mg/dL (0.2-1.3); Total Protein 5.9 g/dL (6.3-8.2)
[2021-05-22] MEDS: LEVOTHYROXINE 137 MCG TAB PO SCH (06:47)
[2021-05-22] MEDS: MIDODRINE 5 MG TAB PO SCH ×3 (06:48→17:21)
[2021-05-22] MEDS: PANTOPRAZOLE 40 MG TABLET PO SCH (06:49)
[2021-05-22] MEDS: INSULIN DETEMIR (LEVEMIR) 100 UNIT/ML SYR SQ SCH ×2 (07:08→20:53)
[2021-05-22] MEDS: INSULIN ASPART (NovoLOG) 100 UNIT/ML VIAL SQ SCH ×7 (07:08→20:53)
[2021-05-22 07:10] LABS: Glucose,Whole Blood 121 mg/dL (75-99)
--- NOTE | 2021-05-22 07:37 | P.PN ---
Subjective Progress Note Date: 05/22/21 Principal diagnosis: 1. Lower extremity weakness 2. Multiple medical comorbidities 3. Morbid obesity Patient seen at [facility] this morning eating breakfast. She says she last walked about 2 weeks ago before she became weak. Patient says yesterday she attempted to get up with physical therapy but coud not get out of bed. Patient says she is still having weakness in legs. She is able to wiggle toes and attempts to lift legs. Patient denies chest pain, fever, SOB, N/V, changes in vision, numbness/tingling. Patient does say she does have some urinary incontinence, but does not have loss of bowel control. Objective - Vital Signs Vital signs: Vital Signs Temp 97.9 F 05/22/21 03:11 Pulse 58 L 05/22/21 03:11 Resp 18 05/22/21 03:11 BP 129/51 05/22/21 03:11 Pulse Ox 98 05/22/21 03:11 Intake & Output 05/21/21 05/22/21 05/22/21 18:59 06:59 18:59 Intake Total 360 480 180 Output Total 1000 600 Balance 360 -520 -420 Weight 124.5 kg Intake: Oral 360 480 180 Output: Urine 1000 600 Other: Voiding Method External Catheter External Catheter - Exam Inspection: Negative for any open fractures, ulcers, erythema, ecchymosis. Palpation: Bilateral upper extremities nontender to palpation throughout exam. Bilateral lower extremities nontender to palpation throughout exam. Spine - midline cervical, thoracic, lumbar TTP. NTTP in paravertebral area. Cervical and upper thoracic area are edematous to palpation. Sensation: Sensation is present throughout bilateral upper and lower extremities symmetric, and intact, equal. ROM: Upper extremities: Patient able lift arms FROM; bilateral lower extremities - patient not able to elevate legs off bed. Patient unable flex knees due to weakness. I am able to elevate legs off of bed, but at about 40 elevation patient feels pain in posterior upper legs bilaterally. Motor: Bilateral upper extremities: Weak 2/5 in resisted elbow flexion/extension and resisted shoulder elevation, internal rotation, external rotation, abduction. [employer] strength - 3/5 bilaterally. Bilateral lower extremities - Unable perform exam due to patient not being able lift legs at all Neurovascular: Refill below 3 seconds bilaterally in upper extremities. Dorsalis pedis pulse present, intact, 2+. Radial pulses present, intact 2+. Special tests: Negative Homans bilaterally; Negative Regina's bilaterally; negative clonus upon dorsiflexing feet bilaterally - Labs CBC & Chem 7: 05/22/21 05:40 05/22/21 05:40 Labs: Abnormal Lab Results - Last 24 Hours (Table) 05/21/21 05/21/21 05/21/21 Range/Units 06:51 12:04 16:47 RBC (3.80-5.40) m/uL MCV (80.0-100.0) fL MCHC (31.0-37.0) g/dL Plt Count (150-450) k/uL Macrocytosis BUN 89 H (7-17) mg/dL Creatinine 2.65 H (0.52-1.04) mg/dL Glucose 108 H (74-99) mg/dL POC Glucose (mg/dL) 162 H 222 H (75-99) mg/dL Alkaline Phosphatase (38-126) U/L Total Protein (6.3-8.2) g/dL Albumin (3.5-5.0) g/dL 05/21/21 05/22/21 05/22/21 Range/Units 20:00 05:40 05:40 RBC 3.78 L (3.80-5.40) m/uL MCV 107.4 H (80.0-100.0) fL MCHC 29.7 L (31.0-37.0) g/dL Plt Count 146 L (150-450) k/uL Macrocytosis Marked A BUN 89 H (7-17) mg/dL Creatinine 2.71 H (0.52-1.04) mg/dL Glucose 135 H (74-99) mg/dL POC Glucose (mg/dL) 145 H (75-99) mg/dL Alkaline Phosphatase 212 H (38-126) U/L Total Protein 5.9 L (6.3-8.2) g/dL Albumin 2.9 L (3.5-5.0) g/dL 05/22/21 Range/Units 07:07 RBC (3.80-5.40) m/uL MCV (80.0-100.0) fL MCHC (31.0-37.0) g/dL Plt Count (150-450) k/uL Macrocytosis BUN (7-17) mg/dL Creatinine (0.52-1.04) mg/dL Glucose (74-99) mg/dL POC Glucose (mg/dL) 121 H (75-99) mg/dL Alkaline Phosphatase (38-126) U/L Total Protein (6.3-8.2) g/dL Albumin (3.5-5.0) g/dL Assessment and Plan Assessment: 1. Lower extremity weakness 2. Multiple medical comorbidities 3. Morbid obesity Plan: 1. Lower extremity weakness - patient seen and examined at bedside this afternoon. Bilateral lower extremity weakness present as well as lumbar spine. tenderness. MRI lumbar spine has been ordered, but due to patient's body habitus is unable to be completed. We will attempt to perform MRI in outpatient setting. 2. Multiple medical comorbidities - medicine, cardiology following 3. Morbid obesity 4. Pain management - stable at this time 5. GI ppx - Pantoprazole 6. Appreciate consult 7. PT/OT - WBAT w/walker Time with Patient: Less than 30
[2021-05-22] MEDS: IPRATROPIUM-ALBUTEROL 3 ML NEB INHALATION SCH ×4 (07:38→20:23)
[2021-05-22] MEDS: metOLazone 5 MG TAB PO SCH (09:30)
[2021-05-22] MEDS: METOPROLOL TARTRATE 12.5 MG TAB PO SCH ×2 (09:30→20:52)
[2021-05-22] MEDS: GABAPENTIN 300 MG CAP PO SCH ×3 (09:30→20:52)
[2021-05-22] MEDS: FUROSEMIDE 10 MG/ML 4 ML VIAL IV SCH (09:31)
[2021-05-22] MEDS: LEVOFLOXACIN 250 MG TAB PO SCH (09:31)
--- NOTE | 2021-05-22 09:37 | P.PN ---
Subjective Patient is seen in follow-up for acute kidney injury on chronic kidney disease. Renal function fairly stable. Maintained on IV Lasix. Currently on 2 L nasal cannula. No changes overnight. No active complaints. Vital signs are stable. General: The patient appeared well nourished and normally developed. HEENT: Head exam is unremarkable. On nasal cannula. LUNGS: Breath sounds decreased. HEART: Rate and Rhythm are regular. ABDOMEN: Soft, no distention. EXTREMITITES: 2+ edema. Objective - Vital Signs Vital signs: Vital Signs Temp 97.3 F L 05/22/21 08:00 Pulse 71 05/22/21 08:00 Resp 18 05/22/21 08:00 BP 126/65 05/22/21 08:00 Pulse Ox 97 05/22/21 08:00 Intake & Output 05/21/21 05/22/21 05/22/21 18:59 06:59 18:59 Intake Total 360 480 180 Output Total 1000 600 Balance 360 -520 -420 Weight 124.5 kg Intake: Oral 360 480 180 Output: Urine 1000 600 Other: Voiding Method External Catheter External Catheter External Catheter - Labs CBC & Chem 7: 05/22/21 05:40 05/22/21 05:40 Labs: Abnormal Lab Results - Last 24 Hours (Table) 05/21/21 05/21/21 05/21/21 Range/Units 12:04 16:47 20:00 RBC (3.80-5.40) m/uL MCV (80.0-100.0) fL MCHC (31.0-37.0) g/dL Plt Count (150-450) k/uL Macrocytosis BUN (7-17) mg/dL Creatinine (0.52-1.04) mg/dL Glucose (74-99) mg/dL POC Glucose (mg/dL) 162 H 222 H 145 H (75-99) mg/dL Alkaline Phosphatase (38-126) U/L Total Protein (6.3-8.2) g/dL Albumin (3.5-5.0) g/dL 05/22/21 05/22/21 05/22/21 Range/Units 05:40 05:40 07:07 RBC 3.78 L (3.80-5.40) m/uL MCV 107.4 H (80.0-100.0) fL MCHC 29.7 L (31.0-37.0) g/dL Plt Count 146 L (150-450) k/uL Macrocytosis Marked A BUN 89 H (7-17) mg/dL Creatinine 2.71 H (0.52-1.04) mg/dL Glucose 135 H (74-99) mg/dL POC Glucose (mg/dL) 121 H (75-99) mg/dL Alkaline Phosphatase 212 H (38-126) U/L Total Protein 5.9 L (6.3-8.2) g/dL Albumin 2.9 L (3.5-5.0) g/dL Assessment and Plan Plan: Assessment: 1. Acute kidney injury secondary to ATN secondary to cardiorenal syndrome. Creatinine fairly stable at 2.71 today. UA fairly benign. No hydronephrosis noted on kidney ultrasound. 2. Chronic kidney disease stage IIIB with baseline creatinine near 2. 3. Acute on chronic systolic CHF with ejection fraction of 25%. 4. Volume overload. 5. Hyperkalemia secondary to acute kidney injury and losartan. Better. 6. Diabetes mellitus. Plan: Stop IV Lasix. Add torsemide 40 mg once today. Maintain metolazone. Avoid nephrotoxins. Continue to monitor renal function and urine output.
--- NOTE | 2021-05-22 10:24 | P.DS ---
Providers Date of admission: 05/17/21 17:30 Expected date of discharge: 05/22/21 Attending physician: Marycruz Ugarte MD Consults: 05/17/21 18:59 Consult Physician Routine Consulting Provider: Jerod Mello Consult Reason/Comments: Renal insufficiency, hypercholesterolemia, hypophosphatemia Do you want consulting provider notified?: Yes 05/18/21 13:48 Consult Physician Routine Consulting Provider: Alexis aMdden Consult Reason/Comments: acute systolic heart failure, cardiorenal syndrome Do you want consulting provider notified?: Yes Consult Physician Routine Consulting Provider: Josef Riley Consult Reason/Comments: Le weakness, h/o fall Do you want consulting provider notified?: Yes Primary care physician: Ruiz Chao [facility] Course: History of present illness This is a 75-year-old female patient of Dr. Ruiz Chao with past medical history of chronic kidney disease stage III, chronic diastolic heart failure, chronic atrial fibrillation not on anticoagulation due to history of GI bleed, diabetes mellitus type 2, hypertension, hyperlipidemia, hypothyroidism, history of GI bleed, morbid obesity with BMI of 52, remote history of tobacco use and dependence, congestive heart failure with last ejection fraction reported on 04/24 was 25-30% with mild aortic valve sclerosis trace aortic regurgitation and mild mitral regurgitation and moderate tricuspid regurgitation and mild pulmonary hypertension. last hospitalized on 04/24 to 04/28 for nausea or vomiting, diarrhea and abdominal pain. Patient was noted to be increasingly weak and unable to stand. She was seen by PT and OT and recommended subacute rehab. Patient was discharged to [facility] on 04/30 with no improvement in weakness patient was discharged yesterday. Patient came into the hospital d with increasing weakness and inability to stand. Patient's last fall was 3-4 months ago. Patient denies any shortness of breath chest pain or abdominal pain. She denies any diarrhea or vomiting. In the ER patient was noted increasingly weak. Vital suggest temporal 97.9 pulse 85 respiratory rate 20 blood pressure 123/59 labs obtained patient had WBC of 6.1 hemoglobin 12.8 sodium 140 potassium 6.6 BUN 98 increased from 46 creatinine was 2.9 which is close to baseline her liver enzymes were elevated with AST of 48 ALT 47 alkaline phosphatase 297 urinalysis positive for infection with cloudy appearance specimen gravity 1.015 trace blood and moderate leukocyte Estrace and few bacteria troponin 1 was negative phosphorus was high 6.3. Repeat labs suggestive of an improvement of creatinine 2.79 BUN 95 blood sugar ranging from 97-154 proBNP 10,000 EKG suggestive of A. fibWith no ST or T-wave changes Chest x-ray it is her of congestive heart failure with increased pulmonary congestion and fluid compared to last exam Echocardiogram 04/24 ejection fraction was 25-30% with mild aortic valve sclerosis trace aortic regurgitation and mild mitral regurgitation and moderate tricuspid regurgitation and mild pulmonary hypertension. 05/19: Patient is afebrile, heart rate 69, blood pressure 112/73, pulse ox 98% on 2 L nasal cannula. Repeat blood work reveals sodium 139, potassium 5.15, chloride 107, CO2 26, BUN 91 and creatinine 2.75 which is improving. Blood sugars are running between 80 and 154. Urine culture is in progress. Patient is followed by nephrology. Continue IV Lasix, low potassium diet and avoid nephrotoxins. Patient is also been seen by cardiology for acute on chronic systolic heart failure and recommends continuing hearing Garcia catheter to assess urine output. 05/20: Patient is seen in follow-up today. She continues to have significant lower extremity edema for which Lasix will be increased to 60 mg twice daily. Repeat chest x-ray will be ordered. Orthopedic spine has evaluated the patient recommends MRI of the lumbar spine and an open facility. Case management will work with orthopedics to make arrangements which would be transferring the patient to [facility] for the test. Patient remains afebrile, heart rate 72, blood pressure 101/65, pulse ox 90% on 2 L nasal cannula. Repeat blood work reveals sodium 139, potassium 5.8, chloride 108, CO2 23, BUN 92 and creatinine 2.54 which is her baseline. Blood sugars are running between 123 and 168. Urine culture finalized with skin marcial. We will hold on discontinuing Levaquin until repeat chest x-ray rules out pneumonia. Patient has been evaluated by PT and OT and recommendations orders for subacute rehab. 05/21: Patient is continued on Lasix 60 mg IV every 12 hours and metolazone 5 mg daily. Patient is followed by cardiology and nephrology. Patient has been afebrile, heart rate 65, blood pressure 113/58, pulse ox 97% on 3 L nasal cannula. Repeat blood work reveals normal electrolytes. BUN 89 creatinine 2.65. Blood sugars are running between 110 and 162. Discharge plan is for [facility] and insurance authorization is pending. Anticipate discharge on or Wednesday. 05/22: Discussed case with Dr. Pérez and he has transitioned the patient to to rsemide 40 mg daily and continue metolazone 5 mg daily. Patient denies any new complaints. Patient's son was updated yesterday via phone call. Patient has been afebrile, heart rate 71, blood pressure 126/65 and pulse ox 97% on 2 L nasal cannula. Repeat blood work reveals WBC 5.6, hemoglobin 12, platelet count 146. Electrolytes are all within normal limits. BUN 89 creatinine 2.71. Blood sugars are running between 121 and 222. Alkaline phosphatase 212 otherwise liver function tests are normal. Albumin 2.9. Insurance authorization has been obtained for subacute rehab. Patient will be discharged today once arrangements are completed. Assessment and plan 1. Bilateral lower extremity weakness and debility with history of fall 2 months ago. Therefore outpatient MRI of the lumbar spine. 2. Hyperkalemia likely secondary to acute kidney injury. 3. Acute acute on chronic systolic heart failure. 4. Hypertension. 5. Acute kidney injury secondary to ATN with chronic kidney disease stage III. 6. Acute transaminitis secondary to poor perfusion from heart failure 7. Chronic atrial fibrillation. 8. Diabetes mellitus type 2. 9. Hypothyroidism. 10. Urinary tract infection. 11. Diabetic neuropathy. 12. Hyperlipidemia. 13. Chronic kidney disease stage III. 14. Morbid obesity. BMI of 52.7. Diet and exercise. DISCHARGE PLAN Subacute rehab at [facility] Impression and plan of care have been directed as dictated by the signing physician. Mihaela Escudero nurse practitioner acting as scribe for signing physician. Patient Condition at Discharge: Stable Plan - Discharge Summary Discharge Rx Participant: No New Discharge Prescriptions: New Levofloxacin [Levaquin] 250 mg PO Q48H #2 tab metOLazone [Zaroxolyn] 5 mg PO DAILY tab Torsemide [Demadex] 40 mg PO DAILY tab INSULIN ASPART (NovoLOG) [NovoLOG (formulary)] 0 unit SQ ACHS vial Midodrine [ProAmatine] 5 mg PO AC-TID tab Continue Cholecalciferol [Vitamin D3 (25 Mcg = 1000 Iu)] 25 mcg PO HS Sertraline [Zoloft] 50 mg PO HS Montelukast [Singulair] 10 mg PO HS Metoprolol Tartrate [Lopressor] 12.5 mg PO BID tab Clotrimazole Cream [Lotrimin Cream] 1 applic TOPICAL DAILY PRN applic PRN Reason: Rash Levothyroxine Sodium [Synthroid] 137 mcg PO DAILY@0630 tab Gabapentin [Neurontin] 300 mg PO TID #9 cap Ferrous Sulfate [Iron (65 MG Elemental)] 325 mg PO HS Ipratropium-Albuterol Nebulize [Duoneb 0.5 mg-3 mg/3 ml Soln] 3 ml INHALATION RT-QID ml INSULIN ASPART (NovoLOG) [NovoLOG (formulary)] 7 unit SQ AC-TID vial Aspirin 81 mg PO HS Multivit-Min/FA/Lycopen/Lutein [Centrum Silver Tablet] 1 tab PO HS Insulin Detemir [Levemir Flextouch] 25 units SQ BID Omeprazole 20 mg PO DAILY Discontinued Atorvastatin [Lipitor] 20 mg PO HS Furosemide [Lasix] 40 mg PO BID Losartan Potassium 100 mg PO DAILY Discharge Medication List Cholecalciferol [Vitamin D3 (25 Mcg = 1000 Iu)] 25 mcg PO HS 05/29/17 [History] Ferrous Sulfate [Iron (65 MG Elemental)] 325 mg PO HS 04/23/21 [History] Montelukast [Singulair] 10 mg PO HS 04/23/21 [History] Sertraline [Zoloft] 50 mg PO HS 04/23/21 [History] Clotrimazole Cream [Lotrimin Cream] 1 applic TOPICAL DAILY PRN applic 04/28/21 [Rx] INSULIN ASPART (NovoLOG) [NovoLOG (formulary)] 7 unit SQ AC-TID vial 04/28/21 [Rx] Ipratropium-Albuterol Nebulize [Duoneb 0.5 mg-3 mg/3 ml Soln] 3 ml INHALATION RT-QID ml 04/28/21 [Rx] Levothyroxine Sodium [Synthroid] 137 mcg PO DAILY@0630 tab 04/28/21 [Rx] Metoprolol Tartrate [Lopressor] 12.5 mg PO BID tab 04/28/21 [Rx] Aspirin 81 mg PO HS 05/17/21 [History] Insulin Detemir [Levemir Flextouch] 25 units SQ BID 05/17/21 [History] Multivit-Min/FA/Lycopen/Lutein [Centrum Silver Tablet] 1 tab PO HS 05/17/21 [History] Omeprazole 20 mg PO DAILY 05/17/21 [History] Gabapentin [Neurontin] 300 mg PO TID #9 cap 05/22/21 [Rx] INSULIN ASPART (NovoLOG) [NovoLOG (formulary)] 0 unit SQ ACHS vial 05/22/21 [Rx] Levofloxacin [Levaquin] 250 mg PO Q48H #2 tab 05/22/21 [Rx] Midodrine [ProAmatine] 5 mg PO AC-TID tab 05/22/21 [Rx] Torsemide [Demadex] 40 mg PO DAILY tab 05/22/21 [Rx] metOLazone [Zaroxolyn] 5 mg PO DAILY tab 05/22/21 [Rx] Follow up Appointment(s)/Referral(s): Josef Riley DO [Doctor of Osteopathic Medicine] - 06/06/21 11:40 am (please arrive 15 minutes early to complete paperwork.) Ruiz Chao MD [Primary Care Provider] - 1 Week (After discharge from rehab) Activity/Diet/Wound Care/Special Instructions: MRI of lumbar spine - [facility] - 05/30/21 @0913 Discharge Disposition: TRANSFER TO SNF/ECF
--- NOTE | 2021-05-22 11:17 | P.PN ---
Subjective This is a pleasant 75-year-old female past medical history significant for systolic heart failure, hypertension, diabetes mellitus, chronic persistent atrial fibrillation not on anticoagulation secondary to GI bleeding in the past and morbid obesity. She follows in the office with Dr. English. We have been asked to see in consultation for heart failure. She was discharged from rehab facility on May 16, 2021. She states even at the time of discharge she was extremely weak. She was unable to even get herself into the car. EKG on admission reveals atrial 2:1 atrial tachycardia heart rate of 75 left axis deviation and poor R-wave progression. Chest x-ray reveals some congestive heart failure with increased pulmonary congestion and fluid compared to previous exam. Most recent echocardiogram obtained in April 2021 revealed severe LV systolic dysfunction with ejection fraction 25-30%, mild MR, moderate TR and pulmonary hypertension. At that time it was recommended that her medical therapy be completely maximized. No plans for heart catheterization. She saw Dr. English in the office May 16 and was feeling well. At that time he recommended ongoing medical therapy with possible outpatient stress test depending on her functional capacity. Patient was started on IV Diuresis. 05/22/2021 Pt seen and examined sitting up eating breakfast in no acute distress. She denies chest pain and has no worsening shortness of breath. She continues to have significant lower extremity edema. Blood pressure 125/65, heart rate 71, afebrile, maintaining oxygen saturations high 97% on 2 L nasal cannula. Laboratory data reviewed, WBC 5.6, hemoglobin 12, platelets 146, sodium 137, potassium 4.8, BUN 89, serum creatinine 2.71, magnesium 2.0 PHYSICAL EXAMINATION CONSTITUTIONAL: No apparent distress. Morbidly obese. HEENT: Head is normocephalic. Pupils are equal, round. Sclerae anicteric. Mucous membranes of the mouth are moist. No JVD. No carotid bruit. CHEST EXAMINATION: Diminished due to body hapitus. No wheezes or rhonchi. No chest wall tenderness is noted on palpation or with deep breathing. HEART EXAMINATION: Irregular rate and rhythm. S1, S2 heard. No murmurs, gallops or rub. EXTREMITIES: 2+ peripheral pulses, 1-2+ bilateral lower extremity pitting edema and no calf tenderness. ASSESSMENT Generalized weakness Acute kidney injury Acute on chronic kidney disease Acute on chronic systolic heart failure EF 05-30% Hyperkalemia Type 2 Diabetes mellitus Hypertension Dyslipidemia PLAN Continue IV diuresis, defer adjustments and management to nephrology team. Follow renal function and electrolytes in the morning. Continue home cardiac medications Further recommendations based on clinical course Nurse Practitioner note has been reviewed, I agree with a documented findings and plan of care. Patient was seen and examined. Objective Objective - Vital Signs Vital signs: Vital Signs Temp 97.3 F L 05/22/21 08:00 Pulse 71 05/22/21 08:00 Resp 18 05/22/21 08:00 BP 126/65 05/22/21 08:00 Pulse Ox 97 05/22/21 08:00 Intake & Output 05/21/21 05/22/21 05/22/21 18:59 06:59 18:59 Intake Total 360 480 180 Output Total 1000 600 Balance 360 -520 -420 Weight 124.5 kg Intake: Oral 360 480 180 Output: Urine 1000 600 Other: Voiding Method External Catheter External Catheter External Catheter - Labs CBC & Chem 7: 05/22/21 05:40 05/22/21 05:40 Labs: Abnormal Lab Results - Last 24 Hours (Table) 05/21/21 05/21/21 05/21/21 Range/Units 12:04 16:47 20:00 RBC (3.80-5.40) m/uL MCV (80.0-100.0) fL MCHC (31.0-37.0) g/dL Plt Count (150-450) k/uL Macrocytosis BUN (7-17) mg/dL Creatinine (0.52-1.04) mg/dL Glucose (74-99) mg/dL POC Glucose (mg/dL) 162 H 222 H 145 H (75-99) mg/dL Alkaline Phosphatase (38-126) U/L Total Protein (6.3-8.2) g/dL Albumin (3.5-5.0) g/dL 05/22/21 05/22/21 05/22/21 Range/Units 05:40 05:40 07:07 RBC 3.78 L (3.80-5.40) m/uL MCV 107.4 H (80.0-100.0) fL MCHC 29.7 L (31.0-37.0) g/dL Plt Count 146 L (150-450) k/uL Macrocytosis Marked A BUN 89 H (7-17) mg/dL Creatinine 2.71 H (0.52-1.04) mg/dL Glucose 135 H (74-99) mg/dL POC Glucose (mg/dL) 121 H (75-99) mg/dL Alkaline Phosphatase 212 H (38-126) U/L Total Protein 5.9 L (6.3-8.2) g/dL Albumin 2.9 L (3.5-5.0) g/dL
[2021-05-22 11:22] VITALS: BMI 45.6
[2021-05-22 11:45] LABS: Glucose,Whole Blood 179 mg/dL (75-99)
[2021-05-22] MEDS: TORSEMIDE 20 MG TAB PO SCH (13:34)
[2021-05-22 16:52] LABS: Glucose,Whole Blood 184 mg/dL (75-99)
[2021-05-22] MEDS: FERROUS SULFATE 325 MG TAB PO SCH (20:52)
[2021-05-22] MEDS: SERTRALINE 50 MG TAB PO SCH (20:52)
[2021-05-22] MEDS: CHOLECALCIFEROL 25 MCG (1000 IU) TABLET PO SCH (20:52)
[2021-05-22] MEDS: ASPIRIN 81 MG PO SCH (20:52)
[2021-05-22] MEDS: MONTELUKAST 10 MG TAB PO SCH (20:52)
[2021-05-22] MEDS: MULTIVITAMINS, THERA 1 EACH TAB PO SCH (20:53)
[2021-05-22 21:11] LABS: Glucose,Whole Blood 164 mg/dL (75-99)
[2021-05-23] MEDS: LEVOTHYROXINE 137 MCG TAB PO SCH (06:53)
[2021-05-23] MEDS: PANTOPRAZOLE 40 MG TABLET PO SCH (06:53)
[2021-05-23] MEDS: MIDODRINE 5 MG TAB PO SCH ×4 (06:55→17:03)
[2021-05-23] MEDS: INSULIN DETEMIR (LEVEMIR) 100 UNIT/ML SYR SQ SCH ×2 (06:56→20:30)
[2021-05-23] MEDS: INSULIN ASPART (NovoLOG) 100 UNIT/ML VIAL SQ SCH ×8 (06:57→20:31)
[2021-05-23 07:14] LABS: Glucose,Whole Blood 116 mg/dL (75-99)
[2021-05-23 07:38] LABS: Calcium 8.8 mg/dL (8.4-10.2); Potassium 4.8 mmol/L (3.5-5.1)
[2021-05-23] MEDS: IPRATROPIUM-ALBUTEROL 3 ML NEB INHALATION SCH ×4 (07:50→20:42)
[2021-05-23] MEDS: GABAPENTIN 300 MG CAP PO SCH ×3 (09:13→20:30)
[2021-05-23] MEDS: TORSEMIDE 20 MG TAB PO SCH (09:13)
[2021-05-23] MEDS: metOLazone 5 MG TAB PO SCH (09:13)
[2021-05-23] MEDS: METOPROLOL TARTRATE 12.5 MG TAB PO SCH ×2 (09:13→20:30)
--- NOTE | 2021-05-23 09:14 | XR ---
EXAMINATION TYPE: XR chest 1V DATE OF EXAM: 05/23/2021 COMPARISON: 05/20/2021 HISTORY: 75-year-old female hypoxia TECHNIQUE: Single frontal view of the chest is obtained. FINDINGS: Heart is enlarged. Interstitial opacities persist. Increasing [id number] effusions with basila r opacities. IMPRESSION: Cardiomegaly with similar pulmonary vascular congestion. However, there are increasing small to moder ate effusions with adjacent atelectasis and/or consolidation.
--- NOTE | 2021-05-23 10:06 | P.PN ---
Subjective Patient is seen in follow-up for acute kidney injury on chronic kidney disease. Renal function better today. Maintained on oral diuretics. Currently on 2 L nasal cannula. No changes overnight. No active complaints. Vital signs are stable. General: The patient appeared well nourished and normally developed. HEENT: Head exam is unremarkable. On nasal cannula. LUNGS: Breath sounds decreased. HEART: Rate and Rhythm are regular. ABDOMEN: Soft, no distention. EXTREMITITES: 2+ edema. Objective - Vital Signs Vital signs: Vital Signs Temp 98.0 F 05/23/21 04:00 Pulse 72 05/23/21 08:01 Resp 16 05/23/21 04:00 BP 147/67 05/23/21 07:45 Pulse Ox 90 L 05/23/21 07:50 Intake & Output 05/22/21 05/23/21 05/23/21 18:59 06:59 18:59 Intake Total 600 180 Output Total 2400 Balance -1800 180 Weight 124.5 kg 124 kg Intake: Oral 600 180 Output: Urine 2400 Other: Voiding Method External Catheter External Catheter - Labs CBC & Chem 7: 05/22/21 05:40 05/23/21 07:03 Labs: Abnormal Lab Results - Last 24 Hours (Table) 05/22/21 05/22/21 05/22/21 Range/Units 11:44 16:51 20:38 BUN (7-17) mg/dL Creatinine (0.52-1.04) mg/dL Glucose (74-99) mg/dL POC Glucose (mg/dL) 179 H 184 H 164 H (75-99) mg/dL 05/23/21 05/23/21 Range/Units 06:56 07:03 BUN 91 H (7-17) mg/dL Creatinine 2.51 H (0.52-1.04) mg/dL Glucose 125 H (74-99) mg/dL POC Glucose (mg/dL) 116 H (75-99) mg/dL Assessment and Plan Plan: Assessment: 1. Acute kidney injury secondary to ATN secondary to cardiorenal syndrome. Renal function better. Creatinine 2.51 today. UA fairly benign. No hydronephrosis noted on kidney ultrasound. 2. Chronic kidney disease stage IIIB with baseline creatinine near 2. 3. Acute on chronic systolic CHF with ejection fraction of 25%. 4. Volume overload. 5. Hyperkalemia secondary to acute kidney injury and losartan. Resolved. 6. Diabetes mellitus. Plan: Maintain torsemide and metolazone. 1500 mL fluid restriction. Encourage oral intake. Avoid nephrotoxins. Continue to monitor renal function and urine output. Possible discharge today. Follow up outpatient in 1 week
--- NOTE | 2021-05-23 10:24 | P.PN ---
Subjective HISTORY OF PRESENTING ILLNESS This is a pleasant 75-year-old female past medical history significant for systolic heart failure, hypertension, diabetes mellitus, chronic persistent atrial fibrillation not on anticoagulation secondary to GI bleeding in the past and morbid obesity. She follows in the office with Dr. English. We have been asked to see in consultation for heart failure. She was discharged from rehab facility on Wednesday. She states even at the time of discharge she was extremely weak. She was unable to even get herself into the car. EKG on admission reveals atrial 2:1 atrial tachycardia heart rate of 75 left axis deviation and poor R-wave progression. Chest x-ray reveals some congestive heart failure with increased pulmonary congestion and fluid compared to previous exam. Laboratory data reviewed, WBC 4.8, hemoglobin 11.9, platelets 190, sodium 139, potassium on admission 6. 6 repeat today 5.5, creatinine on admission 2. 9 repeat today 2.75, magnesium 2.0, and T proBNP 10,000 and troponin negative 1. Current daily home medications include Lopressor 12.5 mg twice a day, losartan 100 mg daily, Lasix 40 mg twice a day, atorvastatin 20 mg daily and aspirin 81 mg daily. Most recent echocardiogram obtained in April 2021 revealed severe LV systolic dysfunction with ejection fraction 25-30%, mild MR, moderate TR and pulmonary hypertension. At that time it was recommended that her medical therapy be com pletely maximized. No plans for heart catheterization. She saw Dr. English in the office May 16 and was feeling well. At that time he recommended ongoing medical therapy with possible outpatient stress test depending on her functional capacity. 05/23/2021 Pt seen and examined sitting up in bed in no acute distress. She complains of feeling more short of breath today. Repeat chest xray requested, revealing similar pulmonary congestion with some increasing noted in the effusions. Blood pressure 147/67 heart rate 72 afebrile and maintaining oxygen saturation on nasal cannula. Laboratory data reviewed, sodium 138, potassium 4.8, creatinine 2.51 and magnesium 2.0. Currently maintained on aspirin 81 mg daily, Zaroxolyn 5 mg daily, metoprolol 12.5 mg twice a day, midodrine 5 mg 3 times a day and torsemide 40 mg daily. 24 hr urine output over 3 liters. PHYSICAL EXAMINATION CONSTITUTIONAL: No apparent distress. Morbidly obese. HEENT: Head is normocephalic. Pupils are equal, round. Sclerae anicteric. Mucous membranes of the mouth are moist. No JVD. No carotid bruit. CHEST EXAMINATION: Diminished due to body hapitus. No wheezes or rhonchi. No chest wall tenderness is noted on palpation or with deep breathing. HEART EXAMINATION: Irregular rate and rhythm. S1, S2 heard. No murmurs, gallops or rub. EXTREMITIES: 2+ peripheral pulses, 1+ bilateral lower extremity pitting edema and no calf tenderness. ASSESSMENT Generalized weakness Acute kidney injury Acute on chronic systolic heart failure Hyperkalemia Diabetes mellitus Hypertension Dyslipidemia PLAN Urine output good on current regimen. Renal function stable. Nurse Practitioner note has been reviewed, I agree with a documented findings and plan of care. Patient was seen and examined. Objective - Vital Signs Vital signs: Vital Signs Temp 98.0 F 05/23/21 04:00 Pulse 72 05/23/21 08:01 Resp 16 05/23/21 04:00 BP 147/67 05/23/21 07:45 Pulse Ox 90 L 05/23/21 07:50 Intake & Output 05/22/21 05/23/21 05/23/21 18:59 06:59 18:59 Intake Total 600 Output Total 2400 Balance -1800 Weight 124.5 kg 124 kg Intake: Oral 600 Output: Urine 2400 Other: Voiding Method External Catheter External Catheter - Labs CBC & Chem 7: 05/22/21 05:40 05/23/21 07:03 Labs: Abnormal Lab Results - Last 24 Hours (Table) 05/22/21 05/22/21 05/22/21 Range/Units 11:44 16:51 20:38 BUN (7-17) mg/dL Creatinine (0.52-1.04) mg/dL Glucose (74-99) mg/dL POC Glucose (mg/dL) 179 H 184 H 164 H (75-99) mg/dL 05/23/21 05/23/21 Range/Units 06:56 07:03 BUN 91 H (7-17) mg/dL Creatinine 2.51 H (0.52-1.04) mg/dL Glucose 125 H (74-99) mg/dL POC Glucose (mg/dL) 116 H (75-99) mg/dL
[2021-05-23 11:45] LABS: Glucose,Whole Blood 151 mg/dL (75-99)
--- NOTE | 2021-05-23 13:49 | P.PN ---
Subjective Progress Note Date: 05/22/21 History of present illness This is a 75-year-old female patient of Dr. Ruiz Chao with past medical history of chronic kidney disease stage III, chronic diastolic heart failure, chronic atrial fibrillation not on anticoagulation due to history of GI bleed, diabetes mellitus type 2, hypertension, hyperlipidemia, hypothyroidism, history of GI bleed, morbid obesity with BMI of 52, remote history of tobacco use and dependence, congestive heart failure with last ejection fraction reported on 04/24 was 25-30% with mild aortic valve sclerosis trace aortic regurgitation and mild mitral regurgitation and moderate tricuspid regurgitation and mild pulmonary hypertension. last hospitalized on 04/24 to 04/28 for nausea or vomiting, diarrhea and abdominal pain. Patient was noted to be increasingly weak and unable to stand. She was seen by PT and OT and recommended subacute rehab. Patient was discharged to [facility] on 04/30 with no improvement in weakness patient was discharged yesterday. Patient came into the hospital d with increasing weakness and inability to stand. Patient's last fall was 3-4 months ago. Patient denies any shortness of breath chest pain or abdominal pain. She denies any diarrhea or vomiting. In the ER patient was noted increasingly weak. Vital suggest temporal 97.9 pulse 85 respiratory rate 20 blood pressure 123/59 labs obtained patient had WBC of 6.1 hemoglobin 12.8 sodium 140 potassium 6.6 BUN 98 increased from 46 creatinine was 2.9 which is close to baseline her liver enzymes were elevated with AST of 48 ALT 47 alkaline phosphatase 297 urinalysis positive for infection with cloudy appearance specimen gravity 1.015 trace blood and moderate leukocyte Estrace and few bacteria troponin 1 was negative phosphorus was high 6.3. Repeat labs suggestive of an improvement of creatinine 2.79 BUN 95 blood sugar ranging from 97-154 proBNP 10,000 EKG suggestive of A. fibWith no ST or T-wave changes Chest x-ray it is her of congestive heart failure with increased pulmonary congestion and fluid compared to last exam Echocardiogram 04/24 ejection fraction was 25-30% with mild aortic valve sclerosis trace aortic regurgitation and mild mitral regurgitation and moderate tricuspid regurgitation and mild pulmonary hypertension. 05/19: Patient is afebrile, heart rate 69, blood pressure 112/73, pulse ox 98% on 2 L nasal cannula. Repeat blood work reveals sodium 139, potassium 5.15, chloride 107, CO2 26, BUN 91 and creatinine 2.75 which is improving. Blood sugars are running between 80 and 154. Urine culture is in progress. Patient is followed by nephrology. Continue IV Lasix, low potassium diet and avoid nephrotoxins. Patient is also been seen by cardiology for acute on chronic systolic heart failure and recommends continuing hearing Garcia catheter to assess urine output. 05/20: Patient is seen in follow-up today. She continues to have significant lower extremity edema for which Lasix will be increased to 60 mg twice daily. Repeat chest x-ray will be ordered. Orthopedic spine has evaluated the patient recommends MRI of the lumbar spine and an open facility. Case management will work with orthopedics to make arrangements which would be transferring the patient to [place] for the test. Patient remains afebrile, heart rate 72, blood pressure 101/65, pulse ox 90% on 2 L nasal cannula. Repeat blood work reveals sodium 139, potassium 5.8, chloride 108, CO2 23, BUN 92 and creatinine 2.54 which is her baseline. Blood sugars are running between 123 and 168. Urine culture finalized with skin marcial. We will hold on discontinuing Levaquin until repeat chest x-ray rules out pneumonia. Patient has been evaluated by PT and OT and recommendations orders for subacute rehab. 05/21: Patient is continued on Lasix 60 mg IV every 12 hours and metolazone 5 mg daily. Patient is followed by cardiology and nephrology. Patient has been afebrile, heart rate 65, blood pressure 113/58, pulse ox 97% on 3 L nasal cannula. Repeat blood work reveals normal electrolytes. BUN 89 creatinine 2.65. Blood sugars are running between 110 and 162. Discharge plan is for [facility] and insurance authorization is pending. Anticipate discharge on or Wednesday. 05/22: Discussed case with Dr. Pérez and he has transitioned the patient to to rsemide 40 mg daily and continue metolazone 5 mg daily. Patient denies any new complaints. Patient's son was updated yesterday via phone call. Patient has been afebrile, heart rate 71, blood pressure 126/65 and pulse ox 97% on 2 L nasal cannula. Repeat blood work reveals WBC 5.6, hemoglobin 12, platelet count 146. Electrolytes are all within normal limits. BUN 89 creatinine 2.71. Blood sugars are running between 121 and 222. Alkaline phosphatase 212 otherwise liver function tests are normal. Albumin 2.9. Insurance authorization has been obtained for subacute rehab. Patient will be discharged today once arrangements are completed. ROS Constitutional: Denies chills, Denies fever, endorses lethargy, endorses malaise, Denies poor appetite, endorses weakness, Denies weight loss Eyes: denies decreased vision, denies diplopia, denies discharge, denies pain Ears: deny: decreased hearing Ears, nose, mouth and throat: Denies dental pain, Denies headache, Denies nasal discharge, Denies nose pain Cardiovascular: Denies chest pain, Denies decreased exercise tolerance, noted edema, Denies high blood pressure, Denies irregular heart beat, Denies palpitations, Denies paroxysmal nocturnal dyspnea, Denies rapid heart beat, Denies shortness of breath Respiratory: Denies congestion, Denies cough, Denies cough with sputum, Denies dyspnea, Denies home oxygen, Denies wheezing Gastrointestinal: Denies abdominal pain, Denies change in bowel habits, Denies coffee ground emesis, Denies early satiety, Denies excessive gas, Denies heartburn, Denies hematemesis, Denies hematochezia, Denies loss of appetite, Denies nausea, Denies vomiting Genitourinary: Denies dysuria, Denies flank pain, Denies kidney stones, Denies menorrhagia, Denies urgency, Denies urinary frequency Musculoskeletal: Endorses limitation of motion difficulty we will to move her legs, Denies morning stiffness, Denies muscle cramps Integumentary: Denies rash, Denies wounds, Denies brittle nails, Denies change in hair/nails, Denies darkening of skin Neurological: Endorses balance difficulties, Denies change in speech, Denies double vision, Denies gait dysfunction, Denies loss of vision, Denies motor disturbance, Denies numbness, Denies paralysis, Denies paresthesias, Denies seizures Psychiatric: Denies anxiety, Denies depression Endocrine: Denies excessive sweating, Denies excessive thirst, Denies high blood sugars, Denies palpitations Hematologic/Lymphatic: Denies easy bruising, Denies lymphadenopathy Physical exam - Constitutional General appearance: cooperative, no acute distress, morbidly obese - EENT Eyes: anicteric sclerae, PERRLA, normal appearance ENT: hearing grossly normal - Neck Neck: no lymphadenopathy, normal ROM, no other, no rigidity, no stridor, no thyromegaly - Respiratory Respiratory: bilateral: CTA, negative: diminished, dullness, rales, rhonchi - Cardiovascular Rhythm: regular Heart sounds: normal: S1, S2 Abnormal Heart Sounds: no systolic murmur, no diastolic murmur, no rub, no S3 Gallop, no S4 Gallop, no click, bilateral 3+ pitting edema - Gastrointestinal General gastrointestinal: normal bowel sounds, soft distended with 1+ pitting edema in the lower quadrant of the belly - Integumentary Integumentary: no rash - Neurologic Neurologic: Inability to move lower extremity. Sensation intact decreased reflexes bilaterally - Musculoskeletal Musculoskeletal: Bilateral reduced strength bilateral lower extremity 3+/5 on the left and 3/5 on the right, pedal edema bilaterally 1+. - Psychiatric Psychiatric: A&O x's 3, appropriate affect Assessment and plan 1. Bilateral lower extremity weakness and debility with history of fall 2 months ago. Orthospine consulted, Sensory intact but patient has significant weakness in lower extremity Consult PT and OT. Patient will require open MRI if orthopedics wants to pursue this. This would be done at [place]. 2. Hyperkalemia likely secondary to cardiorenal syndrome and acute kidney injury. Nephrology consulted. Status post 2 gram calcium gluconate, insulin and D50. Kayexalate ordered hold losartan. Continue to monitor electrolytes. 3. Acute acute on chronic systolic heart failure. Unclear if ischemic or nonischemic. Patient has chronic kidney disease stage III with acute kidney injury. Need cardiac cath per cardiology as outpatient Monitor GARTH's and daily weight Continue Lasix at 60 mg IV twice a day, continue metolazone, continue Lopressor twice a day. Cardiology consulted 4. Hypertension. Hold losartan 100 mg daily, continue Lopressor 12.5 mg twice a day 5. Acute kidney injury secondary to ATN with chronic kidney disease stage III. Hold losartan. Patient has poor perfusion of the kidneys from congestive heart failure. Creatinine baseline 2.5. Nephrology consult appreciated. 6. Acute transaminitis secondary to poor perfusion from heart failure 7. Chronic atrial fibrillation. Continue Lopressor. Not on anticoagulation due to history of GI bleed 8. Diabetes mellitus type 2. Continue Levemir 25 units twice daily and NovoLog 5 units with meals and NovoLog scale 9. Hypothyroidism. Continue levothyroxine 137 g daily. 10. Urinary tract infection UA positive for infecion, he was oxacillin 11. Diabetic neuropathy. Continue gabapentin 300 mg 3 times daily 12. Hyperlipidemia. Continue atorvastatin 20 mg at bedtime. 13. Chronic kidney disease stage III. 14. GI prophylaxis. Protonix 40 mg daily. 15. DVT prophylaxis. SCDs and PARDEEP hose. 16. Morbid obesity. BMI of 52.7. Diet and exercise. DISCHARGE PLAN Subacute rehab on Or Wednesday. PT OT consults. Impression and plan of care have been directed as dictated by the signing physician. Mihaela Escudero nurse practitioner acting as scribe for signing physician. Objective - Vital Signs Vital signs: Vital Signs Temp 98.0 F 05/23/21 04:00 Pulse 68 05/23/21 11:25 Resp 16 05/23/21 11:25 BP 147/54 05/23/21 11:25 Pulse Ox 16 L 05/23/21 11:25 Intake & Output 05/22/21 05/23/21 05/23/21 18:59 06:59 18:59 Intake Total 600 180 Output Total 2400 Balance -1800 180 Weight 124.5 kg 124 kg Intake: Oral 600 180 Output: Urine 2400 Other: Voiding Method External Catheter External Catheter External Catheter - Labs CBC & Chem 7: 05/22/21 05:40 05/23/21 07:03 Labs: Abnormal Lab Results - Last 24 Hours (Table) 05/22/21 05/22/21 05/22/21 Range/Units 11:44 16:51 20:38 BUN (7-17) mg/dL Creatinine (0.52-1.04) mg/dL Glucose (74-99) mg/dL POC Glucose (mg/dL) 179 H 184 H 164 H (75-99) mg/dL 05/23/21 05/23/21 Range/Units 06:56 07:03 BUN 91 H (7-17) mg/dL Creatinine 2.51 H (0.52-1.04) mg/dL Glucose 125 H (74-99) mg/dL POC Glucose (mg/dL) 116 H (75-99) mg/dL
--- NOTE | 2021-05-23 13:54 | P.PN ---
Subjective Progress Note Date: 05/23/21 History of present illness This is a 75-year-old female patient of Dr. Ruiz Chao with past medical history of chronic kidney disease stage III, chronic diastolic heart failure, chronic atrial fibrillation not on anticoagulation due to history of GI bleed, diabetes mellitus type 2, hypertension, hyperlipidemia, hypothyroidism, history of GI bleed, morbid obesity with BMI of 52, remote history of tobacco use and dependence, congestive heart failure with last ejection fraction reported on 04/24 was 25-30% with mild aortic valve sclerosis trace aortic regurgitation and mild mitral regurgitation and moderate tricuspid regurgitation and mild pulmonary hypertension. last hospitalized on 04/24 to 04/28 for nausea or vomiting, diarrhea and abdominal pain. Patient was noted to be increasingly weak and unable to stand. She was seen by PT and OT and recommended subacute rehab. Patient was discharged to [facility] on 04/30 with no improvement in weakness patient was discharged yesterday. Patient came into the hospital d with increasing weakness and inability to stand. Patient's last fall was 3-4 months ago. Patient denies any shortness of breath chest pain or abdominal pain. She denies any diarrhea or vomiting. In the ER patient was noted increasingly weak. Vital suggest temporal 97.9 pulse 85 respiratory rate 20 blood pressure 123/59 labs obtained patient had WBC of 6.1 hemoglobin 12.8 sodium 140 potassium 6.6 BUN 98 increased from 46 creatinine was 2.9 which is close to baseline her liver enzymes were elevated with AST of 48 ALT 47 alkaline phosphatase 297 urinalysis positive for infection with cloudy appearance specimen gravity 1.015 trace blood and moderate leukocyte Estrace and few bacteria troponin 1 was negative phosphorus was high 6.3. Repeat labs suggestive of an improvement of creatinine 2.79 BUN 95 blood sugar ranging from 97-154 proBNP 10,000 EKG suggestive of A. fibWith no ST or T-wave changes Chest x-ray it is her of congestive heart failure with increased pulmonary congestion and fluid compared to last exam Echocardiogram 04/24 ejection fraction was 25-30% with mild aortic valve sclerosis trace aortic regurgitation and mild mitral regurgitation and moderate tricuspid regurgitation and mild pulmonary hypertension. 05/19: Patient is afebrile, heart rate 69, blood pressure 112/73, pulse ox 98% on 2 L nasal cannula. Repeat blood work reveals sodium 139, potassium 5.15, chloride 107, CO2 26, BUN 91 and creatinine 2.75 which is improving. Blood sugars are running between 80 and 154. Urine culture is in progress. Patient is followed by nephrology. Continue IV Lasix, low potassium diet and avoid nephrotoxins. Patient is also been seen by cardiology for acute on chronic systolic heart failure and recommends continuing hearing Garcia catheter to assess urine output. 05/20: Patient is seen in follow-up today. She continues to have significant lower extremity edema for which Lasix will be increased to 60 mg twice daily. Repeat chest x-ray will be ordered. Orthopedic spine has evaluated the patient recommends MRI of the lumbar spine and an open facility. Case management will work with orthopedics to make arrangements which would be transferring the patient to [place] for the test. Patient remains afebrile, heart rate 72, blood pressure 101/65, pulse ox 90% on 2 L nasal cannula. Repeat blood work reveals sodium 139, potassium 5.8, chloride 108, CO2 23, BUN 92 and creatinine 2.54 which is her baseline. Blood sugars are running between 123 and 168. Urine culture finalized with skin marcial. We will hold on discontinuing Levaquin until repeat chest x-ray rules out pneumonia. Patient has been evaluated by PT and OT and recommendations orders for subacute rehab. 05/21: Patient is continued on Lasix 60 mg IV every 12 hours and metolazone 5 mg daily. Patient is followed by cardiology and nephrology. Patient has been afebrile, heart rate 65, blood pressure 113/58, pulse ox 97% on 3 L nasal cannula. Repeat blood work reveals normal electrolytes. BUN 89 creatinine 2.65. Blood sugars are running between 110 and 162. Discharge plan is for [facility] and insurance authorization is pending. Anticipate discharge on or Wednesday. 05/22: Discussed case with Dr. Pérez and he has transitioned the patient to to rsemide 40 mg daily and continue metolazone 5 mg daily. Patient denies any new complaints. Patient's son was updated yesterday via phone call. Patient has been afebrile, heart rate 71, blood pressure 126/65 and pulse ox 97% on 2 L nasal cannula. Repeat blood work reveals WBC 5.6, hemoglobin 12, platelet count 146. Electrolytes are all within normal limits. BUN 89 creatinine 2.71. Blood sugars are running between 121 and 222. Alkaline phosphatase 212 otherwise liver function tests are normal. Albumin 2.9. Insurance authorization has been obtained for subacute rehab. Patient will be discharged today once arrangements are completed. 05/23: Patient was not discharged yesterday as insurance authorization is still pending and now requires a [id number] which will be completed today. She is found today sitting up in a chair but continues to have significant weakness especially of the lower extremities. Patient with definite benefit from subacute rehab. She has been afebrile, heart rate in the 60s and 70s, blood pressure 147/54, pulse ox 90% on 2 L nasal cannula. Sodium 138, potassium 3.8, chloride 104, CO2 27, BUN 91 creatinine 2.51. Blood sugars are running between 116 and 164. Magnesium 2.0. Patient will be discharged today once insurance authorization has been obtained. ROS Constitutional: Denies chills, Denies fever, endorses lethargy, endorses malaise, Denies poor appetite, endorses weakness, Denies weight loss Eyes: denies decreased vision, denies diplopia, denies discharge, denies pain Ears: deny: decreased hearing Ears, nose, mouth and throat: Denies dental pain, Denies headache, Denies nasal discharge, Denies nose pain Cardiovascular: Denies chest pain, Denies decreased exercise tolerance, noted edema, Denies high blood pressure, Denies irregular heart beat, Denies palpitations, Denies paroxysmal nocturnal dyspnea, Denies rapid heart beat, Denies shortness of breath Respiratory: Denies congestion, Denies cough, Denies cough with sputum, Denies dyspnea, Denies home oxygen, Denies wheezing Gastrointestinal: Denies abdominal pain, Denies change in bowel habits, Denies coffee ground emesis, Denies early satiety, Denies excessive gas, Denies heartburn, Denies hematemesis, Denies hematochezia, Denies loss of appetite, Denies nausea, Denies vomiting Genitourinary: Denies dysuria, Denies flank pain, Denies kidney stones, Denies menorrhagia, Denies urgency, Denies urinary frequency Musculoskeletal: Endorses limitation of motion, difficulty we will to move her legs, Denies morning stiffness, Denies muscle cramps Integumentary: Denies rash, Denies wounds, Denies brittle nails, Denies change in hair/nails, Denies darkening of skin Neurological: Endorses balance difficulties, Denies change in speech, Denies double vision, Denies gait dysfunction, Denies loss of vision, Denies motor disturbance, Denies numbness, Denies paralysis, Denies paresthesias, Denies seizures Psychiatric: Denies anxiety, Denies depression Endocrine: Denies excessive sweating, Denies excessive thirst, Denies high blood sugars, Denies palpitations Hematologic/Lymphatic: Denies easy bruising, Denies lymphadenopathy Physical exam - Constitutional General appearance: cooperative, no acute distress, morbidly obese - EENT Eyes: anicteric sclerae, PERRLA, normal appearance ENT: hearing grossly normal - Neck Neck: no lymphadenopathy, normal ROM, no other, no rigidity, no stridor, no thyromegaly - Respiratory Respiratory: bilateral: CTA, negative: diminished, dullness, rales, rhonchi - Cardiovascular Rhythm: regular Heart sounds: normal: S1, S2 Abnormal Heart Sounds: no systolic murmur, no diastolic murmur, no rub, no S3 Gallop, no S4 Gallop, no click, bilateral 3+ pitting edema - Gastrointestinal General gastrointestinal: normal bowel sounds, soft distended with 2+ pitting edema - Integumentary Integumentary: no rash - Neurologic Neurologic: Inability to move lower extremity. Sensation intact decreased reflexes bilaterally - Musculoskeletal Musculoskeletal: Bilateral reduced strength bilateral lower extremity 3+/5 on the left and 3/5 on the right, pedal edema bilaterally 1+. - Psychiatric Psychiatric: A&O x's 3, appropriate affect Assessment and plan 1. Bilateral lower extremity weakness and debility with history of fall 2 months ago. Orthospine consulted, Sensory intact but patient has significant weakness in lower extremity Consult PT and OT. Patient will require open MRI if orthopedics wants to pursue this. This would be done at [place]. 2. Hyperkalemia likely secondary to cardiorenal syndrome and acute kidney injury. Nephrology consulted. Status post 2 gram calcium gluconate, insulin and D50. Kayexalate ordered hold losartan. Continue to monitor electrolytes. 3. Acute acute on chronic systolic heart failure. Unclear if ischemic or nonischemic. Patient has chronic kidney disease stage III with acute kidney injury. Need cardiac cath per cardiology as outpatient Monitor GARTH's and daily weight IV Lasix transitioned to oral torsemide, continue metolazone, continue Lopressor twice a day. Cardiology consulted 4. Hypertension. Hold losartan 100 mg daily, continue Lopressor 12.5 mg twice a day 5. Acute kidney injury secondary to ATN with chronic kidney disease stage III. Hold losartan. Patient has poor perfusion of the kidneys from congestive heart failure. Creatinine baseline 2.5. Nephrology consult appreciated. 6. Acute transaminitis secondary to poor perfusion from heart failure 7. Chronic atrial fibrillation. Continue Lopressor. Not on anticoagulation due to history of GI bleed 8. Diabetes mellitus type 2. Continue Levemir 25 units twice daily and NovoLog 5 units with meals and NovoLog scale 9. Hypothyroidism. Continue levothyroxine 137 g daily. 10. Urinary tract infection UA positive for infecion, he was oxacillin 11. Diabetic neuropathy. Continue gabapentin 300 mg 3 times daily 12. Hyperlipidemia. Continue atorvastatin 20 mg at bedtime. 13. Chronic kidney disease stage III. 14. GI prophylaxis. Protonix 40 mg daily. 15. DVT prophylaxis. SCDs and PARDEEP hose. 16. Morbid obesity. BMI of 52.7. Diet and exercise. DISCHARGE PLAN Subacute rehab once insurance authorization is obtained. Impression and plan of care have been directed as dictated by the signing physician. Mihaela Escudero nurse practitioner acting as scribe for signing physician. Objective - Vital Signs Vital signs: Vital Signs Temp 98.0 F 05/23/21 04:00 Pulse 68 05/23/21 11:25 Resp 16 05/23/21 11:25 BP 147/54 05/23/21 11:25 Pulse Ox 16 L 05/23/21 11:25 Intake & Output 05/22/21 05/23/21 05/23/21 18:59 06:59 18:59 Intake Total 600 180 Output Total 2400 Balance -1800 180 Weight 124.5 kg 124 kg Intake: Oral 600 180 Output: Urine 2400 Other: Voiding Method External Catheter External Catheter External Catheter - Labs CBC & Chem 7: 05/22/21 05:40 05/23/21 07:03 Labs: Abnormal Lab Results - Last 24 Hours (Table) 05/22/21 05/22/21 05/23/21 Range/Units 16:51 20:38 06:56 BUN (7-17) mg/dL Creatinine (0.52-1.04) mg/dL Glucose (74-99) mg/dL POC Glucose (mg/dL) 184 H 164 H 116 H (75-99) mg/dL 05/23/21 05/23/21 Range/Units 07:03 11:43 BUN 91 H (7-17) mg/dL Creatinine 2.51 H (0.52-1.04) mg/dL Glucose 125 H (74-99) mg/dL POC Glucose (mg/dL) 151 H (75-99) mg/dL
[2021-05-23 16:30] LABS: Glucose,Whole Blood 127 mg/dL (75-99)
[2021-05-23 19:57] LABS: Glucose,Whole Blood 159 mg/dL (75-99)
[2021-05-23] MEDS: ASPIRIN 81 MG PO SCH (20:29)
[2021-05-23] MEDS: MONTELUKAST 10 MG TAB PO SCH (20:30)
[2021-05-23] MEDS: FERROUS SULFATE 325 MG TAB PO SCH (20:30)
[2021-05-23] MEDS: MULTIVITAMINS, THERA 1 EACH TAB PO SCH (20:30)
[2021-05-23] MEDS: SERTRALINE 50 MG TAB PO SCH (20:30)
[2021-05-23] MEDS: CHOLECALCIFEROL 25 MCG (1000 IU) TABLET PO SCH (20:31)
[2021-05-24] MEDS: PANTOPRAZOLE 40 MG TABLET PO SCH (07:00)
[2021-05-24] MEDS: MIDODRINE 5 MG TAB PO SCH ×3 (07:00→17:29)
[2021-05-24] MEDS: INSULIN DETEMIR (LEVEMIR) 100 UNIT/ML SYR SQ SCH ×2 (07:01→20:39)
[2021-05-24] MEDS: LEVOTHYROXINE 137 MCG TAB PO SCH (07:01)
[2021-05-24] MEDS: INSULIN ASPART (NovoLOG) 100 UNIT/ML VIAL SQ SCH ×7 (07:01→20:40)
[2021-05-24 07:04] LABS: Glucose,Whole Blood 137 mg/dL (75-99)
[2021-05-24] MEDS: IPRATROPIUM-ALBUTEROL 3 ML NEB INHALATION SCH ×4 (07:20→20:09)
[2021-05-24 08:03] LABS: HCT 44.4 % (34.0-46.0); HGB 13.2 gm/dL (11.4-16.0); Hypochromasia Marked; MCH 31.9 pg (25.0-35.0); MCHC 29.7 g/dL (31.0-37.0); MCV 107.6 fL (80.0-100.0); Macrocytosis Marked; Mean Platelet Volume 9.2; RBC 4.12 m/uL (3.80-5.40); RDW 14.8 % (11.5-15.5); WBC 5.1 k/uL (3.8-10.6)
[2021-05-24 08:18] LABS: Albumin 3.2 g/dL (3.5-5.0); Calcium 9.1 mg/dL (8.4-10.2); Total Bilirubin 0.5 mg/dL (0.2-1.3); Total Protein 6.4 g/dL (6.3-8.2)
[2021-05-24] MEDS: TORSEMIDE 20 MG TAB PO SCH (08:28)
[2021-05-24] MEDS: metOLazone 5 MG TAB PO SCH (08:28)
[2021-05-24] MEDS: METOPROLOL TARTRATE 12.5 MG TAB PO SCH ×2 (08:29→20:39)
[2021-05-24] MEDS: GABAPENTIN 300 MG CAP PO SCH ×3 (08:29→20:39)
[2021-05-24 08:45] LABS: Platelet Count 84 k/uL (150-450)
[2021-05-24 08:47] LABS: Potassium 4.6 mmol/L (3.5-5.1)
--- NOTE | 2021-05-24 10:13 | P.PN ---
Subjective Progress Note Date: 05/24/21 History of present illness This is a 75-year-old female patient of Dr. Ruiz Chao with past medical history of chronic kidney disease stage III, chronic diastolic heart failure, chronic atrial fibrillation not on anticoagulation due to history of GI bleed, diabetes mellitus type 2, hypertension, hyperlipidemia, hypothyroidism, history of GI bleed, morbid obesity with BMI of 52, remote history of tobacco use and dependence, congestive heart failure with last ejection fraction reported on 04/24 was 25-30% with mild aortic valve sclerosis trace aortic regurgitation and mild mitral regurgitation and moderate tricuspid regurgitation and mild pulmonary hypertension. last hospitalized on 04/24 to 04/28 for nausea or vomiting, diarrhea and abdominal pain. Patient was noted to be increasingly weak and unable to stand. She was seen by PT and OT and recommended subacute rehab. Patient was discharged to [facility] on 04/30 with no improvement in weakness patient was discharged yesterday. Patient came into the hospital d with increasing weakness and inability to stand. Patient's last fall was 3-4 months ago. Patient denies any shortness of breath chest pain or abdominal pain. She denies any diarrhea or vomiting. In the ER patient was noted increasingly weak. Vital suggest temporal 97.9 pulse 85 respiratory rate 20 blood pressure 123/59 labs obtained patient had WBC of 6.1 hemoglobin 12.8 sodium 140 potassium 6.6 BUN 98 increased from 46 creatinine was 2.9 which is close to baseline her liver enzymes were elevated with AST of 48 ALT 47 alkaline phosphatase 297 urinalysis positive for infection with cloudy appearance specimen gravity 1.015 trace blood and moderate leukocyte Estrace and few bacteria troponin 1 was negative phosphorus was high 6.3. R epeat labs suggestive of an improvement of creatinine 2.79 BUN 95 blood sugar ranging from 97-154 proBNP 10,000 EKG suggestive of A. fibWith no ST or T-wave changes Chest x-ray it is her of congestive heart failure with increased pulmonary congestion and fluid compared to last exam Echocardiogram 04/24 ejection fraction was 25-30% with mild aortic valve sclerosis trace aortic regurgitation and mild mitral regurgitation and moderate tricuspid regurgitation and mild pulmonary hypertension. 05/19: Patient is afebrile, heart rate 69, blood pressure 112/73, pulse ox 98% on 2 L nasal cannula. Repeat blood work reveals sodium 139, potassium 5.15, chloride 107, CO2 26, BUN 91 and creatinine 2.75 which is improving. Blood s ugars are running between 80 and 154. Urine culture is in progress. Patient is followed by nephrology. Continue IV Lasix, low potassium diet and avoid nephrotoxins. Patient is also been seen by cardiology for acute on chronic systolic heart failure and recommends continuing hearing Garcia catheter to assess urine output. 05/20: Patient is seen in follow-up today. She continues to have significant lower extremity edema for which Lasix will be increased to 60 mg twice daily. Repeat chest x-ray will be ordered. Orthopedic spine has evaluated the patient recommends MRI of the lumbar spine and an open facility. Case management will work with orthopedics to make arrangements which would be transferring the patient to [facility] for the test. Patient remains afebrile, heart rate 72, blood pressure 101/65, pulse ox 90% on 2 L nasal cannula. Repeat blood work reveals sodium 139, potassium 5.8, chloride 108, CO2 23, BUN 92 and creatinine 2.54 which is her baseline. Blood sugars are running between 123 and 168. Urine culture finalized with skin marcial. We will hold on discontinuing Levaquin until repeat chest x-ray rules out pneumonia. Patient has been evaluated by PT and OT and recommendations orders for subacute rehab. 05/21: Patient is continued on Lasix 60 mg IV every 12 hours and metolazone 5 mg daily. Patient is followed by cardiology and nephrology. Patient has been afebrile, heart rate 65, blood pressure 113/58, pulse ox 97% on 3 L nasal cannula. Repeat blood work reveals normal electrolytes. BUN 89 creatinine 2.65. Blood sugars are running between 110 and 162. Discharge plan is for [facility] and insurance authorization is pending. Anticipate discharge on or Wednesday. 05/22: Discussed case with Dr. Pérez and he has transitioned the patient to tor semide 40 mg daily and continue metolazone 5 mg daily. Patient denies any new complaints. Patient's son was updated yesterday via phone call. Patient has been afebrile, heart rate 71, blood pressure 126/65 and pulse ox 97% on 2 L nasal cannula. Repeat blood work reveals WBC 5.6, hemoglobin 12, platelet count 146. Electrolytes are all within normal limits. BUN 89 creatinine 2.71. Blood sugars are running between 121 and 222. Alkaline phosphatase 212 otherwise liver function tests are normal. Albumin 2.9. Insurance authorization has been obtained for subacute rehab. Patient will be discharged today once arrangements are completed. 05/23: Patient was not discharged yesterday as insurance authorization is still pending and now requires a [id number] which will be completed today. She is found today sitting up in a chair but continues to have significant weakness especially of the lower extremities. Patient with definite benefit from subacute rehab. She has been afebrile, heart rate in the 60s and 70s, blood pressure 147/54, pulse ox 90% on 2 L nasal cannula. Sodium 138, potassium 3.8, chloride 104, CO2 27, BUN 91 creatinine 2.51. Blood sugars are running between 116 and 164. Magnesium 2.0. Patient will be discharged today once insurance authorization has been obtained. 05/24/: Still awaiting insurance authorization for transfer to an subacute rehab. Patient previously was at [facility]. Patient is found sitting up in bed today without any complaints or concerns. She states that her weakness has improved. However she still continues to have significant weakness to the lower extremities. Patient would benefit from subacute rehab. Patient has been afebrile, heart rate 62, respirations 18 blood pressure 132/65 pulse ox 96% on 2 L. Of UC 5.1, hemoglobin 13.2, platelets 84, potassium 4.6, BUN 93, creatinine 2.35. ROS Constitutional: Denies chills, Denies fever, endorses lethargy, endorses malaise, Denies poor appetite, endorses weakness, Denies weight loss Eyes: denies decreased vision, denies diplopia, denies discharge, denies pain Ears: deny: decreased hearing Ears, nose, mouth and throat: Denies dental pain, Denies headache, Denies nasal discharge, Denies nose pain Cardiovascular: Denies chest pain, Denies decreased exercise tolerance, noted edema, Denies high blood pressure, Denies irregular heart beat, Denies palpitations, Denies paroxysmal nocturnal dyspnea, Denies rapid heart beat, Denies shortness of breath Respiratory: Denies congestion, Denies cough, Denies cough with sputum, Denies dyspnea, Denies home oxygen, Denies wheezing Gastrointestinal: Denies abdominal pain, Denies change in bowel habits, Denies coffee ground emesis, Denies early satiety, Denies excessive gas, Denies heartburn, Denies hematemesis, Denies hematochezia, Denies loss of appetite, Denies nausea, Denies vomiting Genitourinary: Denies dysuria, Denies flank pain, Denies kidney stones, Denies menorrhagia, Denies urgency, Denies urinary frequency Musculoskeletal: Endorses limitation of motion, difficulty we will to move her legs, Denies morning stiffness, Denies muscle cramps Integumentary: Denies rash, Denies wounds, Denies brittle nails, Denies change in hair/nails, Denies darkening of skin Neurological: Endorses balance difficulties, Denies change in speech, Denies double vision, Denies gait dysfunction, Denies loss of vision, Denies motor disturbance, Denies numbness, Denies paralysis, Denies paresthesias, Denies seizures Psychiatric: Denies anxiety, Denies depression Endocrine: Denies excessive sweating, Denies excessive thirst, Denies high blood sugars, Denies palpitations Hematologic/Lymphatic: Denies easy bruising, Denies lymphadenopathy Physical exam - Constitutional General appearance: cooperative, no acute distress, morbidly obese - EENT Eyes: anicteric sclerae, PERRLA, normal appearance ENT: hearing grossly normal - Neck Neck: no lymphadenopathy, normal ROM, no other, no rigidity, no stridor, no thyromegaly - Respiratory Respiratory: bilateral: CTA, negative: diminished, dullness, rales, rhonchi - Cardiovascular Rhythm: regular Heart sounds: normal: S1, S2 Abnormal Heart Sounds: no systolic murmur, no diastolic murmur, no rub, no S3 Gallop, no S4 Gallop, no click, bilateral 3+ pitting edema - Gastrointestinal General gastrointestinal: normal bowel sounds, soft distended with 2+ pitting edema - Integumentary Integumentary: no rash - Neurologic Neurologic: Inability to move lower extremity. Sensation intact decreased reflexes bilaterally - Musculoskeletal Musculoskeletal: Bilateral reduced strength bilateral lower extremity 3+/5 on the left and 3/5 on the right, pedal edema bilaterally 1+. - Psychiatric Psychiatric: A&O x's 3, appropriate affect Assessment and plan 1. Bilateral lower extremity weakness and debility with history of fall 2 months ago. Orthospine consulted, Sensory intact but patient has significant weakness in lower extremity Consult PT and OT. Patient will require open MRI if orthopedics wants to pursue this. This would be done at [facility]. 2. Hyperkalemia likely secondary to cardiorenal syndrome and acute kidney injury. Nephrology consulted. Status post 2 gram calcium gluconate, insulin and D50. Kayexalate ordered hold losartan. Continue to monitor electrolytes. 3. Acute acute on chronic systolic heart failure. Unclear if ischemic or nonischemic. Patient has chronic kidney disease stage III with acute kidney injury. Need cardiac cath per cardiology as outpatient Monitor GARTH's and daily weight IV Lasix transitioned to oral torsemide, continue metolazone, continue Lopressor twice a day. Cardiology consulted 4. Hypertension. Hold losartan 100 mg daily, continue Lopressor 12.5 mg twice a day 5. Acute kidney injury secondary to ATN with chronic kidney disease stage III. Hold losartan. Patient has poor perfusion of the kidneys from congestive heart failure. Creatinine baseline 2.5. Nephrology consult appreciated. 6. Acute transaminitis secondary to poor perfusion from heart failure 7. Chronic atrial fibrillation. Continue Lopressor. Not on anticoagulation due to history of GI bleed 8. Diabetes mellitus type 2. Continue Levemir 25 units twice daily and NovoLog 5 units with meals and NovoLog scale 9. Hypothyroidism. Continue levothyroxine 137 g daily. 10. Urinary tract infection UA positive for infecion, he was oxacillin 11. Diabetic neuropathy. Continue gabapentin 300 mg 3 times daily 12. Hyperlipidemia. Continue atorvastatin 20 mg at bedtime. 13. Chronic kidney disease stage III. 14. GI prophylaxis. Protonix 40 mg daily. 15. DVT prophylaxis. SCDs and PARDEEP hose. 16. Morbid obesity. BMI of 52.7. Diet and exercise. DISCHARGE PLAN Subacute rehab once insurance authorization is obtained. Impression and plan of care have been directed as dictated by the signing physician. Gracia Curz nurse practitioner acting as scribe for signing physician. Objective - Vital Signs Vital signs: Vital Signs Temp 97.9 F 05/24/21 08:00 Pulse 62 05/24/21 08:00 Resp 18 05/24/21 08:00 BP 132/65 05/24/21 08:00 Pulse Ox 96 05/24/21 08:00 Intake & Output 05/23/21 05/24/21 05/24/21 18:59 06:59 18:59 Intake Total 580 420 Output Total 600 Balance -20 420 Weight 136 kg Intake: Oral 580 420 Output: Urine 600 Other: Voiding Method External Catheter External Catheter External Catheter - Labs CBC & Chem 7: 05/24/21 07:36 05/24/21 07:36 Labs: Abnormal Lab Results - Last 24 Hours (Table) 05/23/21 05/23/21 05/23/21 Range/Units 11:43 16:29 19:55 MCV (80.0-100.0) fL MCHC (31.0-37.0) g/dL Plt Count (150-450) k/uL Macrocytosis BUN (7-17) mg/dL Creatinine (0.52-1.04) mg/dL Glucose (74-99) mg/dL POC Glucose (mg/dL) 151 H 127 H 159 H (75-99) mg/dL Alkaline Phosphatase (38-126) U/L Albumin (3.5-5.0) g/dL 05/24/21 05/24/21 05/24/21 Range/Units 07:02 07:36 07:36 MCV 107.6 H (80.0-100.0) fL MCHC 29.7 L (31.0-37.0) g/dL Plt Count 84 L (150-450) k/uL Macrocytosis Marked A BUN 93 H (7-17) mg/dL Creatinine 2.35 H (0.52-1.04) mg/dL Glucose 154 H (74-99) mg/dL POC Glucose (mg/dL) 137 H (75-99) mg/dL Alkaline Phosphatase 195 H (38-126) U/L Albumin 3.2 L (3.5-5.0) g/dL
[2021-05-24 12:02] LABS: Glucose,Whole Blood 118 mg/dL (75-99)
--- NOTE | 2021-05-24 12:07 | PN ---
PROGRESS NOTE The patient is seen for followup for acute kidney injury on top of chronic kidney disease. The patient is currently being diuresed. She is maintained on oral diuretics including Zaroxolyn and Demadex. EXAMINATION: Today patient is comfortable. Blood pressure 132/65, heart rate 56 per minute, she is afebrile. Examination of the heart S1, S2. Examination of the lungs, bilateral breath sounds are heard. Abdomen is soft, obese. Exam of lower extremities shows edema 2+ bilaterally. [employer] exam grossly intact. LAB: Show sodium 138, potassium 4.6, chloride 102, BUN 93, serum creatinine 2.35, hemoglobin 13.2 g/dL. ASSESSMENT: 1. Acute kidney injury, cardiorenal/ATN. Serum creatinine is slightly better. Currently maintained on oral diuretics which we will continue. 2. Chronic kidney disease stage 3B, with baseline creatinine close to 2. 3. Acute on chronic systolic congestive heart failure. 4. Cardiomyopathy, ejection fraction 25%. 5. Hyperkalemia associated with acute kidney injury, use of angiotensin receptor blockers, currently improved. PLAN: Continue with current dose of oral diuretics. Encourage increased oral intake, particularly protein. Maintain salt and fluid restriction. MMODL / IJN: [id number] /
[2021-05-24] MEDS: LEVOFLOXACIN 250 MG TAB PO SCH (16:18)
[2021-05-24 17:01] LABS: Glucose,Whole Blood 184 mg/dL (75-99)
[2021-05-24 20:04] LABS: Glucose,Whole Blood 152 mg/dL (75-99)
[2021-05-24] MEDS: ASPIRIN 81 MG PO SCH (20:38)
[2021-05-24] MEDS: FERROUS SULFATE 325 MG TAB PO SCH (20:39)
[2021-05-24] MEDS: CHOLECALCIFEROL 25 MCG (1000 IU) TABLET PO SCH (20:39)
[2021-05-24] MEDS: SERTRALINE 50 MG TAB PO SCH (20:39)
[2021-05-24] MEDS: MULTIVITAMINS, THERA 1 EACH TAB PO SCH (20:39)
[2021-05-24] MEDS: MONTELUKAST 10 MG TAB PO SCH (20:39)
[2021-05-25 07:10] LABS: Glucose,Whole Blood 128 mg/dL (75-99)
[2021-05-25] MEDS: IPRATROPIUM-ALBUTEROL 3 ML NEB INHALATION SCH ×4 (07:46→21:00)
[2021-05-25] MEDS: GABAPENTIN 300 MG CAP PO SCH ×3 (08:49→21:21)
[2021-05-25] MEDS: METOPROLOL TARTRATE 12.5 MG TAB PO SCH ×2 (08:50→21:20)
[2021-05-25] MEDS: PANTOPRAZOLE 40 MG TABLET PO SCH (08:50)
[2021-05-25] MEDS: MIDODRINE 5 MG TAB PO SCH ×3 (08:50→15:46)
[2021-05-25] MEDS: LEVOTHYROXINE 137 MCG TAB PO SCH (08:50)
[2021-05-25] MEDS: INSULIN ASPART (NovoLOG) 100 UNIT/ML VIAL SQ SCH ×7 (08:51→21:21)
[2021-05-25] MEDS: INSULIN DETEMIR (LEVEMIR) 100 UNIT/ML SYR SQ SCH ×2 (08:51→21:22)
[2021-05-25] MEDS: metOLazone 5 MG TAB PO SCH (09:33)
[2021-05-25] MEDS: TORSEMIDE 20 MG TAB PO SCH ×2 (09:33→21:20)
--- NOTE | 2021-05-25 11:26 | P.PN ---
Subjective Progress Note Date: 05/25/21 History of present illness This is a 75-year-old female patient of Dr. Ruiz Chao with past medical history of chronic kidney disease stage III, chronic diastolic heart failure, chronic atrial fibrillation not on anticoagulation due to history of GI bleed, diabetes mellitus type 2, hypertension, hyperlipidemia, hypothyroidism, history of GI bleed, morbid obesity with BMI of 52, remote history of tobacco use and dependence, congestive heart failure with last ejection fraction reported on 04/24 was 25-30% with mild aortic valve sclerosis trace aortic regurgitation and mild mitral regurgitation and moderate tricuspid regurgitation and mild pulmonary hypertension. last hospitalized on 04/24 to 04/28 for nausea or vomiting, diarrhea and abdominal pain. Patient was noted to be increasingly weak and unable to stand. She was seen by PT and OT and recommended subacute rehab. Patient was discharged to [facility] on 04/30 with no improvement in weakness patient was discharged yesterday. Patient came into the hospital d with increasing weakness and inability to stand. Patient's last fall was 3-4 months ago. Patient denies any shortness of breath chest pain or abdominal pain. She denies any diarrhea or vomiting. In the ER patient was noted increasingly weak. Vital suggest temporal 97.9 pulse 85 respiratory rate 20 blood pressure 123/59 labs obtained patient had WBC of 6.1 hemoglobin 12.8 sodium 140 potassium 6.6 BUN 98 increased from 46 creatinine was 2.9 which is close to baseline her liver enzymes were elevated with AST of 48 ALT 47 alkaline phosphatase 297 urinalysis positive for infection with cloudy appearance specimen gravity 1.015 trace blood and moderate leukocyte Estrace and few bacteria troponin 1 was negative phosphorus was high 6.3. R epeat labs suggestive of an improvement of creatinine 2.79 BUN 95 blood sugar ranging from 97-154 proBNP 10,000 EKG suggestive of A. fibWith no ST or T-wave changes Chest x-ray it is her of congestive heart failure with increased pulmonary congestion and fluid compared to last exam Echocardiogram 04/24 ejection fraction was 25-30% with mild aortic valve sclerosis trace aortic regurgitation and mild mitral regurgitation and moderate tricuspid regurgitation and mild pulmonary hypertension. 05/19: Patient is afebrile, heart rate 69, blood pressure 112/73, pulse ox 98% on 2 L nasal cannula. Repeat blood work reveals sodium 139, potassium 5.15, chloride 107, CO2 26, BUN 91 and creatinine 2.75 which is improving. Blood s ugars are running between 80 and 154. Urine culture is in progress. Patient is followed by nephrology. Continue IV Lasix, low potassium diet and avoid nephrotoxins. Patient is also been seen by cardiology for acute on chronic systolic heart failure and recommends continuing hearing Garcia catheter to assess urine output. 05/20: Patient is seen in follow-up today. She continues to have significant lower extremity edema for which Lasix will be increased to 60 mg twice daily. Repeat chest x-ray will be ordered. Orthopedic spine has evaluated the patient recommends MRI of the lumbar spine and an open facility. Case management will work with orthopedics to make arrangements which would be transferring the patient to [place] for the test. Patient remains afebrile, heart rate 72, blood pressure 101/65, pulse ox 90% on 2 L nasal cannula. Repeat blood work reveals sodium 139, potassium 5.8, chloride 108, CO2 23, BUN 92 and creatinine 2.54 which is her baseline. Blood sugars are running between 123 and 168. Urine culture finalized with skin marcial. We will hold on discontinuing Levaquin until repeat chest x-ray rules out pneumonia. Patient has been evaluated by PT and OT and recommendations orders for subacute rehab. 05/21: Patient is continued on Lasix 60 mg IV every 12 hours and metolazone 5 mg daily. Patient is followed by cardiology and nephrology. Patient has been afebrile, heart rate 65, blood pressure 113/58, pulse ox 97% on 3 L nasal cannula. Repeat blood work reveals normal electrolytes. BUN 89 creatinine 2.65. Blood sugars are running between 110 and 162. Discharge plan is for [facility] and insurance authorization is pending. Anticipate discharge on or Wednesday. 05/22: Discussed case with Dr. Pérez and he has transitioned the patient to tor semide 40 mg daily and continue metolazone 5 mg daily. Patient denies any new complaints. Patient's son was updated yesterday via phone call. Patient has been afebrile, heart rate 71, blood pressure 126/65 and pulse ox 97% on 2 L nasal cannula. Repeat blood work reveals WBC 5.6, hemoglobin 12, platelet count 146. Electrolytes are all within normal limits. BUN 89 creatinine 2.71. Blood sugars are running between 121 and 222. Alkaline phosphatase 212 otherwise liver function tests are normal. Albumin 2.9. Insurance authorization has been obtained for subacute rehab. Patient will be discharged today once arrangements are completed. 05/23: Patient was not discharged yesterday as insurance authorization is still pending and now requires a [id number] which will be completed today. She is found today sitting up in a chair but continues to have significant weakness especially of the lower extremities. Patient with definite benefit from subacute rehab. She has been afebrile, heart rate in the 60s and 70s, blood pressure 147/54, pulse ox 90% on 2 L nasal cannula. Sodium 138, potassium 3.8, chloride 104, CO2 27, BUN 91 creatinine 2.51. Blood sugars are running between 116 and 164. Magnesium 2.0. Patient will be discharged today once insurance authorization has been obtained. 05/24/: Still awaiting insurance authorization for transfer to an subacute rehab. Patient previously was at [facility]. Patient is found sitting up in bed today without any complaints or concerns. She states that her weakness has improved. However she still continues to have significant weakness to the lower extremities. Patient would benefit from subacute rehab. Patient has been afebrile, heart rate 62, respirations 18 blood pressure 132/65 pulse ox 96% on 2 L. WBC 5.1, hemoglobin 13.2, platelets 84, potassium 4.6, BUN 93, creatinine 2.35. 05/25: Patient is found resting comfortably in bed without any complaints or concerns. Still awaiting insurance authorization for transfer to subacute rehab. Hopefully this will happen on Wednesday. Patient states that her weakness has improved. She however she continues to have weakness of the lower extremities that would benefit from subacute rehab. Patient has been afebrile, heart rate 58, respirations 18, blood pressure 156/88 pulse ox 96% on room air. ROS Constitutional: Denies chills, Denies fever, endorses lethargy, endorses malaise, Denies poor appetite, endorses weakness, Denies weight loss Eyes: denies decreased vision, denies diplopia, denies discharge, denies pain Ears: deny: decreased hearing Ears, nose, mouth and throat: Denies dental pain, Denies headache, Denies nasal discharge, Denies nose pain Cardiovascular: Denies chest pain, Denies decreased exercise tolerance, noted edema, Denies high blood pressure, Denies irregular heart beat, Denies palpitations, Denies paroxysmal nocturnal dyspnea, Denies rapid heart beat, Denies shortness of breath Respiratory: Denies congestion, Denies cough, Denies cough with sputum, Denies dyspnea, Denies home oxygen, Denies wheezing Gastrointestinal: Denies abdominal pain, Denies change in bowel habits, Denies coffee ground emesis, Denies early satiety, Denies excessive gas, Denies heartburn, Denies hematemesis, Denies hematochezia, Denies loss of appetite, Denies nausea, Denies vomiting Genitourinary: Denies dysuria, Denies flank pain, Denies kidney stones, Denies menorrhagia, Denies urgency, Denies urinary frequency Musculoskeletal: Endorses limitation of motion, difficulty we will to move her legs, Denies morning stiffness, Denies muscle cramps Integumentary: Denies rash, Denies wounds, Denies brittle nails, Denies change in hair/nails, Denies darkening of skin Neurological: Endorses balance difficulties, Denies change in speech, Denies double vision, Denies gait dysfunction, Denies loss of vision, Denies motor disturbance, Denies numbness, Denies paralysis, Denies paresthesias, Denies seizures Psychiatric: Denies anxiety, Denies depression Endocrine: Denies excessive sweating, Denies excessive thirst, Denies high blood sugars, Denies palpitations Hematologic/Lymphatic: Denies easy bruising, Denies lymphadenopathy Physical exam - Constitutional General appearance: cooperative, no acute distress, morbidly obese - EENT Eyes: anicteric sclerae, PERRLA, normal appearance ENT: hearing grossly normal - Neck Neck: no lymphadenopathy, normal ROM, no other, no rigidity, no stridor, no thyromegaly - Respiratory Respiratory: bilateral: CTA, negative: diminished, dullness, rales, rhonchi - Cardiovascular Rhythm: regular Heart sounds: normal: S1, S2 Abnormal Heart Sounds: no systolic murmur, no diastolic murmur, no rub, no S3 Gallop, no S4 Gallop, no click, bilateral 3+ pitting edema - Gastrointestinal General gastrointestinal: normal bowel sounds, soft distended with 2+ pitting edema - Integumentary Integumentary: no rash - Neurologic Neurologic: Inability to move lower extremity. Sensation intact decreased reflexes bilaterally - Musculoskeletal Musculoskeletal: Bilateral reduced strength bilateral lower extremity 3+/5 on the left and 3/5 on the right, pedal edema bilaterally 1+. - Psychiatric Psychiatric: A&O x's 3, appropriate affect Assessment and plan 1. Bilateral lower extremity weakness and debility with history of fall 2 months ago. Orthospine consulted, Sensory intact but patient has significant weakness in lower extremity Consult PT and OT. Patient will require open MRI if orthopedics wants to pursue this. This would be done at [place]. 2. Hyperkalemia likely secondary to cardiorenal syndrome and acute kidney injury. Nephrology consulted. Status post 2 gram calcium gluconate, insulin and D50. Kayexalate ordered hold losartan. Continue to monitor electrolytes. 3. Acute acute on chronic systolic heart failure. Unclear if ischemic or nonischemic. Patient has chronic kidney disease stage III with acute kidney injury. Need cardiac cath per cardiology as outpatient Monitor GARTH's and daily weight IV Lasix transitioned to oral torsemide, continue metolazone, continue Lopressor twice a day. Cardiology consulted 4. Hypertension. Hold losartan 100 mg daily, continue Lopressor 12.5 mg twice a day 5. Acute kidney injury secondary to ATN with chronic kidney disease stage III. Hold losartan. Patient has poor perfusion of the kidneys from congestive heart failure. Creatinine baseline 2.5. Nephrology consult appreciated. 6. Acute transaminitis secondary to poor perfusion from heart failure 7. Chronic atrial fibrillation. Continue Lopressor. Not on anticoagulation due to history of GI bleed 8. Diabetes mellitus type 2. Continue Levemir 25 units twice daily and NovoLog 5 units with meals and NovoLog scale 9. Hypothyroidism. Continue levothyroxine 137 g daily. 10. Urinary tract infection UA positive for infecion, he was oxacillin 11. Diabetic neuropathy. Continue gabapentin 300 mg 3 times daily 12. Hyperlipidemia. Continue atorvastatin 20 mg at bedtime. 13. Chronic kidney disease stage III. 14. GI prophylaxis. Protonix 40 mg daily. 15. DVT prophylaxis. SCDs and PARDEEP hose. 16. Morbid obesity. BMI of 52.7. Diet and exercise. DISCHARGE PLAN Subacute rehab once insurance authorization is obtained. Impression and plan of care have been directed as dictated by the signing physician. Gracia Cruz nurse practitioner acting as scribe for signing physician. Objective - Vital Signs Vital signs: Vital Signs Temp 97.7 F 05/25/21 08:00 Pulse 55 L 05/25/21 08:00 Resp 18 05/25/21 08:00 BP 117/58 05/25/21 08:00 Pulse Ox 100 05/25/21 08:00 Intake & Output 05/24/21 05/25/21 05/25/21 18:59 06:59 18:59 Intake Total 660 Output Total 550 725 Balance 110 -725 Weight 111.5 kg Intake: Oral 660 Output: Urine 550 725 Other: Voiding Method External Catheter External Catheter # Bowel Movements 1 - Labs CBC & Chem 7: 05/24/21 07:36 05/24/21 07:36 Labs: Abnormal Lab Results - Last 24 Hours (Table) 05/24/21 05/24/21 05/24/21 Range/Units 11:59 16:58 20:02 POC Glucose (mg/dL) 118 H 184 H 152 H (75-99) mg/dL 05/25/21 Range/Units 07:08 POC Glucose (mg/dL) 128 H (75-99) mg/dL
[2021-05-25 11:33] LABS: Glucose,Whole Blood 185 mg/dL (75-99)
--- NOTE | 2021-05-25 12:24 | PN ---
PROGRESS NOTE Patient is seen for followup for chronic kidney disease and acute kidney injury. Currently she is being diuresed for volume overload. Diuretics are p.o. with Zaroxolyn 5 mg daily and Demadex 40 mg p.o. daily. Renal function has been fairly stable. The patient has an external catheter. A 24 hour urine output was 2.4 L. PHYSICAL EXAMINATION: On examination today, blood pressure 117/58, heart rate 55 per minute, she is afebrile. Examination of the heart S1, S2. Examination of the lungs, bilateral breath sounds are heard. Decreased breath sounds at bases. Abdomen is soft, obese. Exam of lower extremities: Edema 2+ bilaterally. SENIOR REPORT DEVELOPER exam grossly intact. LAB: Show sodium 138 on 05/24/2021, potassium 4.6, BUN 93, creatinine 2.3. ASSESSMENT: 1. Acute kidney injury, cardiorenal, renal function stable. 2. Chronic kidney disease secondary to nephrosclerosis, cardiorenal syndrome. Baseline creatinine about 2. 3. Acute on chronic systolic congestive heart failure. 4. Cardiomyopathy, ejection fraction 25%. 5. Hyperkalemia associated with acute kidney injury, use of angiotensin receptor blockers, currently improved. 6. Volume overload. The patient remains with significant edema. I will increase the Demadex to 40 mg b.i.d., continue with Zaroxolyn. PLAN: Increase Demadex to 40 mg b.i.d. Continue with the Zaroxolyn daily and monitor labs closely post discharge. MMODL / IJN: [id number] /
[2021-05-25 16:26] LABS: Glucose,Whole Blood 210 mg/dL (75-99)
[2021-05-25 20:36] LABS: Glucose,Whole Blood 184 mg/dL (75-99)
[2021-05-25] MEDS: MONTELUKAST 10 MG TAB PO SCH (21:20)
[2021-05-25] MEDS: FERROUS SULFATE 325 MG TAB PO SCH (21:20)
[2021-05-25] MEDS: MULTIVITAMINS, THERA 1 EACH TAB PO SCH (21:21)
[2021-05-25] MEDS: SERTRALINE 50 MG TAB PO SCH (21:21)
[2021-05-25] MEDS: CHOLECALCIFEROL 25 MCG (1000 IU) TABLET PO SCH (21:21)
[2021-05-26] MEDS: LEVOTHYROXINE 137 MCG TAB PO SCH (05:57)
[2021-05-26 07:01] LABS: Glucose,Whole Blood 104 mg/dL (75-99)
[2021-05-26] MEDS: INSULIN ASPART (NovoLOG) 100 UNIT/ML VIAL SQ SCH ×4 (07:55→13:33)
[2021-05-26] MEDS: IPRATROPIUM-ALBUTEROL 3 ML NEB INHALATION SCH ×2 (08:15→12:06)
[2021-05-26] MEDS: INSULIN DETEMIR (LEVEMIR) 100 UNIT/ML SYR SQ SCH (09:12)
[2021-05-26] MEDS: GABAPENTIN 300 MG CAP PO SCH (09:13)
[2021-05-26] MEDS: metOLazone 5 MG TAB PO SCH (09:13)
[2021-05-26] MEDS: MIDODRINE 5 MG TAB PO SCH ×2 (09:13→13:33)
[2021-05-26] MEDS: METOPROLOL TARTRATE 12.5 MG TAB PO SCH (09:13)
[2021-05-26] MEDS: PANTOPRAZOLE 40 MG TABLET PO SCH (09:13)
[2021-05-26] MEDS: TORSEMIDE 20 MG TAB PO SCH (09:14)
[2021-05-26 11:22] LABS: Glucose,Whole Blood 216 mg/dL (75-99)
--- NOTE | 2021-05-26 11:25 | P.DS ---
Providers Date of admission: 05/17/21 17:30 Expected date of discharge: 05/26/21 Attending physician: Marycruz Ugarte MD Consults: 05/17/21 18:59 Consult Physician Routine Consulting Provider: Jerod Mello Consult Reason/Comments: Renal insufficiency, hypercholesterolemia, hypophosphatemia Do you want consulting provider notified?: Yes 05/18/21 13:48 Consult Physician Routine Consulting Provider: Josef Riley Consult Reason/Comments: Le weakness, h/o fall Do you want consulting provider notified?: Yes Primary care physician: Ruiz Limaksarmida [facility] Hospital Course: History of present illness This is a 75-year-old female patient of Dr. Ruiz Chao with past medical history of chronic kidney disease stage III, chronic diastolic heart failure, chronic atrial fibrillation not on anticoagulation due to history of GI bleed, diabetes mellitus type 2, hypertension, hyperlipidemia, hypothyroidism, history of GI bleed, morbid obesity with BMI of 52, remote history of tobacco use and dependence, congestive heart failure with last ejection fraction reported on 04/24 was 25-30% with mild aortic valve sclerosis trace aortic regurgitation and mild mitral regurgitation and moderate tricuspid regurgitation and mild pulmonary hypertension. last hospitalized on 04/24 to 04/28 for nausea or vomiting, diarrhea and abdominal pain. Patient was noted to be increasingly weak and unable to stand. She was seen by PT and OT and recommended subacute rehab. Patient was discharged to [facility] on 04/30 with no improvement in weakness patient was discharged yesterday. Patient came into the hospital d with increasing weakness and inability to stand. Patient's last fall was 3-4 months ago. Patient denies any shortness of breath chest pain or abdominal pain. She denies any diarrhea or vomiting. In the ER patient was noted increasingly weak. Vital suggest temporal 97.9 pulse 85 respiratory rate 20 blood pressure 123/59 labs obtained patient had WBC of 6.1 hemoglobin 12.8 sodium 140 potassium 6.6 BUN 98 increased from 46 creatinine was 2.9 which is close to baseline her liver enzymes were elevated with AST of 48 ALT 47 alkaline phosphatase 297 urinalysis positive for infection with cloudy appearance specimen gravity 1.015 trace blood and moderate leukocyte Estrace and few bacteria troponin 1 was negative phosphorus was high 6.3. Repeat labs suggestive of an improvement of creatinine 2.79 BUN 95 blood sugar ranging from 97-154 proBNP 10,000 EKG suggestive of A. fibWith no ST or T-wave changes Chest x-ray it is her of congestive heart failure with increased pulmonary congestion and fluid compared to last exam Echocardiogram 04/24 ejection fraction was 25-30% with mild aortic valve sclerosis trace aortic regurgitation and mild mitral regurgitation and moderate tricuspid regurgitation and mild pulmonary hypertension. 05/19: Patient is afebrile, heart rate 69, blood pressure 112/73, pulse ox 98% on 2 L nasal cannula. Repeat blood work reveals sodium 139, potassium 5.15, chloride 107, CO2 26, BUN 91 and creatinine 2.75 which is improving. Blood sugars are running between 80 and 154. Urine culture is in progress. Patient is followed by nephrology. Continue IV Lasix, low potassium diet and avoid nephrotoxins. Patient is also been seen by cardiology for acute on chronic systolic heart failure and recommends continuing hearing Garcia catheter to assess urine output. 05/20: Patient is seen in follow-up today. She continues to have significant lower extremity edema for which Lasix will be increased to 60 mg twice daily. Repeat chest x-ray will be ordered. Orthopedic spine has evaluated the patient recommends MRI of the lumbar spine and an open facility. Case management will work with orthopedics to make arrangements which would be transferring the patient to [place] for the test. Patient remains afebrile, heart rate 72, blood pressure 101/65, pulse ox 90% on 2 L nasal cannula. Repeat blood work reveals sodium 139, potassium 5.8, chloride 108, CO2 23, BUN 92 and creatinine 2.54 which is her baseline. Blood sugars are running between 123 and 168. Urine culture finalized with skin marcial. We will hold on discontinuing Levaquin until repeat chest x-ray rules out pneumonia. Patient has been evaluated by PT and OT and recommendations orders for subacute rehab. 05/21: Patient is continued on Lasix 60 mg IV every 12 hours and metolazone 5 mg daily. Patient is followed by cardiology and nephrology. Patient has been afebrile, heart rate 65, blood pressure 113/58, pulse ox 97% on 3 L nasal cannula. Repeat blood work reveals normal electrolytes. BUN 89 creatinine 2.65. Blood sugars are running between 110 and 162. Discharge plan is for [facility] and insurance authorization is pending. Anticipate discharge on or Wednesday. 05/22: Discussed case with Dr. Pérez and he has transitioned the patient to torsemide 40 mg daily and continue metolazone 5 mg daily. Patient denies any new complaints. Patient's son was updated yesterday via phone call. Patient has been afebrile, heart rate 71, blood pressure 126/65 and pulse ox 97% on 2 L nasal cannula. Repeat blood work reveals WBC 5.6, hemoglobin 12, platelet count 146. Electrolytes are all within normal limits. BUN 89 creatinine 2.71. Blood sugars are running between 121 and 222. Alkaline phosphatase 212 otherwise liver function tests are normal. Albumin 2.9. Insurance authorization has been obtained for subacute rehab. Patient will be discharged today once arrangements are completed. 05/23: Patient was not discharged yesterday as insurance authorization is still pending and now requires a [id number] which will be completed today. She is found today sitting up in a chair but continues to have significant weakness especially of the lower extremities. Patient with definite benefit from subacute rehab. She has been afebrile, heart rate in the 60s and 70s, blood pressure 147/54, pulse ox 90% on 2 L nasal cannula. Sodium 138, potassium 3.8, chloride 104, CO2 27, BUN 91 creatinine 2.51. Blood sugars are running between 116 and 164. Magnesium 2.0. Patient will be discharged today once insurance authorization has been obtained. 05/24/: Still awaiting insurance authorization for transfer to an subacute rehab. Patient previously was at [facility]. Patient is found sitting up in bed today without any complaints or concerns. She states that her weakness has improved. However she still continues to have significant weakness to the lower extremities. Patient would benefit from subacute rehab. Patient has been afebrile, heart rate 62, respirations 18 blood pressure 132/65 pulse ox 96% on 2 L. WBC 5.1, hemoglobin 13.2, platelets 84, potassium 4.6, BUN 93, creatinine 2.35. 05/25: Patient is found resting comfortably in bed without any complaints or concerns. Still awaiting insurance authorization for transfer to subacute rehab. Hopefully this will happen on Wednesday. Patient states that her weakness has improved. She however she continues to have weakness of the lower extremities that would benefit from subacute rehab. Patient has been afebrile, heart rate 58, respirations 18, blood pressure 156/88 pulse ox 96% on room air. 05/26: Patient denies any new complaints. She has been waning over the weekend for insurance authorization. Patient remains afebrile, heart rate 56, blood pressure 116/62, pulse ox 98% on 2 L. Capillary blood glucose running between 104 and 216. The patient has been accepted at [facility] and will be discharged today in stable condition. Assessment and plan 1. Bilateral lower extremity weakness and debility with history of fall 2 months ago. 2. Hyperkalemia likely secondary to cardiorenal syndrome and acute kidney injury. 3. Acute acute on chronic systolic heart failure. 4. Hypertension. 5. Acute kidney injury secondary to ATN with chronic kidney disease stage III. 6. Acute transaminitis secondary to poor perfusion from heart failure 7. Chronic atrial fibrillation. 8. Diabetes mellitus type 2. 9. Hypothyroidism. 10. Urinary tract infection UA positive for infecion. 11. Diabetic neuropathy. 12. Hyperlipidemia. 13. Chronic kidney disease stage III. 14. Morbid obesity. BMI of 52.7. DISCHARGE PLAN [facility] Impression and plan of care have been directed as dictated by the signing physician. Mihaela Escudero nurse practitioner acting as scribe for signing physician. Patient Condition at Discharge: Good Plan - Discharge Summary Discharge Rx Participant: No New Discharge Prescriptions: New Levofloxacin [Levaquin] 250 mg PO Q48H #2 tab metOLazone [Zaroxolyn] 5 mg PO DAILY tab Torsemide [Demadex] 40 mg PO DAILY tab INSULIN ASPART (NovoLOG) [NovoLOG (formulary)] 0 unit SQ ACHS vial Midodrine [ProAmatine] 5 mg PO AC-TID tab Continue Cholecalciferol [Vitamin D3 (25 Mcg = 1000 Iu)] 25 mcg PO HS Sertraline [Zoloft] 50 mg PO HS Montelukast [Singulair] 10 mg PO HS Metoprolol Tartrate [Lopressor] 12.5 mg PO BID tab Clotrimazole Cream [Lotrimin Cream] 1 applic TOPICAL DAILY PRN applic PRN Reason: Rash Levothyroxine Sodium [Synthroid] 137 mcg PO DAILY@0630 tab Gabapentin [Neurontin] 300 mg PO TID #9 cap Ferrous Sulfate [Iron (65 MG Elemental)] 325 mg PO HS Ipratropium-Albuterol Nebulize [Duoneb 0.5 mg-3 mg/3 ml Soln] 3 ml INHALATION RT-QID ml INSULIN ASPART (NovoLOG) [NovoLOG (formulary)] 7 unit SQ AC-TID vial Aspirin 81 mg PO HS Multivit-Min/FA/Lycopen/Lutein [Centrum Silver Tablet] 1 tab PO HS Insulin Detemir [Levemir Flextouch] 25 units SQ BID Omeprazole 20 mg PO DAILY Discontinued Atorvastatin [Lipitor] 20 mg PO HS Furosemide [Lasix] 40 mg PO BID Losartan Potassium 100 mg PO DAILY Discharge Medication List Cholecalciferol [Vitamin D3 (25 Mcg = 1000 Iu)] 25 mcg PO HS 05/29/17 [History] Ferrous Sulfate [Iron (65 MG Elemental)] 325 mg PO HS 04/23/21 [History] Montelukast [Singulair] 10 mg PO HS 04/23/21 [History] Sertraline [Zoloft] 50 mg PO HS 04/23/21 [History] Clotrimazole Cream [Lotrimin Cream] 1 applic TOPICAL DAILY PRN applic 04/28/21 [Rx] INSULIN ASPART (NovoLOG) [NovoLOG (formulary)] 7 unit SQ AC-TID vial 04/28/21 [ Rx] Ipratropium-Albuterol Nebulize [Duoneb 0.5 mg-3 mg/3 ml Soln] 3 ml INHALATION RT-QID ml 04/28/21 [Rx] Levothyroxine Sodium [Synthroid] 137 mcg PO DAILY@0630 tab 04/28/21 [Rx] Metoprolol Tartrate [Lopressor] 12.5 mg PO BID tab 04/28/21 [Rx] Aspirin 81 mg PO HS 05/17/21 [History] Insulin Detemir [Levemir Flextouch] 25 units SQ BID 05/17/21 [History] Multivit-Min/FA/Lycopen/Lutein [Centrum Silver Tablet] 1 tab PO HS 05/17/21 [History] Omeprazole 20 mg PO DAILY 05/17/21 [History] Gabapentin [Neurontin] 300 mg PO TID #9 cap 05/22/21 [Rx] INSULIN ASPART (NovoLOG) [NovoLOG (formulary)] 0 unit SQ ACHS vial 05/22/21 [Rx] Levofloxacin [Levaquin] 250 mg PO Q48H #2 tab 05/22/21 [Rx] Midodrine [ProAmatine] 5 mg PO AC-TID tab 05/22/21 [Rx] Torsemide [Demadex] 40 mg PO DAILY tab 05/22/21 [Rx] metOLazone [Zaroxolyn] 5 mg PO DAILY tab 05/22/21 [Rx] Follow up Appointment(s)/Referral(s): Josef Riley DO [Doctor of Osteopathic Medicine] - 06/06/21 11:40 am (please arrive 15 minutes early to complete paperwork.) Ruiz Chao MD [Primary Care Provider] - 1 Week (After discharge from rehab) Activity/Diet/Wound Care/Special Instructions: Fluid restriction 1500 MLS daily. MRI of lumbar spine - [facility] - 05/30/21 @0907 Discharge Disposition: TRANSFER TO SNF/ECF
[2021-05-26 14:02] VITALS: BP 121/65; PULSE 67; RESP 17; TEMP 97.4
--- NOTE | 2021-05-26 15:29 | PN ---
PROGRESS NOTE Patient is seen for followup for chronic kidney disease. She is currently maintained on diuretics for volume overload and has been fairly stable. EXAMINATION: Today blood pressure 121/65, heart rate 61 per minute, she is afebrile examination of the heart S1, S2. Examination of lungs, decreased breath sounds at bases. Abdomen: Soft, obese. Exam of lower extremities shows edema 2+ bilaterally which is chronic. 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 LABS: Labs are not available from today. ASSESSMENT: 1. Chronic kidney disease NKF stage 4, secondary to nephrosclerosis and diabetic kidney disease. 2. Acute kidney injury cardiorenal currently stable. 3. Volume overload, stable, improved since admission. 4. Acute on chronic systolic congestive heart failure, EF 25%. 5. Hyperkalemia associated with acute kidney injury and angiotensin receptor blockers, now improved. PLAN: Continue with current dose of diuretics. Monitor labs as outpatient. MMODL / IJN: [id number] /
== END 2021-05-26 16:10 | DRG 291 ==
LOC: EC 15:56 → 6NMEDSUR 17:30 → 3SCARD 19:12 → 4SSUR 05-25 00:48
PROVIDERS: ADMIT Internal Medicine; ATTEND Internal Medicine
DX: I13.0 Hypertensive heart and chronic kidney disease with heart failure and stage 1 through stage 4 chronic kidney disease, or unspecified chronic kidney disease (principal); I50.43 Acute on chronic combined systolic (congestive) and diastolic (congestive) heart failure; N17.0 Acute kidney failure with tubular necrosis; I47.1 Supraventricular tachycardia; I48.19 Other persistent atrial fibrillation; N39.0 Urinary tract infection, site not specified; Z68.43 Body mass index [BMI] 50.0-59.9, adult; Z16.24 Resistance to multiple antibiotics; E03.9 Hypothyroidism, unspecified; I42.9 Cardiomyopathy, unspecified; E11.22 Type 2 diabetes mellitus with diabetic chronic kidney disease; E11.40 Type 2 diabetes mellitus with diabetic neuropathy, unspecified; E66.01 Morbid (severe) obesity due to excess calories; E78.00 Pure hypercholesterolemia, unspecified; E78.5 Hyperlipidemia, unspecified; E83.39 Other disorders of phosphorus metabolism; E87.5 Hyperkalemia; F17.200 Nicotine dependence, unspecified, uncomplicated; I08.1 Rheumatic disorders of both mitral and tricuspid valves; I27.20 Pulmonary hypertension, unspecified; N18.32 Chronic kidney disease, stage 3b; R32 Unspecified urinary incontinence; Z79.4 Long term (current) use of insulin; Z79.82 Long term (current) use of aspirin; Z79.890 Hormone replacement therapy; Z79.899 Other long term (current) drug therapy; Z80.0 Family history of malignant neoplasm of digestive organs; Z80.1 Family history of malignant neoplasm of trachea, bronchus and lung; Z82.49 Family history of ischemic heart disease and other diseases of the circulatory system; Z83.3 Family history of diabetes mellitus; Z85.828 Personal history of other malignant neoplasm of skin; Z79.84 Long term (current) use of oral hypoglycemic drugs
CPT/HCPCS: 36415; 71045; 71046; 76700; 80048; 80053; 81001; 83605; 83735; 83880; 84100; 84132; 84145; 84484; 85025; 85027; 85610; 85730; 87086; 93005; 94640; 94760; 96374; 99285

== ENCOUNTER 2022-05-07 23:17 | Emergency (ER) | payer MEDICARE ==
--- NOTE | 2022-05-07 23:57 | ED ---
SOB HPI - General Chief Complaint: Shortness of Breath Stated Complaint: AMS Source: patient Mode of arrival: EMS Limitations: no limitations - History of Present Illness Initial Comments: This patient is a 76-year-old woman who presents by ambulance to be evaluated for low pulse oximetry readings at her long-term care facility. When I interview the patient, she is without complaints. The patient did have an arrival pulse oximetry at 74 however when I walk into the room the patient's pulse ox reading is 93%, and I repositioned the sensor and it increased from there. When I question the patient, she denies shortness of breath. She denies chest pain. -: unknown Severity scale (1-10): 0 Consistency: constant Improves With: nothing Worsens With: nothing Associated Symptoms: denies other symptoms - Related Data Home Medications Medication Instructions Recorded Confirmed Cholecalciferol [Vitamin D3 (25 25 mcg PO HS 05/29/17 05/17/21 Mcg = 1000 Iu)] Ferrous Sulfate [Iron (65 MG 325 mg PO HS 04/23/21 05/17/21 Elemental)] Montelukast [Singulair] 10 mg PO HS 04/23/21 05/17/21 Sertraline [Zoloft] 50 mg PO HS 04/23/21 05/17/21 Aspirin 81 mg PO HS 05/17/21 05/17/21 Insulin Detemir [Levemir Flextouch 25 units SQ BID 05/17/21 05/17/21 Pen] Multivit-Min/FA/Lycopen/Lutein 1 tab PO HS 05/17/21 05/17/21 [Centrum Silver Tablet] Omeprazole 20 mg PO DAILY 05/17/21 05/17/21 Previous Rx's Medication Instructions Recorded Clotrimazole Cream [Lotrimin Cream] 1 applic TOPICAL DAILY PRN applic 04/28/21 INSULIN ASPART (NovoLOG) [NovoLOG 7 unit SQ AC-TID vial 04/28/21 (formulary)] Ipratropium-Albuterol Nebulize 3 ml INHALATION RT-QID ml 04/28/21 [Duoneb 0.5 mg-3 mg/3 ml Soln] Levothyroxine Sodium [Synthroid] 137 mcg PO DAILY@0630 tab 04/28/21 Metoprolol Tartrate [Lopressor] 12.5 mg PO BID tab 04/28/21 Gabapentin [Neurontin] 300 mg PO TID #9 cap 05/22/21 INSULIN ASPART (NovoLOG) [NovoLOG 0 unit SQ ACHS vial 05/22/21 (formulary)] Levofloxacin [Levaquin] 250 mg PO Q48H #2 tab 05/22/21 Midodrine [ProAmatine] 5 mg PO AC-TID tab 05/22/21 Torsemide [Demadex] 40 mg PO DAILY tab 05/22/21 metOLazone [Zaroxolyn] 5 mg PO DAILY tab 05/22/21 Allergies Allergy/AdvReac Type Severity Reaction Status Date / Time camphor [From Vicks Vaporub] Allergy Rash/Hives Verified 05/07/22 23:25 eucalyptus Allergy Rash/Hives Verified 05/07/22 23:25 [From Vicks Vaporub] menthol [From Vicks Vaporub] Allergy Rash/Hives Verified 05/07/22 23:25 Penicillins Allergy Rash/Hives Verified 05/07/22 23:25 petrolatum,white Allergy Rash/Hives Verified 05/07/22 23:25 [From Vicks Vaporub] turpentine oil Allergy Rash/Hives Verified 05/07/22 23:25 [From Vicks Vaporub] ivory soap Allergy Rash/Hives Uncoded 05/07/22 23:25 Review of Systems ROS Statement: Those systems with pertinent positive or pertinent negative responses have been documented in the HPI. ROS Other: All systems not noted in ROS Statement are negative. 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, VRE Date of last positivie culture/infection: 01/02/18 VRE [facility] MDRO Source:: Urine-VRE; Left Leg MDRO Past Surgical History: Tonsillectomy, Tubal Ligation Additional Past Surgical History / Comment(s): Skin cancer with removals, EGD, D&C Past Anesthesia/Blood Transfusion Reactions: No Reported Reaction Past Psychological History: No Psychological Hx Reported Smoking Status: Former smoker Past Alcohol Use History: None Reported Past Drug Use History: None Reported - Past Family History Father Family Medical History: Cancer Additional Family Medical History / Comment(s): Father of lung cancer. He was a nonsmoker, worked in a refinery. Mother Family Medical History: Cancer, Coronary Artery Disease (CAD), Diabetes Mellitus, Hyperlipidemia, Hypertension Additional Family Medical History / Comment(s): Mother of pancreatic cancer. General Exam Limitations: no limitations General appearance: alert, in no apparent distress Head exam: Present: atraumatic, normocephalic Eye exam: Present: normal appearance. Absent: scleral icterus, conjunctival injection ENT exam: Present: normal oropharynx Neck exam: Present: normal inspection Respiratory exam: Present: normal lung sounds bilaterally, rales (Bilateral bases). Absent: respiratory distress, wheezes, rhonchi, stridor, chest wall tenderness, accessory muscle use, decreased breath sounds Cardiovascular Exam: Present: regular rate, normal rhythm, normal heart sounds. Absent: systolic murmur, diastolic murmur, rubs, gallop GI/Abdominal exam: Present: soft. Absent: distended, tenderness, guarding, rebound, rigid, mass Extremities exam: Present: normal inspection, normal capillary refill. Absent: pedal edema, calf tenderness Back exam: Present: normal inspection. Absent: CVA tenderness (R), CVA tenderness (L) Neurological exam: Present: alert. Absent: oriented X3 Skin exam: Present: warm, dry, intact, normal color. Absent: rash Course Vital Signs 05/07/22 05/08/22 05/08/22 23:18 00:12 05:33 Pulse Rate 76 80 Respiratory 18 20 20 Rate Blood Pressure 146/63 117/78 O2 Sat by Pulse 72 L 94 L Oximetry Medical Decision Making - Medical Decision Making Patient is 76-year-old woman sent from retirement to be evaluated for having low pulse oximetry reading. There was one reading here which was low which appears to be mistaken as when I entered the room, patient's pulse ox reading is 93%. Patient is denying pain and dyspnea. Patient is observed in the emergency department for number of hours and did not display any respiratory distress. The main finding is that the patient's creatinine is slightly elevated versus baseline. She is given some IV fluids and does appear stable for discharge back to the retirement with close follow-up to recheck the creatinine. - Lab Data Result diagrams: 05/07/22 23:44 05/07/22 23:44 Lab Results 05/07/22 05/07/22 05/07/22 Range/Units 23:44 23:44 23:44 WBC 6.3 (3.8-10.6) k/uL RBC 3.52 L (3.80-5.40) m/uL Hgb 11.0 L (11.4-16.0) gm/dL Hct 37.3 (34.0-46.0) % MCV 106.0 H (80.0-100.0) fL MCH 31.2 (25.0-35.0) pg MCHC 29.4 L (31.0-37.0) g/dL RDW 14.6 (11.5-15.5) % Plt Count 155 (150-450) k/uL MPV 9.9 Neutrophils % 58 % Lymphocytes % 29 % Monocytes % 7 % Eosinophils % 4 % Basophils % 1 % Neutrophils # 3.7 (1.3-7.7) k/uL Lymphocytes # 1.8 (1.0-4.8) k/uL Monocytes # 0.4 (0-1.0) k/uL Eosinophils # 0.2 (0-0.7) k/uL Basophils # 0.0 (0-0.2) k/uL Hypochromasia Marked Macrocytosis Moderate PT 10.2 (9.0-12.0) sec INR 0.9 (<1.2) APTT 21.8 L (22.0-30.0) sec Sodium 140 (137-145) mmol/L Potassium 4.9 (3.5-5.1) mmol/L Chloride 94 L (98-107) mmol/L Carbon Dioxide 39 H (22-30) mmol/L Anion Gap 7 mmol/L BUN 85 H (7-17) mg/dL Creatinine 3.14 H (0.52-1.04) mg/dL Est GFR (CKD-EPI)AfAm 16 (>60 ml/min/1.73 sqM) Est GFR (CKD-EPI)NonAf 14 (>60 ml/min/1.73 sqM) Glucose 145 H (74-99) mg/dL Plasma Lactic Acid Kevin (0.7-2.0) mmol/L Calcium 9.4 (8.4-10.2) mg/dL Total Bilirubin 0.3 (0.2-1.3) mg/dL AST 29 (14-36) U/L ALT 18 (4-34) U/L Alkaline Phosphatase 102 (38-126) U/L Troponin I (0.000-0.034) ng/mL NT-Pro-B Natriuret Pep pg/mL Total Protein 6.6 (6.3-8.2) g/dL Albumin 3.4 L (3.5-5.0) g/dL 05/07/22 05/07/22 05/07/22 Range/Units 23:44 23:44 23:45 WBC (3.8-10.6) k/uL RBC (3.80-5.40) m/uL Hgb (11.4-16.0) gm/dL Hct (34.0-46.0) % MCV (80.0-100.0) fL MCH (25.0-35.0) pg MCHC (31.0-37.0) g/dL RDW (11.5-15.5) % Plt Count (150-450) k/uL MPV Neutrophils % % Lymphocytes % % Monocytes % % Eosinophils % % Basophils % % Neutrophils # (1.3-7.7) k/uL Lymphocytes # (1.0-4.8) k/uL Monocytes # (0-1.0) k/uL Eosinophils # (0-0.7) k/uL Basophils # (0-0.2) k/uL Hypochromasia Macrocytosis PT (9.0-12.0) sec INR (<1.2) APTT (22.0-30.0) sec Sodium (137-145) mmol/L Potassium (3.5-5.1) mmol/L Chloride (98-107) mmol/L Carbon Dioxide (22-30) mmol/L Anion Gap mmol/L BUN (7-17) mg/dL Creatinine (0.52-1.04) mg/dL Est GFR (CKD-EPI)AfAm (>60 ml/min/1.73 sqM) Est GFR (CKD-EPI)NonAf (>60 ml/min/1.73 sqM) Glucose (74-99) mg/dL Plasma Lactic Acid Kevin 0.9 (0.7-2.0) mmol/L Calcium (8.4-10.2) mg/dL Total Bilirubin (0.2-1.3) mg/dL AST (14-36) U/L ALT (4-34) U/L Alkaline Phosphatase (38-126) U/L Troponin I 0.055 H* (0.000-0.034) ng/mL NT-Pro-B Natriuret Pep 8190 pg/mL Total Protein (6.3-8.2) g/dL Albumin (3.5-5.0) g/dL - EKG Data -: EKG Interpreted by [facility] EKG shows normal: axis (After axis deviation), intervals (Normal), QRS complexes (Possible old anterior infarct.) Rate: normal (Rate 72 bpm) Interpretation: other (Rhythm appears to be atrial fibrillation, rate proximal 72 bpm) Disposition Clinical Impression: Pleural effusion Disposition: HOME SELF-CARE Condition: Good Instructions (If sedation given, give patient instructions): Pleural Effusion (DC) Is patient prescribed a controlled substance at d/c from ED?: No Referrals: Ruiz Chao MD [Primary Care Provider] - 1-2 days
[2022-05-08 00:09] LABS: Albumin 3.4 g/dL (3.5-5.0); Calcium 9.4 mg/dL (8.4-10.2); Potassium 4.9 mmol/L (3.5-5.1); Total Bilirubin 0.3 mg/dL (0.2-1.3); Total Protein 6.6 g/dL (6.3-8.2)
[2022-05-08 00:24] LABS: Basophils % (A) 1 %; Eosinophils # (A) 0.2 k/uL (0-0.7); Eosinophils % (A) 4 %; HCT 37.3 % (34.0-46.0); Hypochromasia Marked; Lymphocytes # (A) 1.8 k/uL (1.0-4.8); Lymphocytes % (A) 29 %; MCH 31.2 pg (25.0-35.0); MCHC 29.4 g/dL (31.0-37.0); Macrocytosis Moderate; Mean Platelet Volume 9.9; Monocytes # (A) 0.4 k/uL (0-1.0); Monocytes % (A) 7 %; Neutrophils # (A) 3.7 k/uL (1.3-7.7); Neutrophils % (A) 58 %; Platelet Count 155 k/uL (150-450); RBC 3.52 m/uL (3.80-5.40); RDW 14.6 % (11.5-15.5); WBC 6.3 k/uL (3.8-10.6)
[2022-05-08 00:25] VITALS: RESP 20
[2022-05-08 00:30] LABS: INR 0.9 (<1.2); Prothrombin Time 10.2 sec (9.0-12.0)
[2022-05-08 00:43] LABS: Partial Thromboplastin Time 21.8 sec (22.0-30.0)
[2022-05-08] MEDS ORDERED: FUROSEMIDE 10 MG/ML 4 ML VIAL IV STA (01:09)
--- NOTE | 2022-05-08 01:20 | XR ---
EXAMINATION TYPE: XR chest 2V DATE OF EXAM: 05/08/2022 COMPARISON: 05/23/2021 HISTORY: Difficulty breathing TECHNIQUE: FINDINGS: There is pulmonary vascular congestion. Heart is enlarged. There is some blunting of the co stophrenic angles there is fluid in the fissures. IMPRESSION: Congestive heart failure with pleural effusions. Pulmonary congestion slightly worse than last exam.
[2022-05-08 05:34] VITALS: BP 117/78; PULSE 80
== END 2022-05-08 06:13 | disposition home or self-care (01) ==
LOC: EC 23:17
DX: J90 Pleural effusion, not elsewhere classified (principal); E11.9 Type 2 diabetes mellitus without complications; I10 Essential (primary) hypertension; Z88.8 Allergy status to other drugs, medicaments and biological substances; Z91.018 Allergy to other foods; Z88.0 Allergy status to penicillin; Z91.048 Other nonmedicinal substance allergy status
CPT/HCPCS: 36415; 71046; 80053; 83605; 83880; 84484; 85025; 85610; 85730; 93005; 99285

== ENCOUNTER 2022-05-29 14:55 | Inpatient (IN) | payer MEDICARE ==
--- NOTE | 2022-05-29 15:29 | ED ---
General Adult HPI - General Chief complaint: Recheck/Abnormal Lab/Rx Stated complaint: increased confusion Source: patient, EMS Mode of arrival: EMS Limitations: physical limitation - History of Present Illness Initial comments: Dictation was produced using [employer] dictation software. please excuse any grammatical, word or spelling errors. Chief Complaint: 76-year-old female multiple comorbidities presents to emergency department for altered mental status, decreased urine output. History of Present Illness: Patient is a 76-year-old female presents emergency department for altered mental status, decreased urine output. Patient is a resident at [facility]. Patient is not sure why she is here today she has no complaints. According to transfer documentation patient was sent here for decreased urine output, altered mental status. Patient has multiple comorbidities per she is on multiple medications. Patient has any complaints at the bedside. The ROS documented in this emergency department record has been reviewed and confirmed by me. Those systems with pertinent positive or negative responses have been documented in the HPI. All other systems are other negative and/or noncontributory. PHYSICAL EXAM: General Impression: Alert and oriented x4/4, not in acute distress, obese HEENT: Normocephalic atraumatic, extra-ocular movements intact, pupils equal and reactive to light bilaterally, mucous membranes moist. Cardiovascular: Heart regular rate and rhythm Chest: Able to complete full sentences, no retractions, no tachypnea Abdomen: abdomen soft, non-tender, non-distended, no organomegaly Musculoskeletal: Pulses present and equal in all extremities, 1+ pitting edema to the bilateral lower extremities Motor: no focal deficits noted Neurological: CN II-XII grossly intact, no focal motor or sensory deficits noted Skin: Intact with no visualized rashes Psych: Normal affect and mood ED course: 76-year-old female multiple comorbidities transferred to our facility for decreased urine output and altered mental status. Transfer documentation did not mention in detail white count symptoms patient's had today that led to her being transferred to the emergency room. Patient has any complaints at this time. Patient is alert and oriented 4. Vital signs upon arrival are within acceptable limits. Patient's 90% 2 L nasal cannula. Patient wears home O2. Laboratory evaluation obtained. No leukocytosis. Hemoglobin 10.7 which is around patient's baseline. Metabolic panel shows bicarb of 45, elevated renal markers. Urinalysis unlikely to suggest urinary tract infection pending urine culture. Computed tomography scan of brain shows no acute processes. Chest x- ray suggests heart failure. Patient related the bedside at 5:40 PM does not appear to be in respiratory distress. Patient be admitted for renal monitoring and pulmonary consultation. Admitted to [facility] hospitalist group. - Related Data Home Medications Medication Instructions Recorded Confirmed Ferrous Sulfate [Iron (65 MG 325 mg PO HS 04/23/21 05/29/22 Elemental)] Montelukast [Singulair] 10 mg PO HS 04/23/21 05/29/22 Sertraline [Zoloft] 50 mg PO HS 04/23/21 05/29/22 Aspirin 81 mg PO HS 05/17/21 05/29/22 Omeprazole 20 mg PO DAILY 05/17/21 05/29/22 Calcium Carbonate/Vitamin D3 1 tab PO DAILY@0700 05/29/22 05/29/22 [Calcium 600 mg-Vit D3 5 mcg (200 unit)] Cholecalciferol [Vitamin D3 (25 50 mcg PO DAILY 05/29/22 05/29/22 Mcg = 1000 Iu)] Docusate Sodium [Dok] 100 mg PO BID 05/29/22 05/29/22 Gabapentin [Neurontin] 300 mg PO TID@0700,1300,1900 05/29/22 05/29/22 INSULIN ASPART (NovoLOG) [NovoLOG 3 unit SQ TID@0700,1200,1700 05/29/22 05/29/22 (formulary)] Insulin Glargine,Hum.rec.anlog 15 units SQ HS 05/29/22 05/29/22 [Insulin Glargine] Ipratropium-Albuterol Nebulize 3 ml INHALATION RT-TID PRN 05/29/22 05/29/22 [Duoneb 0.5 mg-3 mg/3 ml Soln] Mag Hydrox/Aluminum Hyd/Simeth 30 ml PO Q6H PRN 05/29/22 05/29/22 [Mylanta Maximum Strength Liq] Metoprolol Succinate (ER) [Toprol 12.5 mg PO DAILY 05/29/22 05/29/22 Xl] Torsemide [Demadex] 20 mg PO DAILY 05/29/22 05/29/22 bisacodyL 10 mg RECTAL DAILY PRN 05/29/22 05/29/22 polyethylene glycoL 3350 [Miralax] 17 gm PO DAILY PRN 05/29/22 05/29/22 Previous Rx's Medication Instructions Recorded Levothyroxine Sodium [Synthroid] 137 mcg PO DAILY@0630 tab 04/28/21 metOLazone [Zaroxolyn] 5 mg PO DAILY tab 05/22/21 Allergies Allergy/AdvReac Type Severity Reaction Status Date / Time camphor [From Vicks Vaporub] Allergy Rash/Hives Verified 05/29/22 15:41 eucalyptus Allergy Rash/Hives Verified 05/29/22 15:41 [From Vicks Vaporub] menthol [From Vicks Vaporub] Allergy Rash/Hives Verified 05/29/22 15:41 Penicillins Allergy Rash/Hives Verified 05/29/22 15:41 petrolatum,white Allergy Rash/Hives Verified 05/29/22 15:41 [From Vicks Vaporub] turpentine oil Allergy Rash/Hives Verified 05/29/22 15:41 [From Vicks Vaporub] ivory soap Allergy Rash/Hives Uncoded 05/29/22 15:41 Review of Systems ROS Statement: Those systems with pertinent positive or pertinent negative responses have been documented in the HPI. ROS Other: All systems not noted in ROS Statement are negative. 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, VRE Date of last positivie culture/infection: 01/02/18 VRE [facility] MDRO Source:: Urine-VRE; Left Leg MDRO Past Surgical History: Tonsillectomy, Tubal Ligation Additional Past Surgical History / Comment(s): Skin cancer with removals, EGD, D&C Past Anesthesia/Blood Transfusion Reactions: No Reported Reaction Past Psychological History: No Psychological Hx Reported Smoking Status: Former smoker Past Alcohol Use History: None Reported Past Drug Use History: None Reported - Past Family History Father Family Medical History: Cancer Additional Family Medical History / Comment(s): Father of lung cancer. He was a nonsmoker, worked in a refinery. Mother Family Medical History: Cancer, Coronary Artery Disease (CAD), Diabetes Mellitus, Hyperlipidemia, Hypertension Additional Family Medical History / Comment(s): Mother of pancreatic cancer. General Exam Limitations: physical limitation Course Vital Signs 05/29/22 05/29/22 15:01 16:33 Temperature 97.9 F Pulse Rate 55 L 58 L Respiratory 18 18 Rate Blood Pressure 143/58 137/62 O2 Sat by Pulse 93 L 98 Oximetry Medical Decision Making - Lab Data Result diagrams: 05/29/22 15:39 05/29/22 15:39 Lab Results 05/29/22 05/29/22 05/29/22 Range/Units 15:39 15:39 15:39 WBC 4.2 (3.8-10.6) k/uL RBC 3.50 L (3.80-5.40) m/uL Hgb 10.7 L (11.4-16.0) gm/dL Hct 37.1 (34.0-46.0) % MCV 106.0 H (80.0-100.0) fL MCH 30.5 (25.0-35.0) pg MCHC 28.8 L (31.0-37.0) g/dL RDW 14.4 (11.5-15.5) % Plt Count 134 L (150-450) k/uL MPV 9.7 Neutrophils % 63 % Lymphocytes % 21 % Monocytes % 7 % Eosinophils % 7 % Basophils % 1 % Neutrophils # 2.7 (1.3-7.7) k/uL Lymphocytes # 0.9 L (1.0-4.8) k/uL Monocytes # 0.3 (0-1.0) k/uL Eosinophils # 0.3 (0-0.7) k/uL Basophils # 0.0 (0-0.2) k/uL Hypochromasia Marked Macrocytosis Moderate Sodium 141 (137-145) mmol/L Potassium 4.6 (3.5-5.1) mmol/L Chloride 88 L (98-107) mmol/L Carbon Dioxide 45 H* (22-30) mmol/L Anion Gap 8 mmol/L BUN 96 H (7-17) mg/dL Creatinine 3.27 H (0.52-1.04) mg/dL Est GFR (CKD-EPI)AfAm 15 (>60 ml/min/1.73 sqM) Est GFR (CKD-EPI)NonAf 13 (>60 ml/min/1.73 sqM) Glucose 175 H (74-99) mg/dL Plasma Lactic Acid Kevin 1.1 (0.7-2.0) mmol/L Calcium 8.8 (8.4-10.2) mg/dL Magnesium 2.8 H (1.6-2.3) mg/dL Total Bilirubin 0.4 (0.2-1.3) mg/dL AST 24 (14-36) U/L ALT 13 (4-34) U/L Alkaline Phosphatase 67 (38-126) U/L Total Protein 6.5 (6.3-8.2) g/dL Albumin 3.4 L (3.5-5.0) g/dL Urine Color Urine Appearance (Clear) Urine pH (5.0-8.0) Ur Specific [place] (1.001-1.035) Urine Protein (Negative) Urine Glucose (UA) (Negative) Urine Ketones (Negative) Urine Blood (Negative) Urine Nitrite (Negative) Urine Bilirubin (Negative) Urine Urobilinogen (<2.0) mg/dL Ur Leukocyte Esterase (Negative) Urine RBC (0-5) /hpf Urine WBC (0-5) /hpf Ur Squamous Epith Cells (0-4) /hpf Amorphous Sediment (None) /hpf Urine Bacteria (None) /hpf Hyaline Casts (0-2) /lpf Urine Mucus (None) /hpf 05/29/22 Range/Units 16:48 WBC (3.8-10.6) k/uL RBC (3.80-5.40) m/uL Hgb (11.4-16.0) gm/dL Hct (34.0-46.0) % MCV (80.0-100.0) fL MCH (25.0-35.0) pg MCHC (31.0-37.0) g/dL RDW (11.5-15.5) % Plt Count (150-450) k/uL MPV Neutrophils % % Lymphocytes % % Monocytes % % Eosinophils % % Basophils % % Neutrophils # (1.3-7.7) k/uL Lymphocytes # (1.0-4.8) k/uL Monocytes # (0-1.0) k/uL Eosinophils # (0-0.7) k/uL Basophils # (0-0.2) k/uL Hypochromasia Macrocytosis Sodium (137-145) mmol/L Potassium (3.5-5.1) mmol/L Chloride (98-107) mmol/L Carbon Dioxide (22-30) mmol/L Anion Gap mmol/L BUN (7-17) mg/dL Creatinine (0.52-1.04) mg/dL Est GFR (CKD-EPI)AfAm (>60 ml/min/1.73 sqM) Est GFR (CKD-EPI)NonAf (>60 ml/min/1.73 sqM) Glucose (74-99) mg/dL Plasma Lactic Acid Kevin (0.7-2.0) mmol/L Calcium (8.4-10.2) mg/dL Magnesium (1.6-2.3) mg/dL Total Bilirubin (0.2-1.3) mg/dL AST (14-36) U/L ALT (4-34) U/L Alkaline Phosphatase (38-126) U/L Total Protein (6.3-8.2) g/dL Albumin (3.5-5.0) g/dL Urine Color Light Yellow Urine Appearance Cloudy H (Clear) Urine pH 5.0 (5.0-8.0) Ur Specific [place] 1.012 (1.001-1.035) Urine Protein Trace H (Negative) Urine Glucose (UA) Trace H (Negative) Urine Ketones Negative (Negative) Urine Blood Small H (Negative) Urine Nitrite Negative (Negative) Urine Bilirubin Negative (Negative) Urine Urobilinogen <2.0 (<2.0) mg/dL Ur Leukocyte Esterase Trace H (Negative) Urine RBC 9 H (0-5) /hpf Urine WBC 7 H (0-5) /hpf Ur Squamous Epith Cells 2 (0-4) /hpf Amorphous Sediment Rare H (None) /hpf Urine Bacteria Rare H (None) /hpf Hyaline Casts 16 H (0-2) /lpf Urine Mucus Rare H (None) /hpf Disposition Clinical Impression: Hypercarbia, Encephalopathy Disposition: ADMITTED IP TO THIS HOSP Condition: Fair Referrals: Nonstaff,Physician [Primary Care Provider] - 1-2 days Decision Time: 17:39
[2022-05-29 15:56] LABS: Basophils % (A) 1 %; Eosinophils # (A) 0.3 k/uL (0-0.7); Eosinophils % (A) 7 %; HCT 37.1 % (34.0-46.0); HGB 10.7 gm/dL (11.4-16.0); Hypochromasia Marked; Lymphocytes # (A) 0.9 k/uL (1.0-4.8); Lymphocytes % (A) 21 %; MCH 30.5 pg (25.0-35.0); MCHC 28.8 g/dL (31.0-37.0); Macrocytosis Moderate; Mean Platelet Volume 9.7; Monocytes # (A) 0.3 k/uL (0-1.0); Monocytes % (A) 7 %; Neutrophils # (A) 2.7 k/uL (1.3-7.7); Neutrophils % (A) 63 %; Platelet Count 134 k/uL (150-450); RDW 14.4 % (11.5-15.5); WBC 4.2 k/uL (3.8-10.6)
[2022-05-29 16:05] LABS: Albumin 3.4 g/dL (3.5-5.0); Calcium 8.8 mg/dL (8.4-10.2); Magnesium 2.8 mg/dL (1.6-2.3); Potassium 4.6 mmol/L (3.5-5.1); Total Bilirubin 0.4 mg/dL (0.2-1.3); Total Protein 6.5 g/dL (6.3-8.2)
--- NOTE | 2022-05-29 16:16 | CT ---
EXAMINATION TYPE: CT brain wo con DATE OF EXAM: 05/29/2022 COMPARISON: None INDICATION: AMS DLP: 1158.4 mGycm, Automated exposure control for dose reduction was used. CONTRAST: None CT of the brain is performed utilizing 3 mm thick sections through the posterior fossa and 3 mm thick sections through the remaining calvarium. Study is performed within 24 hours of arrival to the hosp ital. No abnormal hyperdensity is present to suggest an acute intracranial hemorrhage. No mass lesion is evident. No acute infarcts are evident. Minimal periventricular white matter hypodensity is present, likely on the basis of chronic white matter ischemic changes. Ventricles and sulci are appropriate for the patient age. Paranasal sinuses and mastoid air cells within the [id number] are clear. IMPRESSIONS: 1. Mild chronic appearing periventricular white matter ischemic type changes. MRI can be performed as clinically indicated.
--- NOTE | 2022-05-29 16:40 | XR ---
EXAMINATION TYPE: XR chest 1V portable DATE OF EXAM: 05/29/2022 COMPARISON: 05/08/2022 INDICATION: Altered mental status TECHNIQUE: Single frontal view of the chest is obtained. FINDINGS: The heart size is enlarged. The pulmonary vasculature is prominent. Mild increased lung markings are present. Minimal pleural effusions may be present. IMPRESSION: 1. Clinical correlation recommended for congestive heart failure. Follow-up is recommended.
[2022-05-29 17:04] LABS: Amorphous Sediment,Urine Rare /hpf; Appearance,Urine Cloudy (Clear); Bacteria,Urine Rare /hpf; Bilirubin,Urine Negative (Negative); Blood,Urine Small (Negative); Color,Urine Light Yellow; Glucose,Urine (UA) Trace (Negative); Hyaline Casts,Urine 16 /lpf (0-2); Ketones,Urine Negative (Negative); Leukocyte Esterase,Urine Trace (Negative); Mucus,Urine Rare /hpf; Nitrite,Urine Negative (Negative); Protein,Urine Trace (Negative); RBC,Urine 9 /hpf (0-5); Specific Gravity,Urine 1.012 (1.001-1.035); Squamous Epithelial Cell,Urine 2 /hpf (0-4); Urobilinogen,Urine <2.0 mg/dL (<2.0); WBC,Urine 7 /hpf (0-5)
[2022-05-29] MEDS ORDERED: NALOXONE 0.4 MG/ML 1 ML VIAL IV PRN (17:31)
[2022-05-29] MEDS: SODIUM CHLORIDE 0.9% 1,000 ML IV SCH (20:11)
[2022-05-30 08:55] LABS: HCT 31.9 % (37.2-46.3); HGB 9.7 g/dL (12.0-15.0); MCH 33.9 pg (27.0-32.0); MCHC 30.4 g/dL (32.0-37.0); MCV 111.5 fL (80.0-97.0); Mean Platelet Volume 12.4 fL (9.5-12.2); NRBC Per 100 WBC 0 /100 WBCS (0.0-0.0); Platelet Count 135 X 10*3/uL (140-440); RBC 2.86 X 10*6/uL (4.10-5.20); RDW 14.8 % (11.5-14.5); WBC 4.95 X 10*3/uL (4.50-10.00)
[2022-05-30 10:05] LABS: Magnesium 2.9 mg/dL (1.5-2.4)
[2022-05-30 10:11] LABS: ALT 14 U/L (8-44); AST 26 U/L (13-35); Albumin 3.3 g/dL (3.8-4.9); Albumin/Globulin Ratio 1.14 (1.60-3.17); Alkaline Phosphatase 69 U/L (41-126); Bilirubin, Conjugated <0.20 mg/dL (0.20-0.40); Globulin 2.9 g/dL (1.6-3.3); Total Protein 6.2 g/dL (6.2-8.2)
[2022-05-30 10:15] LABS: Basophils # (A) 0.03 X 10*3/uL (0.00-0.10); Basophils % (A) 0.6 %; Eosinophils # (A) 0.46 X 10*3/uL (0.04-0.35); Eosinophils % (A) 9.3 %; Immature Grans, Automated 0.2 %; Lymphocytes # (A) 1.08 X 10*3/uL (0.90-5.00); Lymphocytes % (A) 21.8 %; Monocytes # (A) 0.66 X 10*3/uL (0.20-1.00); Monocytes % (A) 13.3 %; Neutrophils # (A) 2.71 X 10*3/uL (1.80-7.70); Neutrophils % (A) 54.8 %; Stomatocytes 2+
[2022-05-30] MEDS ORDERED: ALUMINUM HYDROXIDE PO PRN (10:51)
[2022-05-30] MEDS ORDERED: MAGNESIUM HYDROXIDE PO PRN (10:51)
[2022-05-30] MEDS ORDERED: [UNRECOGNIZED DRUG - OTHER] PO PRN (10:51)
[2022-05-30] MEDS ORDERED: SIMETHICONE PO PRN (10:51)
[2022-05-30] MEDS ORDERED: polyethylene glycoL 3350 17 GM POWD.PACK PO PRN (10:51)
[2022-05-30] MEDS ORDERED: bisacodyL 10 MG SUPP RECTAL PRN (10:51)
--- NOTE | 2022-05-30 11:39 | P.HPIM ---
History of Present Illness This is a pleasant 76 years old female with past medical history of hypothyroidism, depression, diabetes mellitus, anemia, atrial fibrillation, chronic diastolic heart failure, chronic pleural effusion, obesity, chronic kidney disease, congestive hepatopathy secondary to congestive heart failure. As per documentation, Patient sent in by [facility] for failure to thrive and possible kidney failure per EMS Patient today is awake and alert, she is telling me she lives in alf for 2 years, and she was not sure why 30 cm to the hospital. There was concerns of altered mental status and decreased urine output. Patient is a known advanced stage IV-5 kidney disease, patient herself denies any complaints, she denies chest pain, she denies dyspnea at rest, she is wheelchair-bound for 2 years as she states. She denies abdominal pain or vomiting or diarrhea. No dysuria or urgency. No headache or dizziness or weakness or numbness. She is not on oxygen therapy outpatient. There was suspicion of fluid overload, she has bilateral pitting like edema and basal crepitation No smoking, alcohol or illicit drugs Patient is afebrile, slightly bradycardic, rest of vitals are unremarkable. She is saturating 97% on 2 L oxygen a few nasal cannula Labs show CBC is unremarkable except for mild anemia at 10.7 and thromb ocytopenia at 134. BNP showing creatinine of 3.27, baseline is 2.5-2.7 Carbon dioxide 45. Electrolytes normal. Liver enzymes not elevated. Urinalysis showing WBCs of 0.7 EKG showing atrial flutter with a rate of 56 Chest x-ray showing pulmonary vasculature is prominent, clinical correlation recommended for congestive heart failure CT of the brain: Mild chronic appearing periventricular white matter ischemic Changes. MRI can be performed as clinically indicated In the emergency room patient was monitored, no indication medication given Pulmonary team were consulted. Echocardiogram from last year showing ejection fraction of 25-30% ProBNP is elevated 11 600, pro-calcitonin is still significantly elevated at 0.17. 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 She has never driven, her spouse drives. Pt reads/writes alittle. Smoking Status: Former smoker Past Alcohol Use History: None Reported Additional Past Alcohol Use History / Comment(s): Pt is exposed to 2nd hand smoke in her home. Pt started smoking in 1960 and quit in 1974. Past Drug Use History: None Reported - Past Family History Father Family Medical History: Cancer Additional Family Medical History / Comment(s): Father of lung cancer. He was a nonsmoker, worked in a [email or web address]. Mother Family Medical History: Cancer, Coronary Artery Disease (CAD), Diabetes Mellitus, Hyperlipidemia, Hypertension Additional Family Medical History / Comment(s): Mother of pancreatic cancer. Medications and Allergies Home Medications Medication Instructions Recorded Confirmed Type Ferrous Sulfate [Iron (65 MG 325 mg PO HS 04/23/21 05/29/22 History Elemental)] Montelukast [Singulair] 10 mg PO HS 04/23/21 05/29/22 History Sertraline [Zoloft] 50 mg PO HS 04/23/21 05/29/22 History Levothyroxine Sodium [Synthroid] 137 mcg PO DAILY@0630 tab 04/28/21 05/29/22 Rx Aspirin 81 mg PO HS 05/17/21 05/29/22 History Omeprazole 20 mg PO DAILY 05/17/21 05/29/22 History metOLazone [Zaroxolyn] 5 mg PO DAILY tab 05/22/21 05/29/22 Rx Calcium Carbonate/Vitamin D3 1 tab PO DAILY@0700 05/29/22 05/29/22 History [Calcium 600 mg-Vit D3 5 mcg (200 unit)] Cholecalciferol [Vitamin D3 (25 50 mcg PO DAILY 05/29/22 05/29/22 History Mcg = 1000 Iu)] Docusate Sodium [Dok] 100 mg PO BID 05/29/22 05/29/22 History Gabapentin [Neurontin] 300 mg PO TID@0700,1300,1900 05/29/22 05/29/22 History INSULIN ASPART (NovoLOG) [NovoLOG 3 unit SQ TID@0700,1200,1700 05/29/22 05/29/22 History (formulary)] Insulin Glargine,Hum.rec.anlog 15 units SQ HS 05/29/22 05/29/22 History [Insulin Glargine] Ipratropium-Albuterol Nebulize 3 ml INHALATION RT-TID PRN 05/29/22 05/29/22 History [Duoneb 0.5 mg-3 mg/3 ml Soln] Mag Hydrox/Aluminum Hyd/Simeth 30 ml PO Q6H PRN 05/29/22 05/29/22 History [Mylanta Maximum Strength Liq] Metoprolol Succinate (ER) [Toprol 12.5 mg PO DAILY 05/29/22 05/29/22 History Xl] Torsemide [Demadex] 20 mg PO DAILY 05/29/22 05/29/22 History bisacodyL 10 mg RECTAL DAILY PRN 05/29/22 05/29/22 History polyethylene glycoL 3350 [Miralax] 17 gm PO DAILY PRN 05/29/22 05/29/22 History Allergies Allergy/AdvReac Type Severity Reaction Status Date / Time camphor [From Vicks Vaporub] Allergy Rash/Hives Verified 05/29/22 15:41 eucalyptus Allergy Rash/Hives Verified 05/29/22 15:41 [From Vicks Vaporub] menthol [From Vicks Vaporub] Allergy Rash/Hives Verified 05/29/22 15:41 Penicillins Allergy Rash/Hives Verified 05/29/22 15:41 petrolatum,white Allergy Rash/Hives Verified 05/29/22 15:41 [From Vicks Vaporub] turpentine oil Allergy Rash/Hives Verified 05/29/22 15:41 [From Vicks Vaporub] ivory soap Allergy Rash/Hives Uncoded 05/29/22 15:41 Physical Exam Vitals: Vital Signs Temp Pulse Pulse Resp BP BP Pulse Ox 05/30/22 08:00 52 L 18 05/30/22 07:00 97.9 F 52 L 18 110/63 99 05/30/22 03:30 98.1 F 69 17 130/72 93 L 05/29/22 19:17 98 F 72 16 122/62 97 05/29/22 18:40 56 L 18 134/59 99 05/29/22 16:33 58 L 18 137/62 98 05/29/22 15:01 97.9 F 55 L 18 143/58 93 L Intake and Output 05/29/22 05/30/22 05/30/22 22:59 06:59 14:59 Intake Total 100 Output Total 20 200 Balance -20 -200 100 Intake: Oral 100 Output: Urine 20 200 Straight 20 Other: Voiding Method Diaper Diaper Diaper External Catheter External Catheter External Catheter # Voids 0 1 # Bowel Movements 1 1 Weight 117.934 kg 117.934 kg -GENERAL: The patient is alert and oriented x3, not in any acute distress. Obese HEENT: Pupils are round and equally reacting to light. EOMI. No scleral icterus. No conjunctival pallor. Normocephalic, atraumatic. No pharyngeal erythema. No thyromegaly. CARDIOVASCULAR: S1 and S2 present. No murmurs, rubs, or gallops. -PULMONARY: Chest is clear to auscultation,. Bilateral basal crepitation ABDOMEN: Soft, nontender, nondistended, normoactive bowel sounds. No palpable organomegaly. MUSCULOSKELETAL: No joint swelling or deformity. -EXTREMITIES: No cyanosis, clubbing. Bilateral pitting like edema. -NEUROLOGICAL: Gross neurological examination did not reveal any focal deficits. Cranial nerves are grossly intact. Strength 5/5 in upper extremity. She is bedbound at baseline. Sensation is intact. SKIN: No rashes. no petechiae. Results CBC & Chem 7: 05/30/22 05:11 05/29/22 15:39 Labs: Abnormal Lab Results - Last 24 Hours (Table) 05/29/22 05/29/22 05/29/22 Range/Units 15:39 15:39 16:48 RBC 3.50 L (3.80-5.40) m/uL Hgb 10.7 L (11.4-16.0) gm/dL Hct (37.2-46.3) % MCV 106.0 H (80.0-100.0) fL MCH (27.0-32.0) pg MCHC 28.8 L (31.0-37.0) g/dL RDW (11.5-14.5) % Plt Count 134 L (150-450) k/uL Plt Count Comment MPV (9.5-12.2) fL Lymphocytes # 0.9 L (1.0-4.8) k/uL Eosinophils # (0.04-0.35) X 10*3/uL Chloride 88 L (98-107) mmol/L Carbon Dioxide 45 H* (22-30) mmol/L BUN 96 H (7-17) mg/dL Creatinine 3.27 H (0.52-1.04) mg/dL Glucose 175 H (74-99) mg/dL Magnesium 2.8 H (1.6-2.3) mg/dL Total Bilirubin (0.30-1.20) mg/dL Conjugated Bilirubin (0.20-0.40) mg/dL Albumin 3.4 L (3.5-5.0) g/dL Albumin/Globulin Ratio (1.60-3.17) g/dL Procalcitonin (0.02-0.09) ng/mL Urine Appearance Cloudy H (Clear) Urine Protein Trace H (Negative) Urine Glucose (UA) Trace H (Negative) Urine Blood Small H (Negative) Ur Leukocyte Esterase Trace H (Negative) Urine RBC 9 H (0-5) /hpf Urine WBC 7 H (0-5) /hpf Amorphous Sediment Rare H (None) /hpf Urine Bacteria Rare H (None) /hpf Hyaline Casts 16 H (0-2) /lpf Urine Mucus Rare H (None) /hpf 05/30/22 05/30/22 05/30/22 Range/Units 05:11 05:11 05:11 RBC 2.86 L (3.80-5.40) m/uL Hgb 9.7 L (11.4-16.0) gm/dL Hct 31.9 L (37.2-46.3) % MCV 111.5 H (80.0-100.0) fL MCH 33.9 H (27.0-32.0) pg MCHC 30.4 L (31.0-37.0) g/dL RDW 14.8 H (11.5-14.5) % Plt Count 135 L (150-450) k/uL Plt Count Comment DECREASED A MPV 12.4 H (9.5-12.2) fL Lymphocytes # (1.0-4.8) k/uL Eosinophils # 0.46 H (0.04-0.35) X 10*3/uL Chloride (98-107) mmol/L Carbon Dioxide (22-30) mmol/L BUN (7-17) mg/dL Creatinine (0.52-1.04) mg/dL Glucose (74-99) mg/dL Magnesium 2.9 H (1.6-2.3) mg/dL Total Bilirubin 0.20 L (0.30-1.20) mg/dL Conjugated Bilirubin <0.20 L (0.20-0.40) mg/dL Albumin 3.3 L (3.5-5.0) g/dL Albumin/Globulin Ratio 1.14 L (1.60-3.17) g/dL Procalcitonin 0.17 H (0.02-0.09) ng/mL Urine Appearance (Clear) Urine Protein (Negative) Urine Glucose (UA) (Negative) Urine Blood (Negative) Ur Leukocyte Esterase (Negative) Urine RBC (0-5) /hpf Urine WBC (0-5) /hpf Amorphous Sediment (None) /hpf Urine Bacteria (None) /hpf Hyaline Casts (0-2) /lpf Urine Mucus (None) /hpf Assessment and Plan Assessment: Altered mental status, metabolic encephalopathy multifactorial secondary to CO2 narcosis versus CHF, worsening creatinine, versus others. resolved Prominent pulmonary vasculature mostly secondary to acute on chronic systolic CHF with ejection fraction 25-30% Mild acute kidney injury versus worsening chronic kidney disease chronic kidney disease stage IV Diabetes mellitus Hypertension Atrial fibrillation Chronic diastolic CHF Chronic pleural effusion Obesity Chronic kidney disease, stage III Congestive hepatopathy Morbid obesity with BMI of 50.8 Plan: This is a pleasant 76 years old female who presents with AMS, CHF, worsening creatinine Continue with Bumex 1 mg every 12, continue with metolazone 5 mg daily, monitor input and output. Check bladder scan Labs and medication were reviewed.. Continue same treatment. Continue with symptomatic treatment. Resume home medication. Monitor lytes and vitals. DVT and GI prophylaxis. Further recommendations as per clinical course of the patient DVT prophylaxis: Subcutaneous heparin GI Prophylaxis: Ppi
--- NOTE | 2022-05-30 12:21 | P.CNPUL ---
History of Present Illness Consult date: 05/30/22 Reason for consult: dyspnea, hypoxemia History of present illness: 76-year-old female patient is less for altered mentation and worsening shortness of breath. She was also found to have an acute on top of chronic kidney failure. For that reason the patient was admitted. I was asked to evaluate the patient. The chest x-ray is consistent with CHF and fluid overload. Note that the patient has already stage IV kidney disease, chronic. She is resting comfortably in bed. She has increased fluid and edema in lower oximetry is bilaterally. No chest pain. Cardiac rhythm is irregular consistent with atrial flutter. She is on no anticoagulants for now. She is on 2 L of oxygen by nasal cannula. Blood work was reviewed and the patient's hemoglobin is at 10.7. The platelet count is at 134 with a white cell count of 4.2. Sodium is at 141 with a potassium level of 4.6, serum bicarbonate 45 with a BUN of 36 and a creatinine of 3.2 and a GFR of 13. Rest of the electrolytes are all stable. The pro calcitonin level was at 0.17. UA was essentially nonspecific with 7 WBCs. No other acute abnormalities have been noted. Rest of the electrodes are stable. Serum bicarbs elevated chronically at the level of 45. The computed tomography scan of the chest shows chronic periventricular white matter ischemic changes. Review of Systems Constitutional: Reports daytime sleepiness, Reports fatigue, Reports lethargy, Reports weakness, Reports weight gain Eyes: denies blurred vision, denies bulging eye, denies decreased vision Ears: deny: decreased hearing, ear discharge, earache Ears, nose, mouth and throat: Denies headache, Denies sore throat Cardiovascular: Reports decreased exercise tolerance, Reports dyspnea on exertion, Reports irregular heart beat, Reports rapid heart beat, Reports shortness of breath, chronic Respiratory: Reports dyspnea, chronic Gastrointestinal: Denies abdominal pain, Denies diarrhea, Denies nausea, Denies vomiting Genitourinary: Denies dysuria, Denies hematuria Musculoskeletal: Reports morning stiffness, Reports muscle weakness Musculoskeletal: bilateral: ankle swelling, absent: ankle pain, ankle stiffness, increased edema lower extremity is bilaterally Integumentary: Denies pruritus, Denies rash Neurological: Reports gait dysfunction, Reports weakness Psychiatric: Denies anxiety, Denies depression Endocrine: Denies fatigue, Denies weight change Hematologic/Lymphatic: Reports as per HPI Allergic/Immunologic: Reports as per HPI 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 She has never driven, her spouse drives. Pt reads/writes alittle. Smoking Status: Former smoker Past Alcohol Use History: None Reported Additional Past Alcohol Use History / Comment(s): Pt is exposed to 2nd hand smoke in her home. Pt started smoking in 1960 and quit in 1974. Past Drug Use History: None Reported - Past Family History Father Family Medical History: Cancer Additional Family Medical History / Comment(s): Father of lung cancer. He was a nonsmoker, worked in a refinery. Mother Family Medical History: Cancer, Coronary Artery Disease (CAD), Diabetes Mellitus, Hyperlipidemia, Hypertension Additional Family Medical History / Comment(s): Mother of pancreatic cancer. Medications and Allergies Home Medications Medication Instructions Recorded Confirmed Type Ferrous Sulfate [Iron (65 MG 325 mg PO HS 04/23/21 05/29/22 History Elemental)] Montelukast [Singulair] 10 mg PO HS 04/23/21 05/29/22 History Sertraline [Zoloft] 50 mg PO HS 04/23/21 05/29/22 History Levothyroxine Sodium [Synthroid] 137 mcg PO DAILY@0630 tab 04/28/21 05/29/22 Rx Aspirin 81 mg PO HS 05/17/21 05/29/22 History Omeprazole 20 mg PO DAILY 05/17/21 05/29/22 History metOLazone [Zaroxolyn] 5 mg PO DAILY tab 05/22/21 05/29/22 Rx Calcium Carbonate/Vitamin D3 1 tab PO DAILY@0700 05/29/22 05/29/22 History [Calcium 600 mg-Vit D3 5 mcg (200 unit)] Cholecalciferol [Vitamin D3 (25 50 mcg PO DAILY 05/29/22 05/29/22 History Mcg = 1000 Iu)] Docusate Sodium [Dok] 100 mg PO BID 05/29/22 05/29/22 History Gabapentin [Neurontin] 300 mg PO TID@0700,1300,1900 05/29/22 05/29/22 History INSULIN ASPART (NovoLOG) [NovoLOG 3 unit SQ TID@0700,1200,1700 05/29/22 05/29/22 History (formulary)] Insulin Glargine,Hum.rec.anlog 15 units SQ 05/29/22 05/29/22 History [Insulin Glargine] Ipratropium-Albuterol Nebulize 3 ml INHALATION RT-TID PRN 05/29/22 05/29/22 History [Duoneb 0.5 mg-3 mg/3 ml Soln] Mag Hydrox/Aluminum Hyd/Simeth 30 ml PO Q6H PRN 05/29/22 05/29/22 History [Mylanta Maximum Strength Liq] Metoprolol Succinate (ER) [Toprol 12.5 mg PO DAILY 05/29/22 05/29/22 History Xl] Torsemide [Demadex] 20 mg PO DAILY 05/29/22 05/29/22 History bisacodyL 10 mg RECTAL DAILY PRN 05/29/22 05/29/22 History polyethylene glycoL 3350 [Miralax] 17 gm PO DAILY PRN 05/29/22 05/29/22 History Allergies Allergy/AdvReac Type Severity Reaction Status Date / Time camphor [From Vicks Vaporub] Allergy Rash/Hives Verified 05/29/22 15:41 eucalyptus Allergy Rash/Hives Verified 05/29/22 15:41 [From Vicks Vaporub] menthol [From Vicks Vaporub] Allergy Rash/Hives Verified 05/29/22 15:41 Penicillins Allergy Rash/Hives Verified 05/29/22 15:41 petrolatum,white Allergy Rash/Hives Verified 05/29/22 15:41 [From Vicks Vaporub] turpentine oil Allergy Rash/Hives Verified 05/29/22 15:41 [From Vicks Vaporub] ivory soap Allergy Rash/Hives Uncoded 05/29/22 15:41 Physical Exam Vitals: Vital Signs Temp Pulse Pulse Resp BP BP Pulse Ox 05/30/22 08:00 52 L 18 05/30/22 07:00 97.9 F 52 L 18 110/63 99 05/30/22 03:30 98.1 F 69 17 130/72 93 L 05/29/22 19:17 98 F 72 16 122/62 97 05/29/22 18:40 56 L 18 134/59 99 05/29/22 16:33 58 L 18 137/62 98 05/29/22 15:01 97.9 F 55 L 18 143/58 93 L Intake and Output 05/29/22 05/30/22 05/30/22 22:59 06:59 14:59 Intake Total 100 Output Total 20 200 Balance -20 -200 100 Intake: Oral 100 Output: Urine 20 200 Straight 20 Other: Voiding Method Diaper Diaper Diaper External Catheter External Catheter External Catheter # Voids 0 1 # Bowel Movements 1 1 Weight 117.934 kg 117.934 kg - No acute distress, oriented 3., The patient is morbidly obese. She is able to rest comfortably in bed. No acute respiratory distress. She is not using excessive muscle breathing. The patient's currently on 2 L of oxygen by nasal cannula. The patient is morbidly obese with a body mass index of 50.8 Head exam was generally normal. There was no scleral icterus or corneal arcus. Mucous membranes were moist. Neck supple. Full range of motion. No adenopathy thyromegaly or neck vein distention. Cardiovascular examination reveals regular rhythm rate. S1-S2 normal. No S3 or S4. No discernible murmur noted. Lungs reveal diminished breath sounds. His a few scattered crackles at the bases more so on the right. No wheezes. Diminished in the right lung base .Abdomen soft bowel sounds are heard. No masses or tenderness. Patient is morbidly obese. The rest of the organs cannot be accurately palpated. Extremities there is +1 pitting edema and chronic venous stasis changes with hyperpigmentation. Lower extremities are sore to touch. No cyanosis or clubbing at this point. Skin changes as above. The patient has some candidal changes under her abdominal apron and breast folds Neurologic examination is brief but nonfocal. The patient is moving all 4 extremities without any limitation. Gait cannot be assessed. Results - Laboratory Findings CBC and BMP: 05/30/22 05:11 05/29/22 15:39 Abnormal lab findings: Abnormal Labs 05/29/22 05/29/22 05/29/22 15:39 15:39 16:48 RBC 3.50 L Hgb 10.7 L Hct MCV 106.0 H MCH MCHC 28.8 L RDW Plt Count 134 L Plt Count Comment MPV Lymphocytes # 0.9 L Eosinophils # Chloride 88 L Carbon Dioxide 45 H* BUN 96 H Creatinine 3.27 H Glucose 175 H Magnesium 2.8 H Total Bilirubin Conjugated Bilirubin Albumin 3.4 L Albumin/Globulin Ratio Procalcitonin Urine Appearance Cloudy H Urine Protein Trace H Urine Glucose (UA) Trace H Urine Blood Small H Ur Leukocyte Esterase Trace H Urine RBC 9 H Urine WBC 7 H Amorphous Sediment Rare H Urine Bacteria Rare H Hyaline Casts 16 H Urine Mucus Rare H 05/30/22 05/30/22 05/30/22 05:11 05:11 05:11 RBC 2.86 L Hgb 9.7 L Hct 31.9 L MCV 111.5 H MCH 33.9 H MCHC 30.4 L RDW 14.8 H Plt Count 135 L Plt Count Comment DECREASED A MPV 12.4 H Lymphocytes # Eosinophils # 0.46 H Chloride Carbon Dioxide BUN Creatinine Glucose Magnesium 2.9 H Total Bilirubin 0.20 L Conjugated Bilirubin <0.20 L Albumin 3.3 L Albumin/Globulin Ratio 1.14 L Procalcitonin 0.17 H Urine Appearance Urine Protein Urine Glucose (UA) Urine Blood Ur Leukocyte Esterase Urine RBC Urine WBC Amorphous Sediment Urine Bacteria Hyaline Casts Urine Mucus - Diagnostic Findings Chest x-ray: image reviewed Assessment and Plan Plan: Chronic dyspnea with a component of fluid overload due to her comorbidities specifically her chronic heart failure which includes an ejection fraction of 20-25% and chronic kidney disease which is currently stage IV -V . No signs of any superinfection at this point in time. Chronic atrial fibrillation /flutter rate controlled and the patient is currently on no anticoagulants Congestive heart failure, with impaired LV function with an ejection fraction of 25% Chronic hypoxic and hypercapnic respiratory failure. The hypercapnic respiratory failure due to morbid obesity and restrictive lung disease and the patient is also on oxygen at 2 L per minute nasal cannula acute on chronic kidney disease Diabetes mellitus Hypertension Hypothyroidism, currently on Synthroid 125 g elevated basis. 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 Anemia of chronic disease, able to stable at 9.7 Chronic metabolic alkalosis , As the patient is known to have chronic hypercapnic respiratory failure and the metabolic acidosis compensatory. Chronic small lateral pleural effusions Plan With the patient Bumex 1 mg every 12 hours a combination of Zaroxolyn Monitor urine output Monitor the electrolytes including the serum bicarb May need Diamox and the patient developed significant metabolic alkalosis Resume home medications No anticoagulants for now Prognosis poor. Establish a change in status
[2022-05-30 13:08] LABS: Glucose,Whole Blood 138 mg/dL (70-110)
[2022-05-30] MEDS: GABAPENTIN 300 MG CAP PO SCH ×2 (13:08→18:13)
[2022-05-30] MEDS: BUMETANIDE 0.25 MG/ML 10 ML VIAL IV SCH ×2 (13:08→23:02)
[2022-05-30] MEDS: METOPROLOL SUCCINATE (ER) 25 MG TAB.ER.24H PO SCH ×2 (13:08→13:11)
[2022-05-30] MEDS: INSULIN ASPART (NovoLOG) 100 UNIT/ML VIAL SQ SCH ×2 (13:09→18:03)
[2022-05-30] MEDS: metOLazone 5 MG TAB PO SCH (13:20)
[2022-05-30 17:18] LABS: Glucose,Whole Blood 128 mg/dL (70-110)
[2022-05-30] MEDS: SODIUM CHLORIDE 0.9% 1,000 ML IV SCH (18:03)
[2022-05-30 20:14] LABS: Glucose,Whole Blood 133 mg/dL (70-110)
[2022-05-30] MEDS: HEPARIN SODIUM,PORCINE/PF 5,000 UNIT/0.5 ML SYRINGE SQ SCH (23:02)
[2022-05-30] MEDS: INSULIN DETEMIR (LEVEMIR) 100 UNIT/ML SYR SQ SCH (23:04)
[2022-05-30] MEDS: FERROUS SULFATE 325 MG TAB PO SCH (23:04)
[2022-05-30] MEDS: ASPIRIN 81 MG PO SCH (23:04)
[2022-05-30] MEDS: SERTRALINE 50 MG TAB PO SCH (23:04)
[2022-05-30] MEDS: DOCUSATE 100 MG CAP PO SCH (23:04)
[2022-05-31] MEDS: LEVOTHYROXINE 137 MCG TAB PO SCH (06:08)
[2022-05-31 07:33] LABS: Glucose,Whole Blood 106 mg/dL (70-110)
[2022-05-31] MEDS: INSULIN ASPART (NovoLOG) 100 UNIT/ML VIAL SQ SCH ×3 (08:23→17:27)
[2022-05-31] MEDS: HEPARIN SODIUM,PORCINE/PF 5,000 UNIT/0.5 ML SYRINGE SQ SCH ×2 (08:33→22:00)
[2022-05-31] MEDS: CALCIUM CARB-VIT D 500 MG-5 MCG TAB PO SCH (08:33)
[2022-05-31] MEDS: PANTOPRAZOLE 40 MG TABLET PO SCH (08:33)
[2022-05-31] MEDS: DOCUSATE 100 MG CAP PO SCH ×2 (08:33→21:59)
[2022-05-31] MEDS: METOPROLOL SUCCINATE (ER) 25 MG TAB.ER.24H PO SCH (08:33)
[2022-05-31] MEDS: metOLazone 5 MG TAB PO SCH (08:33)
[2022-05-31] MEDS: GABAPENTIN 300 MG CAP PO SCH ×3 (08:33→17:27)
[2022-05-31 09:21] LABS: Basophils # (A) 0.02 X 10*3/uL (0.00-0.10); Basophils % (A) 0.4 %; Eosinophils # (A) 0.32 X 10*3/uL (0.04-0.35); Eosinophils % (A) 6.7 %; HCT 30.7 % (37.2-46.3); HGB 9.8 g/dL (12.0-15.0); Immature Grans, Automated 0.2 %; Lymphocytes # (A) 1.04 X 10*3/uL (0.90-5.00); Lymphocytes % (A) 21.7 %; MCH 35.5 pg (27.0-32.0); MCHC 31.9 g/dL (32.0-37.0); MCV 111.2 fL (80.0-97.0); Mean Platelet Volume 12.5 fL (9.5-12.2); Monocytes # (A) 0.61 X 10*3/uL (0.20-1.00); Monocytes % (A) 12.7 %; NRBC Per 100 WBC 0 /100 WBCS (0.0-0.0); Neutrophils % (A) 58.3 %; Platelet Count 137 X 10*3/uL (140-440); RBC 2.76 X 10*6/uL (4.10-5.20); RDW 14.9 % (11.5-14.5)
[2022-05-31] MEDS: BUMETANIDE 0.25 MG/ML 10 ML VIAL IV SCH (09:51)
[2022-05-31 11:01] LABS: Magnesium 2.9 mg/dL (1.5-2.4)
[2022-05-31 11:16] LABS: African American GFR (CKD) 13.8 (60.0-200.0); Anion Gap 13.5 mmol/L (10.00-18.00); BUN/Creat Ratio 22.01 Ratio (12.00-20.00); Blood Urea Nitrogen 77.9 mg/dL (9.0-27.0); Calcium 9.1 mg/dL (8.7-10.3); Carbon Dioxide 40.9 mmol/L (20.0-27.5); Non-African American GFR(CKD) 11.9 (60.0-200.0); Potassium 4.2 mmol/L (3.5-5.5)
--- NOTE | 2022-05-31 11:51 | P.PN ---
Subjective Progress Note Date: 05/31/22 76-year-old female patient is less for altered mentation and worsening shortness of breath. She was also found to have an acute on top of chronic kidney failure. For that reason the patient was admitted. I was asked to evaluate the patient. The chest x-ray is consistent with CHF and fluid overload. Note that the patient has already stage IV kidney disease, chronic. She is resting comfortably in bed. She has increased fluid and edema in lower oximetry is bilaterally. No chest pain. Cardiac rhythm is irregular consistent with atrial flutter. She is on no anticoagulants for now. She is on 2 L of oxygen by nasal cannula. Blood work was reviewed and the patient's hemoglobin is at 10.7. The platelet count is at 134 with a white cell count of 4.2. Sodium is at 141 with a potassium level of 4.6, serum bicarbonate 45 with a BUN of 36 and a creatinine of 3.2 and a GFR of 13. Rest of the electrolytes are all stable. The pro calcitonin level was at 0.17. UA was essentially nonspecific with 7 WBCs. No other acute abnormalities have been noted. Rest of the electrodes are stable. Serum bicarbs elevated chronically at the level of 45. The computed tomography scan of the chest shows chronic periventricular white matter ischemic changes. 05/31/2022, the patient is resting comfortably in bed. No new complaints. She is morbidly obese features currently being diuresed with IV Bumex. She has cardiomyopathy. She has also fluid overload. Repeat blood work from today shows a sodium level of 47 with a potassium level of 4.2 and a chloride of 92 with a BUN of 40. The patient also has a 77 with a creatinine of 3.5. The patient has a white cell count of 4.8 with hemoglobin 9.8 and platelet count of 137. The fluid balance is -100 mL over the past 24 hours and the patient co ntinues to have increased edema in lower extremity bilaterally. May benefit from nephrology consultation. The patient has been on Bumex 1 mg every 12 hours and the patient is also on Zaroxolyn 5 mg by mouth daily. Objective - Vital Signs Vital signs: Vital Signs Temp 97.7 F 05/31/22 07:00 Pulse 53 L 05/31/22 07:00 Resp 18 05/31/22 07:00 BP 138/55 05/31/22 07:00 Pulse Ox 99 05/31/22 07:00 FiO2 Intake & Output 05/30/22 05/31/22 05/31/22 18:59 06:59 18:59 Intake Total 300 Output Total 600 Balance 300 -600 Intake: Oral 300 Output: Urine 600 Other: Voiding Method Diaper Diaper External Catheter External Catheter # Bowel Movements 1 - Exam No acute distress, oriented 3., The patient is morbidly obese. She is able to rest comfortably in bed. No acute respiratory distress. She is not using excessive muscle breathing. The patient's currently on 2 L of oxygen by nasal c annula. The patient is morbidly obese with a body mass index of 50.8 Head exam was generally normal. There was no scleral icterus or corneal arcus. Mucous membranes were moist. Neck supple. Full range of motion. No adenopathy thyromegaly or neck vein distention. Cardiovascular examination reveals regular rhythm rate. S1-S2 normal. No S3 or S4. No discernible murmur noted. Lungs reveal diminished breath sounds. His a few scattered crackles at the bases more so on the right. No wheezes. Diminished in the right lung base .Abdomen soft bowel sounds are heard. No masses or tenderness. Patient is morbidly obese. The rest of the organs cannot be accurately palpated. Extremities there is +1 pitting edema and chronic venous stasis changes with hyperpigmentation. Lower extremities are sore to touch. No cyanosis or clubbing at this point. Skin changes as above. The patient has some candidal changes under her abdominal apron and breast folds Neurologic examination is brief but nonfocal. The patient is moving all 4 extremities without any limitation. Gait cannot be assessed. - Labs CBC & Chem 7: 05/31/22 06:05 05/31/22 06:05 Labs: Abnormal Lab Results - Last 24 Hours (Table) 05/30/22 05/30/22 05/30/22 Range/Units 13:06 17:16 20:12 RBC (4.10-5.20) X 10*6/uL Hgb (12.0-15.0) g/dL Hct (37.2-46.3) % MCV (80.0-97.0) fL MCH (27.0-32.0) pg MCHC (32.0-37.0) g/dL RDW (11.5-14.5) % Plt Count (140-440) X 10*3/uL MPV (9.5-12.2) fL POC Glucose (mg/dL) 138 H 128 H 133 H (70-110) mg/dL 05/31/22 Range/Units 06:05 RBC 2.76 L (4.10-5.20) X 10*6/uL Hgb 9.8 L (12.0-15.0) g/dL Hct 30.7 L (37.2-46.3) % MCV 111.2 H (80.0-97.0) fL MCH 35.5 H (27.0-32.0) pg MCHC 31.9 L (32.0-37.0) g/dL RDW 14.9 H (11.5-14.5) % Plt Count 137 L (140-440) X 10*3/uL MPV 12.5 H (9.5-12.2) fL POC Glucose (mg/dL) (70-110) mg/dL Assessment and Plan Plan: Chronic dyspnea with a component of fluid overload due to her comorbidities s pecifically her chronic heart failure which includes an ejection fraction of 20- 25% and chronic kidney disease which is currently stage IV -V . No signs of any superinfection at this point in time. Patient is currently on IV Bumex and Zaroxolyn Chronic atrial fibrillation /flutter rate controlled and the patient is currently on no anticoagulants Congestive heart failure, with impaired LV function with an ejection fraction of 25% Chronic hypoxic and hypercapnic respiratory failure. The hypercapnic respiratory failure due to morbid obesity and restrictive lung disease and the patient is also on oxygen at 2 L per minute nasal cannula acute on chronic kidney disease, creatinine essentially stable Diabetes mellitus Hypertension Hypothyroidism, currently on Synthroid 125 g elevated basis. 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 Anemia of chronic disease, able to stable at 9.7 Chronic metabolic alkalosis , As the patient is known to have chronic hypercapnic respiratory failure and the metabolic acidosis compensatory. Chronic small lateral pleural effusions Plan Continue Bumex 1 mg every 12 hours a combination of Zaroxolyn Monitor urine output Monitor the electrolytes including the serum bicarb, creatinine is at 3.5, BUN is improved, May need Diamox and the patient developed significant metabolic alkalosis, serum bicarbonate is 40.9 No anticoagulants for now Prognosis poor. Establish a change in code status Long-term prognosis poor. Consult Nephrology
[2022-05-31 11:56] LABS: Glucose,Whole Blood 180 mg/dL (70-110)
[2022-05-31] MEDS: IPRATROPIUM-ALBUTEROL 3 ML NEB INHALATION PRN ×2 (12:30→22:22)
--- NOTE | 2022-05-31 14:25 | P.NPCON ---
History of Present Illness - Reason for Consult Consult date: 05/31/22 acute renal failure - Chief Complaint Encephalopathy - History of Present Illness 76-year-old white lady coming to the hospital from [facility]. She has CK D stage IV multifactorial, with a baseline creatinine of 2.5-2.7 MG per DL. She comes in with confusion, family at bedside. She is bedbound. Nephrology was consulted for worsening kidney injury and alkalosis. At home she is on metolazone 5 mg along with torsemide 20 mg by mouth daily. While in the hospital she was on 1 mg Bumex twice a day and continued with metolazone. Renal output of 600 ML's in the last 24 hours. On admission serum creatinine 2.7, increased to 3.5 MG per DL today. Sodium 141 on admission and 147 today. CO2 on admission was 45 and 40 today. Urine analysis on admission, hyaline cast. Currently on metolazone only. Low normal blood pressures. 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 She has never driven, her spouse drives. Pt reads/writes alittle. Smoking Status: Former smoker Past Alcohol Use History: None Reported Additional Past Alcohol Use History / Comment(s): Pt is exposed to 2nd hand smoke in her home. Pt started smoking in 1961 and quit in 1974. Past Drug Use History: None Reported - Past Family History Father Family Medical History: Cancer Additional Family Medical History / Comment(s): Father of lung cancer. He was a nonsmoker, worked in a refinery. Mother Family Medical History: Cancer, Coronary Artery Disease (CAD), Diabetes Mellitus, Hyperlipidemia, Hypertension Additional Family Medical History / Comment(s): Mother of pancreatic cancer. Medications and Allergies Home Medications Medication Instructions Recorded Confirmed Type Ferrous Sulfate [Iron (65 MG 325 mg PO HS 04/23/21 05/29/22 History Elemental)] Montelukast [Singulair] 10 mg PO HS 04/23/21 05/29/22 History Sertraline [Zoloft] 50 mg PO HS 04/23/21 05/29/22 History Levothyroxine Sodium [Synthroid] 137 mcg PO DAILY@0630 tab 04/28/21 05/29/22 Rx Aspirin 81 mg PO HS 05/17/21 05/29/22 History Omeprazole 20 mg PO DAILY 05/17/21 05/29/22 History metOLazone [Zaroxolyn] 5 mg PO DAILY tab 05/22/21 05/29/22 Rx Calcium Carbonate/Vitamin D3 1 tab PO DAILY@0700 05/29/22 05/29/22 History [Calcium 600 mg-Vit D3 5 mcg (200 unit)] Cholecalciferol [Vitamin D3 (25 50 mcg PO DAILY 05/29/22 05/29/22 History Mcg = 1000 Iu)] Docusate Sodium [Dok] 100 mg PO BID 05/29/22 05/29/22 History Gabapentin [Neurontin] 300 mg PO TID@0700,1300,1900 05/29/22 05/29/22 History INSULIN ASPART (NovoLOG) [NovoLOG 3 unit SQ TID@0700,1200,1700 05/29/22 05/29/22 History (formulary)] Insulin Glargine,Hum.rec.anlog 15 units SQ HS 05/29/22 05/29/22 History [Insulin Glargine] Ipratropium-Albuterol Nebulize 3 ml INHALATION RT-TID PRN 05/29/22 05/29/22 History [Duoneb 0.5 mg-3 mg/3 ml Soln] Mag Hydrox/Aluminum Hyd/Simeth 30 ml PO Q6H PRN 05/29/22 05/29/22 History [Mylanta Maximum Strength Liq] Metoprolol Succinate (ER) [Toprol 12.5 mg PO DAILY 05/29/22 05/29/22 History Xl] Torsemide [Demadex] 20 mg PO DAILY 05/29/22 05/29/22 History bisacodyL 10 mg RECTAL DAILY PRN 05/29/22 05/29/22 History polyethylene glycoL 3350 [Miralax] 17 gm PO DAILY PRN 05/29/22 05/29/22 History Allergies Allergy/AdvReac Type Severity Reaction Status Date / Time camphor [From Vicks Vaporub] Allergy Rash/Hives Verified 05/29/22 15:41 eucalyptus Allergy Rash/Hives Verified 05/29/22 15:41 [From Vicks Vaporub] menthol [From Vicks Vaporub] Allergy Rash/Hives Verified 05/29/22 15:41 Penicillins Allergy Rash/Hives Verified 05/29/22 15:41 petrolatum,white Allergy Rash/Hives Verified 05/29/22 15:41 [From Vicks Vaporub] turpentine oil Allergy Rash/Hives Verified 05/29/22 15:41 [From Vicks Vaporub] ivory soap Allergy Rash/Hives Uncoded 05/29/22 15:41 Physical Exam Vitals: Vital Signs Temp Pulse Pulse Resp BP Pulse Ox 05/31/22 12:40 65 18 05/31/22 12:31 62 18 05/31/22 07:00 97.7 F 53 L 18 138/55 99 05/31/22 02:51 98.0 F 56 L 19 104/64 90 L 05/30/22 20:16 97.7 F 65 17 109/62 98 Intake and Output 05/30/22 05/31/22 05/31/22 22:59 06:59 14:59 Intake Total 400 Output Total 200 400 150 Balance -200 -400 250 Intake: Oral 400 Output: Urine 200 400 150 Other: Voiding Method Diaper Diaper External Catheter External Catheter # Bowel Movements 1 1 No acute distress S1-S2 heard Decreased breath sounds Abdomen distended Edema Results - Lab Results Most recent lab results Calcium 9.1 mg/dL (8.7-10.3) 05/31/22 06:05 Magnesium 2.9 mg/dL (1.5-2.4) H 05/31/22 06:05 05/31/22 06:05 05/31/22 06:05 Assessment and Plan Assessment: #1 nonoliguric acute kidney injury multifactorial -Hemodynamic ATN with low blood pressures -Over diuresis with alkalosis and hyponatremia. #2 hypernatremia secondary to free water loss from overdiuresis/decrease oral intake. #3 chronic kidney disease stage IV secondary to nephrosclerosis with baseline creatinine of 2.5-2.7 MG per DL #4 CHF with systolic dysfunction #5 chronic respiratory failure on oxygen #6 lower extremity edema #7 metabolic alkalosis. Rule out respiratory compensation. Plan: #1 agree with holding diuretics, stop metolazone as well. #2 Garcia catheter for strict ins and outs. #3 check urine electrolytes (FeNa and FeUrea) including urine chloride. #4 ABG to understand metabolic alkalosis #5 add D5 water at 50 ML's an hour #6 labs in the morning.
[2022-05-31 15:16] LABS: ABG Oxygen Saturation 97.8 % (94-97); ABG PH 7.31 (7.35-7.45); ABG PO2 89 mmHg (83-108); ABG TCO2 50 mmol/L (19-24); Allen Test Performed? Yes
[2022-05-31 15:21] LABS: ABG HCO3 47 mmol/L (21-25); ABG PCO2 95 mmHg (35-45)
[2022-05-31] MEDS: MIDODRINE 5 MG TAB PO SCH ×2 (16:56→17:26)
[2022-05-31] MEDS: DEXTROSE 5% IN WATER 1,000 ML IV SCH (16:56)
[2022-05-31 17:08] LABS: Glucose,Whole Blood 194 mg/dL (70-110)
--- NOTE | 2022-05-31 18:31 | P.PN ---
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 As per documentation, Patient sent in by [facility] for failure to thrive and possible kidney failure per EMS Patient today is awake and alert, she is telling me she lives in [facility] for 2 years, and she was not sure why 30 cm to the hospital. There was concerns of altered mental status and decreased urine output. Patient is a known a dvanced stage IV-5 kidney disease, patient herself denies any complaints, she denies chest pain, she denies dyspnea at rest, she is wheelchair-bound for 2 years as she states. She denies abdominal pain or vomiting or diarrhea. No dysuria or urgency. No headache or dizziness or weakness or numbness. She is not on oxygen therapy outpatient. There was suspicion of fluid overload, she has bilateral pitting like edema and basal crepitation No smoking, alcohol or illicit drugs Patient is afebrile, slightly bradycardic, rest of vitals are unremarkable. She is saturating 97% on 2 L oxygen a few nasal cannula Labs show CBC is unremarkable except for mild anemia at 10.7 and thrombocytopenia at 134. BNP showing creatinine of 3.27, baseline is 2.5-2.7 Carbon dioxide 45. Electrolytes normal. Liver enzymes not elevated. Urinalysis showing WBCs of 0.7 EKG showing atrial flutter with a rate of 56 Chest x-ray showing pulmonary vasculature is prominent, clinical correlation recommended for congestive heart failure CT of the brain: Mild chronic appearing periventricular white matter ischemic Changes. MRI can be performed as clinically indicated In the emergency room patient was monitored, no indication medication given Pulmonary team were consulted. Echocardiogram from last year showing ejection fraction of 25-30% ProBNP is elevated 11 600, pro-calcitonin is still significantly elevated at 0.17. 05/31/2022 A mentation of stable, she is more awake today however she still slightly confu sed Patient breathing is better and her leg edema is better However patient is developing acute kidney injury secondary to over diuresis, Bumex and metolazone were stopped and patient started on D5 W. Garcia catheter placed. Her creatinine went up to 3.5, and sodium today was 147 while carbon dioxide was 40.9 Objective - Vital Signs Vital signs: Vital Signs Temp 97.7 F 05/31/22 07:00 Pulse 65 05/31/22 12:40 Resp 18 05/31/22 12:40 BP 138/55 05/31/22 07:00 Pulse Ox 99 05/31/22 07:00 FiO2 Intake & Output 05/30/22 05/31/22 05/31/22 18:59 06:59 18:59 Intake Total 300 400 Output Total 600 150 Balance 300 -600 250 Intake: Oral 300 400 Output: Urine 600 150 Other: Voiding Method Diaper Diaper External Catheter External Catheter # Bowel Movements 1 1 - Exam -GENERAL: The patient is alert and oriented, mildly confused, not in any acute distress. Obese HEENT: Pupils are round and equally reacting to light. EOMI. No scleral icterus. No conjunctival pallor. Normocephalic, atraumatic. No pharyngeal erythema. No thyromegaly. CARDIOVASCULAR: S1 and S2 present. No murmurs, rubs, or gallops. Improved PULMONARY: Chest is clear to auscultation,. Crepitation or wheezing ABDOMEN: Soft, nontender, nondistended, normoactive bowel sounds. No palpable organomegaly. MUSCULOSKELETAL: No joint swelling or deformity. -EXTREMITIES: No cyanosis, clubbing. Bilateral pitting like edema. -NEUROLOGICAL: Gross neurological examination did not reveal any focal deficits. Cranial nerves are grossly intact. Strength 5/5 in upper extremity. She is bedbound at baseline. Sensation is intact. SKIN: No rashes. no petechiae. - Labs CBC & Chem 7: 05/31/22 06:05 05/31/22 06:05 Labs: Abnormal Lab Results - Last 24 Hours (Table) 05/30/22 05/30/22 05/30/22 Range/Units 13:06 17:16 20:12 RBC (4.10-5.20) X 10*6/uL Hgb (12.0-15.0) g/dL Hct (37.2-46.3) % MCV (80.0-97.0) fL MCH (27.0-32.0) pg MCHC (32.0-37.0) g/dL RDW (11.5-14.5) % Plt Count (140-440) X 10*3/uL MPV (9.5-12.2) fL Sodium (135-145) mmol/L Chloride (96-109) mmol/L Carbon Dioxide (20.0-27.5) mmol/L BUN (9.0-27.0) mg/dL Creatinine (0.6-1.5) mg/dL Est GFR (CKD-EPI)AfAm (60.0-200.0) Est GFR (CKD-EPI)NonAf (60.0-200.0) BUN/Creatinine Ratio (12.00-20.00) Ratio Glucose (70-110) mg/dL POC Glucose (mg/dL) 138 H 128 H 133 H (70-110) mg/dL Magnesium (1.5-2.4) mg/dL 05/31/22 05/31/22 05/31/22 Range/Units 06:05 06:05 11:50 RBC 2.76 L (4.10-5.20) X 10*6/uL Hgb 9.8 L (12.0-15.0) g/dL Hct 30.7 L (37.2-46.3) % MCV 111.2 H (80.0-97.0) fL MCH 35.5 H (27.0-32.0) pg MCHC 31.9 L (32.0-37.0) g/dL RDW 14.9 H (11.5-14.5) % Plt Count 137 L (140-440) X 10*3/uL MPV 12.5 H (9.5-12.2) fL Sodium 147 H (135-145) mmol/L Chloride 92 L (96-109) mmol/L Carbon Dioxide 40.9 H* (20.0-27.5) mmol/L BUN 77.9 H (9.0-27.0) mg/dL Creatinine 3.5 H (0.6-1.5) mg/dL Est GFR (CKD-EPI)AfAm 13.8 L (60.0-200.0) Est GFR (CKD-EPI)NonAf 11.9 L (60.0-200.0) BUN/Creatinine Ratio 22.01 H (12.00-20.00) Ratio Glucose 119 H (70-110) mg/dL POC Glucose (mg/dL) 180 H (70-110) mg/dL Magnesium 2.9 H (1.5-2.4) mg/dL Assessment and Plan Assessment: Altered mental status, metabolic encephalopathy multifactorial secondary to CO2 narcosis versus CHF, worsening creatinine, versus others. resolved Prominent pulmonary vasculature mostly secondary to acute on chronic systolic CHF with ejection fraction 25-30% Mild acute kidney injury secondary to overdiuresis chronic kidney disease stage IV Diabetes mellitus Hypertension Atrial fibrillation Chronic diastolic CHF Chronic pleural effusion Obesity Chronic kidney disease, stage III Congestive hepatopathy Morbid obesity with BMI of 50.8 Plan: This is a pleasant 76 years old female who presents with AMS, CHF, worsening creatinine Discontinue Bumex 1 mg every 12 and metolazone 5 mg daily, monitor input and output. 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 Continue same treatment. Continue with s ymptomatic treatment. Resume home medication. Monitor lytes and vitals. DVT and GI prophylaxis. Further recommendations as per clinical course of the patient DVT prophylaxis: Subcutaneous heparin GI Prophylaxis: Ppi
[2022-05-31] MEDS: SODIUM CHLORIDE 0.9% 1,000 ML IV SCH (19:42)
[2022-05-31] MEDS: INSULIN DETEMIR (LEVEMIR) 100 UNIT/ML SYR SQ SCH (21:59)
[2022-05-31] MEDS: FERROUS SULFATE 325 MG TAB PO SCH (21:59)
[2022-05-31] MEDS: ASPIRIN 81 MG PO SCH (22:00)
[2022-05-31] MEDS: SERTRALINE 50 MG TAB PO SCH (22:00)
[2022-06-01 07:32] LABS: Glucose,Whole Blood 172 mg/dL (70-110)
[2022-06-01 09:40] LABS: Phosphorus 4.6 mg/dL (2.4-5.1)
[2022-06-01 09:43] LABS: African American GFR (CKD) 14.4 (60.0-200.0); BUN/Creat Ratio 22.94 Ratio (12.00-20.00); Calcium 8.9 mg/dL (8.7-10.3); Non-African American GFR(CKD) 12.5 (60.0-200.0); Potassium 4.2 mmol/L (3.5-5.5)
[2022-06-01] MEDS: GABAPENTIN 300 MG CAP PO SCH ×3 (09:48→19:59)
[2022-06-01] MEDS: CALCIUM CARB-VIT D 500 MG-5 MCG TAB PO SCH (09:48)
[2022-06-01] MEDS: INSULIN ASPART (NovoLOG) 100 UNIT/ML VIAL SQ SCH ×3 (09:48→17:53)
[2022-06-01] MEDS: METOPROLOL SUCCINATE (ER) 25 MG TAB.ER.24H PO SCH (09:48)
[2022-06-01] MEDS: MIDODRINE 5 MG TAB PO SCH ×3 (09:48→17:51)
[2022-06-01] MEDS: PANTOPRAZOLE 40 MG TABLET PO SCH (09:48)
[2022-06-01] MEDS: DOCUSATE 100 MG CAP PO SCH ×2 (09:48→19:59)
[2022-06-01] MEDS: HEPARIN SODIUM,PORCINE/PF 5,000 UNIT/0.5 ML SYRINGE SQ SCH ×2 (09:49→19:59)
[2022-06-01] MEDS: DEXTROSE 5% IN WATER 1,000 ML IV SCH (09:50)
[2022-06-01] MEDS: LEVOTHYROXINE 137 MCG TAB PO SCH (10:04)
[2022-06-01] MEDS: IPRATROPIUM-ALBUTEROL 3 ML NEB INHALATION PRN (11:11)
[2022-06-01 11:39] LABS: Glucose,Whole Blood 210 mg/dL (70-110)
--- NOTE | 2022-06-01 11:42 | CA ---
Transthoracic Echo Report Name: Hetal Cuenca Age: 76 Gender: F : 1945 Exam Date: 06/01/2022 09:25 Exam Location: [facility] Ht (in): 60 Wt (lb): 275 Ordering Physician: Lynette Rueda Attending/Referring Phys: Farm Operator Lizy Vera RDCS Procedure CPT: Indications: chf Cardiac Hx: Technical Quality: Fair Contrast 1: Total Dose (mL): Contrast 2: Total Dose (mL): MEASUREMENTS (Male / Female) Normal Values 2D ECHO LV Diastolic Diameter PLAX 5.0 cm 4.2 - 5.9 / 3.9 - 5.3 cm LV Systolic Diameter PLAX 2.4 cm IVS Diastolic Thickness 1.5 cm 0.6 - 1.0 / 0.6 - 0.9 cm LVPW Diastolic Thickness 1.3 cm 0.6 - 1.0 / 0.6 - 0.9 cm LV Relative Wall Thickness 0.6 RV Internal Dim ED PLAX 4.1 cm M-MODE Aortic Root Diameter MM 3.1 cm LA Systolic Diameter MM 5.6 cm LA Ao Ratio MM 1.8 AV Cusp Separation MM 1.7 cm DOPPLER AV Peak Velocity 189.0 cm/s AV Peak Gradient 14.3 mmHg LVOT Peak Velocity 95.3 cm/s LVOT Peak Gradient 3.6 mmHg MV Area PHT 5.3 cm??? Mitral E Point Velocity 115.0 cm/s Mitral A Point Velocity 56.8 cm/s Mitral E to A Ratio 2.0 MV Deceleration Time 144.0 ms TR Peak Velocity 493.7 cm/s TR Peak Gradient 97.5 mmHg Right Ventricular Systolic Press 99.4 mmHg FINDINGS Left Ventricle Hypertensive heart disease. Mildly impaired LV function was EF between 45-50% Right Ventricle Moderate right ventricular dilatation. Severe pulmonary hypertension. Right Atrium Moderate right atrial dilatation. Left Atrium Mildly increased left atrial area. Mitral Valve Mild mitral annular calcification. Moderate mitral regurgitation. Aortic Valve Aortic valve sclerosis. No aortic stenosis. No aortic stenosis. Tricuspid Valve Severe tricuspid regurgitation. Pulmonic Valve Trace pulmonic regurgitation. Pericardium No pericardial effusion. Aorta Normal size aortic root and proximal ascending aorta. CONCLUSIONS Mildly impaired LV function was EF between 45-50% Hypertensive heart disease was concentric LVH Moderate mitral regurgitation Severe tricuspid regurgitation Previewed by: Dr. Chase Anguiano MD (Electronically Signed) Final Date: 01 June 2022 11:41
--- NOTE | 2022-06-01 12:06 | P.PN ---
Subjective Progress Note Date: 06/01/22 76-year-old female patient is less for altered mentation and worsening shortness of breath. She was also found to have an acute on top of chronic kidney failure. For that reason the patient was admitted. I was asked to evaluate the patient. The chest x-ray is consistent with CHF and fluid overload. Note that the patient has already stage IV kidney disease, chronic. She is resting comfortably in bed. She has increased fluid and edema in lower oximetry is bilaterally. No chest pain. Cardiac rhythm is irregular consistent with atrial flutter. She is on no anticoagulants for now. She is on 2 L of oxygen by nasal cannula. Blood work was reviewed and the patient's hemoglobin is at 10.7. The platelet count is at 134 with a white cell count of 4.2. Sodium is at 141 with a potassium level of 4.6, serum bicarbonate 45 with a BUN of 36 and a creatinine of 3.2 and a GFR of 13. Rest of the electrolytes are all stable. The pro calcitonin level was at 0.17. UA was essentially nonspecific with 7 WBCs. No other acute abnormalities have been noted. Rest of the electrodes are stable. Serum bicarbs elevated chronically at the level of 45. The computed tomography scan of the chest shows chronic periventricular white matter ischemic changes. 05/31/2022, the patient is resting comfortably in bed. No new complaints. She is morbidly obese features currently being diuresed with IV Bumex. She has cardiomyopathy. She has also fluid overload. Repeat blood work from today shows a sodium level of 47 with a potassium level of 4.2 and a chloride of 92 with a BUN of 40. The patient also has a 77 with a creatinine of 3.5. The patient has a white cell count of 4.8 with hemoglobin 9.8 and platelet count of 137. The fluid balance is -100 mL over the past 24 hours and the patient con tinues to have increased edema in lower extremity bilaterally. May benefit from nephrology consultation. The patient has been on Bumex 1 mg every 12 hours and the patient is also on Zaroxolyn 5 mg by mouth daily. The patient is seen today 06/01/2022 in follow-up on the regular medical floor. She is currently resting fairly comfortably in bed. Awake and alert in no acute distress. Doing better today. She is maintaining good O2 saturations in the 90s on 2 L/m per nasal cannula. Echocardiogram revealed mildly impaired left ventricular systolic function with ejection fraction 45-50%. Severe pulmonary hypertension with right ventricular systolic pressure of 99.4 mmHg. Severe tricuspid regurgitation. Moderate mitral regurgitation. Sodium 141. Potassium 4.2. Bicarb 41. BUN 78. Creatinine 3.14. Glucose 174. Bumex and Zaroxolyn discontinued per nephrology. The patient did have one episode of hypoxemia early this morning., Recovered and back on 2 L nasal cannula. Objective - Vital Signs Vital signs: Vital Signs Temp 97.7 F 06/01/22 07:00 Pulse 63 06/01/22 11:23 Resp 18 06/01/22 07:00 BP 121/71 06/01/22 07:00 Pulse Ox 96 06/01/22 07:34 FiO2 Intake & Output 05/31/22 06/01/22 06/01/22 18:59 06:59 18:59 Intake Total 800 Output Total 210 600 175 Balance 590 -600 -175 Intake: Oral 800 Output: Urine 210 600 175 Other: Voiding Method Diaper Indwelling Catheter Indwelling Catheter External Catheter # Bowel Movements 1 - Exam Alert 76-year-old female patient. No acute distress, oriented 3., The patient is morbidly obese. She is able to rest comfortably in bed. No acute respirator y distress. She is not using excessive muscle breathing. The patient's currently on 2 L of oxygen by nasal cannula. The patient is morbidly obese with a body mass index of 50.8 Head exam was generally normal. There was no scleral icterus or corneal arcus. Mucous membranes were moist. Neck supple. Full range of motion. No adenopathy thyromegaly or neck vein distention. Cardiovascular examination reveals regular rhythm rate. S1-S2 normal. No S3 or S4. No discernible murmur noted. Lungs reveal diminished breath sounds. His a few scattered crackles at the bases more so on the right. No wheezes. Diminished in the right lung base .Abdomen soft bowel sounds are heard. No masses or tenderness. Patient is morbidly obese. The rest of the organs cannot be accurately palpated. Extremities there is +1 pitting edema and chronic venous stasis changes with hyperpigmentation. Lower extremities are sore to touch. No cyanosis or clubbing at this point. Skin changes as above. The patient has some candidal changes under her abdominal apron and breast folds Neurologic examination is brief but nonfocal. The patient is moving all 4 extremities without any limitation. Gait cannot be assessed. - Labs CBC & Chem 7: 05/31/22 06:05 06/01/22 04:49 Labs: Abnormal Lab Results - Last 24 Hours (Table) 05/31/22 05/31/22 05/31/22 Range/Units 06:05 11:50 15:10 ABG pH 7.31 L (7.35-7.45) ABG pCO2 95 H* (35-45) mmHg ABG HCO3 47 H* (21-25) mmol/L ABG Total CO2 50 H (19-24) mmol/L ABG O2 Saturation 97.8 H (94-97) % Sodium 147 H (135-145) mmol/L Chloride 92 L (96-109) mmol/L Carbon Dioxide 40.9 H* (20.0-27.5) mmol/L Anion Gap (10.00-18.00) mmol/L BUN 77.9 H (9.0-27.0) mg/dL Creatinine 3.5 H (0.6-1.5) mg/dL Est GFR (CKD-EPI)AfAm 13.8 L (60.0-200.0) Est GFR (CKD-EPI)NonAf 11.9 L (60.0-200.0) BUN/Creatinine Ratio 22.01 H (12.00-20.00) Ratio Glucose 119 H (70-110) mg/dL POC Glucose (mg/dL) 180 H (70-110) mg/dL Magnesium 2.9 H (1.5-2.4) mg/dL 05/31/22 06/01/22 06/01/22 Range/Units 17:06 04:49 07:30 ABG pH (7.35-7.45) ABG pCO2 (35-45) mmHg ABG HCO3 (21-25) mmol/L ABG Total CO2 (19-24) mmol/L ABG O2 Saturation (94-97) % Sodium (135-145) mmol/L Chloride 91 L (96-109) mmol/L Carbon Dioxide 41.0 H* (20.0-27.5) mmol/L Anion Gap 9.00 L (10.00-18.00) mmol/L BUN 78.0 H (9.0-27.0) mg/dL Creatinine 3.4 H (0.6-1.5) mg/dL Est GFR (CKD-EPI)AfAm 14.4 L (60.0-200.0) Est GFR (CKD-EPI)NonAf 12.5 L (60.0-200.0) BUN/Creatinine Ratio 22.94 H (12.00-20.00) Ratio Glucose 174 H (70-110) mg/dL POC Glucose (mg/dL) 194 H 172 H (70-110) mg/dL Magnesium (1.5-2.4) mg/dL 06/01/22 Range/Units 11:38 ABG pH (7.35-7.45) ABG pCO2 (35-45) mmHg ABG HCO3 (21-25) mmol/L ABG Total CO2 (19-24) mmol/L ABG O2 Saturation (94-97) % Sodium (135-145) mmol/L Chloride (96-109) mmol/L Carbon Dioxide (20.0-27.5) mmol/L Anion Gap (10.00-18.00) mmol/L BUN (9.0-27.0) mg/dL Creatinine (0.6-1.5) mg/dL Est GFR (CKD-EPI)AfAm (60.0-200.0) Est GFR (CKD-EPI)NonAf (60.0-200.0) BUN/Creatinine Ratio (12.00-20.00) Ratio Glucose (70-110) mg/dL POC Glucose (mg/dL) 210 H (70-110) mg/dL Magnesium (1.5-2.4) mg/dL Assessment and Plan Assessment: Chronic dyspnea with a component of fluid overload due to her comorbidities specifically her chronic heart failure which includes an ejection fraction of 45-50 %, severe pulmonary hypertension, and chronic kidney disease which is currently stage IV -V . No signs of any superinfection at this point in time. Patient is currently on IV Bumex and Zaroxolyn Chronic atrial fibrillation /flutter rate controlled and the patient is currently on no anticoagulants Congestive heart failure, with impaired LV function with an ejection fraction of 45% Chronic hypoxic and hypercapnic respiratory failure. The hypercapnic respiratory failure due to morbid obesity and restrictive lung disease, severe pulmonary hypertension and the patient is also on oxygen at 2 L per minute nasal cannula Acute on chronic kidney disease, creatinine essentially stable Diabetes mellitus Hypertension Hypothyroidism, currently on Synthroid 125 g elevated basis. 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 Anemia of chronic disease, able to stable at 9.7 Chronic metabolic alkalosis , As the patient is known to have chronic hypercapnic respiratory failure and the metabolic acidosis compensatory. Chronic small lateral pleural effusions Plan: The patient was seen and evaluated Echocardiogram, labs and medications reviewed Currently stable from the pulmonary standpoint Nephrology is following now Continue the current treatment plan I have personally seen and examined the patient, performed the documentation and the assessment and plan as written. Number of minutes spent on the visit: 10.
--- NOTE | 2022-06-01 13:10 | P.CRDCN ---
History of Present Illness Consult date: 06/01/22 Chief complaint: CHF History of present illness: The patient is a pleasant 76-year-old female patient with a past medical history significant for history of nonischemic cardiomyopathy and also hypertensive heart disease as well as hypertension heart disease as well as morbid obesity and also permanent atrial fibrillation not on oral anticoagulation because of history of GI bleeding. We consulted to see the patient because of congestive heart failure. When the patient was seen and evaluated she is definitely confused and she has a component of encephalopathy which is not known to her. The patient does not know why she is here. Obviously she was admitted because of increasing shortness of breath. An A team was called on her yesterday because she was hypoxic. An investigation was performed and also examination was done came in to echo which and that the patient does have congestive heart failure. Clinically the patient does have severe bilateral lower extremities edema and also she does have diminished breathing sounds bilaterally the chest x-ray was consistent with fluid overload. The patient underwent an echo during this admission which revealed impaired LV function was EF between 45-50% with evidence of moderate MR and severe TR and severe pulmonary hypertension. Beside that and more importantly the patient stage IV chronic kidney disease (30 creatinine this time appeared to be higher than before so she seems to be in acute on chronic renal failure. Nephrology is on the case. Her NT proBNP came in to be elevated at 11,000. 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 She has never driven, her spouse drives. Pt reads/writes alittle. Smoking Status: Former smoker Past Alcohol Use History: None Reported Additional Past Alcohol Use History / Comment(s): Pt is exposed to 2nd hand sm sandee in her home. Pt started smoking in 1 and quit in 1974. Past Drug Use History: None Reported - Past Family History Father Family Medical History: Cancer Additional Family Medical History / Comment(s): Father of lung cancer. He was a nonsmoker, worked in a [employer]. Mother Family Medical History: Cancer, Coronary Artery Disease (CAD), Diabetes Melli tus, Hyperlipidemia, Hypertension Additional Family Medical History / Comment(s): Mother of pancreatic cancer. Medications and Allergies Home Medications Medication Instructions Recorded Confirmed Type Ferrous Sulfate [Iron (65 MG 325 mg PO HS 04/23/21 05/29/22 History Elemental)] Montelukast [Singulair] 10 mg PO HS 04/23/21 05/29/22 History Sertraline [Zoloft] 50 mg PO HS 04/23/21 05/29/22 History Levothyroxine Sodium [Synthroid] 137 mcg PO DAILY@0630 tab 04/28/21 05/29/22 Rx Aspirin 81 mg PO HS 05/17/21 05/29/22 History Omeprazole 20 mg PO DAILY 05/17/21 05/29/22 History metOLazone [Zaroxolyn] 5 mg PO DAILY tab 05/22/21 05/29/22 Rx Calcium Carbonate/Vitamin D3 1 tab PO DAILY@0700 05/29/22 05/29/22 History [Calcium 600 mg-Vit D3 5 mcg (200 unit)] Cholecalciferol [Vitamin D3 (25 50 mcg PO DAILY 05/29/22 05/29/22 History Mcg = 1000 Iu)] Docusate Sodium [Dok] 100 mg PO BID 05/29/22 05/29/22 History Gabapentin [Neurontin] 300 mg PO TID@0700,1300,1900 05/29/22 05/29/22 History INSULIN ASPART (NovoLOG) [NovoLOG 3 unit SQ TID@0700,1200,1700 05/29/22 05/29/22 History (formulary)] Insulin Glargine,Hum.rec.anlog 15 units SQ HS 05/29/22 05/29/22 History [Insulin Glargine] Ipratropium-Albuterol Nebulize 3 ml INHALATION RT-TID PRN 05/29/22 05/29/22 Hist ory [Duoneb 0.5 mg-3 mg/3 ml Soln] Mag Hydrox/Aluminum Hyd/Simeth 30 ml PO Q6H PRN 05/29/22 05/29/22 History [Mylanta Maximum Strength Liq] Metoprolol Succinate (ER) [Toprol 12.5 mg PO DAILY 05/29/22 05/29/22 History Xl] Torsemide [Demadex] 20 mg PO DAILY 05/29/22 05/29/22 History bisacodyL 10 mg RECTAL DAILY PRN 05/29/22 05/29/22 History polyethylene glycoL 3350 [Miralax] 17 gm PO DAILY PRN 05/29/22 05/29/22 History Allergies Allergy/AdvReac Type Severity Reaction Status Date / Time camphor [From Vicks Vaporub] Allergy Rash/Hives Verified 05/29/22 15:41 eucalyptus Allergy Rash/Hives Verified 05/29/22 15:41 [From Vicks Vaporub] menthol [From Vicks Vaporub] Allergy Rash/Hives Verified 05/29/22 15:41 Penicillins Allergy Rash/Hives Verified 05/29/22 15:41 petrolatum,white Allergy Rash/Hives Verified 05/29/22 15:41 [From Vicks Vaporub] turpentine oil Allergy Rash/Hives Verified 05/29/22 15:41 [From Vicks Vaporub] ivory soap Allergy Rash/Hives Uncoded 05/29/22 15:41 Physical Exam Vitals: Vital Signs Temp Pulse Pulse Resp BP Pulse Ox 06/01/22 12:41 93/53 06/01/22 11:23 63 06/01/22 11:11 60 06/01/22 07:34 96 06/01/22 07:00 97.7 F 64 18 121/71 96 06/01/22 02:00 97.8 F 95/59 97 05/31/22 22:32 61 05/31/22 22:27 98.2 F 72 20 142/81 97 05/31/22 22:22 69 05/31/22 21:32 98.1 F 67 20 119/76 71 L 05/31/22 14:35 97.9 F 73 18 118/73 99 05/31/22 14:00 73 18 Intake and Output 05/31/22 06/01/22 06/01/22 22:59 06:59 14:59 Intake Total 200 Output Total 200 400 175 Balance 0 -400 -175 Intake: Oral 200 Output: Urine 200 400 175 Other: Voiding Method Indwelling Catheter Indwelling Catheter Indwelling Catheter - Constitutional General appearance: no acute distress - Respiratory Respiratory: bilateral: diminished - Cardiovascular Rhythm: irregularly irregular Heart sounds: normal: S1, S2 Abnormal Heart Sounds: systolic murmur Results 05/31/22 06:05 06/01/22 04:49 Comprehensive Metabolic Panel 06/01/22 Range/Units 04:49 Sodium 141 (135-145) mmol/L Potassium 4.2 (3.5-5.5) mmol/L Chloride 91 L (96-109) mmol/L Carbon Dioxide 41.0 H* (20.0-27.5) mmol/L BUN 78.0 H (9.0-27.0) mg/dL Creatinine 3.4 H (0.6-1.5) mg/dL Glucose 174 H (70-110) mg/dL Calcium 8.9 (8.7-10.3) mg/dL Current Medications Generic Name Dose Route Start Last Admin Trade Name Freq PRN Reason Stop Dose Admin Albuterol/Ipratropium 3 ml 05/30/22 10:51 06/01/22 11:11 Ipratropium-Albuterol 3 Ml Neb INHALATION 3 ml RT-TID PRN Administration Shortness Of Breath Aspirin 81 mg 05/30/22 21:00 05/31/22 22:00 Aspirin 81 Mg PO 81 mg HS DIMITRI Administration Bisacodyl 10 mg 05/30/22 10:51 Bisacodyl 10 Mg Supp RECTAL DAILY PRN Constipation Calcium Carbonate 1 each 05/31/22 07:00 06/01/22 09:48 Calcium Carb-Vit D 500 Mg-5 Mcg Tab PO 1 each DAILY@0700 DIMITRI Administration Docusate Sodium 100 mg 05/30/22 21:00 06/01/22 09:48 Docusate 100 Mg Cap PO 100 mg BID DIMITRI Administration Ferrous Sulfate 325 mg 05/30/22 21:00 05/31/22 21:59 Ferrous Sulfate 325 Mg Tab PO 325 mg HS DIMITRI Administration Gabapentin 300 mg 05/30/22 13:00 06/01/22 09:48 Gabapentin 300 Mg Cap PO 300 mg TID@0700,1300,1900 DIMITRI Administration Heparin Sodium (Porcine) 5,000 unit 05/30/22 21:00 06/01/22 09:49 Heparin Sodium,Porcine/Pf 5,000 Unit/0.5 Ml Syringe SQ 5,000 unit Q12HR DIMITRI Administration Sodium Chloride 1,000 mls @ 20 mls/hr 05/29/22 17:45 05/31/22 19:42 Saline 0.9% IV Not Given .Q24H DIMITRI Dextrose/Water 1,000 mls @ 50 mls/hr 05/31/22 14:30 06/01/22 09:50 Dextrose 5%-Water Iv Soln IV 50 mls/hr .Q20H DIMITRI Administration Insulin Aspart 3 unit 05/30/22 12:00 06/01/22 12:40 Insulin Aspart (Novolog) 100 Unit/Ml Vial SQ 3 unit TID@0700,1200,1700 DIMITRI Administration Insulin Detemir 15 unit 05/30/22 21:00 05/31/22 21:59 Insulin Detemir (Levemir) 100 Unit/Ml Syr SQ 15 unit HS DIMITRI Administration Levothyroxine Sodium 137 mcg 05/31/22 06:30 06/01/22 10:04 Levothyroxine 137 Mcg Tab PO 137 mcg DAILY@0630 DIMITRI Administration Metoprolol Succinate 12.5 mg 05/30/22 11:15 06/01/22 09:48 Metoprolol Succinate (Er) 25 Mg Tab.Er.24h PO 12.5 mg DAILY DIMITRI Administration Midodrine 5 mg 05/31/22 14:27 06/01/22 12:40 Midodrine 5 Mg Tab PO 5 mg AC-TID DIMITRI Administration Naloxone HCl 0.2 mg 05/29/22 17:31 Naloxone 0.4 Mg/Ml 1 Ml Vial IV Q2M PRN Opioid Reversal Pantoprazole Sodium 40 mg 05/31/22 07:30 06/01/22 09:48 Pantoprazole 40 Mg Tablet PO 40 mg AC-[id number] DIMITRI Administration Polyethylene Glycol 17 gm 05/30/22 10:51 Polyethylene Glycol 3350 17 Gm Powd.Pack PO DAILY PRN Constipation Sertraline HCl 50 mg 05/30/22 21:00 05/31/22 22:00 Sertraline 50 Mg Tab PO 50 mg HS DIMITRI Administration Intake and Output 05/31/22 06/01/22 06/01/22 22:59 06:59 14:59 Intake Total 200 Output Total 200 400 175 Balance 0 -400 -175 Intake: Oral 200 Output: Urine 200 400 175 Other: Voiding Method Indwelling Catheter Indwelling Catheter Indwelling Catheter 05/31/22 06:05 06/01/22 04:49 Assessment and Plan Assessment: Assessment #1 hypoxic respiratory failure #2 heart failure secondary to heart failure with reduced ejection fraction with evidence of right and left failure #3 acute on chronic renal failure #4 history of cardiomyopathy, nonischemic #5 permanent atrial fibrillation was controlled heart rate. Not on anticoagulation because of GI bleeding #6 morbid obesity #7 hypertension #8 multiple comorbid conditions Plan #1 definitely the patient need to be on diuretics. I will leave the decision about the medication and does to the nephrology team #2 the echo was reviewed and showed an EF between 45-50% was moderate MR and severe TR and severe pulmonary hypertension #3 monitor the kidney function and electrolytes #4 follow-up with the patient
[2022-06-01] MEDS ORDERED: acetaZOLAMIDE 250 MG TAB PO SCH (16:00)
[2022-06-01 16:57] LABS: Glucose,Whole Blood 154 mg/dL (70-110)
[2022-06-01] MEDS: SODIUM CHLORIDE 0.9% 1,000 ML IV SCH (17:51)
[2022-06-01 19:57] LABS: Glucose,Whole Blood 179 mg/dL (70-110)
[2022-06-01] MEDS: INSULIN DETEMIR (LEVEMIR) 100 UNIT/ML SYR SQ SCH (19:58)
[2022-06-01] MEDS: ASPIRIN 81 MG PO SCH (19:59)
[2022-06-01] MEDS: FERROUS SULFATE 325 MG TAB PO SCH (19:59)
[2022-06-01] MEDS: SERTRALINE 50 MG TAB PO SCH (19:59)
--- NOTE | 2022-06-01 21:19 | P.PN ---
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 As per documentation, Patient sent in by [facility] for failure to thrive and possible kidney failure per EMS Patient today is awake and alert, she is telling me she lives in [place] for 2 [place], and she was not sure why 30 cm to the hospital. There was concerns of altered mental status and decreased urine output. Patient is a known a dvanced stage IV-5 kidney disease, patient herself denies any complaints, she denies chest pain, she denies dyspnea at rest, she is wheelchair-bound for 2 years as she states. She denies abdominal pain or vomiting or diarrhea. No dysuria or urgency. No headache or dizziness or weakness or numbness. She is not on oxygen therapy outpatient. There was suspicion of fluid overload, she has bilateral pitting like edema and basal crepitation No smoking, alcohol or illicit drugs Patient is afebrile, slightly bradycardic, rest of vitals are unremarkable. She is saturating 97% on 2 L oxygen a few nasal cannula Labs show CBC is unremarkable except for mild anemia at 10.7 and thrombocytopenia at 134. BNP showing creatinine of 3.27, baseline is 2.5-2.7 Carbon dioxide 45. Electrolytes normal. Liver enzymes not elevated. Urinalysis showing WBCs of 0.7 EKG showing atrial flutter with a rate of 56 Chest x-ray showing pulmonary vasculature is prominent, clinical correlation recommended for congestive heart failure CT of the brain: Mild chronic appearing periventricular white matter ischemic Changes. MRI can be performed as clinically indicated In the emergency room patient was monitored, no indication medication given Pulmonary team were consulted. Echocardiogram from last year showing ejection fraction of 25-30% ProBNP is elevated 11 600, pro-calcitonin is still significantly elevated at 0.17. 05/31/2022 A mentation of stable, she is more awake today however she still slightly confu sed Patient breathing is better and her leg edema is better However patient is developing acute kidney injury secondary to over diuresis, Bumex and metolazone were stopped and patient started on D5 W. Garcia catheter placed. Her creatinine went up to 3.5, and sodium today was 147 while carbon dioxide was 40.9 06/01/2022 Patient mentation looks stable today. She still little tachypneic She has mild pitting like edema, no significant basal crepitation Labs reviewed today showing improved sodium down to 141 and her D5W was stopped. Patient evaluated by rail layer and rn progressive care unit and per the recommendation is started on diuretics Diamox and torsemide Check labs in the morning Objective - Vital Signs Vital signs: Vital Signs Temp 97.9 F 06/01/22 14:38 Pulse 58 L 06/01/22 14:38 Resp 16 06/01/22 14:38 BP 136/60 06/01/22 14:38 Pulse Ox 95 06/01/22 14:38 FiO2 Intake & Output 05/31/22 06/01/22 06/01/22 18:59 06:59 18:59 Intake Total 800 Output Total 210 600 175 Balance 590 -600 -175 Intake: Oral 800 Output: Urine 210 600 175 Other: Voiding Method Diaper Indwelling Catheter Indwelling Catheter External Catheter # Bowel Movements 1 - Exam -GENERAL: The patient is alert and oriented, mildly confused, not in any acute distress. Obese HEENT: Pupils are round and equally reacting to light. EOMI. No scleral icterus. No conjunctival pallor. Normocephalic, atraumatic. No pharyngeal erythema. No thyromegaly. CARDIOVASCULAR: S1 and S2 present. No murmurs, rubs, or gallops. Improved PULMONARY: Chest is clear to auscultation,. Crepitation or wheezing ABDOMEN: Soft, nontender, nondistended, normoactive bowel sounds. No palpable organomegaly. MUSCULOSKELETAL: No joint swelling or deformity. -EXTREMITIES: No cyanosis, clubbing. Bilateral pitting like edema. -NEUROLOGICAL: Gross neurological examination did not reveal any focal deficits. Cranial nerves are grossly intact. Strength 5/5 in upper extremity. She is bedbound at baseline. Sensation is intact. SKIN: No rashes. no petechiae. - Labs CBC & Chem 7: 05/31/22 06:05 06/01/22 04:49 Labs: Abnormal Lab Results - Last 24 Hours (Table) 05/31/22 06/01/22 06/01/22 Range/Units 17:06 04:49 07:30 Chloride 91 L (96-109) mmol/L Carbon Dioxide 41.0 H* (20.0-27.5) mmol/L Anion Gap 9.00 L (10.00-18.00) mmol/L BUN 78.0 H (9.0-27.0) mg/dL Creatinine 3.4 H (0.6-1.5) mg/dL Est GFR (CKD-EPI)AfAm 14.4 L (60.0-200.0) Est GFR (CKD-EPI)NonAf 12.5 L (60.0-200.0) BUN/Creatinine Ratio 22.94 H (12.00-20.00) Ratio Glucose 174 H (70-110) mg/dL POC Glucose (mg/dL) 194 H 172 H (70-110) mg/dL 06/01/22 Range/Units 11:38 Chloride (96-109) mmol/L Carbon Dioxide (20.0-27.5) mmol/L Anion Gap (10.00-18.00) mmol/L BUN (9.0-27.0) mg/dL Creatinine (0.6-1.5) mg/dL Est GFR (CKD-EPI)AfAm (60.0-200.0) Est GFR (CKD-EPI)NonAf (60.0-200.0) BUN/Creatinine Ratio (12.00-20.00) Ratio Glucose (70-110) mg/dL POC Glucose (mg/dL) 210 H (70-110) mg/dL Assessment and Plan Assessment: Altered mental status, metabolic encephalopathy multifactorial secondary to CO2 narcosis versus CHF, worsening creatinine, versus others. resolved Prominent pulmonary vasculature mostly secondary to acute on chronic systolic CHF with ejection fraction 25-30% Mild acute kidney injury secondary to overdiuresis chronic kidney disease stage IV Diabetes mellitus Hypertension Atrial fibrillation Chronic diastolic CHF Chronic pleural effusion Obesity Chronic kidney disease, stage III Congestive hepatopathy Morbid obesity with BMI of 50.8 Plan: This is a pleasant 76 years old female who presents with AMS, CHF, worsening creatinine Continue with torsemide and edematous. Physical Trainer Continue with Garcia catheter Continue with IV fluid Physical Trainer and cardiology team consult As per pulmonary team patient is a stable Labs and medication were reviewed.. Continue same treatment. Continue with symptomatic treatment. Resume home medication. Monitor lytes and vitals. DVT and GI prophylaxis. Further recommendations as per clinical course of the patient DVT prophylaxis: Subcutaneous heparin GI Prophylaxis: Ppi
[2022-06-02] MEDS: LEVOTHYROXINE 137 MCG TAB PO SCH (05:42)
--- NOTE | 2022-06-02 06:20 | PN ---
PROGRESS NOTE SUBJECTIVE: The patient is seen for followup for chronic kidney disease, NKF stage IV and metabolic alkalosis. The patient has significant edema for which she is maintained on diuretics including metolazone and torsemide. Most recently, the patient was on Bumex. Serum creatinine was 3.5 to 3.4 mg/dL. CO2 has been at up to 41, which is improved from 45 on initial admission. The diuretics are currently on hold. Urine output for 24 hours was documented at about 810 mL. OBJECTIVE: GENERAL: On examination today, the patient is comfortable. She denies any significant complaints. VITAL SIGNS: Blood pressure was 136/60, heart rate 50 per minute. She is afebrile. HEART: S1, S2. LUNGS: Bilateral breath sounds are heard. Decreased breath sounds at the bases. ABDOMEN: Soft, morbidly obese. EXTREMITIES: Examination of lower extremities shows 3 to 4+ edema bilaterally. RESPIRATORY SCIENTIST: Grossly intact. LABORATORY DATA: Labs show sodium 141, potassium 4.2, chloride 91, CO2 is 41, BUN 78, serum creatinine 3.4 mg/dL. ASSESSMENT: 1. Chronic kidney disease, NKF stage IV. Baseline creatinine 2.5 to 2.7 mg/dL. Etiology, nephrosclerosis. 2. Acute kidney injury, mostly cardiorenal and associated with low blood pressure. 3. Hypernatremia secondary to free water deficit from recent diuresis and decreased oral intake. 4. Congestive heart failure with systolic dysfunction. 5. Chronic lower extremity edema. 6. Metabolic alkalosis associated with recent diuresis as well as metabolic compensation for respiratory acidosis. PLAN: Diamox x1. Resume lower dose diuretics along with use of Diamox to help with the metabolic alkalosis. MMODL / IJN: [id number] /
[2022-06-02 06:46] LABS: Glucose,Whole Blood 170 mg/dL (70-110)
--- NOTE | 2022-06-02 07:03 | P.PN ---
Subjective Progress Note Date: 06/02/22 Principal diagnosis: Permanent atrial fibrillation The patient is a pleasant 76-year-old female patient with a past medical history significant for morbid obesity as well as nonischemic cardiomyopathy and also hypertensive heart disease as well as valvular heart disease with mitral and tricuspid regurgitation and pulmonary hypertension and also permanent atrial fibrillation who was admitted to the hospital from extended care facility was change in mental status and she was diagnosed also with fluid overload. The chest x-ray showed findings consistent with heart failure. Clinically the patient was experiencing increasing in the shortness of breath and bilateral lower extremities edema. She does have also chronic kidney disease and she was in acute on chronic renal failure. Initially she was not started on any diuretics but subsequently she was started on Toresimide She was seen this morning. She is definitely more awake and alert. Hemodynamically she remained stable and she continues to be in fluid overload was bilateral lower extremities edema and diminished breathing sounds bilaterally. She is making urine. From the cardiac standpoint of view, we'll c ontinue the patient on the current medical regimen. Repeated echo showed impaired LV function was EF around 45% with moderate MR and severe TR and severe pulmonary hypertension. Objective - Vital Signs Vital signs: Vital Signs Temp 97.4 F L 06/02/22 00:58 Pulse 61 06/02/22 00:58 Resp 17 06/02/22 00:58 BP 125/75 06/02/22 00:58 Pulse Ox 97 06/02/22 00:58 FiO2 Intake & Output 06/01/22 06/02/22 06/02/22 18:59 06:59 18:59 Output Total 175 450 Balance -175 -450 Output: Urine 175 450 Other: Voiding Method Indwelling Catheter Indwelling Catheter - Constitutional General appearance: Present: no acute distress - Respiratory Respiratory: bilateral: diminished - Cardiovascular Rhythm: irregularly irregular Heart sounds: normal: S1, S2 - Labs CBC & Chem 7: 05/31/22 06:05 06/01/22 04:49 Labs: Abnormal Lab Results - Last 24 Hours (Table) 06/01/22 06/01/22 06/01/22 Range/Units 04:49 07:30 11:38 Chloride 91 L (96-109) mmol/L Carbon Dioxide 41.0 H* (20.0-27.5) mmol/L Anion Gap 9.00 L (10.00-18.00) mmol/L BUN 78.0 H (9.0-27.0) mg/dL Creatinine 3.4 H (0.6-1.5) mg/dL Est GFR (CKD-EPI)AfAm 14.4 L (60.0-200.0) Est GFR (CKD-EPI)NonAf 12.5 L (60.0-200.0) BUN/Creatinine Ratio 22.94 H (12.00-20.00) Ratio Glucose 174 H (70-110) mg/dL POC Glucose (mg/dL) 172 H 210 H (70-110) mg/dL 06/01/22 06/01/22 06/02/22 Range/Units 16:56 19:56 06:44 Chloride (96-109) mmol/L Carbon Dioxide (20.0-27.5) mmol/L Anion Gap (10.00-18.00) mmol/L BUN (9.0-27.0) mg/dL Creatinine (0.6-1.5) mg/dL Est GFR (CKD-EPI)AfAm (60.0-200.0) Est GFR (CKD-EPI)NonAf (60.0-200.0) BUN/Creatinine Ratio (12.00-20.00) Ratio Glucose (70-110) mg/dL POC Glucose (mg/dL) 154 H 179 H 170 H (70-110) mg/dL Assessment and Plan Assessment: Assessment #1 hypoxic respiratory failure #2 heart failure secondary to heart failure with reduced ejection fraction with evidence of right and left failure #3 acute on chronic renal failure #4 history of cardiomyopathy, nonischemic #5 permanent atrial fibrillation was controlled heart rate. Not on anticoagulation because of GI bleeding #6 morbid obesity #7 hypertension #8 multiple comorbid conditions Plan #1 the patient was started on diuretics yesterday and she has been making urine #2 continue monitor the kidney function and electrolytes #3 follow-up with the patient
[2022-06-02] MEDS: HEPARIN SODIUM,PORCINE/PF 5,000 UNIT/0.5 ML SYRINGE SQ SCH (08:22)
[2022-06-02] MEDS: INSULIN ASPART (NovoLOG) 100 UNIT/ML VIAL SQ SCH ×2 (08:22→13:50)
[2022-06-02] MEDS: DOCUSATE 100 MG CAP PO SCH (08:23)
[2022-06-02] MEDS: PANTOPRAZOLE 40 MG TABLET PO SCH (08:23)
[2022-06-02] MEDS: METOPROLOL SUCCINATE (ER) 25 MG TAB.ER.24H PO SCH (08:23)
[2022-06-02] MEDS: CALCIUM CARB-VIT D 500 MG-5 MCG TAB PO SCH (08:23)
[2022-06-02] MEDS: MIDODRINE 5 MG TAB PO SCH ×3 (08:23→13:50)
[2022-06-02] MEDS: GABAPENTIN 300 MG CAP PO SCH ×2 (08:29→13:51)
--- NOTE | 2022-06-02 08:35 | P.PN ---
Subjective Patient is seen in follow-up for acute kidney injury on chronic kidney disease and metabolic alkalosis. She's currently on torsemide and also Diamox. Resting in bed. Denies chest pain or shortness of breath. Has a Garcia catheter for retention. Urine output about 500 mL overnight. Vital signs are stable. General: Resting in bed. HEENT: Head exam is unremarkable. On nasal cannula. LUNGS: Breath sounds decreased. HEART: Rate and Rhythm are regular. ABDOMEN: Soft, obese. EXTREMITITES: 2+ edema. Objective - Vital Signs Vital signs: Vital Signs Temp 98.1 F 06/02/22 07:21 Pulse 60 06/02/22 07:21 Resp 16 06/02/22 07:21 BP 138/63 06/02/22 07:21 Pulse Ox 97 06/02/22 07:21 FiO2 Intake & Output 06/01/22 06/02/22 06/02/22 18:59 06:59 18:59 Output Total 175 450 Balance -175 -450 Output: Urine 175 450 Other: Voiding Method Indwelling Catheter Indwelling Catheter - Labs CBC & Chem 7: 05/31/22 06:05 06/01/22 04:49 Labs: Abnormal Lab Results - Last 24 Hours (Table) 06/01/22 06/01/22 06/01/22 Range/Units 04:49 11:38 16:56 Chloride 91 L (96-109) mmol/L Carbon Dioxide 41.0 H* (20.0-27.5) mmol/L Anion Gap 9.00 L (10.00-18.00) mmol/L BUN 78.0 H (9.0-27.0) mg/dL Creatinine 3.4 H (0.6-1.5) mg/dL Est GFR (CKD-EPI)AfAm 14.4 L (60.0-200.0) Est GFR (CKD-EPI)NonAf 12.5 L (60.0-200.0) BUN/Creatinine Ratio 22.94 H (12.00-20.00) Ratio Glucose 174 H (70-110) mg/dL POC Glucose (mg/dL) 210 H 154 H (70-110) mg/dL 06/01/22 06/02/22 Range/Units 19:56 06:44 Chloride (96-109) mmol/L Carbon Dioxide (20.0-27.5) mmol/L Anion Gap (10.00-18.00) mmol/L BUN (9.0-27.0) mg/dL Creatinine (0.6-1.5) mg/dL Est GFR (CKD-EPI)AfAm (60.0-200.0) Est GFR (CKD-EPI)NonAf (60.0-200.0) BUN/Creatinine Ratio (12.00-20.00) Ratio Glucose (70-110) mg/dL POC Glucose (mg/dL) 179 H 170 H (70-110) mg/dL Assessment and Plan Plan: Assessment: 1. Acute kidney injury secondary to hemodynamic ATN and cardiorenal syndrome. Creatinine 3.4 yesterday. 2. Chronic kidney disease stage IV with baseline creatinine in the range of 2.5-2.7 secondary to nephrosclerosis and cardiorenal syndrome. Last seen in the office in 2019. 3. Urinary retention. On Flomax. Has a Garcia catheter. 4. Hypernatremia from lack of full water intake and diuresis. Status post D5W. Improved. 5. Acute on chronic systolic CHF with ejection fraction of 45-50% with moderate mitral regurgitation, tricuspid regurgitation and severe pulmonary hypertension. 6. Volume overload. 7. Metabolic alkalosis secondary to diuresis and compensatory for underlying chronic respiratory acidosis. 8. Diabetes mellitus. Plan: Maintain torsemide. Maintain Diamox. Add Flomax. Plan for trial of void in 5-7 days at [facility]. Morning labs pending. Follow-up outpatient in 1 week post discharge.
[2022-06-02] MEDS ORDERED: TAMSULOSIN 0.4 MG CAP.ER.24H PO SCH (08:45)
[2022-06-02] MEDS ORDERED: acetaZOLAMIDE 250 MG TAB PO SCH (09:00)
[2022-06-02] MEDS ORDERED: TORSEMIDE 20 MG TAB PO SCH (09:00)
[2022-06-02 09:08] LABS: Basophils # (A) 0.03 X 10*3/uL (0.00-0.10); Basophils % (A) 0.5 %; Eosinophils # (A) 0.36 X 10*3/uL (0.04-0.35); Eosinophils % (A) 5.7 %; HCT 30.4 % (37.2-46.3); HGB 9.4 g/dL (12.0-15.0); Immature Grans, Automated 0.3 %; Lymphocytes # (A) 0.99 X 10*3/uL (0.90-5.00); Lymphocytes % (A) 15.6 %; MCH 34.1 pg (27.0-32.0); MCHC 30.9 g/dL (32.0-37.0); MCV 110.1 fL (80.0-97.0); Mean Platelet Volume 12.8 fL (9.5-12.2); Monocytes # (A) 0.82 X 10*3/uL (0.20-1.00); Monocytes % (A) 12.9 %; NRBC Per 100 WBC 0 /100 WBCS (0.0-0.0); Neutrophils # (A) 4.12 X 10*3/uL (1.80-7.70); Platelet Count 140 X 10*3/uL (140-440); RBC 2.76 X 10*6/uL (4.10-5.20); WBC 6.34 X 10*3/uL (4.50-10.00)
[2022-06-02 09:27] LABS: Magnesium 2.7 mg/dL (1.5-2.4)
[2022-06-02 09:30] LABS: Anion Gap 10.5 mmol/L (10.00-18.00); BUN/Creat Ratio 22.64 Ratio (12.00-20.00); Blood Urea Nitrogen 74.7 mg/dL (9.0-27.0); Calcium 9.1 mg/dL (8.7-10.3); Carbon Dioxide 40.5 mmol/L (20.0-27.5); Non-African American GFR(CKD) 12.9 (60.0-200.0); Potassium 4.2 mmol/L (3.5-5.5)
--- NOTE | 2022-06-02 10:29 | P.PN ---
Subjective Progress Note Date: 06/02/22 76-year-old female patient is less for altered mentation and worsening shortness of breath. She was also found to have an acute on top of chronic kidney failure. For that reason the patient was admitted. I was asked to evaluate the patient. The chest x-ray is consistent with CHF and fluid overload. Note that the patient has already stage IV kidney disease, chronic. She is resting comfortably in bed. She has increased fluid and edema in lower oximetry is bilaterally. No chest pain. Cardiac rhythm is irregular consistent with atrial flutter. She is on no anticoagulants for now. She is on 2 L of oxygen by nasal cannula. Blood work was reviewed and the patient's hemoglobin is at 10.7. The platelet count is at 134 with a white cell count of 4.2. Sodium is at 141 with a potassium level of 4.6, serum bicarbonate 45 with a BUN of 36 and a creatinine of 3.2 and a GFR of 13. Rest of the electrolytes are all stable. The pro calcitonin level was at 0.17. UA was essentially nonspecific with 7 WBCs. No other acute abnormalities have been noted. Rest of the electrodes are stable. Serum bicarbs elevated chronically at the level of 45. The computed tomography scan of the chest shows chronic periventricular white matter ischemic changes. 05/31/2022, the patient is resting comfortably in bed. No new complaints. She is morbidly obese features currently being diuresed with IV Bumex. She has cardiomyopathy. She has also fluid overload. Repeat blood work from today shows a sodium level of 47 with a potassium level of 4.2 and a chloride of 92 with a BUN of 40. The patient also has a 77 with a creatinine of 3.5. The patient has a white cell count of 4.8 with hemoglobin 9.8 and platelet count of 137. The fluid balance is -100 mL over the past 24 hours and the patient con tinues to have increased edema in lower extremity bilaterally. May benefit from nephrology consultation. The patient has been on Bumex 1 mg every 12 hours and the patient is also on Zaroxolyn 5 mg by mouth daily. The patient is seen today 06/01/2022 in follow-up on the regular medical floor. She is currently resting fairly comfortably in bed. Awake and alert in no acute distress. Doing better today. She is maintaining good O2 saturations in the 90s on 2 L/m per nasal cannula. Echocardiogram revealed mildly impaired left ventricular systolic function with ejection fraction 45-50%. Severe pulmonary hypertension with right ventricular systolic pressure of 99.4 mmHg. Severe tricuspid regurgitation. Moderate mitral regurgitation. Sodium 141. Potassium 4.2. Bicarb 41. BUN 78. Creatinine 3.14. Glucose 174. Bumex and Zaroxolyn discontinued per nephrology. The patient did have one episode of hypoxemia early this morning., Recovered and back on 2 L nasal cannula. Patient is seen today 06/02/2022 in follow-up on the regular medical floor. She is sitting up in bed. Awake and alert in no acute distress. She is maintaining good O2 saturations in the 90s on 2 L/m per nasal cannula. She's been afebrile. Hemodynamically stable. White count 6.3. Hemoglobin 9.4. Weight was 140. Sodium 142. Potassium 4.2. Bicarb 41. BUN 75. Creatinine 3.3. Glucose 151. Nephrology is on the case. She remains on Diamox, Demadex. Heparin for DVT prophylaxis. Objective - Vital Signs Vital signs: Vital Signs Temp 98.1 F 06/02/22 07:21 Pulse 60 06/02/22 07:21 Resp 16 06/02/22 07:21 BP 138/63 06/02/22 07:21 Pulse Ox 97 06/02/22 07:21 FiO2 Intake & Output 06/01/22 06/02/22 06/02/22 18:59 06:59 18:59 Output Total 175 450 Balance -175 -450 Output: Urine 175 450 Other: Voiding Method Indwelling Catheter Indwelling Catheter Indwelling Catheter - Exam Alert pleasant 76-year-old female patient. No acute distress, oriented 3. She is able to rest comfortably in bed. No acute respiratory distress. She is not using excessive muscle breathing. The patient's currently on 2 L of oxygen by nasal cannula. The patient is morbidly obese with a body mass index of 50.8 Head exam was generally normal. There was no scleral icterus or corneal arcus. Mucous membranes were moist. Neck supple. Full range of motion. No adenopathy thyromegaly or neck vein distention. Cardiovascular examination reveals regular rhythm rate. S1-S2 normal. No S3 or S4. No discernible murmur noted. Lungs reveal diminished breath sounds. His a few scattered crackles at the bases more so on the right. No wheezes. Diminished in the right lung base .Abdomen soft bowel sounds are heard. No masses or tenderness. Patient is morbidly obese. The rest of the organs cannot be accurately palpated. Extremities there is +1 pitting edema and chronic venous stasis changes with hyperpigmentation. Lower extremities are sore to touch. No cyanosis or clubbing at this point. Skin changes as above. The patient has some candidal changes under her abdominal apron and breast folds Neurologic examination is brief but nonfocal. The patient is moving all 4 extremities without any limitation. Gait cannot be assessed. - Labs CBC & Chem 7: 06/02/22 03:27 06/02/22 03:27 Labs: Abnormal Lab Results - Last 24 Hours (Table) 06/01/22 06/01/22 06/01/22 Range/Units 11:38 16:56 19:56 RBC (4.10-5.20) X 10*6/uL Hgb (12.0-15.0) g/dL Hct (37.2-46.3) % MCV (80.0-97.0) fL MCH (27.0-32.0) pg MCHC (32.0-37.0) g/dL RDW (11.5-14.5) % MPV (9.5-12.2) fL Eosinophils # (0.04-0.35) X 10*3/uL Chloride (96-109) mmol/L Carbon Dioxide (20.0-27.5) mmol/L BUN (9.0-27.0) mg/dL Creatinine (0.6-1.5) mg/dL Est GFR (CKD-EPI)AfAm (60.0-200.0) Est GFR (CKD-EPI)NonAf (60.0-200.0) BUN/Creatinine Ratio (12.00-20.00) Ratio Glucose (70-110) mg/dL POC Glucose (mg/dL) 210 H 154 H 179 H (70-110) mg/dL Magnesium (1.5-2.4) mg/dL 06/02/22 06/02/22 06/02/22 Range/Units 03:27 03:27 06:44 RBC 2.76 L (4.10-5.20) X 10*6/uL Hgb 9.4 L (12.0-15.0) g/dL Hct 30.4 L (37.2-46.3) % MCV 110.1 H (80.0-97.0) fL MCH 34.1 H (27.0-32.0) pg MCHC 30.9 L (32.0-37.0) g/dL RDW 15.0 H (11.5-14.5) % MPV 12.8 H (9.5-12.2) fL Eosinophils # 0.36 H (0.04-0.35) X 10*3/uL Chloride 91 L (96-109) mmol/L Carbon Dioxide 40.5 H* (20.0-27.5) mmol/L BUN 74.7 H (9.0-27.0) mg/dL Creatinine 3.3 H (0.6-1.5) mg/dL Est GFR (CKD-EPI)AfAm 15.0 L (60.0-200.0) Est GFR (CKD-EPI)NonAf 12.9 L (60.0-200.0) BUN/Creatinine Ratio 22.64 H (12.00-20.00) Ratio Glucose 151 H (70-110) mg/dL POC Glucose (mg/dL) 170 H (70-110) mg/dL Magnesium 2.7 H (1.5-2.4) mg/dL Assessment and Plan Assessment: Chronic dyspnea with a component of fluid overload due to her comorbidities specifically her chronic heart failure which includes an ejection fraction of 45-50 %, severe pulmonary hypertension, and chronic kidney disease which is currently stage IV -V . No signs of any superinfection at this point in time. Patient is currently on oral Bumex and Diamox Chronic atrial fibrillation /flutter rate controlled and the patient is currently on no anticoagulants Congestive heart failure, with impaired LV function with an ejection fraction of 45% Chronic hypoxic and hypercapnic respiratory failure. The hypercapnic respiratory failure due to morbid obesity and restrictive lung disease, severe pulmonary hypertension and the patient is also on oxygen at 2 L per minute nasal cannula Acute on chronic kidney disease, creatinine essentially stable Diabetes mellitus Hypertension Hypothyroidism, currently on Synthroid 125 g elevated basis. 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 Anemia of chronic disease, able to stable at 9.7 Chronic metabolic alkalosis , As the patient is known to have chronic hypercapnic respiratory failure and the metabolic acidosis compensatory. Chronic small lateral pleural effusions Plan: The patient was seen and evaluated Labs and medications reviewed Currently stable from the pulmonary standpoint We will see the patient as needed I have personally seen and examined the patient, performed the documentation and the assessment and plan as written. Number of minutes spent on the visit: 10.
[2022-06-02 11:35] LABS: Glucose,Whole Blood 146 mg/dL (70-110)
--- NOTE | 2022-06-02 11:44 | P.DS ---
Providers Date of admission: 06/01/22 09:34 Attending physician: Marlon Escalona Consults: 05/29/22 17:31 Consult Physician Routine Consulting Provider: Glenys Jones Consult Reason/Comments: hypercarbia Do you want consulting provider notified?: Yes 05/31/22 12:15 Consult Physician Routine Consulting Provider: Jerod Mello Consult Reason/Comments: chronic kidney disease Do you want consulting provider notified?: Yes 06/01/22 08:40 Consult Physician Routine Consulting Provider: Chase Anguiano Consult Reason/Comments: CHF, poor EF Do you want consulting provider notified?: Yes Primary care physician: Physician Nonstaff Hospital Course: diagnoses: Altered mental status, metabolic encephalopathy multifactorial secondary to CO2 narcosis versus CHF, worsening creatinine, versus others. resolved Prominent pulmonary vasculature mostly secondary to acute on chronic systolic CHF with ejection fraction 25-30% Mild acute kidney injury secondary to overdiuresis chronic kidney disease stage IV Diabetes mellitus Hypertension Atrial fibrillation Chronic diastolic CHF Chronic pleural effusion Obesity Chronic kidney disease, stage III Congestive hepatopathy Morbid obesity with BMI of 50.8 hospital course: This is a pleasant 76 years old female with past medical history of hypothyroidism, depression, diabetes mellitus, anemia, atrial fibrillation, chronic diastolic heart failure, chronic pleural effusion, obesity, chronic kidney disease, congestive hepatopathy secondary to congestive heart failure. As per documentation, Patient sent in by [facility] for AMS and possible kidney failure Patient today is awake and alert, she is telling me [place], and she was not sure why she came to the hospital. Patient has been evaluated by pulmonary, communication center operator and processor helper, she received free water and also she needed diuretics so she was placed on torsemide and Diamox Garcia catheter was discontinued and patient will need to monitor her postvoid residual on bladder scan. Bladder scan checked in the hospital looks okay. Also patient started on Flomax. Patient is back to baseline and she denies any other symptoms. She was cleared for discharge by all consultants including communication center operator, pouncing lathe operator and processor helper Patient needs close outpatient follow-up with processor helper given her advanced kidney disease Problems and management plan were discussed with the patient and he verbalized understanding and acceptance Patient was found stable and can be discharged halfway in [facility] prognosis however he needs follow-up as an outpatient. Patient was instructed to follow up with PCP within one week and patient agrees Patient will need to follow up with processor helper Dr. Pérez in one week after discharge, patient is informed and she agrees Also patient may benefit from pulmonary and cardiology follow-up as an outpatient in 1-2 weeks Physical exam Gen: patient is a AAOx2-3, no distress CVS: S1-S2, RRR, no murmur Lungs: B/L CTA, no wheezing Abdomen: soft, no distention, no tenderness, positive bowel sounds Extremity: no leg edema or induration Time spent more than 35 minutes Patient Condition at Discharge: Fair Plan - Discharge Summary New Discharge Prescriptions: No Action Sertraline [Zoloft] 50 mg PO HS Montelukast [Singulair] 10 mg PO HS Levothyroxine Sodium [Synthroid] 137 mcg PO DAILY@0630 tab metOLazone [Zaroxolyn] 5 mg PO DAILY tab polyethylene glycoL 3350 [Miralax] 17 gm PO DAILY PRN PRN Reason: Constipation Ipratropium-Albuterol Nebulize [Duoneb 0.5 mg-3 mg/3 ml Soln] 3 ml INHALATION RT-TID PRN PRN Reason: Shortness Of Breath bisacodyL 10 mg RECTAL DAILY PRN PRN Reason: Constipation INSULIN ASPART (NovoLOG) [NovoLOG (formulary)] 3 unit SQ TID@0700,1200,1700 Gabapentin [Neurontin] 300 mg PO TID@0700,1300,1900 Torsemide [Demadex] 20 mg PO DAILY Ferrous Sulfate [Iron (65 MG Elemental)] 325 mg PO HS Aspirin 81 mg PO HS Omeprazole 20 mg PO DAILY Mag Hydrox/Aluminum Hyd/Simeth [Mylanta Maximum Strength Liq] 30 ml PO Q6H PRN PRN Reason: Gi Upset Docusate Sodium [Dok] 100 mg PO BID Metoprolol Succinate (ER) [Toprol Xl] 12.5 mg PO DAILY Insulin Glargine,Hum.rec.anlog [Insulin Glargine] 15 units SQ HS Cholecalciferol [Vitamin D3 (25 Mcg = 1000 Iu)] 50 mcg PO DAILY Calcium Carbonate/Vitamin D3 [Calcium 600 mg-Vit D3 5 mcg (200 unit)] 1 tab PO DAILY@0700 Discharge Medication List Ferrous Sulfate [Iron (65 MG Elemental)] 325 mg PO HS 04/23/21 [History] Montelukast [Singulair] 10 mg PO HS 04/23/21 [History] Sertraline [Zoloft] 50 mg PO HS 04/23/21 [History] Levothyroxine Sodium [Synthroid] 137 mcg PO DAILY@0630 tab 04/28/21 [Rx] Aspirin 81 mg PO HS 05/17/21 [History] Omeprazole 20 mg PO DAILY 05/17/21 [History] metOLazone [Zaroxolyn] 5 mg PO DAILY tab 05/22/21 [Rx] Calcium Carbonate/Vitamin D3 [Calcium 600 mg-Vit D3 5 mcg (200 unit)] 1 tab PO DAILY@0700 05/29/22 [History] Cholecalciferol [Vitamin D3 (25 Mcg = 1000 Iu)] 50 mcg PO DAILY 05/29/22 [History] Docusate Sodium [Dok] 100 mg PO BID 05/29/22 [History] Gabapentin [Neurontin] 300 mg PO TID@0700,1300,1900 05/29/22 [History] INSULIN ASPART (NovoLOG) [NovoLOG (formulary)] 3 unit SQ TID@0700,1200,1700 05/29/22 [History] Insulin Glargine,Hum.rec.anlog [Insulin Glargine] 15 units SQ HS 05/29/22 [History] Ipratropium-Albuterol Nebulize [Duoneb 0.5 mg-3 mg/3 ml Soln] 3 ml INHALATION RT-TID PRN 05/29/22 [History] Mag Hydrox/Aluminum Hyd/Simeth [Mylanta Maximum Strength Liq] 30 ml PO Q6H PRN 05/29/22 [History] Metoprolol Succinate (ER) [Toprol Xl] 12.5 mg PO DAILY 05/29/22 [History] Torsemide [Demadex] 20 mg PO DAILY 05/29/22 [History] bisacodyL 10 mg RECTAL DAILY PRN 05/29/22 [History] polyethylene glycoL 3350 [Miralax] 17 gm PO DAILY PRN 05/29/22 [History] Follow up Appointment(s)/Referral(s): Nonstaff,Physician [Primary Care Provider] - 1-2 days
[2022-06-02 13:45] VITALS: BP 133/72; PULSE 67; RESP 18; TEMP 97.9
== END 2022-06-02 15:15 | DRG 291 ==
LOC: EC 14:55 → 6NMEDSUR 17:31 → OBSVTOIN 06-01 09:34
PROVIDERS: ADMIT Hospitalist; ATTEND Hospitalist
DX: I13.0 Hypertensive heart and chronic kidney disease with heart failure and stage 1 through stage 4 chronic kidney disease, or unspecified chronic kidney disease (principal); G93.41 Metabolic encephalopathy; N17.0 Acute kidney failure with tubular necrosis; I50.43 Acute on chronic combined systolic (congestive) and diastolic (congestive) heart failure; E87.0 Hyperosmolality and hypernatremia; E87.1 Hypo-osmolality and hyponatremia; E87.4 Mixed disorder of acid-base balance; I48.21 Permanent atrial fibrillation; R00.1 Bradycardia, unspecified; I48.92 Unspecified atrial flutter; J96.11 Chronic respiratory failure with hypoxia; J96.12 Chronic respiratory failure with hypercapnia; N18.4 Chronic kidney disease, stage 4 (severe); Z68.43 Body mass index [BMI] 50.0-59.9, adult; R62.7 Adult failure to thrive; T50.2X5A Adverse effect of carbonic-anhydrase inhibitors, benzothiadiazides and other diuretics, initial encounter; D63.8 Anemia in other chronic diseases classified elsewhere; D69.6 Thrombocytopenia, unspecified; E03.9 Hypothyroidism, unspecified; E11.42 Type 2 diabetes mellitus with diabetic polyneuropathy; I37.1 Nonrheumatic pulmonary valve insufficiency; E11.22 Type 2 diabetes mellitus with diabetic chronic kidney disease; E66.01 Morbid (severe) obesity due to excess calories; E78.5 Hyperlipidemia, unspecified; Z87.891 Personal history of nicotine dependence; I08.1 Rheumatic disorders of both mitral and tricuspid valves; R33.8 Other retention of urine; I27.20 Pulmonary hypertension, unspecified; I42.8 Other cardiomyopathies; J98.4 Other disorders of lung; K76.1 Chronic passive congestion of liver; Z74.01 Bed confinement status; Z79.4 Long term (current) use of insulin; Z79.82 Long term (current) use of aspirin; Z79.890 Hormone replacement therapy; Z79.899 Other long term (current) drug therapy; Z99.81 Dependence on supplemental oxygen; Z85.828 Personal history of other malignant neoplasm of skin; Z88.8 Allergy status to other drugs, medicaments and biological substances; Z88.0 Allergy status to penicillin; Z98.51 Tubal ligation status
CPT/HCPCS: 36415; 36600; 51701; 70450; 71045; 80048; 80053; 80076; 81001; 82805; 83605; 83735; 83880; 84100; 84145; 85025; 93005; 93306; 94640; 94760; 99285